=== PATIENT | female | born 1960 | race American Indian/Alaskan Native ===

== ENCOUNTER 2016-08-09 02:48 | Emergency (ER) | payer MEDICAID, OTHER ==
[2016-08-09 03:01] VITALS: BP 118/60
--- NOTE | 2016-08-09 03:06 | EDM.PDOC ---
ED HPI Trauma - General Chief Complaint: Upper Extremity Injury/Pain Stated Complaint: SHOULDER IS PAINFUL, [id number] Time Seen by Provider: 08/09/16 03:06 Source: Reports: Patient History Limitations: Reports: No limitations - History of Present Illness INITIAL COMMENTS - FREE TEXT/NARRATIVE: 55 yo [place] Female c/o muscle cramp to upper back early this AM. Pt. denies trauma. Pt. does take Lisinopril Symptom Onset Date: 08/09/16 Symptom Onset Time: 01:00 Occurred When: this morning Occurred Where: home Severity: moderate Pain/Injury Location: Reports: back Consciousness: Reports: no loss of consciousness Associated Symptoms: Reports: no other symptoms Allergies/ADRs: Allergies No Known Allergies Allergy (Verified 08/09/16 02:58) Home Medications: Ambulatory Orders Aspirin [Halfprin] 81 mg PO DAILY 03/12/14 [Confirmed 08/09/16] Lisinopril 10 mg PO BID 03/12/14 [Confirmed 08/09/16] NIFEdipine [Nifedical XL] 30 mg PO DAILY 03/12/14 [Confirmed 08/09/16] Docusate Sodium/Sennosides [Senna Plus] 1 tab PO BID 08/09/16 [Confirmed ] Levothyroxine [Synthroid] 50 mcg PO ACBREAKFAST 08/09/16 [Confirmed 08/09/16] Social & Family History - Tobacco Use Smoking Status *Q: Never Smoker Years of Tobacco use: 30 Second Hand Smoke Exposure: No - Caffeine Use Caffeine Use: Reports: Coffee - Alcohol Use Days Per Week of Alcohol Use: 1 Number of Drinks Per Day: 2 Total Drinks Per Week: 2 - Recreational Drug Use Recreational Drug Use: No - Living Situation & Occupation Living situation: Reports: with family Review of Systems - Review of Systems Review Of Systems: See Below Constitutional: Reports: no symptoms Eyes: Reports: no symptoms Ears: Reports: no symptoms Nose: Reports: no symptoms Mouth/Throat: Reports: no symptoms Respiratory: Reports: No Symptoms Cardiovascular: Reports: no symptoms GI/Abdominal: Reports: No symptoms Genitourinary: Reports: no symptoms Musculoskeletal: Reports: back pain (upper back on left), muscle pain Skin: Reports: no symptoms Neurological: Reports: No Symptoms Psychiatric: Reports: no symptoms Trauma Exam - Physical Exam Exam: See Below Exam Limited By: No limitations General Appearance: Reports: alert, no apparent distress, obese Head: Reports: atraumatic Eyes: bilateral eye: EOMI Ears: Reports: normal external exam Nose: Reports: normal inspection Throat/Mouth: Reports: Normal inspection Neck: Reports: non-tender, full range of motion Respiratory Exam: Reports: no respiratory distress, lungs clear, normal breath sounds Cardiovascular: Reports: normal peripheral pulses, regular rate, rhythm GI/Abdominal: Reports: normal bowel sounds, soft Back: Reports: other (tenderness to left scapula muscle area) Extremities: Reports: no evidence of injury, normal range of motion 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, no motor/sensory deficits, alert , normal mood/affect, oriented x 3 Skin: Reports: Normal color, Warm/dry Course - Vital Signs Last Recorded V/S: Last Vital Signs Temp 35.7 C 08/09/16 02:58 Pulse 85 08/09/16 02:58 Resp 16 08/09/16 02:58 BP 118/60 08/09/16 02:58 Pulse Ox 98 08/09/16 02:58 - Orders/Labs/Meds Meds: Medications Discontinued Medications Generic Name Dose Route Start Last Admin Trade Name Yasmin PRN Reason Stop Dose Admin Gabapentin 400 mg 08/09/16 03:07 08/09/16 03:23 Neurontin PO 08/09/16 03:08 400 mg ONETIME ONE Administration Magnesium Oxide 250 mg 08/09/16 03:08 08/09/16 03:23 Magnesium Oxide PO 08/09/16 03:09 250 mg STAT ONE Administration Departure - Departure Time of Disposition: 03:41 Disposition: Home, Self-Care 01 Condition: good Clinical Impression: Muscle cramp Forms: ED Department Discharge Additional Instructions: Increase intake of WATER - [place] is to drink 1/2 your body weight in ounces , = 150 ounces/day Take Daily Multivitamin Take Daily Magnesium 250mg Take the Neurontin 300mg TID # 15 as needed F/U w/ your Doctor
[2016-08-09] MEDS ORDERED: Gabapentin 400 MG Cap PO ONE (03:07)
== END 2016-08-09 03:49 | disposition home or self-care (01) ==
LOC: DL.ED 02:48
DX: R25.2 Cramp and spasm (principal); M62.830 Muscle spasm of back; Z79.899 Other long term (current) drug therapy
CPT/HCPCS: 99283; A9270

== ENCOUNTER 2016-12-06 09:05 | Emergency (ER) | payer MEDICAID ==
[2016-12-06] MEDS ORDERED: Sodium Chloride 0.9% 10 ML Syringe FLUSH PRN (09:31)
[2016-12-06] MEDS ORDERED: methylPREDNISolone Sodium Succinate 125 MG/2 ML SDV IVPUSH ONE (09:32)
[2016-12-06] MEDS ORDERED: Albuterol/Ipratropium 3.0-0.5 MG/3 ML Neb Soln NEB ONE ×2 (09:32→10:09)
[2016-12-06] MEDS ORDERED: Codeine/Promethazine 10-6.25 MG/5 ML Syrup 5 ML UD Cup PO ONE (09:33)
[2016-12-06 10:06] LABS: CHLORIDE,CL 101 mmol/L (101-111); SODIUM,NA 140 mmol/L (135-145)
[2016-12-06] MEDS ORDERED: LORazepam 2 MG/ML Syringe IVPUSH ONE (10:09)
--- NOTE | 2016-12-06 10:38 | EDM.PDOC ---
Scribed by Coni Rizvi 12/06/16 1033 for Nicko Salvador MD ED HPI GENERAL MEDICAL PROBLEM - General Chief Complaint: Respiratory Problem Stated Complaint: [id number] SOB Time Seen by Provider: 12/06/16 09:11 Source of Information: Reports: Patient, RN, RN Notes Reviewed History Limitations: Reports: No Limitations - History of Present Illness INITIAL COMMENTS - FREE TEXT/NARRATIVE: Patient complains of several days of worsening cough. This morning patient woke with wheezing. She has a nebulizer at home but has only used it 3 times since she began coughing. Quality: Reports: Ache Severity: Severe Improves with: Reports: None Worsens with: Reports: None Associated Symptoms: Reports: No Other Symptoms - Related Data Allergies Allergy/AdvReac Type Severity Reaction Status Date / Time No Known Allergies Allergy Verified 12/06/16 09:12 Home Meds: Home Meds Aspirin [Halfprin] 81 mg PO DAILY 03/12/14 [History] Lisinopril 10 mg PO BID 03/12/14 [History] NIFEdipine [Nifedical XL] 30 mg PO DAILY 03/12/14 [History] Docusate Sodium/Sennosides [Senna Plus] 1 tab PO BID 08/09/16 [History] Levothyroxine [Synthroid] 50 mcg PO ACBREAKFAST 08/09/16 [History] Past Medical History HEENT History: Reports: None Cardiovascular History: Reports: Hypertension Respiratory History: Reports: None Gastrointestinal History: Reports: None Genitourinary History: Reports: None 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 Musculoskeletal History: Reports: Other (See Below) Other Musculoskeletal History: knee problems Neurological History: Reports: None Psychiatric History: Reports: None Endocrine/Metabolic History: Reports: None Hematologic History: Reports: None Immunologic History: Reports: None Oncologic (Cancer) History: Reports: None Dermatologic History: Reports: None Social & Family History - Tobacco Use Smoking Status *Q: Never Smoker Years of Tobacco use: 30 Second Hand Smoke Exposure: No - Caffeine Use Caffeine Use: Reports: Coffee - Alcohol Use Days Per Week of Alcohol Use: 1 Number of Drinks Per Day: 2 Total Drinks Per Week: 2 - Recreational Drug Use Recreational Drug Use: No - Living Situation & Occupation Living situation: Reports: with Family ED ROS GENERAL - Review of Systems Review Of Systems: ROS reveals no pertinent complaints other than HPI. ED EXAM, GENERAL - Physical Exam Exam: See Below Exam Limited By: No Limitations General Appearance: Alert, WD/WN, No Apparent Distress, Obese Eye Exam: Bilateral Eye: Normal Inspection Ears: Normal External Exam, Normal Canal, Hearing Grossly Normal, Normal TMs Nose: Normal Inspection, Normal Mucosa, No Blood Throat/Mouth: Normal Inspection, Normal Lips, Normal Teeth, Normal Gums, Normal Oropharynx, Normal Voice, No Airway Compromise Head: Atraumatic, Normocephalic Neck: Normal Inspection, Supple, Non-Tender, Full Range of Motion Respiratory/Chest: Other (Cough, bilateral inspiratory/expiratory wheezes. ) Cardiovascular: Normal Peripheral Pulses, Regular Rate, Rhythm, No Edema, No Gallop, No JVD, No Murmur, No Rub GI/Abdominal: Other (benign obese abdomen) (Female) Exam: Deferred Rectal (Female) Exam: Deferred Back Exam: Normal Inspection, Full Range of Motion, NT Extremities: Normal Inspection, Normal Range of Motion, Non-Tender, Normal Capillary Refill, No Pedal Edema Neurological: Alert, Oriented, CN II-XII Intact, Normal Cognition, Normal Gait, Normal Reflexes, No Motor/Sensory Deficits Psychiatric: Anxious Skin Exam: Warm, Dry, Intact, Normal Color, No Rash Lymphatic: No Adenopathy Course - Vital Signs Last Recorded V/S: Last Vital Signs Temp 36.6 C 12/06/16 09:12 Pulse 93 12/06/16 10:24 Resp 28 H 12/06/16 10:24 BP 111/78 12/06/16 10:24 Pulse Ox 100 12/06/16 10:24 - Orders/Labs/Meds Orders: Active Orders 24 hr Category Date Time Status Peripheral IV Care [RC] . DIRECTED Care 12/06/16 09:31 Active RT Aerosol Therapy [RC] ASDIRECTED Care 12/06/16 09:32 Active RT Aerosol Therapy [RC] ASDIRECTED Care 12/06/16 10:09 Active Chest 2V [CR] Stat Exams 12/06/16 09:31 Taken Sodium Chloride 0.9% [Saline Flush] Med 12/06/16 09:31 Active 10 ml FLUSH ASDIRECTED PRN Peripheral IV Insertion Adult [OM.PC] Stat Oth 12/06/16 09:31 Ordered Medication Orders Sodium Chloride (Saline Flush) 10 ml FLUSH ASDIRECTED PRN PRN Reason: Keep Vein Open Last Admin: 12/06/16 09:38 Dose: 10 ml Labs: Laboratory Tests 12/06/16 12/06/16 Range/Units 09:42 09:42 WBC 5.0 (5.0-10.0) 10^3/uL RBC 3.54 L (4.2-5.4) 10^6/uL Hgb 12.1 (12.0-16.0) g/dL Hct 36.6 L (37.0-47.0) % MCV 103.4 H (80-100) fL MCH 34.2 H (27.0-34.0) pg MCHC 33.1 (33.0-35.0) g/dL Plt Count 53 L (150-450) 10^3/uL Neut % (Auto) 70.8 (42.2-75.2) % Lymph % (Auto) 18.8 L (20.5-50.1) % [place] % (Auto) 8.0 (2-8) % Eos % (Auto) 2.2 (1.0-3.0) % Baso % (Auto) 0.2 (0.0-1.0) % Sodium 140 (135-145) mmol/L Potassium 3.6 (3.6-5.0) mmol/L Chloride 101 (101-111) mmol/L Carbon Dioxide 16.0 L (21.0-31.0) mmol/L Anion Gap 26.6 BUN 8 (7-18) mg/dL Creatinine 0.5 L (0.6-1.3) mg/dL Est Cr Clr Drug Dosing 129.75 mL/min Estimated GFR (MDRD) > 60 BUN/Creatinine Ratio 16.00 Glucose 111 H (74-105) mg/dL Calcium 8.6 (8.4-10.2) mg/dl Total Bilirubin 1.4 H (0.2-1.0) mg/dL AST 101 H (10-42) IU/L ALT 36 (10-60) IU/L Alkaline Phosphatase 146 H (42-121) IU/L Total Protein 7.3 (6.7-8.2) g/dl Albumin 3.5 (3.2-5.5) g/dl Globulin 3.8 Albumin/Globulin Ratio 0.92 Meds: Medications Generic Name Dose Route Start Last Admin Trade Name Yasmin PRN Reason Stop Dose Admin Sodium Chloride 10 ml 12/06/16 09:31 12/06/16 09:38 Saline Flush FLUSH 10 ml ASDIRECTED PRN Administration Keep Vein Open Discontinued Medications Generic Name Dose Route Start Last Admin Trade Name Yasmin PRN Reason Stop Dose Admin Albuterol/Ipratropium 3 ml 12/06/16 09:32 12/06/16 09:38 Duoneb 3.0-0.5 Mg/3 Ml NEB 12/06/16 09:33 3 ml ONETIME ONE Administration Albuterol/Ipratropium 3 ml 12/06/16 10:09 12/06/16 10:22 Duoneb 3.0-0.5 Mg/3 Ml NEB 12/06/16 10:10 3 ml ONETIME ONE Administration Lorazepam 1 mg 12/06/16 10:09 12/06/16 10:22 Ativan IVPUSH 12/06/16 10:10 1 mg ONETIME ONE Administration Methylprednisolone Sodium Succinate 125 mg 12/06/16 09:32 12/06/16 09:38 Solu-Medrol IVPUSH 12/06/16 09:33 125 mg ONETIME ONE Administration Promethazine HCl/Codeine 10 ml 12/06/16 09:33 12/06/16 09:38 Phenergan With Codeine PO 12/06/16 09:34 10 ml ONETIME ONE Administration - Radiology Interpretation Free Text/Narrative:: Chest x-ray: No acute process. See rad report. Departure - Departure Time of Disposition: 10:30 Disposition: Home, Self-Care 01 Condition: Good Clinical Impression: Acute bronchitis, Bronchospasm, RAD (reactive airway disease), Anxiety - Discharge Information Instructions: Acute Bronchitis, Ktfr-[id number], Bronchospasm, Adult, Oudq-[id number] , Panic Attacks, Khla-[id number] Forms: ED Department Discharge Additional Instructions: RX: Prednisone 20mg. RX: Albuterol nebulizer solution. RX: Tessalon Perles 200mg. RX: Ativan 1mg. Follow up in clinic in 3 to 5 days for recheck. Return to ER if worse at any time. I have read and agree with the documentation that has been completed regarding this visit. By signing this record, I attest that the documentation was completed in my physical presence and is an accurate record of the encounter.
[2016-12-06 10:47] VITALS: BP 115/58
== END 2016-12-06 10:50 | disposition home or self-care (01) ==
LOC: DL.ED 09:05
DX: J20.9 Acute bronchitis, unspecified (principal); F41.9 Anxiety disorder, unspecified; I10 Essential (primary) hypertension; Z79.82 Long term (current) use of aspirin; Z79.899 Other long term (current) drug therapy
CPT/HCPCS: 36415; 71020; 80053; 85025; 94640; 96374; 96375; 99285; A9270; J2060; J2930; J7050

== ENCOUNTER 2018-01-11 07:01 | Day surgery (SDC) | payer MEDICAID ==
[~2018-01-11 07:01] MED LIST: Midazolam 1 MG/ML 2 ML SDV ONE; fentaNYL 100 MCG/2 ML SDV ONE
[2018-01-11] MEDS ORDERED: fentaNYL 100 MCG/2 ML SDV IV ONE (07:02)
[2018-01-11] MEDS ORDERED: Midazolam 1 MG/ML 2 ML SDV IV ONE (07:02)
[2018-01-11] MEDS: Dextrose 5%-0.45% NaCl 1,000 ML IV SCH (07:42)
[2018-01-11] MEDS: fentaNYL 100 MCG/2 ML SDV IV ONE ×2 (07:52)
[2018-01-11] MEDS: Midazolam 1 MG/ML 2 ML SDV IV ONE ×6 (07:53→08:03)
[2018-01-11] MEDS: Sodium Chloride 0.9% 1,000 ML IV SCH (08:02)
--- NOTE | 2018-01-11 08:36 | OR ---
DATE: 01/11/2018 PROCEDURE: Total colonoscopy. INSTRUMENT USED: PCF-H180 AL Olympus video colonoscope. PREMEDICATIONS: Fentanyl 100 mcg intravenous, Versed 4 mg intravenous. Nasal O2 cannula. The procedure was done under pulse oximetry, BP recording, and personnel monitor. INDICATION: The patient with positive FIT. Colonoscopic examination is done for detection of any polypoid lesions and removal. Endoscopic hemostasis therapy if needed. DESCRIPTION OF PROCEDURE: Initial rectal exam was unremarkable. Rigid anoscopy was normal. The colonoscope was passed with ease up to the ileocecal area. Photographs were taken of the cecum identified by double-bulged ileocecal folds. No bleeding was noted from any of the visualized areas at the commencement of the examination. There was a large amount of liquid and some solid fecal material that had to be aspirated. No stricture. No vascular ectasia. No large isolated ulcerations seen. No evidence of diffuse inflammatory bowel disease in the form of friability, contact bleeding, or ulcerations. No polyp or tumor mass identified. Probing the proximal sides of folds and flexures, using adequate distention and clearing up the stool material, withdrawal of the scope was made. Pimui-od-mzmoga time over 6 minutes. No bleeding was noted from any of the visualized areas at the completion of examination. IMPRESSION: Normal study. The patient tolerated the procedure well. [facility] /[id number]
[2018-01-11 11:02] VITALS: BP 113/47
== END 2018-01-11 10:15 | disposition home or self-care (01) ==
LOC: DL.ENDO 07:01
PROVIDERS: ATTEND Internal Medicine Gastroenterology
DX: R19.5 Other fecal abnormalities (principal); D64.9 Anemia, unspecified; E03.9 Hypothyroidism, unspecified; D69.6 Thrombocytopenia, unspecified; K76.9 Liver disease, unspecified; E66.09 Other obesity due to excess calories; Z68.41 Body mass index [BMI] 40.0-44.9, adult
CPT/HCPCS: J2250; J3010; J7030; J7042

== ENCOUNTER 2018-01-26 03:34 | Emergency (ER) | payer MEDICAID ==
[2018-01-26 03:54] VITALS: BP 112/51
[2018-01-26] MEDS ORDERED: Sodium Chloride 0.9% 1,000 ML IV ONE (03:58)
[2018-01-26 05:19] LABS: ANION GAP 10.3
--- NOTE | 2018-01-26 06:11 | EDM.PDOC ---
ED HPI GENERAL MEDICAL PROBLEM - General Chief Complaint: General Stated Complaint: SICK [id number] Time Seen by Provider: 01/26/18 03:45 Source of Information: Reports: Patient, Family History Limitations: Reports: No Limitations - History of Present Illness INITIAL COMMENTS - FREE TEXT/NARRATIVE: ED with vague c/o of not feeling well, Does not readily identify specific symptom that brought her to ED. Relays hx of "not feeling well and subsequently had EGD, CT abdomen and colonoscopy. Is scheduled for MRI at 815 this am. Stated she did not feel she could wait that long to find out what is wrong. Stated she has had intermittent periods of abdominal discomfort and washed out feeling, dizzy when stands for long periods for approximately 10 weeks. Patient eventually able to identify that it was waking and feeling lightheaded that she came to ED tonight. Review of Chart from colonoscopy no acute findings, CT abdomen demonstrated abnormal gallbladder, diverticuli without diverticulitis. - Related Data Allergies Allergy/AdvReac Type Severity Reaction Status Date / Time No Known Allergies Allergy Verified 12/06/16 09:12 Home Meds: Home Meds Aspirin [Halfprin] 81 mg PO DAILY 03/12/14 [History] Lisinopril 10 mg PO BID 03/12/14 [History] NIFEdipine [Nifedical XL] 30 mg PO DAILY 03/12/14 [History] Levothyroxine [Synthroid] 50 mcg PO ACBREAKFAST 08/09/16 [History] Levothyroxine 12.5 mg PO DAILY 01/10/18 [History] Vit No.129/Iron/FA [ One Daily Tablet] 1 tab PO DAILY 01/10/18 [History] Omeprazole 20 mg PO DAILY 01/11/18 [History] Past Medical History HEENT History: Reports: None Cardiovascular History: Reports: Hypertension Respiratory History: Reports: None Gastrointestinal History: Reports: GERD, Other (See Below) Other Gastrointestinal History: chronic liver disease Genitourinary History: Reports: Other (See Below) Other Genitourinary History: bladder issues 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 Musculoskeletal History: Reports: Other (See Below) Other Musculoskeletal History: knee problems Neurological History: Reports: None Psychiatric History: Reports: Panic Attack Endocrine/Metabolic History: Reports: None Hematologic History: Reports: Other (See Below) Other Hematologic History: thrombocytopenia Immunologic History: Reports: None Oncologic (Cancer) History: Reports: None Dermatologic History: Reports: None - Infectious Disease History Infectious Disease History: Reports: None - Past Surgical History Head Surgeries/Procedures: Reports: None Cardiovascular Surgical History: Reports: None Respiratory Surgical History: Reports: None GI Surgical History: Reports: None Female Surgical History: Reports: Section Neurological Surgical History: Reports: None Social & Family History - Family History Family Medical History: Noncontributory - Tobacco Use Smoking Status *Q: Never Smoker - Caffeine Use Caffeine Use: Reports: None - Recreational Drug Use Recreational Drug Use: No - Living Situation & Occupation Living situation: Reports: with Family ED ROS GENERAL - Review of Systems Review Of Systems: ROS reveals no pertinent complaints other than HPI. ED EXAM, GENERAL - Physical Exam Exam: See Below Exam Limited By: No Limitations General Appearance: Alert, Anxious, Mild Distress, Obese Eye Exam: Bilateral Eye: EOMI, PERRL Ears: Normal External Exam, Normal TMs Nose: Normal Inspection Throat/Mouth: Normal Inspection Head: Atraumatic, Normocephalic Neck: Normal Inspection, Non-Tender, Full Range of Motion. No: Lymphadenopathy (L), Lymphadenopathy (R) Respiratory/Chest: No Respiratory Distress, Lungs Clear, Normal Breath Sounds Cardiovascular: Normal Peripheral Pulses, Regular Rate, Rhythm GI/Abdominal: Normal Bowel Sounds, Soft, Tender (mild RUQ) Back Exam: Normal Inspection, Full Range of Motion. No: CVA Tenderness (L), CVA Tenderness (R) Neurological: Alert, Oriented Psychiatric: Anxious Skin Exam: Warm, Dry, Intact, Normal Color Course - Vital Signs Last Recorded V/S: Last Vital Signs Temp 97.9 F 01/26/18 03:43 Pulse 103 H 01/26/18 03:43 Resp 22 H 01/26/18 03:43 BP 112/51 L 01/26/18 03:43 Pulse Ox 100 01/26/18 03:43 Orthostatic Blood Pressure [ 119/55 Standing] Orthostatic Blood Pressure [ 110/54 Sitting] Orthostatic Blood Pressure [ 105/35 Supine] - Orders/Labs/Meds Orders: Active Orders 24 hr Category Date Time Status EKG Documentation Completion [RC] URGENT Care 01/26/18 04:10 Active CULTURE BLOOD [BC] Stat Lab 01/26/18 04:10 Received Labs: Laboratory Tests 09/26/18 09/26/18 09/26/18 Range/Units 04:10 04:41 04:41 WBC 5.5 (5.0-10.0) 10^3/uL RBC 2.98 L (4.2-5.4) 10^6/uL Hgb 9.5 L D (12.0-16.0) g/dL Hct 28.5 L (37.0-47.0) % MCV 95.6 D (80-100) fL MCH 31.9 (27.0-34.0) pg MCHC 33.3 (33.0-35.0) g/dL Plt Count 81 L (150-450) 10^3/uL Neut % (Auto) 35.8 L (42.2-75.2) % Lymph % (Auto) 48.5 (20.5-50.1) % [place] % (Auto) 10.2 H (2-8) % Eos % (Auto) 5.1 H (1.0-3.0) % Baso % (Auto) 0.4 (0.0-1.0) % Sodium 140 (135-145) mmol/L Potassium 4.3 (3.6-5.0) mmol/L Chloride 111 (101-111) mmol/L Carbon Dioxide 23.0 (21.0-31.0) mmol/L Anion Gap 10.3 BUN 17 (7-18) mg/dL Creatinine 1.1 (0.6-1.3) mg/dL Est Cr Clr Drug Dosing 58.29 mL/min Estimated GFR (MDRD) 52 BUN/Creatinine Ratio 15.45 Glucose 123 H (74-105) mg/dL Lactic Acid 1.7 (0.5-2.2) mmol/L Calcium 9.2 (8.4-10.2) mg/dl Total Bilirubin 3.1 H (0.2-1.0) mg/dL AST 47 H (10-42) IU/L ALT 28 (10-60) IU/L Alkaline Phosphatase 131 H (42-121) IU/L Troponin I (0.00-0.02) ng/ml Total Protein 6.8 (6.7-8.2) g/dl Albumin 3.0 L (3.2-5.5) g/dl Globulin 3.8 Albumin/Globulin Ratio 0.79 Amylase 162 H (28-100) U/L Lipase 50 (22-51) U/L TSH, Ultra Sensitive (0.45-5.33) uIu/mL 01/26/18 01/26/18 Range/Units 04:41 04:41 WBC (5.0-10.0) 10^3/uL RBC (4.2-5.4) 10^6/uL Hgb (12.0-16.0) g/dL Hct (37.0-47.0) % MCV (80-100) fL MCH (27.0-34.0) pg MCHC (33.0-35.0) g/dL Plt Count (150-450) 10^3/uL Neut % (Auto) (42.2-75.2) % Lymph % (Auto) (20.5-50.1) % [place] % (Auto) (2-8) % Eos % (Auto) (1.0-3.0) % Baso % (Auto) (0.0-1.0) % Sodium (135-145) mmol/L Potassium (3.6-5.0) mmol/L Chloride (101-111) mmol/L Carbon Dioxide (21.0-31.0) mmol/L Anion Gap BUN (7-18) mg/dL Creatinine (0.6-1.3) mg/dL Est Cr Clr Drug Dosing mL/min Estimated GFR (MDRD) BUN/Creatinine Ratio Glucose (74-105) mg/dL Lactic Acid (0.5-2.2) mmol/L Calcium (8.4-10.2) mg/dl Total Bilirubin (0.2-1.0) mg/dL AST (10-42) IU/L ALT (10-60) IU/L Alkaline Phosphatase (42-121) IU/L Troponin I < 0.02 (0.00-0.02) ng/ml Total Protein (6.7-8.2) g/dl Albumin (3.2-5.5) g/dl Globulin Albumin/Globulin Ratio Amylase (28-100) U/L Lipase (22-51) U/L TSH, Ultra Sensitive 2.37 (0.45-5.33) uIu/mL Meds: Medications Discontinued Medications Generic Name Dose Route Start Last Admin Trade Name Freq PRN Reason Stop Dose Admin Sodium Chloride 1,000 mls @ 250 mls/hr 01/26/18 03:58 01/26/18 04:15 Normal Saline IV 01/26/18 07:57 250 mls/hr .BOLUS ONE Administration Departure - Departure Time of Disposition: 07:10 Disposition: Home, Self-Care 01 Condition: Fair Clinical Impression: Anxiety, Malaise, History of gallbladder disease Anemia Qualifiers: Anemia type: unspecified type Qualified Code(s): D64.9 - Anemia, unspecified Obesity Qualifiers: Obesity type: unspecified obesity type Obesity classification: adult class 3 ( BMI >= 40) Serious obesity comorbidity presence: unspecified whether serious comorbidity present Body mass index: BMI 40.0-44.9 Qualified Code(s): E66.01 - Morbid (severe) obesity due to excess calories; Z68.41 - Body mass index (BMI) 40.0-44.9, adult - Discharge Information *PRESCRIPTION DRUG MONITORING PROGRAM REVIEWED*: Not Applicable (gallbladder) Instructions: Gallbladder Eating Plan Forms: ED Department Discharge Additional Instructions: MRI as scheduled Follow up with - My Orders Last 24 Hours: My Active Orders 01/26/18 04:10 EKG Documentation Completion [RC] URGENT CULTURE BLOOD [BC] Stat - Assessment/Plan Last 24 Hours: My Active Orders 01/26/18 04:10 EKG Documentation Completion [RC] URGENT CULTURE BLOOD [BC] Stat
== END 2018-01-26 07:31 | disposition home or self-care (01) ==
LOC: DL.ED 03:34
DX: R53.81 Other malaise (principal); F41.9 Anxiety disorder, unspecified; D64.9 Anemia, unspecified; I10 Essential (primary) hypertension; E66.01 Morbid (severe) obesity due to excess calories; Z68.41 Body mass index [BMI] 40.0-44.9, adult; Z79.82 Long term (current) use of aspirin; Z79.899 Other long term (current) drug therapy
CPT/HCPCS: 36415; 80053; 82150; 82272; 83605; 83690; 84443; 84484; 85025; 87040; 93005; 96360; 96361; 99284; J7030

== ENCOUNTER 2018-02-02 20:45 | Emergency (ER) | payer MEDICAID ==
--- NOTE | 2018-02-02 20:47 | EDM.PDOC ---
ED HPI GENERAL MEDICAL PROBLEM - General Stated Complaint: ABDOMINAL PAIN Time Seen by Provider: 02/02/18 20:47 Source of Information: Reports: Patient, Family, RN, RN Notes Reviewed - History of Present Illness INITIAL COMMENTS - FREE TEXT/NARRATIVE: Pt to ER with c/o RUQ pain through to the back. She and her states she has had problems with ongoing RUQ pain. She has recently had an EGD and colonoscopy, CT of the abdomen/pelvis, and MRI of the abdomen/pelvis. Today she had a liver biopsy. After the liver biopsy procedure, the patient had a CT of the abdomen without contrast to assess for bleeding. This CT was negative for bleeding, and showed only diseased gallbladder with developing gallstone/ biliary concretion. Patient is crying out in pain and rates the pain a 10/10. Patient states she feels as though "something is going to explode". Her states that she has been chilling today. Onset: Today, Sudden Right Upper Abdominal Pain Score (Numeric/FACES): 10 - Related Data Allergies Allergy/AdvReac Type Severity Reaction Status Date / Time No Known Allergies Allergy Verified 12/06/16 09:12 Home Meds: Home Meds Aspirin [Halfprin] 81 mg PO DAILY 03/12/14 [History] Lisinopril 10 mg PO BID 03/12/14 [History] NIFEdipine [Nifedical XL] 30 mg PO DAILY 03/12/14 [History] Levothyroxine [Synthroid] 50 mcg PO ACBREAKFAST 08/09/16 [History] Levothyroxine 12.5 mg PO DAILY 01/10/18 [History] Omeprazole 20 mg PO DAILY 01/11/18 [History] Albuterol Sulfate [Proventil Hfa] 2 puff INH ASDIRECTED PRN 02/02/18 [History] Meloxicam 15 mg PO DAILY 02/02/18 [History] Sennosides/Docusate Sodium [Senna-S] 1 tab PO DAILY 02/02/18 [History] hydrOXYzine HCl [hydrOXYzine] 25 mg PO TID PRN 02/02/18 [History] Past Medical History HEENT History: Reports: None Cardiovascular History: Reports: Hypertension Respiratory History: Reports: None Gastrointestinal History: Reports: GERD, Other (See Below) Other Gastrointestinal History: chronic liver disease Genitourinary History: Reports: Other (See Below) Other Genitourinary History: bladder issues 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 Musculoskeletal History: Reports: Other (See Below) Other Musculoskeletal History: knee problems Neurological History: Reports: None Psychiatric History: Reports: Panic Attack Endocrine/Metabolic History: Reports: None Hematologic History: Reports: Other (See Below) Other Hematologic History: thrombocytopenia Immunologic History: Reports: None Oncologic (Cancer) History: Reports: None Dermatologic History: Reports: None - Infectious Disease History Infectious Disease History: Reports: None - Past Surgical History Head Surgeries/Procedures: Reports: None Cardiovascular Surgical History: Reports: None Respiratory Surgical History: Reports: None GI Surgical History: Reports: None Female Surgical History: Reports: Section Neurological Surgical History: Reports: None Social & Family History - Family History Family Medical History: Noncontributory - Caffeine Use Caffeine Use: Reports: None - Living Situation & Occupation Living situation: Reports: with Family ED ROS GENERAL - Review of Systems Review Of Systems: ROS reveals no pertinent complaints other than HPI. ED EXAM, GI/ABD - Physical Exam Exam: See Below Exam Limited By: Other (severe abdominal pain) General Appearance: Alert, WD/WN, Moderate Distress Eyes: Bilateral: Normal Appearance, EOMI Ears: Normal External Exam, Hearing Grossly Normal Nose: Normal Inspection Throat/Mouth: Normal Inspection, Normal Voice, No Airway Compromise Head: Atraumatic, Normocephalic Neck: Normal Inspection, Supple, Non-Tender, Full Range of Motion Respiratory/Chest: No Respiratory Distress, Lungs Clear, Normal Breath Sounds, No Accessory Muscle Use, Chest Non-Tender Cardiovascular: Normal Peripheral Pulses, Regular Rate, Rhythm, No Edema, No Gallop, No JVD, No Murmur, No Rub GI/Abdominal Exam: Normal Bowel Sounds, Soft, Tender (Patient will not let the abdomen be touched for assessment) (Female) Exam: Deferred Rectal (Female) Exam: Deferred Back Exam: Normal Inspection, Full Range of Motion Extremities: Normal Inspection, Normal Range of Motion, Non-Tender, No Pedal Edema, Normal Capillary Refill Neurological: Alert, Oriented, Normal Cognition, No Motor/Sensory Deficits Psychiatric: Anxious, Tearful, Other (Crying out) Skin Exam: Warm, Dry, Intact, Normal Color, No Rash, Wound/Incision (Clean dressing covering the incisional site of biopsy. No drainage noted) Lymphatic: No Adenopathy Course - Vital Signs Last Recorded V/S: Last Vital Signs Temp 98.5 F 02/02/18 21:56 Pulse 99 02/02/18 21:56 Resp 20 02/02/18 21:56 BP 116/78 02/02/18 21:56 Pulse Ox 99 02/02/18 21:56 - Orders/Labs/Meds Orders: Active Orders 24 hr Category Date Time Status Peripheral IV Care [RC] . DIRECTED Care 02/02/18 20:59 Active Abdomen Pelvis w Cont [CT] Urgent Exams 02/02/18 22:35 Taken DRUG SCREEN URINE BIORAD [URCHEM] Stat Lab 02/02/18 20:58 Ordered UA W/MICROSCOPIC [URIN] Stat Lab 02/02/18 20:58 Ordered Sodium Chloride 0.9% [Saline Flush] Med 02/02/18 20:58 Active 10 ml FLUSH ASDIRECTED PRN Peripheral IV Insertion Adult [OM.PC] Stat Oth 02/02/18 20:58 Ordered Medication Orders Sodium Chloride (Saline Flush) 10 ml FLUSH ASDIRECTED PRN PRN Reason: Keep Vein Open Last Admin: 02/02/18 21:14 Dose: 10 ml Labs: Laboratory Tests 02/02/18 02/02/18 02/02/18 Range/Units 20:58 20:58 20:58 WBC 9.3 (5.0-10.0) 10^3/uL RBC 2.87 L (4.2-5.4) 10^6/uL Hgb 9.1 L (12.0-16.0) g/dL Hct 27.3 L (37.0-47.0) % MCV 95.1 (80-100) fL MCH 31.7 (27.0-34.0) pg MCHC 33.3 (33.0-35.0) g/dL Plt Count 70 L (150-450) 10^3/uL Neut % (Auto) 71.2 (42.2-75.2) % Lymph % (Auto) 19.7 L (20.5-50.1) % [place] % (Auto) 7.4 (2-8) % Eos % (Auto) 1.6 (1.0-3.0) % Baso % (Auto) 0.1 (0.0-1.0) % PT 13.0 H (9.0-12.0) SEC INR 1.3 H (0.9-1.2) Sodium 139 (135-145) mmol/L Potassium 4.0 (3.6-5.0) mmol/L Chloride 108 (101-111) mmol/L Carbon Dioxide 23.0 (21.0-31.0) mmol/L Anion Gap 12.0 BUN 19 H (7-18) mg/dL Creatinine 0.8 (0.6-1.3) mg/dL Est Cr Clr Drug Dosing 80.15 mL/min Estimated GFR (MDRD) > 60 BUN/Creatinine Ratio 23.75 Glucose 112 H (74-105) mg/dL Lactic Acid (0.5-2.2) mmol/L Calcium 9.0 (8.4-10.2) mg/dl Total Bilirubin 3.5 H (0.2-1.0) mg/dL AST 65 H (10-42) IU/L ALT 33 (10-60) IU/L Alkaline Phosphatase 157 H (42-121) IU/L Total Protein 6.8 (6.7-8.2) g/dl Albumin 3.0 L (3.2-5.5) g/dl Globulin 3.8 Albumin/Globulin Ratio 0.79 Amylase 140 H (28-100) U/L Lipase 57 H (22-51) U/L Ethyl Alcohol < 5 mg/dL 02/02/18 Range/Units 20:58 WBC (5.0-10.0) 10^3/uL RBC (4.2-5.4) 10^6/uL Hgb (12.0-16.0) g/dL Hct (37.0-47.0) % MCV (80-100) fL MCH (27.0-34.0) pg MCHC (33.0-35.0) g/dL Plt Count (150-450) 10^3/uL Neut % (Auto) (42.2-75.2) % Lymph % (Auto) (20.5-50.1) % [place] % (Auto) (2-8) % Eos % (Auto) (1.0-3.0) % Baso % (Auto) (0.0-1.0) % PT (9.0-12.0) SEC INR (0.9-1.2) Sodium (135-145) mmol/L Potassium (3.6-5.0) mmol/L Chloride (101-111) mmol/L Carbon Dioxide (21.0-31.0) mmol/L Anion Gap BUN (7-18) mg/dL Creatinine (0.6-1.3) mg/dL Est Cr Clr Drug Dosing mL/min Estimated GFR (MDRD) BUN/Creatinine Ratio Glucose (74-105) mg/dL Lactic Acid 1.7 (0.5-2.2) mmol/L Calcium (8.4-10.2) mg/dl Total Bilirubin (0.2-1.0) mg/dL AST (10-42) IU/L ALT (10-60) IU/L Alkaline Phosphatase (42-121) IU/L Total Protein (6.7-8.2) g/dl Albumin (3.2-5.5) g/dl Globulin Albumin/Globulin Ratio Amylase (28-100) U/L Lipase (22-51) U/L Ethyl Alcohol mg/dL Meds: Medications Generic Name Dose Route Start Last Admin Trade Name Freq PRN Reason Stop Dose Admin Sodium Chloride 10 ml 02/02/18 20:58 02/02/18 21:14 Saline Flush FLUSH 10 ml ASDIRECTED PRN Administration Keep Vein Open Discontinued Medications Generic Name Dose Route Start Last Admin Trade Name Freq PRN Reason Stop Dose Admin Hydromorphone HCl 0.5 mg 02/02/18 21:01 02/02/18 21:12 Dilaudid IVPUSH 02/02/18 21:02 0.5 mg ONETIME ONE Administration Iopamidol 100 ml 02/02/18 22:36 Isovue-300 (61%) IVPUSH 02/02/18 22:37 ONETIME ONE - Radiology Interpretation Free Text/Narrative:: CT Abdomen/Pelvis: IMPRESSION: 1. Gallbladder distention but no definite gallstones or pericholecystic inflammation 2. No evidence for any hepatic hematoma 3. Small amount of free fluid in the pelvis. 4. Sigmoid diverticulosis but no evidence for diverticulitis Thank you for allowing us to participate in the care of your patient. Dictated and Authenticated by: Ricki Lindsey MD 02/02/2018 11:42 PM Central Time ([place] & [place]) See rad report Departure - Departure Time of Disposition: 23:50 Disposition: Home, Self-Care 01 Condition: Fair Clinical Impression: Abdominal pain Qualifiers: Abdominal location: generalized Qualified Code(s): R10.84 - Generalized abdominal pain - Discharge Information *PRESCRIPTION DRUG MONITORING PROGRAM REVIEWED*: No *COPY OF PRESCRIPTION DRUG MONITORING REPORT IN PATIENT FIDELINA: No Instructions: Abdominal Pain, Adult, [id number] Referrals: Jesse Olivares MD [Primary Care Provider] - Forms: ED Department Discharge Additional Instructions: Follow up with your primary care facility - My Orders Last 24 Hours: My Active Orders 02/02/18 20:58 DRUG SCREEN URINE BIORAD [URCHEM] Stat UA W/MICROSCOPIC [URIN] Stat Sodium Chloride 0.9% [Saline Flush] 10 ml FLUSH ASDIRECTED PRN Peripheral IV Insertion Adult [OM.PC] Stat 02/02/18 20:59 Peripheral IV Care [RC] . DIRECTED 02/02/18 22:35 Abdomen Pelvis w Cont [CT] Urgent - Assessment/Plan Last 24 Hours: My Active Orders 02/02/18 20:58 DRUG SCREEN URINE BIORAD [URCHEM] Stat UA W/MICROSCOPIC [URIN] Stat Sodium Chloride 0.9% [Saline Flush] 10 ml FLUSH ASDIRECTED PRN Peripheral IV Insertion Adult [OM.PC] Stat 02/02/18 20:59 Peripheral IV Care [RC] . DIRECTED 02/02/18 22:35 Abdomen Pelvis w Cont [CT] Urgent
[2018-02-02] MEDS: HYDROmorphone 0.5 MG/0.5 ML Syringe IVPUSH ONE (21:12)
[2018-02-02] MEDS: Sodium Chloride 0.9% 10 ML Syringe FLUSH PRN (21:14)
[2018-02-02 21:22] LABS: CHLORIDE,CL 108 mmol/L (101-111); SODIUM,NA 139 mmol/L (135-145)
[2018-02-02 21:57] VITALS: BP 116/78
[2018-02-02] MEDS: Iopamidol 612 MG/ML 100 ML Bottle IVPUSH ONE (23:51)
== END 2018-02-02 23:56 | disposition home or self-care (01) ==
LOC: DL.ED 20:45
DX: R10.84 Generalized abdominal pain (principal); R10.11 Right upper quadrant pain; I10 Essential (primary) hypertension; Z79.899 Other long term (current) drug therapy; Z79.82 Long term (current) use of aspirin
CPT/HCPCS: 36415; 74177; 80053; 82150; 83605; 83690; 85025; 85610; 96374; 99284; G0480; J1170; J7050; Q9967

== ENCOUNTER 2018-07-28 13:08 | Emergency (ER) | payer MEDICAID ==
[2018-07-28 13:50] VITALS: BP 124/58
--- NOTE | 2018-07-28 15:09 | EDM.PDOC ---
<Mayuri Brewer - Last Filed: 07/28/18 15:09> ED HPI GENERAL MEDICAL PROBLEM - General Chief Complaint: Gastrointestinal Problem Stated Complaint: PAIN ON RT SIDE, BELOW RIB CAGE Time Seen by Provider: 07/28/18 15:09 Source of Information: Reports: Patient, Family, RN, RN Notes Reviewed History Limitations: Reports: No Limitations Right Abdomen Pain Score (Numeric/FACES): 9 - Related Data Allergies Allergy/AdvReac Type Severity Reaction Status Date / Time No Known Allergies Allergy Verified 07/28/18 13:58 Home Meds: Home Meds Aspirin [Halfprin] 81 mg PO DAILY 03/12/14 [History] NIFEdipine [Procardia XL] 30 mg PO DAILY 03/12/14 [History] Levothyroxine [Synthroid] 50 mcg PO DAILY 08/09/16 [History] Levothyroxine 12.5 mcg PO DAILY 01/10/18 [History] Omeprazole 20 mg PO BID 01/11/18 [History] Cholecalciferol (Vitamin D3) [Vitamin D3] 4,000 unit PO DAILY 04/09/18 [History] Mv-Min/Iron/Folic/Calcium/Vitk [Women's Multivitamin Tablet] 1 each PO DAILY 12/18 [History] Vitamin B Complex 1 each PO DAILY 04/09/18 [History] Lactulose [Cephulac] 20 gm PO QID #100 cup 04/12/18 [Rx] Spironolactone [Aldactone] 25 mg PO BID 07/28/18 [History] Past Medical History HEENT History: Reports: None Cardiovascular History: Reports: Hypertension Respiratory History: Reports: None Gastrointestinal History: Reports: Cirrhosis, GERD, Other (See Below) Other Gastrointestinal History: chronic liver disease Genitourinary History: Reports: Other (See Below) Other Genitourinary History: bladder issues 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 Musculoskeletal History: Reports: Other (See Below) Other Musculoskeletal History: knee problems Neurological History: Reports: None Psychiatric History: Reports: Panic Attack Endocrine/Metabolic History: Reports: Obesity/BMI 30+ Hematologic History: Reports: Other (See Below) Other Hematologic History: thrombocytopenia Immunologic History: Reports: None Oncologic (Cancer) History: Reports: None Dermatologic History: Reports: None - Infectious Disease History Infectious Disease History: Reports: None - Past Surgical History Head Surgeries/Procedures: Reports: None GI Surgical History: Reports: Colonoscopy, EGD, Other (See Below) Social & Family History - Family History Family Medical History: Noncontributory - Tobacco Use Smoking Status *Q: Never Smoker Second Hand Smoke Exposure: No - Caffeine Use Caffeine Use: Reports: None - Recreational Drug Use Recreational Drug Use: No - Living Situation & Occupation Living situation: Reports: with Family Course - Vital Signs Last Recorded V/S: Last Vital Signs Temp 35.9 C 07/28/18 13:49 Pulse 75 07/28/18 13:49 Resp 16 07/28/18 13:49 BP 124/58 L 07/28/18 13:49 Pulse Ox 100 07/28/18 13:49 - Orders/Labs/Meds Orders: Active Orders 24 hr Category Date Time Status Abdomen Pelvis w Cont [CT] Urgent Exams 07/28/18 16:30 Taken HCG QUALITATIVE,URINE [URCHEM] Stat Lab 07/28/18 15:38 Ordered UA RFX MALINDA AND CULT IF INDIC [URIN] Stat Lab 07/28/18 15:38 Ordered Acetaminophen/HYDROcodone [[place] 325-10 MG] Med 07/28/18 18:21 Once 1 tab PO ONETIME ONE Medication Orders Hydrocodone Bitart/Acetaminophen ([place] 325-10 Mg) 1 tab PO ONETIME ONE Stop: 07/28/18 18:22 Labs: Laboratory Tests 07/28/18 07/28/18 Range/Units 15:46 15:46 WBC 4.7 L (5.0-10.0) 10^3/uL RBC 3.97 L (4.2-5.4) 10^6/uL Hgb 12.3 D (12.0-16.0) g/dL Hct 35.8 L (37.0-47.0) % MCV 90.2 D (80-100) fL MCH 31.0 (27.0-34.0) pg MCHC 34.4 (33.0-35.0) g/dL Plt Count 92 L (150-450) 10^3/uL Neut % (Auto) 49.3 (42.2-75.2) % Lymph % (Auto) 36.8 (20.5-50.1) % [place] % (Auto) 10.1 H (2-8) % Eos % (Auto) 3.6 H (1.0-3.0) % Baso % (Auto) 0.2 (0.0-1.0) % Sodium 136 (135-145) mmol/L Potassium 3.8 (3.6-5.0) mmol/L Chloride 105 (101-111) mmol/L Carbon Dioxide 22.0 (21.0-31.0) mmol/L Anion Gap 12.8 BUN 15 (7-18) mg/dL Creatinine 0.7 (0.6-1.3) mg/dL Est Cr Clr Drug Dosing 91.60 mL/min Estimated GFR (MDRD) > 60 BUN/Creatinine Ratio 21.42 Glucose 113 H (74-105) mg/dL Calcium 9.4 (8.4-10.2) mg/dl Total Bilirubin 3.3 H (0.2-1.0) mg/dL AST 54 H (10-42) IU/L ALT 31 (10-60) IU/L Alkaline Phosphatase 132 H (42-121) IU/L Total Protein 7.5 (6.7-8.2) g/dl Albumin 3.2 (3.2-5.5) g/dl Globulin 4.3 Albumin/Globulin Ratio 0.74 Amylase 160 H (28-100) U/L Lipase 60 H (22-51) U/L Meds: Medications Generic Name Dose Route Start Last Admin Trade Name Freq PRN Reason Stop Dose Admin Hydrocodone Bitart/Acetaminophen 1 tab 07/28/18 18:21 [place] 325-10 Mg PO 07/28/18 18:22 ONETIME ONE Discontinued Medications Generic Name Dose Route Start Last Admin Trade Name Freq PRN Reason Stop Dose Admin Iopamidol 100 ml 07/28/18 16:30 07/28/18 16:34 Isovue-300 (61%) IVPUSH 07/28/18 16:31 100 ml ONETIME ONE Administration Departure - Departure Disposition: Home, Self-Care 01 Clinical Impression: Esophageal 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 Abdominal pain Qualifiers: Abdominal location: epigastric Qualified Code(s): R10.13 - Epigastric pain Pancreatitis Qualifiers: Chronicity: acute Pancreatitis type: biliary Acute pancreatitis complication: unspecified Qualified Code(s): K85.10 - Biliary acute pancreatitis without necrosis or infection - Discharge Information Instructions: Acute Pancreatitis, [id number] Forms: ED Department Discharge Additional Instructions: 1) no solid foods next 48 hours 2) have jello, broth, juice 3) follow up at clinic 4) recheck if there is any change or concern rx given; vicodin 5/325mg tid prn x 12 - My Orders Last 24 Hours: My Active Orders 07/28/18 15:38 HCG QUALITATIVE,URINE [URCHEM] Stat UA RFX MALINDA AND CULT IF INDIC [URIN] Stat 07/28/18 16:30 Abdomen Pelvis w Cont [CT] Urgent 07/28/18 18:21 Acetaminophen/HYDROcodone [[place] 325-10 MG] 1 tab PO ONETIME ONE - Assessment/Plan Last 24 Hours: My Active Orders 07/28/18 15:38 HCG QUALITATIVE,URINE [URCHEM] Stat UA RFX MALINDA AND CULT IF INDIC [URIN] Stat 07/28/18 16:30 Abdomen Pelvis w Cont [CT] Urgent 07/28/18 18:21 Acetaminophen/HYDROcodone [[place] 325-10 MG] 1 tab PO ONETIME ONE <Orestes Kiser - Last Filed: 07/28/18 18:24> ED HPI GENERAL MEDICAL PROBLEM - General Source of Information: Reports: Patient - History of Present Illness INITIAL COMMENTS - FREE TEXT/NARRATIVE: onset Sx last night and all day today. only had an apple today, pain on-off, denies N/V/D, had this before and had negative scope by Dr Isaac MENDEZ GENERAL - Review of Systems Review Of Systems: ROS reveals no pertinent complaints other than HPI. ED EXAM, GI/ABD - Physical Exam Exam: See Below Exam Limited By: No Limitations General Appearance: Alert, WD/WN, Mild Distress, Other (disocmfort) Ears: Hearing Grossly Normal Throat/Mouth: Normal Voice, No Airway Compromise Head: Atraumatic Neck: Non-Tender, Full Range of Motion Respiratory/Chest: No Respiratory Distress Cardiovascular: Regular Rate, Rhythm GI/Abdominal Exam: Soft, Tender, Other (RUQ region). No: Distended, Guarding, Rigid, Rebound Neurological: Alert, Oriented, Normal Cognition, Normal Gait, No Motor/Sensory Deficits Psychiatric: Flat Affect Skin Exam: Warm, Dry, Normal Color Lymphatic: No Adenopathy Course - Orders/Labs/Meds Labs: Laboratory Tests 07/28/18 07/28/18 Range/Units 15:46 15:46 WBC 4.7 L (5.0-10.0) 10^3/uL RBC 3.97 L (4.2-5.4) 10^6/uL Hgb 12.3 D (12.0-16.0) g/dL Hct 35.8 L (37.0-47.0) % MCV 90.2 D (80-100) fL MCH 31.0 (27.0-34.0) pg MCHC 34.4 (33.0-35.0) g/dL Plt Count 92 L (150-450) 10^3/uL Neut % (Auto) 49.3 (42.2-75.2) % Lymph % (Auto) 36.8 (20.5-50.1) % [place] % (Auto) 10.1 H (2-8) % Eos % (Auto) 3.6 H (1.0-3.0) % Baso % (Auto) 0.2 (0.0-1.0) % Sodium 136 (135-145) mmol/L Potassium 3.8 (3.6-5.0) mmol/L Chloride 105 (101-111) mmol/L Carbon Dioxide 22.0 (21.0-31.0) mmol/L Anion Gap 12.8 BUN 15 (7-18) mg/dL Creatinine 0.7 (0.6-1.3) mg/dL Est Cr Clr Drug Dosing 91.60 mL/min Estimated GFR (MDRD) > 60 BUN/Creatinine Ratio 21.42 Glucose 113 H (74-105) mg/dL Calcium 9.4 (8.4-10.2) mg/dl Total Bilirubin 3.3 H (0.2-1.0) mg/dL AST 54 H (10-42) IU/L ALT 31 (10-60) IU/L Alkaline Phosphatase 132 H (42-121) IU/L Total Protein 7.5 (6.7-8.2) g/dl Albumin 3.2 (3.2-5.5) g/dl Globulin 4.3 Albumin/Globulin Ratio 0.74 Amylase 160 H (28-100) U/L Lipase 60 H (22-51) U/L Meds: Medications Generic Name Dose Route Start Last Admin Trade Name Freq PRN Reason Stop Dose Admin Hydrocodone Bitart/Acetaminophen 1 tab 07/28/18 18:21 [place] 325-10 Mg PO 07/28/18 18:22 ONETIME ONE Discontinued Medications Generic Name Dose Route Start Last Admin Trade Name Yasmin PRN Reason Stop Dose Admin Iopamidol 100 ml 07/28/18 16:30 07/28/18 16:34 Isovue-300 (61%) IVPUSH 07/28/18 16:31 100 ml ONETIME ONE Administration - Re-Assessments/Exams Free Text/Narrative Re-Assessment/Exam: 07/28/18 18:21 results discussed with pt who is feeling somewhat better now, states no longer drink. Departure - Departure Time of Disposition: 18:22 Condition: Fair
[2018-07-28 16:18] LABS: ANION GAP 12.8; CHLORIDE,CL 105 mmol/L (101-111); SODIUM,NA 136 mmol/L (135-145)
[2018-07-28] MEDS ORDERED: Iopamidol 612 MG/ML 100 ML Bottle IVPUSH ONE (16:30)
[2018-07-28] MEDS ORDERED: Acetaminophen/HYDROcodone 325-10 MG Tab PO ONE (18:21)
== END 2018-07-28 18:38 | disposition home or self-care (01) ==
LOC: DL.ED 13:08
DX: K74.60 Unspecified cirrhosis of liver (principal); I85.10 Secondary esophageal varices without bleeding; K85.10 Biliary acute pancreatitis without necrosis or infection; I10 Essential (primary) hypertension; K21.9 Gastro-esophageal reflux disease without esophagitis; Z79.82 Long term (current) use of aspirin; Z79.899 Other long term (current) drug therapy
CPT/HCPCS: 36415; 74177; 80053; 81001; 81025; 82150; 83690; 85025; 99284; A9270; Q9967

== ENCOUNTER 2018-12-29 00:39 | Emergency (ER) | payer MEDICAID ==
[2018-12-29] MEDS ORDERED: Amoxicillin 500 MG Cap PO ONE (00:40)
[2018-12-29] MEDS ORDERED: Ibuprofen 600 MG Tab PO ONE (00:40)
[2018-12-29 01:08] VITALS: BP 119/73
--- NOTE | 2018-12-29 01:22 | EDM.PDOC ---
ED HPI GENERAL MEDICAL PROBLEM - General Chief Complaint: ENT Problem Stated Complaint: LEFT EAR, EAR ACHE AND INFECTED Time Seen by Provider: 12/29/18 01:10 Source of Information: Reports: Patient History Limitations: Reports: No Limitations - History of Present Illness INITIAL COMMENTS - FREE TEXT/NARRATIVE: Ambulatory to ED c/o left ear pain since yesterday, no fever. No nausea or vomiting. Advil one time at 11am. 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 Left Ear Pain Score (Numeric/FACES): 8 - Related Data Allergies Allergy/AdvReac Type Severity Reaction Status Date / Time No Known Allergies Allergy Verified 12/29/18 01:08 Home Meds: Home Meds Aspirin [Halfprin] 81 mg PO DAILY 03/12/14 [History] NIFEdipine [Procardia XL] 30 mg PO DAILY 03/12/14 [History] Levothyroxine [Synthroid] 50 mcg PO DAILY 08/09/16 [History] Levothyroxine 12.5 mcg PO DAILY 01/10/18 [History] Omeprazole 20 mg PO BID 01/11/18 [History] Cholecalciferol (Vitamin D3) [Vitamin D3] 4,000 unit PO DAILY 04/09/18 [History] Mv-Min/Iron/Folic/Calcium/Vitk [Women's Multivitamin Tablet] 1 each PO DAILY 12/18 [History] Vitamin B Complex 1 each PO DAILY 04/09/18 [History] Spironolactone [Aldactone] 25 mg PO BID 07/28/18 [History] Lactulose [Cephulac] 30 gm PO QID #100 cup 11/08/18 [Rx] Sennosides [Senna] 1 tab PO BEDTIME #30 tab 11/08/18 [Rx] Past Medical History HEENT History: Reports: None Cardiovascular History: Reports: Heart Murmur, Hypertension Respiratory History: Reports: None Gastrointestinal History: Reports: Cirrhosis, GERD, Hepatitis, Other (See Below) Other Gastrointestinal History: chronic liver disease Genitourinary History: Reports: Other (See Below) Other Genitourinary History: bladder issues 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 Musculoskeletal History: Reports: Other (See Below) Other Musculoskeletal History: knee problems Neurological History: Reports: None Psychiatric History: Reports: Panic Attack Endocrine/Metabolic History: Reports: Obesity/BMI 30+ Hematologic History: Reports: Other (See Below) Other Hematologic History: thrombocytopenia Immunologic History: Reports: None Oncologic (Cancer) History: Reports: None Dermatologic History: Reports: None - Infectious Disease History Infectious Disease History: Reports: None - Past Surgical History Head Surgeries/Procedures: Reports: None HEENT Surgical History: Reports: None Cardiovascular Surgical History: Reports: None Respiratory Surgical History: Reports: None GI Surgical History: Reports: Colonoscopy, EGD, Other (See Below) Social & Family History - Family History Family Medical History: Noncontributory - Tobacco Use Smoking Status *Q: Never Smoker Second Hand Smoke Exposure: No - Caffeine Use Caffeine Use: Reports: Coffee, Soda - Recreational Drug Use Recreational Drug Use: No - Living Situation & Occupation Living situation: Reports: with Family ED ROS ENT - Review of Systems Review Of Systems: ROS reveals no pertinent complaints other than HPI. ED EXAM, ENT - Physical Exam Exam: See Below Exam Limited By: No Limitations General Appearance: Alert, Anxious, Mild Distress Eye Exam: Bilateral Eye: EOMI Ears: Normal External Exam, Normal Canal, Hearing Grossly Normal, TM Erythema ( left), Other (mild effusion Left) Nose: Normal Inspection, Normal Mucousa Mouth/Throat: Normal Inspection, Normal Oropharynx Neck: Normal Inspection Respiratory/Chest: No Respiratory Distress, Lungs Clear, Normal Breath Sounds Cardiovascular: Normal Peripheral Pulses, Regular Rate, Rhythm Course - Vital Signs Last Recorded V/S: Last Vital Signs Temp 97.2 F 12/29/18 00:45 Pulse 80 12/29/18 00:45 Resp 7 L 12/29/18 00:45 BP 119/73 12/29/18 00:45 Pulse Ox 99 12/29/18 00:45 Departure - Departure Time of Disposition: 01:23 Disposition: Home, Self-Care 01 Condition: Good Clinical Impression: Otitis media Qualifiers: Otitis media type: suppurative Chronicity: acute Laterality: left Recurrence: non-recurrent Spontaneous tympanic membrane rupture: without spontaneous rupture Qualified Code(s): H66.002 - Acute suppurative otitis media without spontaneous rupture of ear drum, left ear - Discharge Information *PRESCRIPTION DRUG MONITORING PROGRAM REVIEWED*: No *COPY OF PRESCRIPTION DRUG MONITORING REPORT IN PATIENT FIDELINA: No Instructions: Otitis Media, Adult, [id number] Forms: ED Department Discharge Additional Instructions: Amoxicill 500mg one three times daily for 10 days alternate tylenol and ibuprofen every 4 hours as needed for discomfort Follow up in clinic Wednesday if symptoms worsen activity and diet as tolerated
[2018-12-29] MEDS ORDERED: Ibuprofen 600 MG Tab ONE (01:43)
[2018-12-29] MEDS ORDERED: Amoxicillin 500 MG Cap ONE (01:43)
== END 2018-12-29 01:53 | disposition home or self-care (01) ==
LOC: DL.ED 00:39
DX: H66.002 Acute suppurative otitis media without spontaneous rupture of ear drum, left ear (principal); K21.9 Gastro-esophageal reflux disease without esophagitis; I10 Essential (primary) hypertension; E66.9 Obesity, unspecified; Z79.82 Long term (current) use of aspirin; Z79.899 Other long term (current) drug therapy; Z68.30 Body mass index [BMI] 30.0-30.9, adult
CPT/HCPCS: 99282; A9270

== ENCOUNTER 2019-01-31 05:30 | Day surgery (SDC) | payer MEDICAID ==
[~2019-01-31 05:30] MED LIST changes: +Dextrose 5%-0.45% NaCl 1,000 ML IV ONE; -Midazolam 1 MG/ML 2 ML SDV ONE; -fentaNYL 100 MCG/2 ML SDV ONE
[2019-01-31] MEDS ORDERED: Midazolam 1 MG/ML 2 ML SDV IV ONE ×3 (05:31→06:28)
[2019-01-31] MEDS ORDERED: fentaNYL 100 MCG/2 ML SDV IV ONE ×3 (05:31→06:27)
[2019-01-31] MEDS ORDERED: fentaNYL 100 MCG/2 ML SDV ONE (06:21)
[2019-01-31] MEDS ORDERED: Midazolam 1 MG/ML 2 ML SDV ONE (06:21)
[2019-01-31 08:46] VITALS: BP 116/52; PULSE 71
--- NOTE | 2019-01-31 12:47 | OR ---
DATE: 01/31/2019 PROCEDURE PERFORMED: Esophagogastroduodenoscopy, NBI, and multiple pinch biopsies. INSTRUMENT USED: GIF-HQ190 Olympus video panendoscope. PREMEDICATIONS: No oral or topical anesthesia used. Fentanyl 100 mcg intravenous, Versed 2 mg intravenous. Nasal O2 cannula. The procedure was done under pulse oximetry, BP recording, and monitoring specialist. INDICATION: The patient with chronic liver disease and previous gastric antral erosions, on PPI, with persistent abdominal pain, unexplained. The esophagogastroduodenoscopy is performed for detection of any varices, any evidence of erosive lesions, endoscopic hemostasis therapy if needed. DESCRIPTION OF PROCEDURE: The scope was passed with ease. Adequate visualization of the esophagus was made from proximal to distal areas. No upper esophageal lesions identified. No distal esophageal stricture. No uphill or downhill esophageal varices. No Nissa-Matos tear. No evidence of erosive esophagitis by Schneider criteria. No esophageal polyp or tumor mass identified. Z-line was seen at around 39 cm distal to the oral verge, configuration consistent with grade 1 by ZAP classification. No proximal gastric varices noted. Gastric fundus examination by retroflexion showed no polypoid lesions. No gastric ulcer, malignant mass, or vascular ectasia identified. Multiple benign-appearing gastric antral polyps were noted. NBI views were obtained of the largest 1 cm sized polyp. Photographs were taken. Multiple pinch biopsies were obtained and sent to histopathology. Duodenal bulb showed no ulcer. Visualized second part of the duodenum was unremarkable. No bleeding was noted from any of the visualized areas at the completion of the examination. Photographs were taken of the duodenal bulb, gastric antrum, fundus, and distal esophagus. IMPRESSION: Gastric antral polyps. The patient tolerated the procedure well. [facility] /[id number]
--- NOTE | 2019-01-31 13:34 | LETTER ---
01/31/2019 Kacey Wasserman MD Hepatology Services [address] [address] RE: EMILIO HERRERA : [address] Wasserman: Ms. Emilio Herrera had esophagogastroduodenoscopy done this morning and she tolerated the procedure well. I herewith send a copy of the endoscopy note and photographs for your review. Thank you. Sincerely, [facility] /[id number]
== END 2019-01-31 08:38 | disposition home or self-care (01) ==
LOC: DL.ENDO 05:30
PROVIDERS: ATTEND Internal Medicine Gastroenterology
DX: K31.7 Polyp of stomach and duodenum (principal); K25.9 Gastric ulcer, unspecified as acute or chronic, without hemorrhage or perforation; K75.81 Nonalcoholic steatohepatitis (NASH); K74.60 Unspecified cirrhosis of liver; K76.9 Liver disease, unspecified; D64.89 Other specified anemias; D69.6 Thrombocytopenia, unspecified; E03.9 Hypothyroidism, unspecified; F79 Unspecified intellectual disabilities; E66.09 Other obesity due to excess calories; Z79.899 Other long term (current) drug therapy; Z68.36 Body mass index [BMI] 36.0-36.9, adult
CPT/HCPCS: 43239; J2250; J3010; J7042

== ENCOUNTER 2019-04-21 06:26 | Day surgery (SDC) | payer MEDICAID ==
[~2019-04-21 06:26] MED LIST changes: -Dextrose 5%-0.45% NaCl 1,000 ML IV ONE; +Dextrose 5%-0.45% NaCl 1,000 ML IV SCH; +Midazolam 1 MG/ML 2 ML SDV ONE; +Sodium Chloride 0.9% 10 ML Syringe FLUSH PRN; +fentaNYL 100 MCG/2 ML SDV ONE
[2019-04-21] MEDS ORDERED: fentaNYL 100 MCG/2 ML SDV IV ONE ×3 (06:27→08:13)
[2019-04-21] MEDS ORDERED: Midazolam 1 MG/ML 2 ML SDV IV ONE ×7 (06:27→08:23)
--- NOTE | 2019-04-21 09:11 | OR ---
DATE: 04/21/2019 PROCEDURE: Total colonoscopy. INSTRUMENT USED: PCF-H190DL Olympus video colonoscope. PREMEDICATIONS: Fentanyl 100 mcg intravenous, Versed 4 mg intravenous, nasal O2 cannula. The procedure was done under pulse oximetry, BP recording, and monitoring analyst. INDICATION: The patient with iron deficiency anemia. Colonoscopic examination is done for detection of any polypoid lesions and removal, endoscopic hemostasis therapy if needed. DESCRIPTION OF PROCEDURE: Initial rectal exam was unremarkable. Rigid anoscopy was normal. The colonoscope was passed with ease. Few scattered diverticula were noted in the distal left colon. The scope was passed up to the ileocecal area. Photographs were taken of the cecum, identified by double-bulged ileocecal folds. No bleeding was noted from any of the visualized areas at the commencement of the examination. The colon was found to be tortuous and redundant, exam a bit prolonged. The bowel preparation was found to be adequate, [place] scale 2 in all the regions. No stricture. No vascular ectasia. No large isolated ulcerations seen. No evidence of diffuse inflammatory bowel disease in the form of friability, contact bleeding, or ulcerations. No polyp or tumor mass identified. Probing the proximal sides of folds and flexures using adequate distention and clearing up the stool material, withdrawal of the scope was made, cecum to rectum time over 6 minutes. No bleeding was noted from any of the visualized areas at the completion of examination. IMPRESSION: Diverticulosis. The patient tolerated the procedure well. [facility] /[id number]
[2019-04-21 11:06] VITALS: BP 144/68; PULSE 60
== END 2019-04-21 10:38 | disposition home or self-care (01) ==
LOC: DL.ENDO 06:26
PROVIDERS: ATTEND Internal Medicine Gastroenterology
DX: D50.9 Iron deficiency anemia, unspecified (principal); K57.30 Diverticulosis of large intestine without perforation or abscess without bleeding; Q43.8 Other specified congenital malformations of intestine; E66.09 Other obesity due to excess calories; D69.6 Thrombocytopenia, unspecified; K74.60 Unspecified cirrhosis of liver; K75.81 Nonalcoholic steatohepatitis (NASH); F79 Unspecified intellectual disabilities; Z68.36 Body mass index [BMI] 36.0-36.9, adult
CPT/HCPCS: G0121; J2250; J3010; J7042

== ENCOUNTER 2019-05-11 06:59 | Day surgery (SDC) | payer MEDICAID ==
[~2019-05-11 06:59] MED LIST changes: -Dextrose 5%-0.45% NaCl 1,000 ML IV SCH; -Midazolam 1 MG/ML 2 ML SDV ONE; +ceFAZolin 2 GM in Premix Bag 1 BAG IV ONE; -fentaNYL 100 MCG/2 ML SDV ONE
[2019-05-11] MEDS ORDERED: Metoclopramide 10 MG/2 ML SDV IV ONE (07:00)
[2019-05-11] MEDS ORDERED: Midazolam 1 MG/ML 2 ML SDV IV ONE (07:00)
[2019-05-11] MEDS ORDERED: Succinylcholine 200 MG/10 ML MDV IV ONE (07:00)
[2019-05-11] MEDS ORDERED: Famotidine 20 MG/2 ML SDV IV ONE (07:00)
[2019-05-11] MEDS ORDERED: Propofol 200 MG/20 ML SDV IV ONE (07:00)
[2019-05-11] MEDS ORDERED: Ondansetron 4 MG/2 ML SDV IV ONE (07:00)
[2019-05-11] MEDS ORDERED: Lidocaine 1% 30 ML SDV ONE ×2 (07:00→07:52)
[2019-05-11] MEDS ORDERED: Lidocaine 2% 20 ML MDV ONE (07:00)
[2019-05-11] MEDS ORDERED: Bupivacaine 0.5% 30 ML SDV INJECT ONE ×3 (07:00→09:58)
[2019-05-11] MEDS ORDERED: Glycopyrrolate 0.2 MG/ML 2 ML SDV ONE (07:00)
[2019-05-11] MEDS ORDERED: Ketorolac 30 MG/ML SDV IVPUSH ONE (07:00)
[2019-05-11] MEDS ORDERED: fentaNYL 250 MCG/5 ML SDV IV ONE (07:00)
[2019-05-11] MEDS ORDERED: Neostigmine Methylsulfate 10 MG/10 ML MDV IV ONE (07:00)
[2019-05-11] MEDS ORDERED: Dexamethasone 4 MG/ML SDV IV ONE (07:00)
[2019-05-11] MEDS: Lactated Ringers 1,000 ML IV SCH ×2 (07:39→10:50)
[2019-05-11] MEDS ORDERED: Bupivacaine 0.5% 30 ML SDV ONE (07:52)
[2019-05-11] MEDS ORDERED: Lidocaine 1% 30 ML SDV INJECT ONE ×2 (08:39→09:58)
[2019-05-11] MEDS ORDERED: Acetaminophen/oxyCODONE 325-5 MG Tab PO PRN (10:13)
--- NOTE | 2019-05-11 10:16 | PCM.OPNOTE ---
- General Post-Op/Procedure Note Date of Surgery/Procedure: 05/11/19 Operative Procedure(s): right foot retrocalcaneal exostectomy with partial detachment and reattachment of achilles tendon Pre Op Diagnosis: right foot painful achilles insertional calcific tendonitis Post-Op Diagnosis: karina Anesthesia Technique: General LMA Primary Surgeon: Sade Lopes Anesthesia Provider: Bruce Hood EBL in mLs: 5 Complications: none Condition: Good Free Text/Narrative:: Pt tolerated procedure well and was transported to recovery with vascular status intact to right foot. Styker 5.5 PEEK zip anchors applied to calcaneus. Well padded L&U splint applied with foot in slight plantarflexion
[2019-05-11 13:41] VITALS: BP 133/58; PULSE 59
--- NOTE | 2019-05-12 17:16 | OR ---
DATE: 05/11/2019 PREOPERATIVE DIAGNOSIS: Right foot retrocalcaneal exostosis with insertional Achilles tendinitis. POSTOPERATIVE DIAGNOSIS: Right foot retrocalcaneal exostosis with insertional Achilles tendinitis. PROCEDURE PERFORMED: Right foot retrocalcaneal exostectomy with detachment and reattachment of Achilles tendon. ANESTHESIA: General with preoperative block of 10 mL of 1:1 mixture of 1% lidocaine plain and 0.5% Marcaine plain. TOURNIQUET TIME: 73 minutes pneumatic thigh tourniquet. ESTIMATED BLOOD LOSS: Minimal. SPECIMEN: None. COMPLICATIONS: None. INDICATIONS: Emilio is a 58-year-old female who presents with bilateral heel pain. The pain is localized to the backs of her heels, where she does feel a bump present. The pain is really located to this bump at the back of the heel and is tender whenever she is standing or walking, to the point where sometimes she cannot even walk on her feet. We have tried heel lifts, stretching, and physical therapy with no relief. The patient voiced good understanding of proposed procedure and possible complications, elects to have surgery at this time. On x-ray, she does noted to have spurring at the posterior calcaneus. PROCEDURE IN DETAIL: The patient was taken to the operating room lying in supine position. After adequate anesthesia induction as described above, the foot was prepped and draped in usual sterile fashion. Pneumatic thigh tourniquet was then infiltrated to 250 mmHg. Attention was then directed to the posterior aspect of the heel where a linear incision was made just medial to the Achilles tendon. Sharp and blunt dissection were performed down to the level of the Achilles tendon being careful to retract all neurovascular structures. The Achilles tendon was incised in the midportion longitudinally from proximal to distal and reflected to expose the enthesophyte at the posterior calcaneus. A sagittal saw was then used to resect the enthesophyte at the posterior calcaneus. A bone rasp was used to smooth all rough edges. There was noted to be a small calcification within the Achilles tendon, which was debrided. The remainder of the Achilles tendon appeared healthy in appearance. Fluoroscopy was used to ensure all bone spurring was removed. Two [place] PEEK Zip Anchors were then inserted to the posterior calcaneus, 1 medial and 1 lateral, approximately 1 cm proximal to the Achilles tendon insertion and the Achilles tendon was then secured down back to the calcaneus. Approximately, 60% of the Achilles tendon was detached from the calcaneus and the remainder of the Achilles tendon was left intact. The suture from the suture anchor was used to secure down the tendon and the foot was noted to have good range of motion without any equinus. Vicryl was then used to repair the Achilles tendon. The Achilles tendon was noted to have a firm attachment to the calcaneus at this time with range of motion of the ankle. The area was then irrigated with copious amounts of sterile saline. Deep closure was completed with 3-0 Vicryl and skin closure was completed with 4 nylon. The area was then dressed with Xeroform to the incision site, fluffs, Webril, and a well-padded L and U splint with the foot in slight plantar flexion. The patient tolerated procedure and anesthesia well and left the operating room for recovery with vital signs stable and vascular status intact to the right foot as noted by immediate hyperemia upon deflation of the thigh tourniquet. The patient was then discharged home when she met hospital discharge requirements. [facility] /[id number]
== END 2019-05-11 13:20 | disposition home or self-care (01) ==
LOC: DL.SDS 06:59
PROVIDERS: ATTEND Podiatrist
DX: M77.31 Calcaneal spur, right foot (principal); M76.61 Achilles tendinitis, right leg; J45.909 Unspecified asthma, uncomplicated; E03.9 Hypothyroidism, unspecified; K74.69 Other cirrhosis of liver; D75.89 Other specified diseases of blood and blood-forming organs; N28.9 Disorder of kidney and ureter, unspecified; H60.92 Unspecified otitis externa, left ear; E66.01 Morbid (severe) obesity due to excess calories; Z68.36 Body mass index [BMI] 36.0-36.9, adult; Z87.891 Personal history of nicotine dependence
CPT/HCPCS: A9270-GY; C1713; J0330; J0690; J1100; J1885; J2001; J2250; J2405; J2704; J2710; J2765; J3010; J3490; J7120

== ENCOUNTER 2019-09-04 03:20 | Emergency (ER) | payer MEDICAID ==
[2019-09-04] MEDS ORDERED: Sodium Chloride 0.9% 10 ML Syringe FLUSH PRN (03:27)
[2019-09-04 03:31] VITALS: BP 137/61; PULSE 85
--- NOTE | 2019-09-04 03:42 | EDM.PDOC ---
ED HPI GENERAL MEDICAL PROBLEM - General Chief Complaint: Chest Pain Stated Complaint: CHEST PAIN Time Seen by Provider: 09/04/19 03:42 Source of Information: Reports: Patient, RN, RN Notes Reviewed History Limitations: Reports: No Limitations - History of Present Illness INITIAL COMMENTS - FREE TEXT/NARRATIVE: Patient presents to ER per POV with complaint of midsternal/epigastric chest pain. Patient states the pain began around 10 or 10:30 PM last night. Patient states she was able to lay down and sleep some during the night, but did get up to go to the bathroom and had the pressure/pain to the chest. Patient states the pain did not radiate to the jaw or arms/shoulders. Patient admits to eating some jalapenos yesterday, as well as horseradish. Patient states she ate a late supper, and did lay down shortly after eating supper. Patient denies having any acid indigestion problems in the past. Patient does admit to having history of anxiety. Onset: Today, Sudden - Related Data Allergies Allergy/AdvReac Type Severity Reaction Status Date / Time No Known Allergies Allergy Verified 09/04/19 03:30 Home Meds: Home Meds Aspirin [Halfprin] 81 mg PO DAILY 03/12/14 [History] NIFEdipine [Procardia XL] 30 mg PO DAILY 03/12/14 [History] Levothyroxine [Synthroid] 50 mcg PO DAILY 08/09/16 [History] Levothyroxine 12.5 mcg PO DAILY 01/10/18 [History] Cholecalciferol (Vitamin D3) [Vitamin D3] 4,000 unit PO DAILY 04/09/18 [History] Vitamin B Complex 1 each PO DAILY 04/09/18 [History] Spironolactone [Aldactone] 25 mg PO BID 07/28/18 [History] Albuterol/Ipratropium [DuoNeb 3.0-0.5 MG/3 ML] 1 vial INH ASDIRECTED PRN [History] Lactulose [Constulose] 20 gm PO QID 01/27/19 [History] Past Medical History HEENT History: Reports: None, Other (See Below) Other HEENT History: UPPER DENTURE PLATE AND LOWER PARTIAL Cardiovascular History: Reports: Heart Murmur, Hypertension Respiratory History: Reports: None Gastrointestinal History: Reports: Cirrhosis, GERD, Hepatitis, Other (See Below) Other Gastrointestinal History: chronic liver disease Genitourinary History: Reports: Other (See Below) Other Genitourinary History: bladder issues [employer] History: Reports: None Musculoskeletal History: Reports: Other (See Below) Other Musculoskeletal History: knee problems Neurological History: Reports: None Psychiatric History: Reports: Learning Disability, Panic Attack Endocrine/Metabolic History: Reports: Hypothyroidism, Obesity/BMI 30+ Hematologic History: Reports: Anemia, Other (See Below) Other Hematologic History: thrombocytopenia Immunologic History: Reports: None Oncologic (Cancer) History: Reports: None Dermatologic History: Reports: None - Infectious Disease History Infectious Disease History: Reports: None - Past Surgical History Head Surgeries/Procedures: Reports: None HEENT Surgical History: Reports: None Other HEENT Surgeries/Procedures: ear surgery as a child Cardiovascular Surgical History: Reports: None Respiratory Surgical History: Reports: None GI Surgical History: Reports: Colonoscopy, EGD, Other (See Below) Other GI Surgeries/Procedures: liver biopsy Female Surgical History: Reports: Section Endocrine Surgical History: Reports: None Neurological Surgical History: Reports: None Oncologic Surgical History: Reports: None Dermatological Surgical History: Reports: None Social & Family History - Family History Family Medical History: Noncontributory - Tobacco Use Smoking Status *Q: Never Smoker Second Hand Smoke Exposure: No - Caffeine Use Caffeine Use: Reports: Coffee, Soda Caffeine Use Comment: rare coffee - Recreational Drug Use Recreational Drug Use: No - Living Situation & Occupation Living situation: Reports: with Family ED ROS GENERAL - Review of Systems Review Of Systems: Comprehensive ROS is negative, except as noted in HPI. ED EXAM, GENERAL - Physical Exam Exam: See Below Exam Limited By: No Limitations General Appearance: Alert, WD/WN, Anxious, Mild Distress Eye Exam: Bilateral Eye: EOMI, Normal Inspection Ears: Normal External Exam, Hearing Grossly Normal Nose: Normal Inspection Throat/Mouth: Normal Inspection, Normal Voice, No Airway Compromise Head: Atraumatic, Normocephalic Neck: Normal Inspection, Supple, Non-Tender, Full Range of Motion Respiratory/Chest: No Respiratory Distress, Lungs Clear, Normal Breath Sounds, No Accessory Muscle Use, Chest Non-Tender Cardiovascular: Normal Peripheral Pulses, Regular Rate, Rhythm, No Edema, No Gallop, No JVD, No Murmur, No Rub Peripheral Pulses: 2+: Radial (L), Radial (R) GI/Abdominal: Normal Bowel Sounds, Soft, Tender (epigastric) (Female) Exam: Deferred Rectal (Female) Exam: Deferred Back Exam: Normal Inspection, Full Range of Motion, NT Extremities: Normal Inspection, Normal Range of Motion, Non-Tender, Normal Capillary Refill, No Pedal Edema Neurological: Alert, Oriented, CN II-XII Intact, Normal Cognition, Normal Gait, Normal Reflexes, No Motor/Sensory Deficits Psychiatric: Anxious, Tearful Skin Exam: Warm, Dry, Intact, Normal Color, No Rash Lymphatic: No Adenopathy Course - Vital Signs Last Recorded V/S: Last Vital Signs Temp 98 F 09/04/19 03:23 Pulse 85 09/04/19 03:23 Resp 18 09/04/19 03:23 BP 137/61 09/04/19 03:23 Pulse Ox 98 09/04/19 03:23 - Orders/Labs/Meds Orders: Active Orders 24 hr Category Date Time Status EKG Documentation Completion [RC] STAT Care 09/04/19 03:28 Active Peripheral IV Care [RC] . DIRECTED Care 09/04/19 03:28 Active Sodium Chloride 0.9% [Saline Flush] Med 09/04/19 03:27 Active 10 ml FLUSH ASDIRECTED PRN Peripheral IV Insertion Adult [OM.PC] Stat Oth 09/04/19 03:27 Ordered Medication Orders Sodium Chloride (Saline Flush) 10 ml FLUSH ASDIRECTED PRN PRN Reason: Keep Vein Open Last Admin: 09/04/19 03:45 Dose: 10 ml Labs: Laboratory Tests 09/04/19 09/04/19 Range/Units 03:35 03:35 WBC 4.5 L (5.0-10.0) 10^3/uL RBC 3.66 L (4.2-5.4) 10^6/uL Hgb 11.8 L D (12.0-16.0) g/dL Hct 34.2 L (37.0-47.0) % MCV 93.4 (80-100) fL MCH 32.2 (27.0-34.0) pg MCHC 34.5 (33.0-35.0) g/dL Plt Count 90 L (150-450) 10^3/uL Neut % (Auto) 47.4 (42.2-75.2) % Lymph % (Auto) 37.5 (20.5-50.1) % Chase % (Auto) 9.8 H (2-8) % Eos % (Auto) 4.9 H (1.0-3.0) % Baso % (Auto) 0.4 (0.0-1.0) % Sodium 138 (136-145) mmol/L Potassium 3.4 L (3.5-5.1) mmol/L Chloride 104 (98-107) mmol/L Carbon Dioxide 22 (21-32) mmol/L Anion Gap 15.4 H (7-13) mEq/L BUN 14 (7-18) mg/dL Creatinine 0.91 (0.55-1.02) mg/dL Est Cr Clr Drug Dosing 69.63 mL/min Estimated GFR (MDRD) > 60 BUN/Creatinine Ratio 15.4 (No establ ref range) Glucose 121 H (74-99) mg/dL Calcium 8.4 L (8.5-10.1) mg/dL Total Bilirubin 1.9 H (0.2-1.0) mg/dL AST 39 H (15-37) U/L ALT 33 (14-59) U/L Alkaline Phosphatase 191 H (46-116) U/L Troponin I < 0.017 (0.000-0.056) ng/mL Total Protein 7.1 (6.4-8.2) g/dL Albumin 3.3 L (3.4-5.0) g/dL Globulin 3.8 Albumin/Globulin Ratio 0.87 Meds: Medications Generic Name Dose Route Start Last Admin Trade Name Freq PRN Reason Stop Dose Admin Sodium Chloride 10 ml 09/04/19 03:27 09/04/19 03:45 Saline Flush FLUSH 10 ml ASDIRECTED PRN Administration Keep Vein Open Discontinued Medications Generic Name Dose Route Start Last Admin Trade Name Freq PRN Reason Stop Dose Admin Al Hydroxide/Mg Hydroxide 30 ml 09/04/19 04:42 09/04/19 04:48 Gi Cocktail PO 09/04/19 04:43 30 ml ONETIME ONE Administration Lorazepam 0.5 mg 09/04/19 04:42 09/04/19 04:49 Ativan IVPUSH 09/04/19 04:43 0.5 mg ONETIME ONE Administration - Re-Assessments/Exams Free Text/Narrative Re-Assessment/Exam: 09/04/19 05:11 Patient states some pain relief with GI cocktail, and feeling better after the lorazepam as well. Departure - Departure Time of Disposition: 05:11 Disposition: Home, Self-Care 01 Reason for Transfer *Q: Other Condition: Good Clinical Impression: Anxiety, Acid indigestion Instructions: Indigestion, [id number], Food Choices for Gastroesophageal Reflux Disease, Adult, [id number], Heartburn, [id number], Nonspecific Chest Pain, Adult, [id number], Gastroesophageal Reflux Disease, Adult, [id number] Forms: ED Department Discharge Additional Instructions: Sit up for at least 30 minutes after eating a meal Drink plenty of water Follow guidelines for food choices for acid indigestion Follow up with your primary care facility Sepsis Event Note - Evaluation Sepsis Screening Result: No Definite Risk - Focused Exam Vital Signs: Vital Signs Temp Pulse Resp BP Pulse Ox 09/04/19 03:23 98 F 85 18 137/61 98 Date Exam was Performed: 09/04/19 Time Exam was Performed: 05:11 - My Orders Last 24 Hours: My Active Orders 09/04/19 03:27 Sodium Chloride 0.9% [Saline Flush] 10 ml FLUSH ASDIRECTED PRN Peripheral IV Insertion Adult [OM.PC] Stat 09/04/19 03:28 EKG Documentation Completion [RC] STAT Peripheral IV Care [RC] . DIRECTED - Assessment/Plan Last 24 Hours: My Active Orders 09/04/19 03:27 Sodium Chloride 0.9% [Saline Flush] 10 ml FLUSH ASDIRECTED PRN Peripheral IV Insertion Adult [OM.PC] Stat 09/04/19 03:28 EKG Documentation Completion [RC] STAT Peripheral IV Care [RC] . DIRECTED
[2019-09-04 04:08] LABS: ANION GAP 15.4 mEq/L (7-13); CHLORIDE,CL 104 mmol/L (98-107); SODIUM,NA 138 mmol/L (136-145)
[2019-09-04] MEDS ORDERED: LORazepam 2 MG/ML SDV IVPUSH ONE (04:42)
[2019-09-04] MEDS ORDERED: GI Cocktail Oral Solution 30 ML PO ONE (04:42)
== END 2019-09-04 05:20 | disposition home or self-care (01) ==
LOC: DL.ED 03:20
DX: K30 Functional dyspepsia (principal); F41.9 Anxiety disorder, unspecified; I10 Essential (primary) hypertension; E03.9 Hypothyroidism, unspecified; E66.9 Obesity, unspecified; Z68.34 Body mass index [BMI] 34.0-34.9, adult; D64.9 Anemia, unspecified; Z79.82 Long term (current) use of aspirin; Z79.899 Other long term (current) drug therapy
CPT/HCPCS: 36415; 80053; 84484; 85025; 93005; 96374; 99285; A9270; J2060

== ENCOUNTER 2020-04-27 22:24 | Observation (INO) | payer MEDICAID ==
[2020-04-27 23:08] LABS: ANION GAP 12.2 mEq/L (7-13); CHLORIDE,CL 107 mmol/L (98-107); SODIUM,NA 141 mmol/L (136-145)
--- NOTE | 2020-04-27 23:53 | CR ---
PROCEDURE INFORMATION: Exam: XR Chest, 1 View Exam date and time: 04/27/2020 11:42 PM Age: 59 years old Clinical indication: Other: Chest pain; Additional info: Pain h/o chf TECHNIQUE: Imaging protocol: XR of the chest Views: 1 view. COMPARISON: CR Chest 1V Frontal 11/06/2018 7:35 AM FINDINGS: Lungs: Unremarkable. No consolidation. Pleural space: Unremarkable. No pleural effusion. No pneumothorax. Heart/Mediastinum: Unremarkable. No cardiomegaly. Bones/joints: Unremarkable. IMPRESSION: No acute findings. Stable appearance of the chest compared with 11/06/2018.
--- NOTE | 2020-04-28 01:02 | EDM.PDOC ---
ED HPI GENERAL MEDICAL PROBLEM - General Chief Complaint: Chest Pain Stated Complaint: SEVERE CHEST PAIN Time Seen by Provider: 04/28/20 00:56 Source of Information: Reports: Patient, Family History Limitations: Reports: No Limitations - History of Present Illness INITIAL COMMENTS - FREE TEXT/NARRATIVE: spouse states pt been c/o 1 week h/o chest pain and also not been acting her usual self and last time this happen was last summer from high ammonia level. states she take her lactulose but sometimes it goes up. spouse thought it was due to her being busy with family over holidays but got concerned tonight. denies known head injury. Left Anterior Chest Pain Score (Numeric/FACES): 6 - Related Data Allergies Allergy/AdvReac Type Severity Reaction Status Date / Time No Known Allergies Allergy Verified 04/27/20 22:43 Home Meds: Home Meds Aspirin [Halfprin] 81 mg PO DAILY 03/12/14 [History] NIFEdipine [Procardia XL] 30 mg PO DAILY 03/12/14 [History] Levothyroxine [Synthroid] 50 mcg PO DAILY 08/09/16 [History] Levothyroxine 12.5 mcg PO DAILY 01/10/18 [History] Cholecalciferol (Vitamin D3) [Vitamin D3] 4,000 unit PO DAILY 04/09/18 [History] Vitamin B Complex 1 each PO DAILY 04/09/18 [History] Spironolactone [Aldactone] 25 mg PO BID 07/28/18 [History] Albuterol/Ipratropium [DuoNeb 3.0-0.5 MG/3 ML] 1 vial INH ASDIRECTED PRN 01/27/19 [History] Lactulose [Constulose] 20 gm PO QID 01/27/19 [History] Furosemide [Lasix] 20 mg PO DAILY 04/28/20 [History] Past Medical History HEENT History: Reports: None, Other (See Below) Other HEENT History: UPPER DENTURE PLATE AND LOWER PARTIAL Cardiovascular History: Reports: Heart Murmur, Hypertension Respiratory History: Reports: None Gastrointestinal History: Reports: Cirrhosis, GERD, Hepatitis, Other (See Below) Other Gastrointestinal History: chronic liver disease Genitourinary History: Reports: Other (See Below) Other Genitourinary History: bladder issues 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 Musculoskeletal History: Reports: Other (See Below) Other Musculoskeletal History: knee problems Neurological History: Reports: None Psychiatric History: Reports: Learning Disability, Panic Attack Endocrine/Metabolic History: Reports: Hypothyroidism, Obesity/BMI 30+ Hematologic History: Reports: Anemia, Other (See Below) Other Hematologic History: thrombocytopenia Immunologic History: Reports: None Oncologic (Cancer) History: Reports: None Dermatologic History: Reports: None - Infectious Disease History Infectious Disease History: Reports: None - Past Surgical History Head Surgeries/Procedures: Reports: None HEENT Surgical History: Reports: None Other HEENT Surgeries/Procedures: ear surgery as a child Cardiovascular Surgical History: Reports: None Respiratory Surgical History: Reports: None GI Surgical History: Reports: Colonoscopy, EGD, Other (See Below) Other GI Surgeries/Procedures: liver biopsy Female Surgical History: Reports: Section Endocrine Surgical History: Reports: None Neurological Surgical History: Reports: None Musculoskeletal Surgical History: Reports: None Oncologic Surgical History: Reports: None Dermatological Surgical History: Reports: None Social & Family History - Family History Family Medical History: No Pertinent Family History - Tobacco Use Tobacco Use Status *Q: Current Status Unknown Second Hand Smoke Exposure: No - Caffeine Use Caffeine Use: Reports: None Caffeine Use Comment: rare coffee - Recreational Drug Use Recreational Drug Use: No - Living Situation & Occupation Living situation: Reports: with Family ED ROS GENERAL - Review of Systems Review Of Systems: Comprehensive ROS is negative, except as noted in HPI. ED EXAM, GENERAL - Physical Exam Exam: See Below Exam Limited By: No Limitations General Appearance: Other (somnolent arousable answers appropriately) Eye Exam: Bilateral Eye: PERRL (pupils ER @ 4mm) Ears: Hearing Grossly Normal Throat/Mouth: Normal Voice, No Airway Compromise Head: Atraumatic Neck: Non-Tender, Full Range of Motion Respiratory/Chest: No Respiratory Distress Cardiovascular: Regular Rate, Rhythm GI/Abdominal: Soft, Non-Tender (Female) Exam: Deferred Rectal (Female) Exam: Deferred Neurological: Slow to Respond Psychiatric: Flat Affect Skin Exam: Warm, Dry, Normal Color Lymphatic: No Adenopathy Course - Vital Signs Last Recorded V/S: Last Vital Signs Temp 36.6 C 04/28/20 01:27 Pulse 91 04/28/20 01:27 Resp 20 04/28/20 01:27 BP 139/62 04/28/20 01:27 Pulse Ox 98 04/28/20 01:27 - Orders/Labs/Meds Orders: Active Orders 24 hr Category Date Time Status EKG 12 Lead [EKG Documentation Completion] [RC] URGENT Care 04/27/20 22:32 Active Labs: Laboratory Tests 04/27/20 04/27/20 04/27/20 Range/Units 22:40 22:40 22:40 WBC 5.1 (5.0-10.0) 10^3/uL RBC 3.34 L (4.2-5.4) 10^6/uL Hgb 10.4 L (12.0-16.0) g/dL Hct 30.5 L (37.0-47.0) % MCV 91.3 (80-100) fL MCH 31.1 (27.0-34.0) pg MCHC 34.1 (33.0-35.0) g/dL Plt Count 132 L (150-450) 10^3/uL Neut % (Auto) 52.7 (42.2-75.2) % Lymph % (Auto) 31.3 (20.5-50.1) % Swisher % (Auto) 10.7 H (2-8) % Eos % (Auto) 4.7 H (1.0-3.0) % Baso % (Auto) 0.6 (0.0-1.0) % PT 11.2 (9.0-12.0) SEC INR 1.2 (0.9-1.2) Sodium 141 (136-145) mmol/L Potassium 4.2 (3.5-5.1) mmol/L Chloride 107 (98-107) mmol/L Carbon Dioxide 26 (21-32) mmol/L Anion Gap 12.2 (7-13) mEq/L BUN 30 H (7-18) mg/dL Creatinine 1.50 H (0.55-1.02) mg/dL Est Cr Clr Drug Dosing TNP Estimated GFR (MDRD) 36 BUN/Creatinine Ratio 20.0 (No establ ref range) Glucose 127 H (74-99) mg/dL Lactic Acid (0.4-2.0) mmol/L Calcium 9.0 (8.5-10.1) mg/dL Total Bilirubin 1.6 H (0.2-1.0) mg/dL AST 38 H (15-37) U/L ALT 38 (14-59) U/L Alkaline Phosphatase 233 H (46-116) U/L Ammonia (11-32) umol/L Troponin I < 0.017 (0.000-0.056) ng/mL B-Natriuretic Peptide 33 (0-100) pg/ml Total Protein 6.5 (6.4-8.2) g/dL Albumin 3.0 L (3.4-5.0) g/dL Globulin 3.5 Albumin/Globulin Ratio 0.86 SARS-CoV-2 RNA (EMELINA) (NEGATIVE) 04/27/20 04/27/20 04/28/20 Range/Units 22:40 22:45 00:05 WBC (5.0-10.0) 10^3/uL RBC (4.2-5.4) 10^6/uL Hgb (12.0-16.0) g/dL Hct (37.0-47.0) % MCV (80-100) fL MCH (27.0-34.0) pg MCHC (33.0-35.0) g/dL Plt Count (150-450) 10^3/uL Neut % (Auto) (42.2-75.2) % Lymph % (Auto) (20.5-50.1) % Swisher % (Auto) (2-8) % Eos % (Auto) (1.0-3.0) % Baso % (Auto) (0.0-1.0) % PT (9.0-12.0) SEC INR (0.9-1.2) Sodium (136-145) mmol/L Potassium (3.5-5.1) mmol/L Chloride (98-107) mmol/L Carbon Dioxide (21-32) mmol/L Anion Gap (7-13) mEq/L BUN (7-18) mg/dL Creatinine (0.55-1.02) mg/dL Est Cr Clr Drug Dosing Estimated GFR (MDRD) BUN/Creatinine Ratio (No establ ref range) Glucose (74-99) mg/dL Lactic Acid 1.0 (0.4-2.0) mmol/L Calcium (8.5-10.1) mg/dL Total Bilirubin (0.2-1.0) mg/dL AST (15-37) U/L ALT (14-59) U/L Alkaline Phosphatase (46-116) U/L Ammonia 58 H (11-32) umol/L Troponin I (0.000-0.056) ng/mL B-Natriuretic Peptide (0-100) pg/ml Total Protein (6.4-8.2) g/dL Albumin (3.4-5.0) g/dL Globulin Albumin/Globulin Ratio SARS-CoV-2 RNA (EMELINA) Negative (NEGATIVE) Meds: Medications Discontinued Medications Generic Name Dose Route Start Last Admin Trade Name Freq PRN Reason Stop Dose Admin Lorazepam 1 mg 04/28/20 01:54 04/28/20 01:59 Ativan IVPUSH 04/28/20 01:55 1 mg ONETIME ONE Administration - Re-Assessments/Exams Free Text/Narrative Re-Assessment/Exam: 04/28/20 01:[address] Dolan who kindly admitted pt to observation if CAT head is negative. Departure - Departure Time of Disposition: 02:06 Disposition: Refer to Observation Condition: Fair Clinical Impression: Hepatic encephalopathy Forms: ED Department Discharge Sepsis Event Note (ED) - Evaluation Sepsis Screening Result: No Definite Risk - Focused Exam Vital Signs: Vital Signs Temp Pulse Resp BP Pulse Ox 04/28/20 01:27 36.6 C 91 20 139/62 98 04/27/20 22:31 36.5 C 89 19 131/68 100 - My Orders Last 24 Hours: My Active Orders 04/27/20 22:32 EKG 12 Lead [EKG Documentation Completion] [RC] URGENT - Assessment/Plan Last 24 Hours: My Active Orders 04/27/20 22:32 EKG 12 Lead [EKG Documentation Completion] [RC] URGENT
[2020-04-28] MEDS ORDERED: LORazepam 2 MG/ML SDV IVPUSH ONE (01:54)
--- NOTE | 2020-04-28 02:03 | CT ---
PROCEDURE INFORMATION: Exam: CT Head Without Contrast Exam date and time: 04/28/2020 1:36 AM Age: 59 years old Clinical indication: Other: Unable to hold still; Additional info: Altered mental states TECHNIQUE: Imaging protocol: Computed tomography of the head without contrast. Radiation optimization: All CT scans at this facility use at least one of these dose optimization techniques: automated exposure control; mA and/or kV adjustment per patient size (includes targeted exams where dose is matched to clinical indication); or iterative reconstruction. COMPARISON: No relevant prior studies available. FINDINGS: Brain: There are patchy areas of hypoattenuation seen in the deep white matter of the cerebral hemispheres bilaterally compatible with deep white matter microvascular disease. Hypoattenuation seen within the occipital lobes bilaterally and within the left posterior parietal lobe inferiorly, findings that could represent subacute or acute infarction. There are no imaging studies available for comparison and as moderate motion artifact. Further evaluation with MRI including diffusion-weighted imaging is suggested. Cerebral ventricles: No ventriculomegaly. Bones/joints: Unremarkable. No acute fracture. Paranasal sinuses: Visualized sinuses are unremarkable. No fluid levels. Mastoid air cells: There is partial opacification of the left mastoid sinuses. Soft tissues: Unremarkable. IMPRESSION: 1. There is moderate motion artifact. 2. Hypoattenuation present within the occipital lobes bilaterally and within the left posterior parietal lobe, findings that may represent subacute or acute infarction. There are no prior imaging studies available. As such, follow-up evaluation with MRI including diffusion-weighted imaging is suggested. 3. [place] Stroke Program Early CT Score (ASPECTS) = 9
--- NOTE | 2020-04-28 03:21 | PCM.HP ---
H&P History of Present Illness - General Date of Service: 04/28/20 Admit Problem/Dx: Admission Diagnosis/Problem Admission Diagnosis/Problem Hepatic encephalopathy Source of Information: Family, Old Records History Limitations: Reports: No Limitations - History of Present Illness Initial Comments - Free Text/Narative: This is a 59 Y/O F with history of Alcoholic liver cirrhosis, Chronic Liver disease secondary to alcohol. Hypertension, GERD who was brought to ED and history is obtained from , spouse states pt been c/o 1 week h/o chest pain and also not been acting her usual self and last time this happen was last summer and at that time she had high ammonia level. states she take her lactulose regularly Spouse thought it was due to her being busy with family over holidays but got concerned tonight and brought her to ER . denies known head injury. Pt had CT of Head in ER and it showed : 1. There is moderate motion artifact, 2. Hypoattenuation present within the occipital lobes bilaterally and within the left posterior parietal lobe, findings that may represent subacute or acute infraction, follow up evaluation with MRI including diffusio-weighted imaging is suggested. In ER her Ammonia was 58 and Rapid COVID-19 was negative. She was admitted for Hepatic encephalopathy Onset of Symptoms: Reports: Gradual Duration of Symptoms: Reports: Day(s): Location: Reports: Chest Associated Symptoms: Reports: Chest Pain Left Anterior Chest Pain Score (Numeric/FACES): 6 - Related Data Allergies/Adverse Reactions: Allergies Allergy/AdvReac Type Severity Reaction Status Date / Time No Known Allergies Allergy Verified 04/27/20 22:43 Home Medications: Home Meds Aspirin [Halfprin] 81 mg PO DAILY 03/12/14 [History] NIFEdipine [Procardia XL] 30 mg PO DAILY 03/12/14 [History] Levothyroxine [Synthroid] 50 mcg PO DAILY 08/09/16 [History] Levothyroxine 12.5 mcg PO DAILY 01/10/18 [History] Cholecalciferol (Vitamin D3) [Vitamin D3] 4,000 unit PO DAILY 04/09/18 [History] Vitamin B Complex 1 each PO DAILY 04/09/18 [History] Spironolactone [Aldactone] 25 mg PO BID 07/28/18 [History] Albuterol/Ipratropium [DuoNeb 3.0-0.5 MG/3 ML] 1 vial INH ASDIRECTED PRN 01/27/19 [History] Lactulose [Constulose] 20 gm PO QID 01/27/19 [History] Furosemide [Lasix] 20 mg PO DAILY 04/28/20 [History] Past Medical History HEENT History: Reports: None, Other (See Below) Other HEENT History: UPPER DENTURE PLATE AND LOWER PARTIAL Cardiovascular History: Reports: Heart Murmur, Hypertension Respiratory History: Reports: None Gastrointestinal History: Reports: Cirrhosis, GERD, Hepatitis, Other (See Below) Other Gastrointestinal History: chronic liver disease Genitourinary History: Reports: Other (See Below) Other Genitourinary History: bladder issues 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 Musculoskeletal History: Reports: Other (See Below) Other Musculoskeletal History: knee problems Neurological History: Reports: None Psychiatric History: Reports: Learning Disability, Panic Attack Endocrine/Metabolic History: Reports: Hypothyroidism, Obesity/BMI 30+ Hematologic History: Reports: Anemia, Other (See Below) Other Hematologic History: thrombocytopenia Immunologic History: Reports: None Oncologic (Cancer) History: Reports: None Dermatologic History: Reports: None - Infectious Disease History Infectious Disease History: Reports: None - Past Surgical History Head Surgeries/Procedures: Reports: None HEENT Surgical History: Reports: None Other HEENT Surgeries/Procedures: ear surgery as a child Cardiovascular Surgical History: Reports: None Respiratory Surgical History: Reports: None GI Surgical History: Reports: Colonoscopy, EGD, Other (See Below) Other GI Surgeries/Procedures: liver biopsy Female Surgical History: Reports: Section Endocrine Surgical History: Reports: None Neurological Surgical History: Reports: None Musculoskeletal Surgical History: Reports: None Oncologic Surgical History: Reports: None Dermatological Surgical History: Reports: None Social & Family History - Family History Family Medical History: No Pertinent Family History - Tobacco Use Tobacco Use Status *Q: Current Status Unknown Second Hand Smoke Exposure: No - Caffeine Use Caffeine Use: Reports: None Caffeine Use Comment: rare coffee - Recreational Drug Use Recreational Drug Use: No - Living Situation & Occupation Living situation: Reports: with Family H&P Review of Systems - Review of Systems: Review Of Systems: See Below General: Reports: Weakness. Denies: Fever, Chills HEENT: Denies: Dysphasia, Ear Pain, Headaches, Sinus Congestion, Vertigo, Visual Changes Pulmonary: Denies: Shortness of Breath, Wheezing, Cough, Sputum, Hemoptysis Cardiovascular: Reports: Chest Pain. Denies: Dyspnea on Exertion, Lightheadedness, Blood Pressure Problem Gastrointestinal: Denies: Abdominal Pain, Diarrhea, Nausea, Vomiting Genitourinary: Denies: Dysuria, Burning, Flank Pain Musculoskeletal: Denies: Neck Pain, Arm Pain, Leg Pain, Muscle Stiffness Skin: Denies: Cyanosis, Bruising, Pruritis, Rash, Erythema Neurological: Reports: Confusion. Denies: Headache, Numbness, Tremors Hematologic/Lymphatic: Reports: No Symptoms Immunologic: Reports: No Symptoms Exam - Exam Exam: See Below - Vital Signs Vital Signs: Last Vital Signs Temp 36.6 C 04/28/20 01: Pulse 91 04/28/20 01: Resp 20 04/28/20 01: BP 139/62 04/28/20 01: Pulse Ox 98 04/28/20 01:27 Weight: 102.058 kg - Exam Quality Assessment: DVT Prophylaxis. No: Supplemental Oxygen, Urinary Catheter General: Lethargic, Other (very sleepy after Ativan given in ER prior to CT of h ead) HEENT: Mucosa Moist & [place], Pupils Equal. No: EOMI Neck: Supple. No: JVD, Thyromegaly Lungs: Clear to Auscultation, Normal Respiratory Effort Cardiovascular: Regular Rate, Regular Rhythm, Systolic Murmur GI/Abdominal Exam: Normal Bowel Sounds, Soft, Non-Tender. No: Guarding, Rigid (Female) Exam: Deferred Rectal (Female) Exam: Deferred Extremities: Normal Inspection, No Pedal Edema Skin: Warm, Dry, Intact Neurological: Other (could not evaluate pt is sleepy after the ativan dose she has received for CT head) Neuro Extensive - Mental Status: Other (Could not evaluate pt is sleepy after the ativan dose she has received for CT head) Neuro Extensive - Motor, Sensory, Reflexes: Other (Could not evaluate pt is sleepy after the ativan dose she has received for CT head). No: Facial Palsy (R) Psychiatric: Other (could not wake her up even with sternal rub, she has received Ativan in ER prior to head CT) - Patient Data Lab Results Last 24 hrs: Laboratory Results - last 24 hr 04/27/20 04/27/20 04/27/20 Range/Units 22:40 22:40 22:40 WBC 5.1 (5.0-10.0) 10^3/uL RBC 3.34 L (4.2-5.4) 10^6/uL Hgb 10.4 L (12.0-16.0) g/dL Hct 30.5 L (37.0-47.0) % MCV 91.3 (80-100) fL MCH 31.1 (27.0-34.0) pg MCHC 34.1 (33.0-35.0) g/dL Plt Count 132 L (150-450) 10^3/uL Neut % (Auto) 52.7 (42.2-75.2) % Lymph % (Auto) 31.3 (20.5-50.1) % [place]racken % (Auto) 10.7 H (2-8) % Eos % (Auto) 4.7 H (1.0-3.0) % Baso % (Auto) 0.6 (0.0-1.0) % PT 11.2 (9.0-12.0) SEC INR 1.2 (0.9-1.2) Sodium 141 (136-145) mmol/L Potassium 4.2 (3.5-5.1) mmol/L Chloride 107 (98-107) mmol/L Carbon Dioxide 26 (21-32) mmol/L Anion Gap 12.2 (7-13) mEq/L BUN 30 H (7-18) mg/dL Creatinine 1.50 H (0.55-1.02) mg/dL Est Cr Clr Drug Dosing TNP Estimated GFR (MDRD) 36 BUN/Creatinine Ratio 20.0 (No establ ref range) Glucose 127 H (74-99) mg/dL Lactic Acid (0.4-2.0) mmol/L Calcium 9.0 (8.5-10.1) mg/dL Total Bilirubin 1.6 H (0.2-1.0) mg/dL AST 38 H (15-37) U/L ALT 38 (14-59) U/L Alkaline Phosphatase 233 H (46-116) U/L Ammonia (11-32) umol/L Troponin I < 0.017 (0.000-0.056) ng/mL B-Natriuretic Peptide 33 (0-100) pg/ml Total Protein 6.5 (6.4-8.2) g/dL Albumin 3.0 L (3.4-5.0) g/dL Globulin 3.5 Albumin/Globulin Ratio 0.86 SARS-CoV-2 RNA (EMELINA) (NEGATIVE) 04/27/20 04/27/20 04/28/20 Range/Units 22:40 22:45 00:05 WBC (5.0-10.0) 10^3/uL RBC (4.2-5.4) 10^6/uL Hgb (12.0-16.0) g/dL Hct (37.0-47.0) % MCV (80-100) fL MCH (27.0-34.0) pg MCHC (33.0-35.0) g/dL Plt Count (150-450) 10^3/uL Neut % (Auto) (42.2-75.2) % Lymph % (Auto) (20.5-50.1) % [place] % (Auto) (2-8) % Eos % (Auto) (1.0-3.0) % Baso % (Auto) (0.0-1.0) % PT (9.0-12.0) SEC INR (0.9-1.2) Sodium (136-145) mmol/L Potassium (3.5-5.1) mmol/L Chloride (98-107) mmol/L Carbon Dioxide (21-32) mmol/L Anion Gap (7-13) mEq/L BUN (7-18) mg/dL Creatinine (0.55-1.02) mg/dL Est Cr Clr Drug Dosing Estimated GFR (MDRD) BUN/Creatinine Ratio (No establ ref range) Glucose (74-99) mg/dL Lactic Acid 1.0 (0.4-2.0) mmol/L Calcium (8.5-10.1) mg/dL Total Bilirubin (0.2-1.0) mg/dL AST (15-37) U/L ALT (14-59) U/L Alkaline Phosphatase (46-116) U/L Ammonia 58 H (11-32) umol/L Troponin I (0.000-0.056) ng/mL B-Natriuretic Peptide (0-100) pg/ml Total Protein (6.4-8.2) g/dL Albumin (3.4-5.0) g/dL Globulin Albumin/Globulin Ratio SARS-CoV-2 RNA (EMELINA) Negative (NEGATIVE) Result Diagrams: 04/27/20 22:40 04/27/20 22:40 - Problem List (1) Hepatic encephalopathy SNOMED Code(s): 45934151 ICD Code: K72.90 - HEPATIC FAILURE, UNSPECIFIED WITHOUT COMA Status: Acute Current Visit: No (2) Cirrhosis SNOMED Code(s): 77268939 ICD Code: K74.60 - UNSPECIFIED CIRRHOSIS OF LIVER Status: Chronic Current Visit: No Qualifiers: Hepatic cirrhosis type: alcoholic cirrhosis Ascites presence: without ascites Qualified Code(s): K70.30 - Alcoholic cirrhosis of liver without ascites (3) HTN, Essential hypertension SNOMED Code(s): 60194573 ICD Code: I10 - ESSENTIAL (PRIMARY) HYPERTENSION Status: Chronic Current Visit: No Problem List Initiated/Reviewed/Updated: Yes Orders Last 24hrs: Active Orders 24 hr Category Date Time Status Admission Diagnosis [ADT] Stat ADT 04/28/20 02:06 Ordered Admission Status [Patient Status] [ADT] Routine ADT 04/28/20 02:06 Active Assessment/Plan Comment:: This is a 59 Y/O F with history of Alcoholic liver cirrhosis, Chronic Liver disease secondary to alcohol. Hypertension, GERD who was brought to ED and history is obtained from , spouse states pt been c/o 1 week h/o chest pain and also not been acting her usual self and last time this happen was last summer and at that time she had high ammonia level. states she take her lactulose regularly Spouse thought it was due to her being busy with family over holidays but got concerned tonight and brought her to ER . denies known head injury. Pt had CT of Head in ER and it showed : 1. There is moderate motion artifact, 2. Hypoattenuation present within the occipital lobes bilaterally and within the left posterior parietal lobe, findings that may represent subacute or acute infraction, follow up evaluation with MRI including diffusio-weighted imaging is suggested. In ER her Ammonia was 58 and Rapid COVID-19 was negative. She was admitted for Hepatic encephalopathy Impression and plan: 1. Acute somnolence: This is like from Hepatic encephalopathy/possible acute or sub-acute Infraction -Will continue lactulose at 20 g 4 times a day -Will place NG for giving medication -check Ammonia again later in the day 2. possible acute or sub-acute Infraction: Recommended MRI of the brain but not available until Wednesday -Will need Neurologist evaluation, if status does not improve then will tranfer to [facility] -Will start Aspirin 325 mg daily and lipitor at 20 mg daily 3. Liver Cirrhosis: This is secondary to alcohol use but she is not doing now -She gets followed by GI -Continue current treatment with Lactulose and add Rifaximine 4. Hypertension: BP acceptable and will continue Aldactone 5. GERD: continue Protonix DVT prophylaxis: start Heparin 5000 units TID Code Status: Discussed with : Full Code
[2020-04-28] MEDS ORDERED: Docusate Sodium 100 MG Cap PO PRN (03:52)
[2020-04-28] MEDS ORDERED: Acetaminophen 325 MG Tab PO PRN (03:52)
[2020-04-28] MEDS ORDERED: Albuterol/Ipratropium 3.0-0.5 MG/3 ML Neb Soln INH PRN (03:56)
[2020-04-28] MEDS ORDERED: Heparin Sodium 5,000 Units/ML Vial SUBCUT SCH (04:00)
[2020-04-28] MEDS ORDERED: atorvaSTATin 20 MG Tab PO SCH (04:13)
[2020-04-28] MEDS: Lactulose Soln 10 GM/15 ML 30 ML UD Cup PO SCH ×2 (04:48→09:02)
[2020-04-28] MEDS: Levothyroxine 125 MCG Tab PO SCH ×2 (04:48→06:03)
[2020-04-28] MEDS: Aspirin 325 MG Tab PO SCH ×2 (04:48→09:01)
[2020-04-28] MEDS: Heparin Sodium 5,000 Units/ML Vial SUBCUT SCH ×2 (04:49→06:03)
[2020-04-28 05:03] VITALS: PULSE 90
--- NOTE | 2020-04-28 05:21 | CR ---
PROCEDURE INFORMATION: Exam: XR Chest, 1 View Exam date and time: 04/28/2020 5:12 AM Age: 59 years old Clinical indication: Other: Ng placement; Additional info: Id if the tube is coiled TECHNIQUE: Imaging protocol: XR of the chest Views: 1 view. COMPARISON: CR Chest 1V Frontal 04/27/2020 11:42 PM FINDINGS: Tubes, catheters and devices: A nasogastric tube is placed with its non coiled tip in the proximal stomach. Lungs: Unremarkable. No consolidation. Pleural space: Unremarkable. No pleural effusion. No pneumothorax. Heart/Mediastinum: Unremarkable. No cardiomegaly. Bones/joints: Unremarkable. IMPRESSION: Nasogastric tube placed with non coiled tip in the proximal stomach.
[2020-04-28] MEDS ORDERED: Aspirin 325 MG Tab PO SCH (08:00)
[2020-04-28] MEDS ORDERED: Spironolactone 25 MG Tab PO SCH (08:00)
[2020-04-28] MEDS ORDERED: NIFEdipine 30 MG Tab.ER PO SCH (09:00)
[2020-04-28] MEDS ORDERED: Lactulose Soln 10 GM/15 ML 30 ML UD Cup PO SCH (09:00)
[2020-04-28] MEDS ORDERED: Levothyroxine 25 MCG Tab PO SCH (09:00)
[2020-04-28] MEDS ORDERED: Levothyroxine 50 MCG Tab PO SCH (09:00)
[2020-04-28] MEDS: Vitamin B Complex Cap PO SCH ×2 (09:01→09:04)
--- NOTE | 2020-04-28 11:42 | PCM.DCSUM1 ---
Discharge Summary - Hospital Course Free Text/Narrative:: This is a 59 Y/O F with history of Alcoholic liver cirrhosis, Chronic Liver disease secondary to alcohol. Hypertension, GERD who was brought to ED and history is obtained from , spouse states pt been c/o 1 week h/o chest pain and also not been acting her usual self and last time this happen was last summer and at that time she had high ammonia level. states she take her lactulose regularly Spouse thought it was due to her being busy with family over holidays but got concerned tonight and brought her to ER . denies known head injury. Pt had CT of Head in ER and it showed : 1. There is moderate motion artifact, 2. Hypoattenuation present within the occipital lobes bilaterally and within the left posterior parietal lobe, findings that may represent subacute or acute infraction, follow up evaluation with MRI including diffusio-weighted imaging is suggested. In ER her Ammonia was 58 and Rapid COVID-19 was negative. She was admitted for Hepatic encephalopathy After admission she was given lactulose Via NG tube and had BM, she is also started on Aspirin 325 mg daily and Lipitor at 20 mg daily and has received the dose after admission but her status progressively deteriorating, there is possible component of Acute/Subacute Infraction and needs MRI but we can not get MRI here today, I have called [facility] for further evaluation of this pt by Neurology and also need urgent MRI. - Discharge Data Discharge Date: 04/28/20 Discharge Disposition: DC/Tfer to Acute Hospital 02 Condition: Fair - Referral to Home Health Primary Care Physician: PCP None - Discharge Diagnosis/Problem(s) (1) Hepatic encephalopathy SNOMED Code(s): 12741063 ICD Code: K72.90 - HEPATIC FAILURE, UNSPECIFIED WITHOUT COMA Status: Acute Current Visit: No (2) Cirrhosis SNOMED Code(s): 02616899 ICD Code: K74.60 - UNSPECIFIED CIRRHOSIS OF LIVER Status: Chronic Current Visit: No Qualifiers: Hepatic cirrhosis type: alcoholic cirrhosis Ascites presence: without ascites Qualified Code(s): K70.30 - Alcoholic cirrhosis of liver without ascites (3) HTN, Essential hypertension SNOMED Code(s): 54185024 ICD Code: I10 - ESSENTIAL (PRIMARY) HYPERTENSION Status: Chronic Current Visit: No - Patient Instructions Diet: Regular Diet as Tolerated Activity: As Tolerated Showering/Bathing: May Shower Notify Provider of: Fever, Nausea and/or Vomiting Other/Special Instructions: Pt will be transferred to [facility] for further evaluation Neurology and will also need MRI for acute/sub-acute Infract - Discharge Plan Home Medications: Home Meds Aspirin [Halfprin] 81 mg PO DAILY 03/12/14 [History] Levothyroxine [Synthroid] 50 mcg PO DAILY 08/09/16 [History] Levothyroxine 12.5 mcg PO DAILY 01/10/18 [History] Cholecalciferol (Vitamin D3) [Vitamin D3] 4,000 unit PO DAILY 04/09/18 [History] Vitamin B Complex 1 each PO DAILY 04/09/18 [History] Spironolactone [Aldactone] 25 mg PO BID 07/28/18 [History] Lactulose [Constulose] 20 gm PO QID 01/27/19 [History] Furosemide [Lasix] 20 mg PO DAILY 04/28/20 [History] Levothyroxine 62.5 mcg PO ACBREAKFAST tablet 04/28/20 [Rx] Oxygen Therapy Mode: Room Air Forms: ED Department Discharge - Discharge Summary/Plan Comment DC Time >30 min.: Yes Discharge Summary/Plan Comment: This is a 59 Y/O F with history of Alcoholic liver cirrhosis, Chronic Liver disease secondary to alcohol. Hypertension, GERD who was brought to ED and history is obtained from , spouse states pt been c/o 1 week h/o chest pain and also not been acting her usual self and last time this happen was last summer and at that time she had high ammonia level. states she take her lactulose regularly Spouse thought it was due to her being busy with family over holidays but got concerned tonight and brought her to ER . denies known head injury. Pt had CT of Head in ER and it showed : 1. There is moderate motion artifact, 2. Hypoattenuation present within the occipital lobes bilaterally and within the left posterior parietal lobe, findings that may represent subacute or acute infraction, follow up evaluation with MRI including diffusio-weighted imaging is suggested. In ER her Ammonia was 58 and Rapid COVID-19 was negative. She was admitted for Hepatic encephalopathy. after admission NG tube was placed and given lactulose and also Aspirin and Lipitor ( all Via NG tube). Her status is deteriorating she is non-arousable and will be transferred to [facility] for further evaluation by Neurology and she will also need MRI for further evaluation of the acute/sub- acute Infract Impression and plan: 1. Acute somnolence: This is like from Hepatic encephalopathy/possible acute or sub-acute Infraction -Will continue lactulose at 20 g 4 times a day -Will keep NG for giving medication -re-check Ammonia has gone up and will need to add rifaximin 2. Possible acute or sub-acute Infraction: Recommended MRI of the brain but not available until Wednesday -Will need Neurologist evaluation, and status not improving and will tranfer to [facility] for MRI and further evaluation by Neurology -Will continue Aspirin 325 mg daily and lipitor at 20 mg daily 3. Liver Cirrhosis: This is secondary to alcohol use but she is not doing now -She gets followed by GI -Continue current treatment with Lactulose and add Rifaximine 4. Hypertension: BP acceptable and will continue Aldactone 5. GERD: continue Protonix DVT prophylaxis: start Heparin 5000 units TID Code status: Full Code - General Info Date of Service: 04/28/20 Admission Dx/Problem (Free Text: Admission Diagnosis/Problem Admission Diagnosis/Problem Hepatic encephalopathy/Acute-sub acute Infraction Subjective Update: Pt is non- arousable, only occasionally opens eyes with sternal rub, getting lactulose through NG tube - Review of Systems General: Reports: Other HEENT: Reports: Other Gastrointestinal: Reports: Other Skin: Reports: Other Neurological: Reports: Other (fot all Other response: can not evaluated and get any response from pt as she is non- arousable, very minimal response with sternal rub) Psychiatric: Reports: Other - Patient Data Vitals - Most Recent: Last Vital Signs Temp 37.2 C 04/28/20 08:00 Pulse 90 04/28/20 08:00 Resp 20 04/28/20 08:00 BP 133/58 L 04/28/20 09:01 Pulse Ox 97 04/28/20 03:02 Weight - Most Recent: 99.836 kg Lab Results - Last 24 hrs: Laboratory Results - last 24 hr 04/27/20 04/27/20 04/27/20 Range/Units 22:40 22:40 22:40 WBC 5.1 (5.0-10.0) 10^3/uL RBC 3.34 L (4.2-5.4) 10^6/uL Hgb 10.4 L (12.0-16.0) g/dL Hct 30.5 L (37.0-47.0) % MCV 91.3 (80-100) fL MCH 31.1 (27.0-34.0) pg MCHC 34.1 (33.0-35.0) g/dL Plt Count 132 L (150-450) 10^3/uL Neut % (Auto) 52.7 (42.2-75.2) % Lymph % (Auto) 31.3 (20.5-50.1) % Amador % (Auto) 10.7 H (2-8) % Eos % (Auto) 4.7 H (1.0-3.0) % Baso % (Auto) 0.6 (0.0-1.0) % PT 11.2 (9.0-12.0) SEC INR 1.2 (0.9-1.2) Sodium 141 (136-145) mmol/L Potassium 4.2 (3.5-5.1) mmol/L Chloride 107 (98-107) mmol/L Carbon Dioxide 26 (21-32) mmol/L Anion Gap 12.2 (7-13) mEq/L BUN 30 H (7-18) mg/dL Creatinine 1.50 H (0.55-1.02) mg/dL Est Cr Clr Drug Dosing TNP Estimated GFR (MDRD) 36 BUN/Creatinine Ratio 20.0 (No establ ref range) Glucose 127 H (74-99) mg/dL Lactic Acid (0.4-2.0) mmol/L Calcium 9.0 (8.5-10.1) mg/dL Total Bilirubin 1.6 H (0.2-1.0) mg/dL AST 38 H (15-37) U/L ALT 38 (14-59) U/L Alkaline Phosphatase 233 H (46-116) U/L Ammonia (11-32) umol/L Troponin I < 0.017 (0.000-0.056) ng/mL B-Natriuretic Peptide 33 (0-100) pg/ml Total Protein 6.5 (6.4-8.2) g/dL Albumin 3.0 L (3.4-5.0) g/dL Globulin 3.5 Albumin/Globulin Ratio 0.86 SARS-CoV-2 RNA (EMELINA) (NEGATIVE) 04/27/20 04/27/20 04/28/20 Range/Units 22:40 22:45 00:05 WBC (5.0-10.0) 10^3/uL RBC (4.2-5.4) 10^6/uL Hgb (12.0-16.0) g/dL Hct (37.0-47.0) % MCV (80-100) fL MCH (27.0-34.0) pg MCHC (33.0-35.0) g/dL Plt Count (150-450) 10^3/uL Neut % (Auto) (42.2-75.2) % Lymph % (Auto) (20.5-50.1) % Amador % (Auto) (2-8) % Eos % (Auto) (1.0-3.0) % Baso % (Auto) (0.0-1.0) % PT (9.0-12.0) SEC INR (0.9-1.2) Sodium (136-145) mmol/L Potassium (3.5-5.1) mmol/L Chloride (98-107) mmol/L Carbon Dioxide (21-32) mmol/L Anion Gap (7-13) mEq/L BUN (7-18) mg/dL Creatinine (0.55-1.02) mg/dL Est Cr Clr Drug Dosing Estimated GFR (MDRD) BUN/Creatinine Ratio (No establ ref range) Glucose (74-99) mg/dL Lactic Acid 1.0 (0.4-2.0) mmol/L Calcium (8.5-10.1) mg/dL Total Bilirubin (0.2-1.0) mg/dL AST (15-37) U/L ALT (14-59) U/L Alkaline Phosphatase (46-116) U/L Ammonia 58 H (11-32) umol/L Troponin I (0.000-0.056) ng/mL B-Natriuretic Peptide (0-100) pg/ml Total Protein (6.4-8.2) g/dL Albumin (3.4-5.0) g/dL Globulin Albumin/Globulin Ratio SARS-CoV-2 RNA (EMELINA) Negative (NEGATIVE) 04/28/20 Range/Units 10:46 WBC (5.0-10.0) 10^3/uL RBC (4.2-5.4) 10^6/uL Hgb (12.0-16.0) g/dL Hct (37.0-47.0) % MCV (80-100) fL MCH (27.0-34.0) pg MCHC (33.0-35.0) g/dL Plt Count (150-450) 10^3/uL Neut % (Auto) (42.2-75.2) % Lymph % (Auto) (20.5-50.1) % Amador % (Auto) (2-8) % Eos % (Auto) (1.0-3.0) % Baso % (Auto) (0.0-1.0) % PT (9.0-12.0) SEC INR (0.9-1.2) Sodium (136-145) mmol/L Potassium (3.5-5.1) mmol/L Chloride (98-107) mmol/L Carbon Dioxide (21-32) mmol/L Anion Gap (7-13) mEq/L BUN (7-18) mg/dL Creatinine (0.55-1.02) mg/dL Est Cr Clr Drug Dosing Estimated GFR (MDRD) BUN/Creatinine Ratio (No establ ref range) Glucose (74-99) mg/dL Lactic Acid (0.4-2.0) mmol/L Calcium (8.5-10.1) mg/dL Total Bilirubin (0.2-1.0) mg/dL AST (15-37) U/L ALT (14-59) U/L Alkaline Phosphatase (46-116) U/L Ammonia 135 H (11-32) umol/L Troponin I (0.000-0.056) ng/mL B-Natriuretic Peptide (0-100) pg/ml Total Protein (6.4-8.2) g/dL Albumin (3.4-5.0) g/dL Globulin Albumin/Globulin Ratio SARS-CoV-2 RNA (EMELINA) (NEGATIVE) Med Orders - Current: Current Medications Acetaminophen (Tylenol) 650 mg PO Q4H PRN PRN Reason: Pain (mild 1-3 )/fever Aspirin (Aspirin) 325 mg PO WITHBREAKFAST CELESTE Last Admin: 04/28/20 09:01 Dose: 325 mg Documented by: Atorvastatin Calcium (Lipitor) 20 mg PO BEDTIME [facility] Last Admin: 04/28/20 04:48 Dose: 20 mg Documented by: Docusate Sodium (Colace) 100 mg PO DAILY PRN PRN Reason: Constipation Heparin Sodium (Porcine) (Heparin Sodium) 5,000 units SUBCUT Q8H [facility] Last Admin: 04/28/20 06:03 Dose: Not Given Documented by: Lactulose (Cephulac) 20 gm PO QID [facility] Last Admin: 04/28/20 09:02 Dose: 20 gm Documented by: Levothyroxine Sodium (Levothyroxine) 62.5 mcg PO ACBREAKFAST [facility] Last Admin: 04/28/20 06:03 Dose: Not Given Documented by: Spironolactone (Aldactone) 25 mg PO BIDDIURETIC [facility] Last Admin: 04/28/20 09:01 Dose: 25 mg Documented by: Vitamin B Complex (Vitamin B Complex) 1 each PO DAILY [facility] Last Admin: 04/28/20 09:04 Dose: Not Given Documented by: Discontinued Medications Albuterol/Ipratropium (Duoneb 3.0-0.5 Mg/3 Ml) ml INH ASDIRECTED PRN PRN Reason: Shortness of Breath Aspirin (Aspirin) 325 mg PO WITHBREAKFAST [facility] Heparin Sodium (Porcine) (Heparin Sodium) 5,000 units SUBCUT Q8H [facility] Last Admin: 04/28/20 04:28 Dose: Not Given Documented by: Lactulose (Cephulac) 20 gm PO QID [facility] Levothyroxine Sodium (Levothyroxine) 12.5 mcg PO DAILY [facility] Levothyroxine Sodium (Synthroid) 50 mcg PO DAILY [facility] Lorazepam (Ativan) 1 mg IVPUSH ONETIME ONE Stop: 04/28/20 01:55 Last Admin: 04/28/20 01:59 Dose: 1 mg Documented by: Nifedipine (Procardia Xl) 30 mg PO DAILY [facility] Last Admin: 04/28/20 09:01 Dose: 30 mg Documented by: - Exam Quality Assessment: Reports: DVT Prophylaxis. Denies: Supplemental Oxygen, Urine Catheter General: Reports: Other HEENT: Reports: Pupils Equal Neck: Reports: No JVD, No Thyromegaly Lungs: Reports: Clear to Auscultation, Normal Respiratory Effort Cardiovascular: Reports: Regular Rate, Regular Rhythm, No Murmurs GI/Abdominal Exam: Normal Bowel Sounds, No Distention (Female) Exam: Deferred Rectal (Female) Exam: Deferred Back Exam: Reports: Normal Inspection Extremities: Normal Inspection, No Pedal Edema Skin: Reports: Warm, Dry, Intact Neurological: Reports: Other (could not evaluate pt is non-arousable) Psy/Mental Status: Reports: Other (non-arousable)
[2020-04-28 12:31] VITALS: BP 122/56
== END 2020-04-28 12:25 ==
LOC: DL.ED 04-28 02:11 → DL.MS 04-28 02:15
PROVIDERS: ADMIT Internal Medicine Nephrology; ATTEND Internal Medicine Nephrology
DX: K72.90 Hepatic failure, unspecified without coma (principal); K70.30 Alcoholic cirrhosis of liver without ascites; I10 Essential (primary) hypertension; K21.9 Gastro-esophageal reflux disease without esophagitis; E66.9 Obesity, unspecified; E03.9 Hypothyroidism, unspecified; Z20.828 Contact with and (suspected) exposure to other viral communicable diseases; Z79.899 Other long term (current) drug therapy; Z79.82 Long term (current) use of aspirin; Z68.33 Body mass index [BMI] 33.0-33.9, adult
CPT/HCPCS: 36415; 70450; 71045; 80053; 82140; 83605; 83880; 84484; 85025; 85610; 87635; 93005; A9270; J1644; J2060; 96372; 96374; 99284; 99285-25; G0378; U0002

== ENCOUNTER 2020-05-17 10:17 | Inpatient (IN) | payer MEDICAID ==
[2020-05-17 11:24] LABS: ANION GAP 13.3 mEq/L (7-13); CHLORIDE,CL 109 mmol/L (98-107); SODIUM,NA 142 mmol/L (136-145)
--- NOTE | 2020-05-17 11:25 | EDM.PDOC ---
ED HPI GENERAL MEDICAL PROBLEM - General Stated Complaint: AMMONIA HIGH BROUGHT BY [facility] Time Seen by Provider: 05/17/20 11:19 Source of Information: Reports: Patient, Family (, George), RN, RN Notes Reviewed History Limitations: Reports: Altered Mental Status - History of Present Illness INITIAL COMMENTS - FREE TEXT/NARRATIVE: Patient presents to the ED via personal vehicle, with George present, for complaints of altered mental status. The patient is alert and oriented to _ and is a poor historian for the HPI. The patient's notes she has been increasingly confused over the last few days. He spoke with her PCP today who suggested the patient present to the ED for further evaluation as, "...her ammonia may be high." The patient has a history of cirrhosis with esophageal varices and hepatic encephalopathy for which she takes Lactulose 4x/day and Rifaximin. Her notes she normally has several bowel movements throughout the day, but has only had two bowel movements in the past 48 hours. The denies recent illness, fever, vomiting, or diarrhea. The patient denies shaking chills, palpitations, and shortness of breath. She does attest to transient chest pressure and nausea. The patient denies tobacco, alcohol, or recreational drug use. - Related Data Allergies Allergy/AdvReac Type Severity Reaction Status Date / Time No Known Allergies Allergy Verified 05/17/20 13:12 Home Meds: Home Meds Vitamin B Complex 1 each PO DAILY 04/09/18 [History] Spironolactone [Aldactone] 25 mg PO QID 07/28/18 [History] Lactulose [Constulose] 30 ml PO QID 01/27/19 [History] Furosemide [Lasix] 40 mg PO DAILY 04/28/20 [History] Cholecalciferol (Vitamin D3) [Vitamin D3] 125 mcg PO DAILY 05/17/20 [History] Levothyroxine 75 mcg PO DAILY 05/17/20 [History] NIFEdipine [Nifedipine ER] 30 mg PO DAILY 05/17/20 [History] Pantoprazole Sodium [Protonix] 40 mg PO DAILY 05/17/20 [History] Rifaximin [Xifaxan] 550 mg PO BID 05/17/20 [History] Past Medical History HEENT History: Reports: None, Other (See Below) Other HEENT History: UPPER DENTURE PLATE AND LOWER PARTIAL Cardiovascular History: Reports: Heart Murmur, Hypertension Respiratory History: Reports: None Gastrointestinal History: Reports: Cirrhosis, GERD, Hepatitis, Other (See Below) Other Gastrointestinal History: chronic liver disease Genitourinary History: Reports: Other (See Below) Other Genitourinary History: bladder issues NUCLEAR LICENSING ENGINEER History: Reports: None Musculoskeletal History: Reports: Other (See Below) Other Musculoskeletal History: knee problems Neurological History: Reports: None Psychiatric History: Reports: Learning Disability, Panic Attack Endocrine/Metabolic History: Reports: Hypothyroidism, Obesity/BMI 30+ Hematologic History: Reports: Anemia, Other (See Below) Other Hematologic History: thrombocytopenia Immunologic History: Reports: None Oncologic (Cancer) History: Reports: None Dermatologic History: Reports: None - Infectious Disease History Infectious Disease History: Reports: None - Past Surgical History Head Surgeries/Procedures: Reports: None HEENT Surgical History: Reports: None Other HEENT Surgeries/Procedures: ear surgery as a child Cardiovascular Surgical History: Reports: None Respiratory Surgical History: Reports: None GI Surgical History: Reports: Colonoscopy, EGD, Other (See Below) Other GI Surgeries/Procedures: liver biopsy Female Surgical History: Reports: Section Endocrine Surgical History: Reports: None Neurological Surgical History: Reports: None Musculoskeletal Surgical History: Reports: None Oncologic Surgical History: Reports: None Dermatological Surgical History: Reports: None Social & Family History - Family History Family Medical History: No Pertinent Family History - Caffeine Use Caffeine Use: Reports: None Caffeine Use Comment: rare coffee - Living Situation & Occupation Living situation: Reports: with Family ED ROS GENERAL - Review of Systems Review Of Systems: Comprehensive ROS is negative, except as noted in HPI. - Physical Exam Exam: See Below Exam Limited By: Altered Mental Status General Appearance: Alert, Obese Eye Exam: Bilateral Eye: EOMI, Normal Inspection, PERRL (3mm), Other (Scleral jaundice) Throat/Mouth: Normal Inspection, Normal Voice, No Airway Compromise Head Exam: Atraumatic, Normocephalic Respiratory/Chest: No Respiratory Distress, Normal Breath Sounds, No Accessory Muscle Use, Chest Non-Tender, Wheezing (Expiratory to left upper lobe) Cardiovascular: Normal Peripheral Pulses, Regular Rate, Rhythm, No Gallop, No JVD, No Murmur, No Rub GI/Abdominal: Normal Bowel Sounds, Soft, Non-Tender, No Distention, No Mass, Pelvis Stable (Female) Exam: Deferred Rectal (Female) Exam: Deferred Neuro Exam (Abbreviated): Alert, No Motor/Sensory Deficits, Inattentive, Confused, Slow to Respond Back Exam: Normal Inspection, Full Range of Motion. No: CVA Tenderness (L), CVA Tenderness (R) Extremities: Normal Range of Motion, Non-Tender, Normal Capillary Refill, Pedal Edema (+2 non-pitting bilaterally) Psychiatric: Normal Mood, Flat Affect Skin Exam: Dry, Intact, Jaundice. No: Ecchymosis, Erythema, Mottled, Pallor, Petechiae Course - Vital Signs Last Recorded V/S: Last Vital Signs Temp 97.3 F 05/17/20 13:11 Pulse 80 05/17/20 13:11 Resp 20 05/17/20 13:11 BP 128/65 05/17/20 13:11 Pulse Ox 99 05/17/20 13:53 - Orders/Labs/Meds Orders: Medication Orders Furosemide (Lasix) 20 mg PO BID [facility] Heparin Sodium (Porcine) (Heparin Sodium) 5,000 units SUBCUT Q8HR [facility] Lactulose (Cephulac) 30 gm PO QID [facility] Stop: 05/18/20 09:01 Levothyroxine Sodium (Synthroid) 50 mcg PO DAILY [facility] Non-Formulary Medication (Cholecalciferol (Vitamin D3) [Vitamin D3]) 4,000 unit PO DAILY [facility] Ondansetron HCl (Zofran Odt) 4 mg PO Q6H PRN PRN Reason: nausea, able to take PO Propranolol HCl (Inderal La) 60 mg PO DAILY [facility] Rifaximin (Xifaxan) 550 mg PO BID [facility] Sodium Chloride (Saline Flush) 10 ml FLUSH ASDIRECTED PRN PRN Reason: Keep Vein Open Spironolactone (Aldactone) 25 mg PO QID [facility] Vitamin B Complex (Vitamin B Complex) 1 each PO DAILY [facility] Labs: Laboratory Tests 05/17/20 05/17/20 05/17/20 Range/Units 10:40 10:52 10:52 WBC 4.4 L (5.0-10.0) 10^3/uL RBC 3.28 L (4.2-5.4) 10^6/uL Hgb 9.9 L (12.0-16.0) g/dL Hct 30.3 L (37.0-47.0) % MCV 92.4 (80-100) fL MCH 30.2 (27.0-34.0) pg MCHC 32.7 L (33.0-35.0) g/dL Plt Count 143 L (150-450) 10^3/uL Neut % (Auto) 52.8 (42.2-75.2) % Lymph % (Auto) 29.3 (20.5-50.1) % Keith % (Auto) 10.4 H (2-8) % Eos % (Auto) 7.0 H (1.0-3.0) % Baso % (Auto) 0.5 (0.0-1.0) % PT 12.2 H (9.0-12.0) SEC INR 1.3 H (0.9-1.2) APTT 29.9 (22.0-34.0) SEC D-Dimer, Quantitative 926 H (0-400) ng/mL Sodium (136-145) mmol/L Potassium (3.5-5.1) mmol/L Chloride (98-107) mmol/L Carbon Dioxide (21-32) mmol/L Anion Gap (7-13) mEq/L BUN (7-18) mg/dL Creatinine (0.55-1.02) mg/dL Est Cr Clr Drug Dosing Estimated GFR (MDRD) BUN/Creatinine Ratio (No establ ref range) Glucose (74-99) mg/dL Lactic Acid (0.4-2.0) mmol/L Calcium (8.5-10.1) mg/dL Magnesium (1.8-2.4) mg/dL Total Bilirubin (0.2-1.0) mg/dL AST (15-37) U/L ALT (14-59) U/L Alkaline Phosphatase (46-116) U/L Ammonia (11-32) umol/L Troponin I (0.000-0.056) ng/mL C-Reactive Protein (0.0-0.9) mg/dL B-Natriuretic Peptide (0-100) pg/ml Total Protein (6.4-8.2) g/dL Albumin (3.4-5.0) g/dL Globulin Albumin/Globulin Ratio Amylase (25-115) U/L Lipase (73-393) U/L Urine Color (YELLOW) Urine Appearance (CLEAR) Urine pH (5.0-9.0) Ur Specific [place] (1.005-1.030) Urine Protein (NEGATIVE) Urine Glucose (UA) (NEGATIVE) Urine Ketones (NEGATIVE) Urine Occult Blood (NEGATIVE) Urine Nitrite (NEGATIVE) Urine Bilirubin (NEGATIVE) Urine Urobilinogen (0.2-1.0) mg/dL Ur Leukocyte Esterase (NEGATIVE) Urine Opiates Screen (NEGATIVE) Ur Oxycodone Screen (NEGATIVE) Urine Methadone Screen (NEGATIVE) Ur Barbiturates Screen (NEGATIVE) U Tricyclic Antidepress (NEGATIVE) Ur Phencyclidine Scrn (NEGATIVE) Ur Amphetamine Screen (NEGATIVE) U Methamphetamines Scrn (NEGATIVE) Urine MDMA Screen (NEGATIVE) U Benzodiazepines Scrn (NEGATIVE) Urine Cocaine Screen (NEGATIVE) U Marijuana (THC) Screen (NEGATIVE) Ethyl Alcohol (0) mg/dL SARS CoV-2 RNA Rapid EMELINA Negative (NEGATIVE) 05/17/20 05/17/20 05/17/20 Range/Units 10:52 10:52 10:52 WBC (5.0-10.0) 10^3/uL RBC (4.2-5.4) 10^6/uL Hgb (12.0-16.0) g/dL Hct (37.0-47.0) % MCV (80-100) fL MCH (27.0-34.0) pg MCHC (33.0-35.0) g/dL Plt Count (150-450) 10^3/uL Neut % (Auto) (42.2-75.2) % Lymph % (Auto) (20.5-50.1) % Keith % (Auto) (2-8) % Eos % (Auto) (1.0-3.0) % Baso % (Auto) (0.0-1.0) % PT (9.0-12.0) SEC INR (0.9-1.2) APTT (22.0-34.0) SEC D-Dimer, Quantitative (0-400) ng/mL Sodium 142 (136-145) mmol/L Potassium 4.3 (3.5-5.1) mmol/L Chloride 109 H (98-107) mmol/L Carbon Dioxide 24 (21-32) mmol/L Anion Gap 13.3 H (7-13) mEq/L BUN 23 H (7-18) mg/dL Creatinine 1.33 H (0.55-1.02) mg/dL Est Cr Clr Drug Dosing TNP Estimated GFR (MDRD) 41 BUN/Creatinine Ratio 17.3 (No establ ref range) Glucose 132 H (74-99) mg/dL Lactic Acid 1.3 (0.4-2.0) mmol/L Calcium 8.9 (8.5-10.1) mg/dL Magnesium 2.0 (1.8-2.4) mg/dL Total Bilirubin 1.5 H (0.2-1.0) mg/dL AST 57 H (15-37) U/L ALT 44 (14-59) U/L Alkaline Phosphatase 160 H (46-116) U/L Ammonia 142 H (11-32) umol/L Troponin I < 0.017 (0.000-0.056) ng/mL C-Reactive Protein 0.3 (0.0-0.9) mg/dL B-Natriuretic Peptide 71 (0-100) pg/ml Total Protein 6.4 (6.4-8.2) g/dL Albumin 2.8 L (3.4-5.0) g/dL Globulin 3.6 Albumin/Globulin Ratio 0.78 Amylase (25-115) U/L Lipase (73-393) U/L Urine Color (YELLOW) Urine Appearance (CLEAR) Urine pH (5.0-9.0) Ur Specific [place] (1.005-1.030) Urine Protein (NEGATIVE) Urine Glucose (UA) (NEGATIVE) Urine Ketones (NEGATIVE) Urine Occult Blood (NEGATIVE) Urine Nitrite (NEGATIVE) Urine Bilirubin (NEGATIVE) Urine Urobilinogen (0.2-1.0) mg/dL Ur Leukocyte Esterase (NEGATIVE) Urine Opiates Screen (NEGATIVE) Ur Oxycodone Screen (NEGATIVE) Urine Methadone Screen (NEGATIVE) Ur Barbiturates Screen (NEGATIVE) U Tricyclic Antidepress (NEGATIVE) Ur Phencyclidine Scrn (NEGATIVE) Ur Amphetamine Screen (NEGATIVE) U Methamphetamines Scrn (NEGATIVE) Urine MDMA Screen (NEGATIVE) U Benzodiazepines Scrn (NEGATIVE) Urine Cocaine Screen (NEGATIVE) U Marijuana (THC) Screen (NEGATIVE) Ethyl Alcohol < 3 (0) mg/dL SARS CoV-2 RNA Rapid EMELINA (NEGATIVE) 05/17/20 05/17/20 05/17/20 Range/Units 10:52 10:52 12:35 WBC (5.0-10.0) 10^3/uL RBC (4.2-5.4) 10^6/uL Hgb (12.0-16.0) g/dL Hct (37.0-47.0) % MCV (80-100) fL MCH (27.0-34.0) pg MCHC (33.0-35.0) g/dL Plt Count (150-450) 10^3/uL Neut % (Auto) (42.2-75.2) % Lymph % (Auto) (20.5-50.1) % Keith % (Auto) (2-8) % Eos % (Auto) (1.0-3.0) % Baso % (Auto) (0.0-1.0) % PT (9.0-12.0) SEC INR (0.9-1.2) APTT (22.0-34.0) SEC D-Dimer, Quantitative (0-400) ng/mL Sodium (136-145) mmol/L Potassium (3.5-5.1) mmol/L Chloride (98-107) mmol/L Carbon Dioxide (21-32) mmol/L Anion Gap (7-13) mEq/L BUN (7-18) mg/dL Creatinine (0.55-1.02) mg/dL Est Cr Clr Drug Dosing Estimated GFR (MDRD) BUN/Creatinine Ratio (No establ ref range) Glucose (74-99) mg/dL Lactic Acid (0.4-2.0) mmol/L Calcium (8.5-10.1) mg/dL Magnesium (1.8-2.4) mg/dL Total Bilirubin (0.2-1.0) mg/dL AST (15-37) U/L ALT (14-59) U/L Alkaline Phosphatase (46-116) U/L Ammonia (11-32) umol/L Troponin I (0.000-0.056) ng/mL C-Reactive Protein (0.0-0.9) mg/dL B-Natriuretic Peptide (0-100) pg/ml Total Protein (6.4-8.2) g/dL Albumin (3.4-5.0) g/dL Globulin Albumin/Globulin Ratio Amylase 142 H (25-115) U/L Lipase 308 (73-393) U/L Urine Color Yellow (YELLOW) Urine Appearance Clear (CLEAR) Urine pH 6.5 (5.0-9.0) Ur Specific [place] 1.020 (1.005-1.030) Urine Protein Negative (NEGATIVE) Urine Glucose (UA) Negative (NEGATIVE) Urine Ketones Negative (NEGATIVE) Urine Occult Blood Negative (NEGATIVE) Urine Nitrite Negative (NEGATIVE) Urine Bilirubin Negative (NEGATIVE) Urine Urobilinogen 0.2 (0.2-1.0) mg/dL Ur Leukocyte Esterase Negative (NEGATIVE) Urine Opiates Screen (NEGATIVE) Ur Oxycodone Screen (NEGATIVE) Urine Methadone Screen (NEGATIVE) Ur Barbiturates Screen (NEGATIVE) U Tricyclic Antidepress (NEGATIVE) Ur Phencyclidine Scrn (NEGATIVE) Ur Amphetamine Screen (NEGATIVE) U Methamphetamines Scrn (NEGATIVE) Urine MDMA Screen (NEGATIVE) U Benzodiazepines Scrn (NEGATIVE) Urine Cocaine Screen (NEGATIVE) U Marijuana (THC) Screen (NEGATIVE) Ethyl Alcohol (0) mg/dL SARS CoV-2 RNA Rapid EMELINA (NEGATIVE) 05/17/20 Range/Units 12:35 WBC (5.0-10.0) 10^3/uL RBC (4.2-5.4) 10^6/uL Hgb (12.0-16.0) g/dL Hct (37.0-47.0) % MCV (80-100) fL MCH (27.0-34.0) pg MCHC (33.0-35.0) g/dL Plt Count (150-450) 10^3/uL Neut % (Auto) (42.2-75.2) % Lymph % (Auto) (20.5-50.1) % Keith % (Auto) (2-8) % Eos % (Auto) (1.0-3.0) % Baso % (Auto) (0.0-1.0) % PT (9.0-12.0) SEC INR (0.9-1.2) APTT (22.0-34.0) SEC D-Dimer, Quantitative (0-400) ng/mL Sodium (136-145) mmol/L Potassium (3.5-5.1) mmol/L Chloride (98-107) mmol/L Carbon Dioxide (21-32) mmol/L Anion Gap (7-13) mEq/L BUN (7-18) mg/dL Creatinine (0.55-1.02) mg/dL Est Cr Clr Drug Dosing Estimated GFR (MDRD) BUN/Creatinine Ratio (No establ ref range) Glucose (74-99) mg/dL Lactic Acid (0.4-2.0) mmol/L Calcium (8.5-10.1) mg/dL Magnesium (1.8-2.4) mg/dL Total Bilirubin (0.2-1.0) mg/dL AST (15-37) U/L ALT (14-59) U/L Alkaline Phosphatase (46-116) U/L Ammonia (11-32) umol/L Troponin I (0.000-0.056) ng/mL C-Reactive Protein (0.0-0.9) mg/dL B-Natriuretic Peptide (0-100) pg/ml Total Protein (6.4-8.2) g/dL Albumin (3.4-5.0) g/dL Globulin Albumin/Globulin Ratio Amylase (25-115) U/L Lipase (73-393) U/L Urine Color (YELLOW) Urine Appearance (CLEAR) Urine pH (5.0-9.0) Ur Specific [place] (1.005-1.030) Urine Protein (NEGATIVE) Urine Glucose (UA) (NEGATIVE) Urine Ketones (NEGATIVE) Urine Occult Blood (NEGATIVE) Urine Nitrite (NEGATIVE) Urine Bilirubin (NEGATIVE) Urine Urobilinogen (0.2-1.0) mg/dL Ur Leukocyte Esterase (NEGATIVE) Urine Opiates Screen Negative (NEGATIVE) Ur Oxycodone Screen Negative (NEGATIVE) Urine Methadone Screen Negative (NEGATIVE) Ur Barbiturates Screen Negative (NEGATIVE) U Tricyclic Antidepress Negative (NEGATIVE) Ur Phencyclidine Scrn Negative (NEGATIVE) Ur Amphetamine Screen Negative (NEGATIVE) U Methamphetamines Scrn Negative (NEGATIVE) Urine MDMA Screen Negative (NEGATIVE) U Benzodiazepines Scrn Negative (NEGATIVE) Urine Cocaine Screen Negative (NEGATIVE) U Marijuana (THC) Screen Negative (NEGATIVE) Ethyl Alcohol (0) mg/dL SARS CoV-2 RNA Rapid EMELINA (NEGATIVE) Meds: Medications Generic Name Dose Route Start Last Admin Trade Name Freq PRN Reason Stop Dose Admin Furosemide 20 mg 05/17/20 21:00 Lasix PO BID [facility] Heparin Sodium (Porcine) 5,000 units 05/17/20 14:00 Heparin Sodium SUBCUT Q8HR [facility] Lactulose 30 gm 05/17/20 15:00 Cephulac PO 05/18/20 09:01 QID [facility] Levothyroxine Sodium 50 mcg 05/18/20 09:00 Synthroid PO DAILY [facility] Non-Formulary Medication 4,000 unit 05/18/20 09:00 Cholecalciferol (Vitamin D3) [Vitamin D3] PO DAILY [facility] Ondansetron HCl 4 mg 05/17/20 13:53 Zofran Odt PO Q6H PRN nausea, able to take PO Propranolol HCl 60 mg 05/18/20 09:00 Inderal La PO DAILY [facility] Rifaximin 550 mg 05/17/20 14:00 Xifaxan PO BID [facility] Sodium Chloride 10 ml 05/17/20 13:53 Saline Flush FLUSH ASDIRECTED PRN Keep Vein Open Spironolactone 25 mg 05/17/20 17:00 Aldactone PO QID [facility] Vitamin B Complex 1 each 05/18/20 09:00 Vitamin B Complex PO DAILY [facility] Discontinued Medications Generic Name Dose Route Start Last Admin Trade Name Freq PRN Reason Stop Dose Admin Nifedipine 30 mg 05/18/20 09:00 Procardia Xl PO DAILY [facility] Non-Formulary Medication 20 gm 05/17/20 17:00 Lactulose PO QID [facility] - Re-Assessments/Exams Free Text/Narrative Re-Assessment/Exam: 05/17/20 Ammonia 142, Total Bili 1.5, Creatinine 1.3, AST 57, ALT 44, Alk Phos 142, Amylase 142, Lipase 308. Reviewed records and noted Head CT on 04/28/2020 which could not rule out areas of hypoattenuation present due to moderate motion artifact. Patient was subsequently transferred to [facility] in [place] and repeat scans were performed. Television Repairman spoke with Lindy at [facility] who stated a repeat Head CT performed on 04/29/20 did not have these areas present and acute processes were ruled out. Discussed these findings of the case with Dr. Dobbs who stated repeat CT would not be warranted at this time given patient's ammonia and presentation. Dr. Dobbs kindly agreed to accept patient for admission to this facility for hepatic encephalopathy. Plan of care discussed with patient and her who both verbalized understanding and agreement. Departure - Departure Time of Disposition: 12:57 Disposition: Admitted As Inpatient 68 Condition: Good Clinical Impression: Hepatic encephalopathy, Serum total bilirubin elevated - Discharge Information Sepsis Event Note (ED) - Evaluation Sepsis Screening Result: No Definite Risk - Focused Exam Vital Signs: Vital Signs Temp Pulse Resp BP Pulse Ox 05/17/20 11:14 97 F 90 16 133/75 100
[2020-05-17 11:31] LABS: PTT,PARTIAL THROMBOPLSTIN TIME 29.9 SEC (22.0-34.0)
[2020-05-17 12:42] LABS: AMPHETAMINES,URINE NEGATIVE (NEGATIVE); BARBITURATES,URINE NEGATIVE (NEGATIVE); BENZODIAZEPINE,URINE NEGATIVE (NEGATIVE); MDMA (ECSTASY), URINE NEGATIVE (NEGATIVE); METHADONE,URINE NEGATIVE (NEGATIVE); METHAMPHETAMINES,URINE NEGATIVE (NEGATIVE); OPIATES,URINE NEGATIVE (NEGATIVE); OXYCODONE,URINE NEGATIVE (NEGATIVE); PHENCYCLIDINE,URINE NEGATIVE (NEGATIVE); TCA,URINE NEGATIVE (NEGATIVE)
[2020-05-17] MEDS ORDERED: Sodium Chloride 0.9% 10 ML Syringe FLUSH PRN (13:53)
[2020-05-17] MEDS ORDERED: Ondansetron 4 MG Tab.DIS PO PRN (13:53)
--- NOTE | 2020-05-17 14:03 | PCM.HP ---
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 in the past 2 days prior to admission the patient had only 1 bowel movement a day despite taking the usual amount of lactulose and rifaximin Also lower extremity present during the day The patient feels abdominal bloating but no significant pain, the abdomen is not distended. No nausea or vomiting. No fever or chills. - Related Data Allergies/Adverse Reactions: Allergies Allergy/AdvReac Type Severity Reaction Status Date / Time No Known Allergies Allergy Verified 05/17/20 13:12 Home Medications: Home Meds Vitamin B Complex 1 each PO DAILY 04/09/18 [History] Spironolactone [Aldactone] 25 mg PO QID 07/28/18 [History] Lactulose [Constulose] 30 ml PO QID 01/27/19 [History] Furosemide [Lasix] 40 mg PO DAILY 04/28/20 [History] Cholecalciferol (Vitamin D3) [Vitamin D3] 125 mcg PO DAILY 05/17/20 [History] Levothyroxine 75 mcg PO DAILY 05/17/20 [History] NIFEdipine [Nifedipine ER] 30 mg PO DAILY 05/17/20 [History] Pantoprazole Sodium [Protonix] 40 mg PO DAILY 05/17/20 [History] Rifaximin [Xifaxan] 550 mg PO BID 05/17/20 [History] Past Medical History HEENT History: Reports: None, Other (See Below) Other HEENT History: UPPER DENTURE PLATE AND LOWER PARTIAL Cardiovascular History: Reports: Heart Murmur, Hypertension Respiratory History: Reports: None Gastrointestinal History: Reports: Cirrhosis, GERD, Hepatitis, Other (See Below) Other Gastrointestinal History: chronic liver disease Genitourinary History: Reports: Other (See Below) Other Genitourinary History: bladder issues GRAPHIC TECHNICIAN History: Reports: None Musculoskeletal History: Reports: Other (See Below) Other Musculoskeletal History: knee problems Neurological History: Reports: None Psychiatric History: Reports: Learning Disability, Panic Attack Endocrine/Metabolic History: Reports: Hypothyroidism, Obesity/BMI 30+ Hematologic History: Reports: Anemia, Other (See Below) Other Hematologic History: thrombocytopenia Immunologic History: Reports: None Oncologic (Cancer) History: Reports: None Dermatologic History: Reports: None - Infectious Disease History Infectious Disease History: Reports: None - Past Surgical History Head Surgeries/Procedures: Reports: None HEENT Surgical History: Reports: None Other HEENT Surgeries/Procedures: ear surgery as a child Cardiovascular Surgical History: Reports: None Respiratory Surgical History: Reports: None GI Surgical History: Reports: Colonoscopy, EGD, Other (See Below) Other GI Surgeries/Procedures: liver biopsy Female Surgical History: Reports: Section Endocrine Surgical History: Reports: None Neurological Surgical History: Reports: None Musculoskeletal Surgical History: Reports: None Oncologic Surgical History: Reports: None Dermatological Surgical History: Reports: None Social & Family History - Family History Family Medical History: No Pertinent Family History - Tobacco Use Tobacco Use Status *Q: Never Tobacco User - Caffeine Use Caffeine Use: Reports: None Caffeine Use Comment: rare coffee - Recreational Drug Use Recreational Drug Use: No - Living Situation & Occupation Living situation: Reports: with Family H&P Review of Systems - Review of Systems: Review Of Systems: See Below General: Reports: Malaise, Weakness. Denies: Fever, Chills Pulmonary: Denies: Shortness of Breath, Wheezing Cardiovascular: Reports: Edema. Denies: Chest Pain Gastrointestinal: Reports: Other (abdominal distention). Denies: Abdominal Pain, Diarrhea, Vomiting Psychiatric: Reports: Confusion Neurological: Reports: Confusion, Tremors Exam - Exam Exam: See Below - Vital Signs Vital Signs: Last Vital Signs Temp 97.3 F 05/17/20 13:11 Pulse 80 05/17/20 13:11 Resp 20 05/17/20 13:11 BP 128/65 05/17/20 13:11 Pulse Ox 100 05/17/20 13:11 Weight: 239 lb 9.6 oz - Exam General: Alert, Oriented, Obtunded (mildly) Neck: Supple Lungs: Clear to Auscultation, Normal Respiratory Effort Cardiovascular: Regular Rate, Regular Rhythm (but slow to answer) GI/Abdominal Exam: Normal Bowel Sounds, Soft, Non-Tender Extremities: Pedal Edema - Patient Data Lab Results Last 24 hrs: Laboratory Results - last 24 hr 05/17/20 05/17/20 05/17/20 Range/Units 10:40 10:52 10:52 WBC 4.4 L (5.0-10.0) 10^3/uL RBC 3.28 L (4.2-5.4) 10^6/uL Hgb 9.9 L (12.0-16.0) g/dL Hct 30.3 L (37.0-47.0) % MCV 92.4 (80-100) fL MCH 30.2 (27.0-34.0) pg MCHC 32.7 L (33.0-35.0) g/dL Plt Count 143 L (150-450) 10^3/uL Neut % (Auto) 52.8 (42.2-75.2) % Lymph % (Auto) 29.3 (20.5-50.1) % [place] % (Auto) 10.4 H (2-8) % Eos % (Auto) 7.0 H (1.0-3.0) % Baso % (Auto) 0.5 (0.0-1.0) % PT 12.2 H (9.0-12.0) SEC INR 1.3 H (0.9-1.2) APTT 29.9 (22.0-34.0) SEC D-Dimer, Quantitative 926 H (0-400) ng/mL Sodium (136-145) mmol/L Potassium (3.5-5.1) mmol/L Chloride (98-107) mmol/L Carbon Dioxide (21-32) mmol/L Anion Gap (7-13) mEq/L BUN (7-18) mg/dL Creatinine (0.55-1.02) mg/dL Est Cr Clr Drug Dosing Estimated GFR (MDRD) BUN/Creatinine Ratio (No establ ref range) Glucose (74-99) mg/dL Lactic Acid (0.4-2.0) mmol/L Calcium (8.5-10.1) mg/dL Magnesium (1.8-2.4) mg/dL Total Bilirubin (0.2-1.0) mg/dL AST (15-37) U/L ALT (14-59) U/L Alkaline Phosphatase (46-116) U/L Ammonia (11-32) umol/L Troponin I (0.000-0.056) ng/mL C-Reactive Protein (0.0-0.9) mg/dL B-Natriuretic Peptide (0-100) pg/ml Total Protein (6.4-8.2) g/dL Albumin (3.4-5.0) g/dL Globulin Albumin/Globulin Ratio Amylase (25-115) U/L Lipase (73-393) U/L Urine Color (YELLOW) Urine Appearance (CLEAR) Urine pH (5.0-9.0) Ur Specific Philip (1.005-1.030) Urine Protein (NEGATIVE) Urine Glucose (UA) (NEGATIVE) Urine Ketones (NEGATIVE) Urine Occult Blood (NEGATIVE) Urine Nitrite (NEGATIVE) Urine Bilirubin (NEGATIVE) Urine Urobilinogen (0.2-1.0) mg/dL Ur Leukocyte Esterase (NEGATIVE) Urine Opiates Screen (NEGATIVE) Ur Oxycodone Screen (NEGATIVE) Urine Methadone Screen (NEGATIVE) Ur Barbiturates Screen (NEGATIVE) U Tricyclic Antidepress (NEGATIVE) Ur Phencyclidine Scrn (NEGATIVE) Ur Amphetamine Screen (NEGATIVE) U Methamphetamines Scrn (NEGATIVE) Urine MDMA Screen (NEGATIVE) U Benzodiazepines Scrn (NEGATIVE) Urine Cocaine Screen (NEGATIVE) U Marijuana (THC) Screen (NEGATIVE) Ethyl Alcohol (0) mg/dL SARS CoV-2 RNA Rapid EMELINA Negative (NEGATIVE) 05/17/20 05/17/20 05/17/20 Range/Units 10:52 10:52 10:52 WBC (5.0-10.0) 10^3/uL RBC (4.2-5.4) 10^6/uL Hgb (12.0-16.0) g/dL Hct (37.0-47.0) % MCV (80-100) fL MCH (27.0-34.0) pg MCHC (33.0-35.0) g/dL Plt Count (150-450) 10^3/uL Neut % (Auto) (42.2-75.2) % Lymph % (Auto) (20.5-50.1) % [place] % (Auto) (2-8) % Eos % (Auto) (1.0-3.0) % Baso % (Auto) (0.0-1.0) % PT (9.0-12.0) SEC INR (0.9-1.2) APTT (22.0-34.0) SEC D-Dimer, Quantitative (0-400) ng/mL Sodium 142 (136-145) mmol/L Potassium 4.3 (3.5-5.1) mmol/L Chloride 109 H (98-107) mmol/L Carbon Dioxide 24 (21-32) mmol/L Anion Gap 13.3 H (7-13) mEq/L BUN 23 H (7-18) mg/dL Creatinine 1.33 H (0.55-1.02) mg/dL Est Cr Clr Drug Dosing TNP Estimated GFR (MDRD) 41 BUN/Creatinine Ratio 17.3 (No establ ref range) Glucose 132 H (74-99) mg/dL Lactic Acid 1.3 (0.4-2.0) mmol/L Calcium 8.9 (8.5-10.1) mg/dL Magnesium 2.0 (1.8-2.4) mg/dL Total Bilirubin 1.5 H (0.2-1.0) mg/dL AST 57 H (15-37) U/L ALT 44 (14-59) U/L Alkaline Phosphatase 160 H (46-116) U/L Ammonia 142 H (11-32) umol/L Troponin I < 0.017 (0.000-0.056) ng/mL C-Reactive Protein 0.3 (0.0-0.9) mg/dL B-Natriuretic Peptide 71 (0-100) pg/ml Total Protein 6.4 (6.4-8.2) g/dL Albumin 2.8 L (3.4-5.0) g/dL Globulin 3.6 Albumin/Globulin Ratio 0.78 Amylase (25-115) U/L Lipase (73-393) U/L Urine Color (YELLOW) Urine Appearance (CLEAR) Urine pH (5.0-9.0) Ur Specific Philip (1.005-1.030) Urine Protein (NEGATIVE) Urine Glucose (UA) (NEGATIVE) Urine Ketones (NEGATIVE) Urine Occult Blood (NEGATIVE) Urine Nitrite (NEGATIVE) Urine Bilirubin (NEGATIVE) Urine Urobilinogen (0.2-1.0) mg/dL Ur Leukocyte Esterase (NEGATIVE) Urine Opiates Screen (NEGATIVE) Ur Oxycodone Screen (NEGATIVE) Urine Methadone Screen (NEGATIVE) Ur Barbiturates Screen (NEGATIVE) U Tricyclic Antidepress (NEGATIVE) Ur Phencyclidine Scrn (NEGATIVE) Ur Amphetamine Screen (NEGATIVE) U Methamphetamines Scrn (NEGATIVE) Urine MDMA Screen (NEGATIVE) U Benzodiazepines Scrn (NEGATIVE) Urine Cocaine Screen (NEGATIVE) U Marijuana (THC) Screen (NEGATIVE) Ethyl Alcohol < 3 (0) mg/dL SARS CoV-2 RNA Rapid EMELINA (NEGATIVE) 05/17/20 05/17/20 05/17/20 Range/Units 10:52 10:52 12:35 WBC (5.0-10.0) 10^3/uL RBC (4.2-5.4) 10^6/uL Hgb (12.0-16.0) g/dL Hct (37.0-47.0) % MCV (80-100) fL MCH (27.0-34.0) pg MCHC (33.0-35.0) g/dL Plt Count (150-450) 10^3/uL Neut % (Auto) (42.2-75.2) % Lymph % (Auto) (20.5-50.1) % [place] % (Auto) (2-8) % Eos % (Auto) (1.0-3.0) % Baso % (Auto) (0.0-1.0) % PT (9.0-12.0) SEC INR (0.9-1.2) APTT (22.0-34.0) SEC D-Dimer, Quantitative (0-400) ng/mL Sodium (136-145) mmol/L Potassium (3.5-5.1) mmol/L Chloride (98-107) mmol/L Carbon Dioxide (21-32) mmol/L Anion Gap (7-13) mEq/L BUN (7-18) mg/dL Creatinine (0.55-1.02) mg/dL Est Cr Clr Drug Dosing Estimated GFR (MDRD) BUN/Creatinine Ratio (No establ ref range) Glucose (74-99) mg/dL Lactic Acid (0.4-2.0) mmol/L Calcium (8.5-10.1) mg/dL Magnesium (1.8-2.4) mg/dL Total Bilirubin (0.2-1.0) mg/dL AST (15-37) U/L ALT (14-59) U/L Alkaline Phosphatase (46-116) U/L Ammonia (11-32) umol/L Troponin I (0.000-0.056) ng/mL C-Reactive Protein (0.0-0.9) mg/dL B-Natriuretic Peptide (0-100) pg/ml Total Protein (6.4-8.2) g/dL Albumin (3.4-5.0) g/dL Globulin Albumin/Globulin Ratio Amylase 142 H (25-115) U/L Lipase 308 (73-393) U/L Urine Color Yellow (YELLOW) Urine Appearance Clear (CLEAR) Urine pH 6.5 (5.0-9.0) Ur Specific Philip 1.020 (1.005-1.030) Urine Protein Negative (NEGATIVE) Urine Glucose (UA) Negative (NEGATIVE) Urine Ketones Negative (NEGATIVE) Urine Occult Blood Negative (NEGATIVE) Urine Nitrite Negative (NEGATIVE) Urine Bilirubin Negative (NEGATIVE) Urine Urobilinogen 0.2 (0.2-1.0) mg/dL Ur Leukocyte Esterase Negative (NEGATIVE) Urine Opiates Screen (NEGATIVE) Ur Oxycodone Screen (NEGATIVE) Urine Methadone Screen (NEGATIVE) Ur Barbiturates Screen (NEGATIVE) U Tricyclic Antidepress (NEGATIVE) Ur Phencyclidine Scrn (NEGATIVE) Ur Amphetamine Screen (NEGATIVE) U Methamphetamines Scrn (NEGATIVE) Urine MDMA Screen (NEGATIVE) U Benzodiazepines Scrn (NEGATIVE) Urine Cocaine Screen (NEGATIVE) U Marijuana (THC) Screen (NEGATIVE) Ethyl Alcohol (0) mg/dL SARS CoV-2 RNA Rapid EMELINA (NEGATIVE) 05/17/20 Range/Units 12:35 WBC (5.0-10.0) 10^3/uL RBC (4.2-5.4) 10^6/uL Hgb (12.0-16.0) g/dL Hct (37.0-47.0) % MCV (80-100) fL MCH (27.0-34.0) pg MCHC (33.0-35.0) g/dL Plt Count (150-450) 10^3/uL Neut % (Auto) (42.2-75.2) % Lymph % (Auto) (20.5-50.1) % [place] % (Auto) (2-8) % Eos % (Auto) (1.0-3.0) % Baso % (Auto) (0.0-1.0) % PT (9.0-12.0) SEC INR (0.9-1.2) APTT (22.0-34.0) SEC D-Dimer, Quantitative (0-400) ng/mL Sodium (136-145) mmol/L Potassium (3.5-5.1) mmol/L Chloride (98-107) mmol/L Carbon Dioxide (21-32) mmol/L Anion Gap (7-13) mEq/L BUN (7-18) mg/dL Creatinine (0.55-1.02) mg/dL Est Cr Clr Drug Dosing Estimated GFR (MDRD) BUN/Creatinine Ratio (No establ ref range) Glucose (74-99) mg/dL Lactic Acid (0.4-2.0) mmol/L Calcium (8.5-10.1) mg/dL Magnesium (1.8-2.4) mg/dL Total Bilirubin (0.2-1.0) mg/dL AST (15-37) U/L ALT (14-59) U/L Alkaline Phosphatase (46-116) U/L Ammonia (11-32) umol/L Troponin I (0.000-0.056) ng/mL C-Reactive Protein (0.0-0.9) mg/dL B-Natriuretic Peptide (0-100) pg/ml Total Protein (6.4-8.2) g/dL Albumin (3.4-5.0) g/dL Globulin Albumin/Globulin Ratio Amylase (25-115) U/L Lipase (73-393) U/L Urine Color (YELLOW) Urine Appearance (CLEAR) Urine pH (5.0-9.0) Ur Specific Philip (1.005-1.030) Urine Protein (NEGATIVE) Urine Glucose (UA) (NEGATIVE) Urine Ketones (NEGATIVE) Urine Occult Blood (NEGATIVE) Urine Nitrite (NEGATIVE) Urine Bilirubin (NEGATIVE) Urine Urobilinogen (0.2-1.0) mg/dL Ur Leukocyte Esterase (NEGATIVE) Urine Opiates Screen Negative (NEGATIVE) Ur Oxycodone Screen Negative (NEGATIVE) Urine Methadone Screen Negative (NEGATIVE) Ur Barbiturates Screen Negative (NEGATIVE) U Tricyclic Antidepress Negative (NEGATIVE) Ur Phencyclidine Scrn Negative (NEGATIVE) Ur Amphetamine Screen Negative (NEGATIVE) U Methamphetamines Scrn Negative (NEGATIVE) Urine MDMA Screen Negative (NEGATIVE) U Benzodiazepines Scrn Negative (NEGATIVE) Urine Cocaine Screen Negative (NEGATIVE) U Marijuana (THC) Screen Negative (NEGATIVE) Ethyl Alcohol (0) mg/dL SARS CoV-2 RNA Rapid EMELINA (NEGATIVE) Result Diagrams: 05/17/20 10:52 05/17/20 10:52 - Problem List (1) Pancytopenia SNOMED Code(s): 051841381 ICD Code: D61.818 - OTHER PANCYTOPENIA Status: Acute Current Visit: Yes (2) Hepatic encephalopathy SNOMED Code(s): 80847096 ICD Code: K72.90 - HEPATIC FAILURE, UNSPECIFIED WITHOUT COMA Status: Acute Current Visit: No (3) Hypothyroidism SNOMED Code(s): 55709411 ICD Code: E03.9 - HYPOTHYROIDISM, UNSPECIFIED Status: Acute Current Visit: No (4) HTN, Essential hypertension SNOMED Code(s): 17812109 ICD Code: I10 - ESSENTIAL (PRIMARY) HYPERTENSION Status: Chronic Current Visit: No (5) Hepatic encephalopathy SNOMED Code(s): 93107174 ICD Code: K72.90 - HEPATIC FAILURE, UNSPECIFIED WITHOUT COMA Status: Resolved Priority: High Current Visit: No Problem List Initiated/Reviewed/Updated: Yes Orders Last 24hrs: Active Orders 24 hr Category Date Time Status Admission Diagnosis [ADT] Stat ADT 05/17/20 12:53 Ordered Admission Status [Patient Status] [ADT] Routine ADT 05/17/20 12:53 Active Antiembolic Devices [RC] PER UNIT ROUTINE Care 05/17/20 13:54 Active EKG Documentation Completion [RC] STAT Care 05/17/20 10:29 Active Oxygen Therapy [RC] PRN Care 05/17/20 13:53 Active Peripheral IV Care [RC] . DIRECTED Care 05/17/20 13:54 Active Up With Assistance [RC] ASDIRECTED Care 05/17/20 13:53 Active VTE/DVT Education [RC] PER UNIT ROUTINE Care 05/17/20 13:53 Active Vital Signs [RC] Q4H Care 05/17/20 13:53 Active Regular Diet [DIET] Diet 05/17/20 Dinner Active AMMONIA VENOUS [CHEM] AM Lab 05/18/20 05:11 Ordered AMMONIA VENOUS [CHEM] AM Lab 05/19/20 05:11 Ordered AMMONIA VENOUS [CHEM] AM Lab 05/20/20 05:11 Ordered AMMONIA VENOUS [CHEM] AM Lab 05/21/20 05:11 Ordered AMMONIA VENOUS [CHEM] AM Lab 05/22/20 05:11 Ordered BASIC METABOLIC PANEL,BMP [CHEM] AM Lab 05/18/20 05:15 Ordered CBC WITH AUTO DIFF [HEME] AM Lab 05/18/20 05:15 Ordered Cholecalciferol (Vitamin D3) [Vitamin D3] Med 05/18/20 09:00 Ordered 4,000 unit PO DAILY Furosemide [Lasix] Med 05/17/20 21:00 Pending 20 mg PO BID Heparin Sodium Med 05/17/20 14:00 Ordered 5,000 units SUBCUT Q8HR Lactulose Med 05/17/20 14:00 Ordered 30 gm PO QID Levothyroxine [Synthroid] Med 05/18/20 09:00 Ordered 50 mcg PO DAILY NIFEdipine [Procardia XL] Med 05/18/20 09:00 Ordered 30 mg PO DAILY Ondansetron [Zofran ODT] Med 05/17/20 13:53 Ordered 4 mg PO Q6H PRN Rifaximin [Xifaxan] Med 05/17/20 13:30 Ordered 550 mg PO BID Sodium Chloride 0.9% [Saline Flush] Med 05/17/20 13:53 Ordered 10 ml FLUSH ASDIRECTED PRN Spironolactone [Aldactone] Med 05/17/20 17:00 Ordered 25 mg PO QID Vitamin B Complex Med 05/18/20 09:00 Ordered 1 each PO DAILY Antiembolic Hose [OM.PC] Per Unit Routine Oth 05/17/20 13:53 Ordered Peripheral IV Insertion Adult [OM.PC] Routine Oth 05/17/20 13:53 Ordered Saline Lock Insert [OM.PC] Routine Oth 05/17/20 13:53 Ordered Resuscitation Status Routine Resus Stat 05/17/20 13:53 Ordered Medication Orders Furosemide (Lasix) 20 mg PO BID [facility] Heparin Sodium (Porcine) (Heparin Sodium) 5,000 units SUBCUT Q8HR [facility] Levothyroxine Sodium (Synthroid) 50 mcg PO DAILY [facility] Nifedipine (Procardia Xl) 30 mg PO DAILY [facility] Non-Formulary Medication (Cholecalciferol (Vitamin D3) [Vitamin D3]) 4,000 unit PO DAILY [facility] Non-Formulary Medication (Lactulose) 30 gm PO QID [facility] Ondansetron HCl (Zofran Odt) 4 mg PO Q6H PRN PRN Reason: nausea, able to take PO Rifaximin (Xifaxan) 550 mg PO BID [facility] Sodium Chloride (Saline Flush) 10 ml FLUSH ASDIRECTED PRN PRN Reason: Keep Vein Open Spironolactone (Aldactone) 25 mg PO QID [facility] Vitamin B Complex (Vitamin B Complex) 1 each PO DAILY [facility] Assessment/Plan Comment:: 59-year-old with advanced liver cirrhosis presented with increasing lethargy, confusion Acute metabolic encephalopathy Likely secondary to hepatic encephalopathy with high ammonia of 142 on admission The patient has had decreased bowel movements lately Will treat aggressively with lactulose Give rifaximin Liver cirrhosis History of varices and ascites Does not have significant amount of ascites currently Continue Lasix and spironolactone lower extremity edema Continue Lasix Use [place] stocking Pancytopenia Likely secondary to liver cirrhosis Well monitor blood counts Hypertension we will stop nifedipine given the lower extremity edema and cirrhosis She probably benefit more from propranolol Hypothyroidism Treat with levothyroxine DVT prophylaxis with subcutaneous heparin
[2020-05-17] MEDS: Lactulose Soln 10 GM/15 ML 30 ML UD Cup PO SCH ×2 (15:36→21:44)
[2020-05-17] MEDS: Heparin Sodium 5,000 Units/ML Vial SUBCUT SCH ×2 (15:36→21:45)
[2020-05-17] MEDS: Rifaximin 550 MG Tab PO SCH ×2 (15:36→21:42)
[2020-05-17] MEDS ORDERED: LACTULOSE 20 GM PO SCH (17:00)
[2020-05-17] MEDS: Spironolactone 25 MG Tab PO SCH ×2 (17:17→21:42)
[2020-05-17] MEDS ORDERED: Furosemide 20 MG Tab PO SCH (21:00)
[2020-05-18] MEDS: Heparin Sodium 5,000 Units/ML Vial SUBCUT SCH ×3 (05:40→21:12)
[2020-05-18 07:30] LABS: ANION GAP 12.1 mEq/L (7-13)
[2020-05-18] MEDS: Levothyroxine 75 MCG Tab PO SCH (08:56)
[2020-05-18] MEDS: Lactulose Soln 10 GM/15 ML 30 ML UD Cup PO SCH ×3 (08:56→18:01)
[2020-05-18] MEDS: Furosemide 20 MG Tab PO SCH (08:56)
[2020-05-18] MEDS: Spironolactone 25 MG Tab PO SCH ×4 (08:56→21:12)
[2020-05-18] MEDS: Vitamin B Complex Cap PO SCH (08:56)
[2020-05-18] MEDS: Propranolol 60 MG Cap.ER PO SCH (08:56)
[2020-05-18] MEDS: Cholecalciferol (Vitamin D3) 25 MCG Tab PO SCH (08:56)
[2020-05-18] MEDS: Rifaximin 550 MG Tab PO SCH ×2 (08:56→21:11)
[2020-05-18] MEDS ORDERED: Levothyroxine 50 MCG Tab PO SCH (09:00)
[2020-05-18] MEDS ORDERED: NIFEdipine 30 MG Tab.ER PO SCH (09:00)
[2020-05-18] MEDS ORDERED: CHOLECALCIFEROL 4000 UNIT PO SCH (09:00)
[2020-05-18] MEDS ORDERED: Lactulose Soln 10 GM/15 ML 946 ML Bottle RECTAL ONE (12:04)
--- NOTE | 2020-05-18 12:24 | PCM.PN ---
- General Info Date of Service: 05/18/20 Admission Dx/Problem (Free Text): Admission Diagnosis/Problem Admission Diagnosis/Problem Hepatic encephalopathy Subjective Update: admitted with confusion secondary to hepatitic encephalopathy Yesterday had 1 bowel movement in the morning and then started to have more, had 2 bowel movements in the evening Had no bowel movement yet today until known Alert but somewhat lethargic appearing No significant twitching or tremors associated with this No fever or chills No abdominal pain Continue to have lower extremity edema Functional Status: Reports: Pain Controlled, Tolerating Diet - Review of Systems General: Reports: Weakness. Denies: Fever Pulmonary: Denies: Shortness of Breath Cardiovascular: Denies: Chest Pain Gastrointestinal: Denies: Abdominal Pain Genitourinary: Denies: Dysuria - Patient Data Vitals - Most Recent: Last Vital Signs Temp 99.0 F 05/18/20 11:30 Pulse 75 05/18/20 11:30 Resp 18 05/18/20 11:30 BP 117/58 L 05/18/20 11:30 Pulse Ox 95 05/18/20 11:30 Weight - Most Recent: 232 lb I&O - Last 24 Hours: Intake & Output 05/17/20 05/18/20 05/18/20 22:59 06:59 14:59 Intake Total 500 440 Balance 500 440 Lab Results Last 24 Hours: Laboratory Results - last 24 hr 05/17/20 05/17/20 05/18/20 Range/Units 12:35 12:35 06:35 WBC 3.5 L (5.0-10.0) 10^3/uL RBC 2.91 L (4.2-5.4) 10^6/uL Hgb 8.9 L (12.0-16.0) g/dL Hct 27.0 L (37.0-47.0) % MCV 92.8 (80-100) fL MCH 30.6 (27.0-34.0) pg MCHC 33.0 (33.0-35.0) g/dL Plt Count 102 L (150-450) 10^3/uL Neut % (Auto) 46.9 (42.2-75.2) % Lymph % (Auto) 32.8 (20.5-50.1) % [place] % (Auto) 11.6 H (2-8) % Eos % (Auto) 8.4 H (1.0-3.0) % Baso % (Auto) 0.3 (0.0-1.0) % Sodium (136-145) mmol/L Potassium (3.5-5.1) mmol/L Chloride (98-107) mmol/L Carbon Dioxide (21-32) mmol/L Anion Gap (7-13) mEq/L BUN (7-18) mg/dL Creatinine (0.55-1.02) mg/dL Est Cr Clr Drug Dosing mL/min Estimated GFR (MDRD) Glucose (74-99) mg/dL Calcium (8.5-10.1) mg/dL Ammonia (11-32) umol/L Urine Color Yellow (YELLOW) Urine Appearance Clear (CLEAR) Urine pH 6.5 (5.0-9.0) Ur Specific [place] 1.020 (1.005-1.030) Urine Protein Negative (NEGATIVE) Urine Glucose (UA) Negative (NEGATIVE) Urine Ketones Negative (NEGATIVE) Urine Occult Blood Negative (NEGATIVE) Urine Nitrite Negative (NEGATIVE) Urine Bilirubin Negative (NEGATIVE) Urine Urobilinogen 0.2 (0.2-1.0) mg/dL Ur Leukocyte Esterase Negative (NEGATIVE) Urine Opiates Screen Negative (NEGATIVE) Ur Oxycodone Screen Negative (NEGATIVE) Urine Methadone Screen Negative (NEGATIVE) Ur Barbiturates Screen Negative (NEGATIVE) U Tricyclic Antidepress Negative (NEGATIVE) Ur Phencyclidine Scrn Negative (NEGATIVE) Ur Amphetamine Screen Negative (NEGATIVE) U Methamphetamines Scrn Negative (NEGATIVE) Urine MDMA Screen Negative (NEGATIVE) U Benzodiazepines Scrn Negative (NEGATIVE) Urine Cocaine Screen Negative (NEGATIVE) U Marijuana (THC) Screen Negative (NEGATIVE) 05/18/20 05/18/20 Range/Units 06:35 06:35 WBC (5.0-10.0) 10^3/uL RBC (4.2-5.4) 10^6/uL Hgb (12.0-16.0) g/dL Hct (37.0-47.0) % MCV (80-100) fL MCH (27.0-34.0) pg MCHC (33.0-35.0) g/dL Plt Count (150-450) 10^3/uL Neut % (Auto) (42.2-75.2) % Lymph % (Auto) (20.5-50.1) % [place] % (Auto) (2-8) % Eos % (Auto) (1.0-3.0) % Baso % (Auto) (0.0-1.0) % Sodium 142 (136-145) mmol/L Potassium 4.1 (3.5-5.1) mmol/L Chloride 109 H (98-107) mmol/L Carbon Dioxide 25 (21-32) mmol/L Anion Gap 12.1 (7-13) mEq/L BUN 21 H (7-18) mg/dL Creatinine 1.22 H (0.55-1.02) mg/dL Est Cr Clr Drug Dosing 51.32 mL/min Estimated GFR (MDRD) 45 Glucose 88 (74-99) mg/dL Calcium 8.4 L (8.5-10.1) mg/dL Ammonia 139 H (11-32) umol/L Urine Color (YELLOW) Urine Appearance (CLEAR) Urine pH (5.0-9.0) Ur Specific [place] (1.005-1.030) Urine Protein (NEGATIVE) Urine Glucose (UA) (NEGATIVE) Urine Ketones (NEGATIVE) Urine Occult Blood (NEGATIVE) Urine Nitrite (NEGATIVE) Urine Bilirubin (NEGATIVE) Urine Urobilinogen (0.2-1.0) mg/dL Ur Leukocyte Esterase (NEGATIVE) Urine Opiates Screen (NEGATIVE) Ur Oxycodone Screen (NEGATIVE) Urine Methadone Screen (NEGATIVE) Ur Barbiturates Screen (NEGATIVE) U Tricyclic Antidepress (NEGATIVE) Ur Phencyclidine Scrn (NEGATIVE) Ur Amphetamine Screen (NEGATIVE) U Methamphetamines Scrn (NEGATIVE) Urine MDMA Screen (NEGATIVE) U Benzodiazepines Scrn (NEGATIVE) Urine Cocaine Screen (NEGATIVE) U Marijuana (THC) Screen (NEGATIVE) Med Orders - Current: Current Medications Cholecalciferol (Vitamin D3) 125 mcg PO DAILY [facility] Last Admin: 05/18/20 08:56 Dose: 125 mcg Documented by: Furosemide (Lasix) 40 mg PO DAILY [facility] Last Admin: 05/18/20 08:56 Dose: 40 mg Documented by: Heparin Sodium (Porcine) (Heparin Sodium) 5,000 units SUBCUT Q8HR [facility] Last Admin: 05/18/20 05:40 Dose: 5,000 units Documented by: Lactulose (Cephulac) 30 gm PO Q6H [facility] Levothyroxine Sodium (Levothyroxine) 75 mcg PO DAILY [facility] Last Admin: 05/18/20 08:56 Dose: 75 mcg Documented by: Ondansetron HCl (Zofran Odt) 4 mg PO Q6H PRN PRN Reason: nausea, able to take PO Propranolol HCl (Inderal La) 60 mg PO DAILY [facility] Last Admin: 05/18/20 08:56 Dose: 60 mg Documented by: Rifaximin (Xifaxan) 550 mg PO BID [facility] Last Admin: 05/18/20 08:56 Dose: 550 mg Documented by: Sodium Chloride (Saline Flush) 10 ml FLUSH ASDIRECTED PRN PRN Reason: Keep Vein Open Spironolactone (Aldactone) 25 mg PO QID [facility] Last Admin: 05/18/20 08:56 Dose: 25 mg Documented by: Vitamin B Complex (Vitamin B Complex) 1 each PO DAILY [facility] Last Admin: 05/18/20 08:56 Dose: 1 each Documented by: Discontinued Medications Furosemide (Lasix) 20 mg PO BID [facility] Lactulose (Cephulac) 30 gm PO QID [facility] Stop: 05/18/20 09:01 Last Admin: 05/18/20 08:56 Dose: 30 gm Documented by: Lactulose (Chronulac) 200 gm RECTAL ONETIME ONE Stop: 05/18/20 12:05 Levothyroxine Sodium (Synthroid) 50 mcg PO DAILY [facility] Nifedipine (Procardia Xl) 30 mg PO DAILY [facility] Non-Formulary Medication (Cholecalciferol (Vitamin D3) [Vitamin D3]) 4,000 unit PO DAILY [facility] Non-Formulary Medication (Lactulose) 20 gm PO QID [facility] - Exam General: Alert, Oriented, Lethargic (mildly) Neck: Supple Lungs: Clear to Auscultation, Normal Respiratory Effort Cardiovascular: Regular Rate, Regular Rhythm GI/Abdominal Exam: Normal Bowel Sounds, Soft, Non-Tender Extremities: Pedal Edema (1+) Sepsis Event Note - Evaluation Sepsis Screening Result: No Definite Risk - Focused Exam Vital Signs: Vital Signs Temp Pulse Resp BP Pulse Ox 05/18/20 11:30 99.0 F 75 18 117/58 L 95 05/18/20 08:00 99.2 F 83 20 110/51 L 96 - Problem List & Annotations (1) Pancytopenia SNOMED Code(s): 376210307 Code(s): D61.818 - OTHER PANCYTOPENIA Status: Acute Current Visit: Yes (2) Hepatic encephalopathy SNOMED Code(s): 01944507 Code(s): K72.90 - HEPATIC FAILURE, UNSPECIFIED WITHOUT COMA Status: Acute Current Visit: Yes (3) Hypothyroidism SNOMED Code(s): 31178920 Code(s): E03.9 - HYPOTHYROIDISM, UNSPECIFIED Status: Acute Current Visit: No (4) HTN, Essential hypertension SNOMED Code(s): 32953963 Code(s): I10 - ESSENTIAL (PRIMARY) HYPERTENSION Status: Chronic Current Visit: No (5) Hepatic encephalopathy SNOMED Code(s): 45071442 Code(s): K72.90 - HEPATIC FAILURE, UNSPECIFIED WITHOUT COMA Status: Resolved Priority: High Current Visit: No - Problem List Review Problem List Initiated/Reviewed/Updated: Yes - My Orders Last 24 Hours: My Active Orders 05/17/20 13:53 Oxygen Therapy [RC] PRN Up With Assistance [RC] ASDIRECTED VTE/DVT Education [RC] PER UNIT ROUTINE Vital Signs [RC] 00,04,08,12,16,20 Ondansetron [Zofran ODT] 4 mg PO Q6H PRN Sodium Chloride 0.9% [Saline Flush] 10 ml FLUSH ASDIRECTED PRN Antiembolic Hose [OM.PC] Per Unit Routine Peripheral IV Insertion Adult [OM.PC] Routine Saline Lock Insert [OM.PC] Routine Resuscitation Status Routine 05/17/20 13:54 Antiembolic Devices [RC] PER UNIT ROUTINE Peripheral IV Care [RC] 05/17/20 14:00 Heparin Sodium 5,000 units SUBCUT Q8HR Rifaximin [Xifaxan] 550 mg PO BID 05/17/20 17:00 Spironolactone [Aldactone] 25 mg PO QID 05/17/20 Dinner Regular Diet [DIET] 05/18/20 09:00 Cholecalciferol (Vitamin D3) [Vitamin D3] 125 mcg PO DAILY Furosemide [Lasix] 40 mg PO DAILY Levothyroxine 75 mcg PO DAILY Propranolol [Inderal LA] 60 mg PO DAILY Vitamin B Complex 1 each PO DAILY 05/18/20 12:30 Lactulose [Cephulac] 30 gm PO Q6H 05/19/20 05:11 AMMONIA VENOUS [CHEM] AM 05/20/20 05:11 AMMONIA VENOUS [CHEM] AM 05/21/20 05:11 AMMONIA VENOUS [CHEM] AM 05/22/20 05:11 AMMONIA VENOUS [CHEM] AM - Plan Plan:: 59-year-old with advanced liver cirrhosis presented with increasing lethargy, confusion Acute metabolic encephalopathy Likely secondary to hepatic encephalopathy with high ammonia of 142 on admission ammonia level is still elevated Will treat aggressively with lactulose add lactulose enema Give rifaximin Liver cirrhosis History of varices and ascites Does not have significant amount of ascites currently Continue Lasix and spironolactone lower extremity edema Continue Lasix Use [place] stocking Pancytopenia Likely secondary to liver cirrhosis Well monitor blood counts Hypertension we will stop nifedipine given the lower extremity edema and cirrhosis She probably benefit more from propranolol Hypothyroidism Treat with levothyroxine DVT prophylaxis with subcutaneous heparin discussed with patient and at bedside
[2020-05-19] MEDS: Lactulose Soln 10 GM/15 ML 30 ML UD Cup PO SCH ×4 (00:23→18:02)
[2020-05-19] MEDS: Heparin Sodium 5,000 Units/ML Vial SUBCUT SCH ×4 (05:52→23:05)
[2020-05-19 07:28] LABS: ANION GAP 10.2 mEq/L (7-13)
[2020-05-19] MEDS: Propranolol 60 MG Cap.ER PO SCH (08:43)
[2020-05-19] MEDS: Spironolactone 25 MG Tab PO SCH ×4 (08:44→20:20)
[2020-05-19] MEDS: Furosemide 20 MG Tab PO SCH (08:44)
[2020-05-19] MEDS: Rifaximin 550 MG Tab PO SCH ×2 (08:44→20:20)
[2020-05-19] MEDS: Levothyroxine 75 MCG Tab PO SCH (08:44)
[2020-05-19] MEDS: Vitamin B Complex Cap PO SCH (08:44)
[2020-05-19] MEDS: Cholecalciferol (Vitamin D3) 25 MCG Tab PO SCH (08:45)
[2020-05-19] MEDS ORDERED: Lactulose Soln 10 GM/15 ML 946 ML Bottle RECTAL ONE (11:52)
--- NOTE | 2020-05-19 11:59 | PCM.PN ---
- General Info Date of Service: 05/19/20 Admission Dx/Problem (Free Text): Admission Diagnosis/Problem Admission Diagnosis/Problem Hepatic encephalopathy Subjective Update: admitted with confusion secondary to hepatitic encephalopathy yesterday received lactulose orally and rectally Had about 6 bowel movements. more alert today, more active and ambulating better No significant twitching or tremors associated with this No fever or chills No abdominal pain Continue to have lower extremity edema Functional Status: Reports: Tolerating Diet, Ambulating - Review of Systems General: Reports: Weakness Pulmonary: Denies: Shortness of Breath Cardiovascular: Reports: Edema. Denies: Chest Pain Neurological: Reports: Confusion (mild) - Patient Data Vitals - Most Recent: Last Vital Signs Temp 98.7 F 05/19/20 08:00 Pulse 64 05/19/20 08:00 Resp 18 05/19/20 08:00 BP 132/55 L 05/19/20 08:00 Pulse Ox 98 05/19/20 08:00 Weight - Most Recent: 232 lb I&O - Last 24 Hours: Intake & Output 05/18/20 05/19/20 05/19/20 22:59 06:59 14:59 Intake Total 1560 300 Balance 1560 300 Lab Results Last 24 Hours: Laboratory Results - last 24 hr 05/19/20 05/19/20 05/19/20 Range/Units 06:15 06:15 06:15 WBC 4.2 L (5.0-10.0) 10^3/uL RBC 2.93 L (4.2-5.4) 10^6/uL Hgb 9.0 L (12.0-16.0) g/dL Hct 27.7 L (37.0-47.0) % MCV 94.5 (80-100) fL MCH 30.7 (27.0-34.0) pg MCHC 32.5 L (33.0-35.0) g/dL Plt Count 113 L (150-450) 10^3/uL Neut % (Auto) 37.1 L (42.2-75.2) % Lymph % (Auto) 38.8 (20.5-50.1) % [place] % (Auto) 12.5 H (2-8) % Eos % (Auto) 11.1 H (1.0-3.0) % Baso % (Auto) 0.5 (0.0-1.0) % Sodium 144 (136-145) mmol/L Potassium 4.2 (3.5-5.1) mmol/L Chloride 110 H (98-107) mmol/L Carbon Dioxide 28 (21-32) mmol/L Anion Gap 10.2 (7-13) mEq/L BUN 21 H (7-18) mg/dL Creatinine 1.16 H (0.55-1.02) mg/dL Est Cr Clr Drug Dosing 53.98 mL/min Estimated GFR (MDRD) 48 Glucose 89 (74-99) mg/dL Calcium 8.3 L (8.5-10.1) mg/dL Ammonia 108 H (11-32) umol/L Med Orders - Current: Current Medications Cholecalciferol (Vitamin D3) 125 mcg PO DAILY [facility] Last Admin: 05/19/20 08:45 Dose: 125 mcg Documented by: Furosemide (Lasix) 40 mg PO BID [facility] Heparin Sodium (Porcine) (Heparin Sodium) 5,000 units SUBCUT Q8HR [facility] Last Admin: 05/19/20 05:52 Dose: 5,000 units Documented by: Lactulose (Cephulac) 30 gm PO Q6H [facility] Last Admin: 05/19/20 05:51 Dose: 30 gm Documented by: Lactulose (Chronulac) 200 gm RECTAL ONETIME ONE Stop: 05/19/20 11:53 Levothyroxine Sodium (Levothyroxine) 75 mcg PO DAILY [facility] Last Admin: 05/19/20 08:44 Dose: 75 mcg Documented by: Ondansetron HCl (Zofran Odt) 4 mg PO Q6H PRN PRN Reason: nausea, able to take PO Propranolol HCl (Inderal La) 60 mg PO DAILY [facility] Last Admin: 05/19/20 08:43 Dose: 60 mg Documented by: Rifaximin (Xifaxan) 550 mg PO BID [facility] Last Admin: 05/19/20 08:44 Dose: 550 mg Documented by: Sodium Chloride (Saline Flush) 10 ml FLUSH ASDIRECTED PRN PRN Reason: Keep Vein Open Spironolactone (Aldactone) 25 mg PO QID [facility] Last Admin: 05/19/20 08:44 Dose: 25 mg Documented by: Vitamin B Complex (Vitamin B Complex) 1 each PO DAILY [facility] Last Admin: 05/19/20 08:44 Dose: 1 each Documented by: Discontinued Medications Furosemide (Lasix) 20 mg PO BID [facility] Furosemide (Lasix) 40 mg PO DAILY [facility] Last Admin: 05/19/20 08:44 Dose: 40 mg Documented by: Lactulose (Cephulac) 30 gm PO QID [facility] Stop: 05/18/20 09:01 Last Admin: 05/18/20 08:56 Dose: 30 gm Documented by: Lactulose (Chronulac) 200 gm RECTAL ONETIME ONE Stop: 05/18/20 12:05 Last Admin: 05/18/20 13:05 Dose: 200 gram Documented by: Levothyroxine Sodium (Synthroid) 50 mcg PO DAILY [facility] Nifedipine (Procardia Xl) 30 mg PO DAILY [facility] Non-Formulary Medication (Cholecalciferol (Vitamin D3) [Vitamin D3]) 4,000 unit PO DAILY [facility] Non-Formulary Medication (Lactulose) 20 gm PO QID [facility] - Exam Quality Assessment: No: Supplemental Oxygen General: Alert, Oriented Neck: Supple Lungs: Clear to Auscultation, Normal Respiratory Effort GI/Abdominal Exam: Normal Bowel Sounds, Soft, Non-Tender Extremities: Pedal Edema Sepsis Event Note - Evaluation Sepsis Screening Result: No Definite Risk - Focused Exam Vital Signs: Vital Signs Temp Pulse Resp BP Pulse Ox 05/19/20 08:00 98.7 F 64 18 132/55 L 98 05/19/20 00:00 99.3 F 62 16 107/47 L 99 - Problem List & Annotations (1) Pancytopenia SNOMED Code(s): 435454301 Code(s): D61.818 - OTHER PANCYTOPENIA Status: Acute Current Visit: Yes (2) Hepatic encephalopathy SNOMED Code(s): 09542611 Code(s): K72.90 - HEPATIC FAILURE, UNSPECIFIED WITHOUT COMA Status: Acute Current Visit: Yes (3) Hypothyroidism SNOMED Code(s): 07258980 Code(s): E03.9 - HYPOTHYROIDISM, UNSPECIFIED Status: Acute Current Visit: No (4) HTN, Essential hypertension SNOMED Code(s): 75992356 Code(s): I10 - ESSENTIAL (PRIMARY) HYPERTENSION Status: Chronic Current Visit: No (5) Hepatic encephalopathy SNOMED Code(s): 80239256 Code(s): K72.90 - HEPATIC FAILURE, UNSPECIFIED WITHOUT COMA Status: Resolved Priority: High Current Visit: No - Problem List Review Problem List Initiated/Reviewed/Updated: Yes - My Orders Last 24 Hours: My Active Orders 05/18/20 12:30 Lactulose [Cephulac] 30 gm PO Q6H 05/19/20 11:52 Lactulose [Chronulac] 200 gm RECTAL ONETIME ONE 05/19/20 11:54 Antiembolic Devices [RC] PER UNIT ROUTINE [facility] Hose [Antiembolic Hose] [OM.PC] Routine 05/19/20 21:00 Furosemide [Lasix] 40 mg PO BID 05/20/20 05:11 AMMONIA VENOUS [CHEM] AM 05/20/20 05:15 BASIC METABOLIC PANEL,BMP [CHEM] AM CBC WITH AUTO DIFF [HEME] AM 05/21/20 05:11 AMMONIA VENOUS [CHEM] AM 05/22/20 05:11 AMMONIA VENOUS [CHEM] AM - Plan Plan:: 59-year-old with advanced liver cirrhosis presented with increasing lethargy, confusion Acute metabolic encephalopathy Likely secondary to hepatic encephalopathy with high ammonia of 142 on admission ammonia level is still elevatedbut improving Will treat aggressively with lactulose give another lactulose enema Give rifaximin Liver cirrhosis History of varices and ascites Does not have significant amount of ascites currently Continue Lasix and spironolactone lower extremity edema Continue Lasix, increase dose to twice a day add compression stocking Pancytopenia Likely secondary to liver cirrhosis Well monitor blood counts Hypertension stopped nifedipine given the lower extremity edema and cirrhosis She probably benefit more from propranolol Hypothyroidism Treat with levothyroxine DVT prophylaxis with subcutaneous heparin
[2020-05-19] MEDS: Furosemide 40 MG Tab PO SCH (20:20)
[2020-05-20] MEDS: Lactulose Soln 10 GM/15 ML 30 ML UD Cup PO SCH ×2 (00:12→06:01)
[2020-05-20] MEDS: Heparin Sodium 5,000 Units/ML Vial SUBCUT SCH (06:01)
[2020-05-20 07:15] LABS: ANION GAP 10.8 mEq/L (7-13)
--- NOTE | 2020-05-20 09:25 | PCM.DCSUM1 ---
Discharge Summary - Hospital Course Free Text/Narrative:: presented with twitching and increased lethargy Acute metabolic encephalopathy Likely secondary to hepatic encephalopathy with high ammonia of 142 on admission ammonia level is still elevated but improving - down to 70s on discharge mental status much improved treat aggressively with lactulose cont rifaximin Liver cirrhosis History of varices and ascites Does not have significant amount of ascites currently Continue Lasix and spironolactone lower extremity edema Continue Lasix, increase dose to twice a day add compression stocking Pancytopenia Likely secondary to liver cirrhosis monitor blood counts periodically Hypertension stopped nifedipine given the lower extremity edema and cirrhosis She probably benefit more from propranolol Hypothyroidism Treat with levothyroxine Diagnosis: Stroke: No - Discharge Data Discharge Date: 05/20/20 Discharge Disposition: Home, Self-Care 01 Condition: Good - Referral to Home Health Primary Care Physician: Jesse Olivares MD - Discharge Diagnosis/Problem(s) (1) Pancytopenia SNOMED Code(s): 808647244 ICD Code: D61.818 - OTHER PANCYTOPENIA Status: Acute Current Visit: Yes (2) Hepatic encephalopathy SNOMED Code(s): 53969755 ICD Code: K72.90 - HEPATIC FAILURE, UNSPECIFIED WITHOUT COMA Status: Acute Current Visit: Yes (3) Hypothyroidism SNOMED Code(s): 16840538 ICD Code: E03.9 - HYPOTHYROIDISM, UNSPECIFIED Status: Acute Current Visit: No (4) HTN, Essential hypertension SNOMED Code(s): 15956014 ICD Code: I10 - ESSENTIAL (PRIMARY) HYPERTENSION Status: Chronic Current Visit: No (5) Hepatic encephalopathy SNOMED Code(s): 10060426 ICD Code: K72.90 - HEPATIC FAILURE, UNSPECIFIED WITHOUT COMA Status: R esolved Priority: High Current Visit: No - Patient Instructions Diet: Heart Healthy Diet - Discharge Plan *PRESCRIPTION DRUG MONITORING PROGRAM REVIEWED*: Not Applicable *COPY OF PRESCRIPTION DRUG MONITORING REPORT IN PATIENT FIDELINA: Not Applicable Prescriptions/Med Rec: Propranolol [Inderal LA] 60 mg PO DAILY #30 cap.er Home Medications: Home Meds Vitamin B Complex 1 each PO DAILY 04/09/18 [History] Spironolactone [Aldactone] 25 mg PO QID 07/28/18 [History] Furosemide [Lasix] 40 mg PO DAILY 04/28/20 [History] Cholecalciferol (Vitamin D3) [Vitamin D3] 125 mcg PO DAILY 05/17/20 [History] Levothyroxine 75 mcg PO DAILY 05/17/20 [History] Pantoprazole Sodium [Protonix] 40 mg PO DAILY 05/17/20 [History] Rifaximin [Xifaxan] 550 mg PO BID 05/17/20 [History] Lactulose [Cephulac] 30 gm PO Q6H cup 05/20/20 [Rx] Propranolol [Inderal LA] 60 mg PO DAILY #30 cap.er 05/20/20 [Rx] Oxygen Therapy Mode: Room Air Referrals: Jesse Olivares MD [Primary Care Provider] - - Discharge Summary/Plan Comment DC Time >30 min.: No - General Info Date of Service: 05/20/20 Functional Status: Reports: Pain Controlled, Tolerating Diet, Ambulating - Review of Systems General: Reports: Weakness (improved). Denies: Fever Pulmonary: Denies: Shortness of Breath Cardiovascular: Reports: Edema. Denies: Chest Pain Genitourinary: Denies: Dysuria - Patient Data Vitals - Most Recent: Last Vital Signs Temp 98.5 F 05/19/20 20:00 Pulse 61 05/19/20 20:00 Resp 16 05/19/20 20:00 BP 126/58 L 05/19/20 20:00 Pulse Ox 99 05/19/20 20:00 Weight - Most Recent: 232 lb I&O - Last 24 hours: Intake & Output 05/19/20 05/20/20 05/20/20 22:59 06:59 14:59 Intake Total 500 Balance 500 Lab Results - Last 24 hrs: Laboratory Results - last 24 hr 05/20/20 05/20/20 05/20/20 Range/Units 06:16 06:16 06:16 WBC 4.5 L (5.0-10.0) 10^3/uL RBC 3.01 L (4.2-5.4) 10^6/uL Hgb 9.2 L (12.0-16.0) g/dL Hct 28.4 L (37.0-47.0) % MCV 94.4 (80-100) fL MCH 30.6 (27.0-34.0) pg MCHC 32.4 L (33.0-35.0) g/dL Plt Count 114 L (150-450) 10^3/uL Neut % (Auto) 36.4 L (42.2-75.2) % Lymph % (Auto) 41.3 (20.5-50.1) % [place] % (Auto) 12.1 H (2-8) % Eos % (Auto) 9.8 H (1.0-3.0) % Baso % (Auto) 0.4 (0.0-1.0) % Sodium 142 (136-145) mmol/L Potassium 3.8 (3.5-5.1) mmol/L Chloride 107 (98-107) mmol/L Carbon Dioxide 28 (21-32) mmol/L Anion Gap 10.8 (7-13) mEq/L BUN 20 H (7-18) mg/dL Creatinine 1.12 H (0.55-1.02) mg/dL Est Cr Clr Drug Dosing 55.90 mL/min Estimated GFR (MDRD) 50 Glucose 92 (74-99) mg/dL Calcium 8.1 L (8.5-10.1) mg/dL Ammonia 78 H (11-32) umol/L Med Orders - Current: Current Medications Cholecalciferol (Vitamin D3) 125 mcg PO DAILY [facility] Last Admin: 05/19/20 08:45 Dose: 125 mcg Documented by: Furosemide (Lasix) 40 mg PO BID [facility] Last Admin: 05/19/20 20:20 Dose: 40 mg Documented by: Heparin Sodium (Porcine) (Heparin Sodium) 5,000 units SUBCUT Q8HR [facility] Last Admin: 05/20/20 06:01 Dose: 5,000 units Documented by: Lactulose (Cephulac) 30 gm PO Q6H [facility] Last Admin: 05/20/20 06:01 Dose: 30 gm Documented by: Levothyroxine Sodium (Levothyroxine) 75 mcg PO DAILY [facility] Last Admin: 05/19/20 08:44 Dose: 75 mcg Documented by: Ondansetron HCl (Zofran Odt) 4 mg PO Q6H PRN PRN Reason: nausea, able to take PO Propranolol HCl (Inderal La) 60 mg PO DAILY [facility] Last Admin: 05/19/20 08:43 Dose: 60 mg Documented by: Rifaximin (Xifaxan) 550 mg PO BID [facility] Last Admin: 05/19/20 20:20 Dose: 550 mg Documented by: Sodium Chloride (Saline Flush) 10 ml FLUSH ASDIRECTED PRN PRN Reason: Keep Vein Open Spironolactone (Aldactone) 25 mg PO QID [facility] Last Admin: 05/19/20 20:20 Dose: 25 mg Documented by: Vitamin B Complex (Vitamin B Complex) 1 each PO DAILY [facility] Last Admin: 05/19/20 08:44 Dose: 1 each Documented by: Discontinued Medications Furosemide (Lasix) 20 mg PO BID [facility] Furosemide (Lasix) 40 mg PO DAILY [facility] Last Admin: 05/19/20 08:44 Dose: 40 mg Documented by: Lactulose (Cephulac) 30 gm PO QID [facility] Stop: 05/18/20 09:01 Last Admin: 05/18/20 08:56 Dose: 30 gm Documented by: Lactulose (Chronulac) 200 gm RECTAL ONETIME ONE Stop: 05/18/20 12:05 Last Admin: 05/18/20 13:05 Dose: 200 gram Documented by: Lactulose (Chronulac) 200 gm RECTAL ONETIME ONE Stop: 05/19/20 11:53 Last Admin: 05/19/20 15:05 Dose: 200 gm Documented by: Levothyroxine Sodium (Synthroid) 50 mcg PO DAILY [facility] Nifedipine (Procardia Xl) 30 mg PO DAILY [facility] Non-Formulary Medication (Cholecalciferol (Vitamin D3) [Vitamin D3]) 4,000 unit PO DAILY [facility] Non-Formulary Medication (Lactulose) 20 gm PO QID [facility] - Exam Quality Assessment: Denies: Supplemental Oxygen General: Reports: Alert, Oriented Neck: Reports: Supple Lungs: Reports: Clear to Auscultation, Normal Respiratory Effort Cardiovascular: Reports: Regular Rate, Regular Rhythm GI/Abdominal Exam: Normal Bowel Sounds, Soft, Non-Tender Extremities: Pedal Edema (1+ b/l) Skin: Reports: Warm, Dry Neurological: Reports: No New Focal Deficit Psy/Mental Status: Reports: Alert, Normal Affect, Normal Mood
[2020-05-20] MEDS: Spironolactone 25 MG Tab PO SCH (10:01)
[2020-05-20] MEDS: Furosemide 40 MG Tab PO SCH (10:01)
[2020-05-20] MEDS: Cholecalciferol (Vitamin D3) 25 MCG Tab PO SCH (10:01)
[2020-05-20] MEDS: Propranolol 60 MG Cap.ER PO SCH (10:02)
[2020-05-20] MEDS: Levothyroxine 75 MCG Tab PO SCH (10:02)
[2020-05-20] MEDS: Vitamin B Complex Cap PO SCH (10:02)
[2020-05-20] MEDS: Rifaximin 550 MG Tab PO SCH (10:02)
[2020-05-20 10:04] VITALS: BP 108/57; PULSE 62
== END 2020-05-20 10:50 | disposition home or self-care (01) | DRG 441 ==
LOC: DL.ED 10:17 → DL.MS 12:53
PROVIDERS: ADMIT Internal Medicine; ATTEND Internal Medicine
DX: K72.90 Hepatic failure, unspecified without coma (principal); E80.7 Disorder of bilirubin metabolism, unspecified; B19.9 Unspecified viral hepatitis without hepatic coma; G93.41 Metabolic encephalopathy; D61.818 Other pancytopenia; K74.60 Unspecified cirrhosis of liver; I10 Essential (primary) hypertension; E03.9 Hypothyroidism, unspecified; K21.9 Gastro-esophageal reflux disease without esophagitis; I85.00 Esophageal varices without bleeding; E66.9 Obesity, unspecified; D64.9 Anemia, unspecified; D69.6 Thrombocytopenia, unspecified; F81.9 Developmental disorder of scholastic skills, unspecified; R60.0 Localized edema; Z79.899 Other long term (current) drug therapy; Z79.890 Hormone replacement therapy; Z98.890 Other specified postprocedural states; I83.90 Asymptomatic varicose veins of unspecified lower extremity; Z20.822 Contact with and (suspected) exposure to COVID-19; Z68.35 Body mass index [BMI] 35.0-35.9, adult
CPT/HCPCS: 36415; 80048; 80053; 80305-QW; 80307; 81003; 82140; 82150; 83605; 83690; 83735; 83880; 84484; 85025; 85379; 85610; 85730; 86140; 93005; 99221; 99232; 99238; 99284; 99285-25; A9270-GY; J1644; U0002

== ENCOUNTER 2020-07-09 06:30 | Emergency (ER) | payer MEDICAID ==
[2020-07-09] MEDS ORDERED: Lactulose Soln 10 GM/15 ML 30 ML UD Cup PO ONE (06:31)
[2020-07-09 09:56] LABS: ANION GAP 14.7 mEq/L (7-13); CHLORIDE,CL 107 mmol/L (98-107); SODIUM,NA 142 mmol/L (136-145)
== END 2020-07-09 09:25 ==
LOC: DL.ED 06:30
DX: K74.60 Unspecified cirrhosis of liver (principal); E72.20 Disorder of urea cycle metabolism, unspecified
CPT/HCPCS: 36415; 80053; 80307; 81001; 82140; 82150; 83605; 83690; 83735; 83880; 85025; 85610; 99282; 99283; A9270-GY

== ENCOUNTER 2020-10-20 00:29 | Emergency (ER) | payer MEDICAID ==
[2020-10-20 00:51] VITALS: BP 129/66; PULSE 96
[2020-10-20] MEDS ORDERED: Morphine 2 MG/ML SYRINGE IVPUSH ONE (01:22)
[2020-10-20 01:55] LABS: ANION GAP 18.8 mEq/L (7-13); CHLORIDE,CL 105 mmol/L (98-107); SODIUM,NA 144 mmol/L (136-145)
[2020-10-20] MEDS ORDERED: MVI, Adult with Vitamin K 10 ML, Folic Acid 1 MG, Thiamine 100 MG in Lactated Ringers 1... IV ONE ×4 (03:34)
--- NOTE | 2020-10-20 03:42 | CT ---
PROCEDURE INFORMATION: Exam: CT Pelvis Without Contrast; Skeletal Exam date and time: 10/20/2020 1:58 AM Age: 60 years old Clinical indication: Other: Pain bilaterally; Additional info: Severe pain to the upper legs bilaterally TECHNIQUE: Imaging protocol: Computed tomography images of the pelvis without contrast. Exam focused on the skeletal structures. Radiation optimization: All CT scans at this facility use at least one of these dose optimization techniques: automated exposure control; mA and/or kV adjustment per patient size (includes targeted exams where dose is matched to clinical indication); or iterative reconstruction. COMPARISON: No relevant prior studies available. FINDINGS: Bones/joints: Unremarkable. No acute fracture. No dislocation. Soft tissues: Unremarkable. 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 IMPRESSION: 1. 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 2. No cause for acute pain is identified.
--- NOTE | 2020-10-20 03:53 | EDM.PDOC ---
<Yusef Santoyo - Last Filed: 10/20/20 08:09> ED HPI GENERAL MEDICAL PROBLEM - General Chief Complaint: Lower Extremity Injury/Pain Stated Complaint: SEVERE PAIN IN BOTH LEGS Time Seen by Provider: 10/20/20 01:00 - Related Data Allergies Allergy/AdvReac Type Severity Reaction Status Date / Time No Known Allergies Allergy Verified 10/20/20 00:54 Home Meds: Home Meds Vitamin B Complex 1 each PO DAILY 04/09/18 [History] Spironolactone [Aldactone] 25 mg PO QID 07/28/18 [History] Furosemide [Lasix] 40 mg PO DAILY 04/28/20 [History] Cholecalciferol (Vitamin D3) [Vitamin D3] 125 mcg PO DAILY 05/17/20 [History] Levothyroxine 75 mcg PO DAILY 05/17/20 [History] Pantoprazole Sodium [Protonix] 40 mg PO DAILY 05/17/20 [History] Rifaximin [Xifaxan] 550 mg PO BID 05/17/20 [History] Lactulose [Cephulac] 30 gm PO Q6H cup 05/20/20 [Rx] Propranolol [Inderal LA] 60 mg PO DAILY #30 cap.er 05/20/20 [Rx] cilostazoL [Cilostazol] 100 mg PO BID 14 Days #28 tablet 10/20/20 [Rx] Course - Re-Assessments/Exams Free Text/Narrative Re-Assessment/Exam: Assumed care of Emilio at shift change, she is still complaining of pain in both legs. Lab work reviewed, no concerns 10/20/20 08:13 Departure - Departure Time of Disposition: 08:10 Disposition: Home, Self-Care 01 Clinical Impression: Claudication of both lower extremities - Discharge Information *PRESCRIPTION DRUG MONITORING PROGRAM REVIEWED*: Not Applicable *COPY OF PRESCRIPTION DRUG MONITORING REPORT IN PATIENT FIDELINA: Not Applicable Prescriptions: cilostazoL [Cilostazol] 100 mg PO BID 14 Days #28 tablet Instructions: Intermittent Claudication Forms: ED Department Discharge - Problem List & Annotations (1) Claudication of both lower extremities SNOMED Code(s): 38385549, 585957128 Code(s): I73.9 - PERIPHERAL VASCULAR DISEASE, UNSPECIFIED Status: Acute - Assessment/Plan Assessment:: 1. 60-year-old woman with acute on chronic alcohol abuse 2. History of known chronic liver failure 3. New onset claudication in both lower extremities Plan: 1. I will start her on cilostazol to see if that helps with her symptoms. I encouraged her to follow-up with her primary care physician sometime in the next week for further evaluation and work-up on this if she is still having the symptoms. <Mayuri Brewer - Last Filed: 10/20/20 19:04> ED HPI GENERAL MEDICAL PROBLEM - General Source of Information: Reports: Patient, Family, RN, RN Notes Reviewed History Limitations: Reports: Intoxication - History of Present Illness INITIAL COMMENTS - FREE TEXT/NARRATIVE: Patient is a 60-year-old female who presents to ER with complaint of severe leg pain bilaterally. Patient states the pain began 2 days ago. She states today it is gotten much worse. Rates pain 10/10 and is sharp patient states she feels the pain is in her bones. Denies any falls or injury. States she has been able to bear weight on the feet and the legs. States pain woke her from sleep. 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: Musculoskeletal History: Reports: Other (See Below) Other Musculoskeletal History: knee problems Neurological History: Reports: None Psychiatric History: Reports: Learning Disability, Panic Attack Endocrine/Metabolic History: Reports: Hypothyroidism, Obesity/BMI 30+ Hematologic History: Reports: Anemia, Other (See Below) Other Hematologic History: thrombocytopenia Immunologic History: Reports: None Oncologic (Cancer) History: Reports: None Dermatologic History: Reports: None - Infectious Disease History Infectious Disease History: Reports: None - Past Surgical History Head Surgeries/Procedures: Reports: None HEENT Surgical History: Reports: None Other HEENT Surgeries/Procedures: ear surgery as a child Cardiovascular Surgical History: Reports: None Respiratory Surgical History: Reports: None GI Surgical History: Reports: Colonoscopy, EGD, Other (See Below) Other GI Surgeries/Procedures: liver biopsy Female Surgical History: Reports: Section Endocrine Surgical History: Reports: None Neurological Surgical History: Reports: None Musculoskeletal Surgical History: Reports: None Oncologic Surgical History: Reports: None Dermatological Surgical History: Reports: None Social & Family History - Family History Family Medical History: No Pertinent Family History - Caffeine Use Caffeine Use: Reports: Coffee, Soda Caffeine Use Comment: rare coffee - Living Situation & Occupation Living situation: Reports: with Family Review of Systems - Review of Systems Review Of Systems: Comprehensive ROS is negative, except as noted in HPI. ED EXAM, GENERAL - Physical Exam Exam: See Below Exam Limited By: Intoxication General Appearance: Alert, WD/WN, Moderate Distress Eye Exam: Bilateral Eye: EOMI, Normal Inspection Ears: Normal External Exam, Hearing Grossly Normal Nose: Normal Inspection Throat/Mouth: Normal Inspection, Normal Voice, No Airway Compromise Head: Atraumatic, Normocephalic Neck: Normal Inspection, Supple, Non-Tender, Full Range of Motion Respiratory/Chest: No Respiratory Distress, Lungs Clear, Normal Breath Sounds, No Accessory Muscle Use, Chest Non-Tender, Decreased Breath Sounds Cardiovascular: Normal Peripheral Pulses, Regular Rate, Rhythm, No Edema, No Gallop, No JVD, No Murmur, No Rub Peripheral Pulses: 2+: Radial (L), Radial (R), Femoral (L), Femoral (R) GI/Abdominal: Normal Bowel Sounds, Soft, Non-Tender (Female) Exam: Deferred Rectal (Female) Exam: Deferred Back Exam: Normal Inspection, Decreased Range of Motion Extremities: Normal Inspection, Normal Capillary Refill, Leg Pain (bilateral), Limited Range of Motion (legs bilaterally). No: Increased Warmth, Redness Neurological: Alert, Oriented Psychiatric: Anxious, Tearful Skin Exam: Warm, Dry, Intact, Normal Color, No Rash Lymphatic: No Adenopathy Course - Vital Signs Last Recorded V/S: Last Vital Signs Temp 98.0 F 10/20/20 00:48 Pulse 96 10/20/20 00:48 Resp 20 10/20/20 00:48 BP 129/66 10/20/20 00:48 Pulse Ox 93 L 10/20/20 00:48 - Orders/Labs/Meds Labs: Laboratory Tests 06/20/21 06/20/21 06/20/21 Range/Units 01:27 01:27 01:27 WBC 4.1 L (5.0-10.0) 10^3/uL RBC 3.73 L (4.2-5.4) 10^6/uL Hgb 12.2 (12.0-16.0) g/dL Hct 36.0 L (37.0-47.0) % MCV 96.5 D (80-100) fL MCH 32.7 (27.0-34.0) pg MCHC 33.9 (33.0-35.0) g/dL Plt Count 63 L (150-450) 10^3/uL Neut % (Auto) 38.2 L (42.2-75.2) % Lymph % (Auto) 47.4 (20.5-50.1) % [place] % (Auto) 10.0 H (2-8) % Eos % (Auto) 3.9 H (1.0-3.0) % Baso % (Auto) 0.5 (0.0-1.0) % D-Dimer, Quantitative (0-400) ng/mL Sodium 144 (136-145) mmol/L Potassium 3.8 (3.5-5.1) mmol/L Chloride 105 (98-107) mmol/L Carbon Dioxide 24 (21-32) mmol/L Anion Gap 18.8 H (7-13) mEq/L BUN 21 H (7-18) mg/dL Creatinine 0.95 (0.55-1.02) mg/dL Est Cr Clr Drug Dosing TNP Estimated GFR (MDRD) > 60 BUN/Creatinine Ratio 22.1 (No establ ref range) Glucose 99 (70-99) mg/dL Lactic Acid (0.4-2.0) mmol/L Calcium 8.2 L (8.5-10.1) mg/dL Magnesium 1.8 (1.8-2.4) mg/dL Total Bilirubin 1.9 H (0.2-1.0) mg/dL AST 126 H (15-37) U/L ALT 61 H (14-59) U/L Alkaline Phosphatase 184 H (46-116) U/L Ammonia 23 (11-32) umol/L C-Reactive Protein < 0.2 (0.0-0.9) mg/dL Total Protein 7.0 (6.4-8.2) g/dL Albumin 3.2 L (3.4-5.0) g/dL Globulin 3.8 Albumin/Globulin Ratio 0.84 Urine Color (YELLOW) Urine Appearance (CLEAR) Urine pH (5.0-9.0) Ur Specific [place] (1.005-1.030) Urine Protein (NEGATIVE) Urine Glucose (UA) (NEGATIVE) Urine Ketones (NEGATIVE) Urine Occult Blood (NEGATIVE) Urine Nitrite (NEGATIVE) Urine Bilirubin (NEGATIVE) Urine Urobilinogen (0.2-1.0) mg/dL Ur Leukocyte Esterase (NEGATIVE) Urine RBC /HPF Urine WBC (0-5/HPF) /HPF Ur Epithelial Cells (NOT SEEN) /HPF Amorphous Sediment (NOT SEEN) /HPF Urine Bacteria (0-FEW/HPF) /HPF Urine Mucus (NOT SEEN) /LPF Urine Opiates Screen (NEGATIVE) Ur Oxycodone Screen (NEGATIVE) Urine Methadone Screen (NEGATIVE) Ur Barbiturates Screen (NEGATIVE) U Tricyclic Antidepress (NEGATIVE) Ur Phencyclidine Scrn (NEGATIVE) Ur Amphetamine Screen (NEGATIVE) U Methamphetamines Scrn (NEGATIVE) Urine MDMA Screen (NEGATIVE) U Benzodiazepines Scrn (NEGATIVE) Urine Cocaine Screen (NEGATIVE) U Marijuana (THC) Screen (NEGATIVE) Ethyl Alcohol 404 (0) mg/dL 10/20/20 10/20/20 10/20/20 Range/Units 01:27 02:25 02:25 WBC (5.0-10.0) 10^3/uL RBC (4.2-5.4) 10^6/uL Hgb (12.0-16.0) g/dL Hct (37.0-47.0) % MCV (80-100) fL MCH (27.0-34.0) pg MCHC (33.0-35.0) g/dL Plt Count (150-450) 10^3/uL Neut % (Auto) (42.2-75.2) % Lymph % (Auto) (20.5-50.1) % [place] % (Auto) (2-8) % Eos % (Auto) (1.0-3.0) % Baso % (Auto) (0.0-1.0) % D-Dimer, Quantitative 640 H (0-400) ng/mL Sodium (136-145) mmol/L Potassium (3.5-5.1) mmol/L Chloride (98-107) mmol/L Carbon Dioxide (21-32) mmol/L Anion Gap (7-13) mEq/L BUN (7-18) mg/dL Creatinine (0.55-1.02) mg/dL Est Cr Clr Drug Dosing Estimated GFR (MDRD) BUN/Creatinine Ratio (No establ ref range) Glucose (70-99) mg/dL Lactic Acid (0.4-2.0) mmol/L Calcium (8.5-10.1) mg/dL Magnesium (1.8-2.4) mg/dL Total Bilirubin (0.2-1.0) mg/dL AST (15-37) U/L ALT (14-59) U/L Alkaline Phosphatase (46-116) U/L Ammonia (11-32) umol/L C-Reactive Protein (0.0-0.9) mg/dL Total Protein (6.4-8.2) g/dL Albumin (3.4-5.0) g/dL Globulin Albumin/Globulin Ratio Urine Color Yellow (YELLOW) Urine Appearance Cloudy (CLEAR) Urine pH 5.5 (5.0-9.0) Ur Specific [place] 1.025 (1.005-1.030) Urine Protein >=300 H (NEGATIVE) Urine Glucose (UA) Negative (NEGATIVE) Urine Ketones Negative (NEGATIVE) Urine Occult Blood Moderate H (NEGATIVE) Urine Nitrite Negative (NEGATIVE) Urine Bilirubin Negative (NEGATIVE) Urine Urobilinogen 1.0 (0.2-1.0) mg/dL Ur Leukocyte Esterase Negative (NEGATIVE) Urine RBC 10-20 H /HPF Urine WBC 0-5 (0-5/HPF) /HPF Ur Epithelial Cells Few (NOT SEEN) /HPF Amorphous Sediment Moderate H (NOT SEEN) /HPF Urine Bacteria Few (0-FEW/HPF) /HPF Urine Mucus Moderate H (NOT SEEN) /LPF Urine Opiates Screen Positive H (NEGATIVE) Ur Oxycodone Screen Negative (NEGATIVE) Urine Methadone Screen Negative (NEGATIVE) Ur Barbiturates Screen Negative (NEGATIVE) U Tricyclic Antidepress Negative (NEGATIVE) Ur Phencyclidine Scrn Negative (NEGATIVE) Ur Amphetamine Screen Negative (NEGATIVE) U Methamphetamines Scrn Negative (NEGATIVE) Urine MDMA Screen Negative (NEGATIVE) U Benzodiazepines Scrn Negative (NEGATIVE) Urine Cocaine Screen Negative (NEGATIVE) U Marijuana (THC) Screen Negative (NEGATIVE) Ethyl Alcohol (0) mg/dL 10/20/20 Range/Units 02:37 WBC (5.0-10.0) 10^3/uL RBC (4.2-5.4) 10^6/uL Hgb (12.0-16.0) g/dL Hct (37.0-47.0) % MCV (80-100) fL MCH (27.0-34.0) pg MCHC (33.0-35.0) g/dL Plt Count (150-450) 10^3/uL Neut % (Auto) (42.2-75.2) % Lymph % (Auto) (20.5-50.1) % [place] % (Auto) (2-8) % Eos % (Auto) (1.0-3.0) % Baso % (Auto) (0.0-1.0) % D-Dimer, Quantitative (0-400) ng/mL Sodium (136-145) mmol/L Potassium (3.5-5.1) mmol/L Chloride (98-107) mmol/L Carbon Dioxide (21-32) mmol/L Anion Gap (7-13) mEq/L BUN (7-18) mg/dL Creatinine (0.55-1.02) mg/dL Est Cr Clr Drug Dosing Estimated GFR (MDRD) BUN/Creatinine Ratio (No establ ref range) Glucose (70-99) mg/dL Lactic Acid 4.6 H* (0.4-2.0) mmol/L Calcium (8.5-10.1) mg/dL Magnesium (1.8-2.4) mg/dL Total Bilirubin (0.2-1.0) mg/dL AST (15-37) U/L ALT (14-59) U/L Alkaline Phosphatase (46-116) U/L Ammonia (11-32) umol/L C-Reactive Protein (0.0-0.9) mg/dL Total Protein (6.4-8.2) g/dL Albumin (3.4-5.0) g/dL Globulin Albumin/Globulin Ratio Urine Color (YELLOW) Urine Appearance (CLEAR) Urine pH (5.0-9.0) Ur Specific [place] (1.005-1.030) Urine Protein (NEGATIVE) Urine Glucose (UA) (NEGATIVE) Urine Ketones (NEGATIVE) Urine Occult Blood (NEGATIVE) Urine Nitrite (NEGATIVE) Urine Bilirubin (NEGATIVE) Urine Urobilinogen (0.2-1.0) mg/dL Ur Leukocyte Esterase (NEGATIVE) Urine RBC /HPF Urine WBC (0-5/HPF) /HPF Ur Epithelial Cells (NOT SEEN) /HPF Amorphous Sediment (NOT SEEN) /HPF Urine Bacteria (0-FEW/HPF) /HPF Urine Mucus (NOT SEEN) /LPF Urine Opiates Screen (NEGATIVE) Ur Oxycodone Screen (NEGATIVE) Urine Methadone Screen (NEGATIVE) Ur Barbiturates Screen (NEGATIVE) U Tricyclic Antidepress (NEGATIVE) Ur Phencyclidine Scrn (NEGATIVE) Ur Amphetamine Screen (NEGATIVE) U Methamphetamines Scrn (NEGATIVE) Urine MDMA Screen (NEGATIVE) U Benzodiazepines Scrn (NEGATIVE) Urine Cocaine Screen (NEGATIVE) U Marijuana (THC) Screen (NEGATIVE) Ethyl Alcohol (0) mg/dL Meds: Medications Discontinued Medications Generic Name Dose Route Start Last Admin Trade Name Yasmin PRN Reason Stop Dose Admin Dexamethasone 10 mg 10/20/20 07:36 10/20/20 08:06 Dexamethasone 4 Mg/Ml Sdv IVPUSH 10/20/20 07:37 10 mg ONETIME ONE Administration Hydromorphone HCl 1 mg 10/20/20 04:21 10/20/20 04:48 Hydromorphone 1 Mg/Ml Syringe IVPUSH 10/20/20 04:22 1 mg ONETIME ONE Administration Hydromorphone HCl 0.5 mg 10/20/20 07:36 10/20/20 08:07 Hydromorphone 0.5 Mg/0.5 Ml Syringe IVPUSH 10/20/20 07:37 0.5 mg ONETIME ONE Administration Multivitamins/Minerals 10 ml/ 1,011.2 mls @ 999 mls/hr 10/20/20 03:34 10/20/20 05:31 Folic Acid 1 mg/ Thiamine HCl IV 10/20/20 04:34 Infused 100 mg/ Lactated Ringer's ONETIME ONE Infusion Ketorolac Tromethamine 30 mg 10/20/20 07:35 10/20/20 08:06 Ketorolac 30 Mg/Ml Sdv IVPUSH 10/20/20 07:36 30 mg ONETIME ONE Administration Morphine Sulfate 4 mg 10/20/20 01:22 10/20/20 01:32 Morphine 2 Mg/Ml Syringe IVPUSH 10/20/20 01:23 4 mg ONETIME ONE Administration - Radiology Interpretation Free Text/Narrative:: CT of pelvis wo contrast: Contrast Amount: Contrast Method: CONFIDENTIALITY STATEMENT This report is intended only for use by the referring physician, and only in accordance with law. If you received this in error, call [phone]. Page 1 of 1 PROCEDURE INFORMATION: Exam: CT Pelvis Without Contrast; Skeletal Exam date and time: 10/20/2020 1:58 AM Age: 60 years old Clinical indication: Other: Pain bilaterally; Additional info: Severe pain to the upper legs bilaterally TECHNIQUE: Imaging protocol: Computed tomography images of the pelvis without contrast. Exam focused on the skeletal structures. Radiation optimization: All CT scans at this facility use at least one of these dose optimization techniques: automated exposure control; mA and/or kV adjustment per patient size (includes targeted exams where dose is matched to clinical indication); or iterative reconstruction. COMPARISON: No relevant prior studies available. FINDINGS: Bones/joints: Unremarkable. No acute fracture. No dislocation. Soft tissues: Unremarkable. 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 IMPRESSION: 1. 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 2. No cause for acute pain is identified. Thank you for allowing us to participate in the care of your patient. Dictated and Authenticated by: Nilesh Sullivan DO 10/20/2020 3:42 AM Central Time ([place] & [place]) See rad report - Re-Assessments/Exams Free Text/Narrative Re-Assessment/Exam: 10/20/20 06:45 Patient care turned over to Dr. Santoyo at change of shift. Sepsis Event Note (ED) - Evaluation Sepsis Screening Result: No Definite Risk
[2020-10-20] MEDS ORDERED: HYDROmorphone 1 MG/ML Syringe IVPUSH ONE (04:21)
[2020-10-20] MEDS ORDERED: Ketorolac 30 MG/ML SDV IVPUSH ONE (07:35)
[2020-10-20] MEDS ORDERED: HYDROmorphone 0.5 MG/0.5 ML Syringe IVPUSH ONE (07:36)
[2020-10-20] MEDS ORDERED: Dexamethasone 4 MG/ML SDV IVPUSH ONE (07:36)
== END 2020-10-20 08:32 | disposition home or self-care (01) ==
LOC: DL.ED 00:29
DX: I73.9 Peripheral vascular disease, unspecified (principal); I10 Essential (primary) hypertension; K21.9 Gastro-esophageal reflux disease without esophagitis; E03.9 Hypothyroidism, unspecified; E66.9 Obesity, unspecified; Z68.30 Body mass index [BMI] 30.0-30.9, adult; Z79.899 Other long term (current) drug therapy
CPT/HCPCS: 36415; 72192; 80053; 80305-QW; 80307; 81001; 82140; 83605; 83735; 85025; 85379; 86140; 96365; 96366; 96375; 96376; 99283; 99284-25; J1100; J1170; J1885; J2270; J3411; J3490; J7120

== ENCOUNTER 2020-10-23 14:06 | Emergency (ER) | payer MEDICAID ==
[2020-10-23 15:14] VITALS: PULSE 114
[2020-10-23 15:38] VITALS: BP 164/69
[2020-10-23] MEDS ORDERED: Orphenadrine 60 MG/2 ML Inj IM ONE (16:18)
[2020-10-23] MEDS ORDERED: Ketorolac 30 MG/ML SDV IM ONE (16:18)
--- NOTE | 2020-10-23 16:18 | EDM.PDOC ---
ED HPI GENERAL MEDICAL PROBLEM - General Chief Complaint: Lower Extremity Injury/Pain Stated Complaint: PAIN IN BOTH LEGS Time Seen by Provider: 10/23/20 16:18 Source of Information: Reports: Patient History Limitations: Reports: No Limitations - History of Present Illness INITIAL COMMENTS - FREE TEXT/NARRATIVE: Patient comes emergency department today from home with concerns of continued bilateral leg pain. This patient has had bilateral pain that she relates down both legs right next to the bones on the anterior aspect of her thighs all the way down her legs. She has had no recent falls or trauma. She has had no loss of bowel or bladder. She has no pain in her back. She has been seen in the emergency department and was told that it was something to do with the veins in her legs and she was placed on a medication to help with flow in her lower extremities. She was seen in the primary care setting and she was discontinued on this medication. She was given hydroxyzine as well as celecoxib without any improvement of the pain. She continues to be quite uncomfortable. She has no fever no chills. No chest pain no shortness of breath or difficulty breathing. No cough or congestion. No abdominal pain no flank pain. She has bilateral constant pain in her lower extremities. She denies any pain in her back until today which started on the right side. No hematuria dysuria or urinary frequency. No black or tarry stools. She is able to ambulate but it is quite uncomfortable. No history of DVT or PE. No recent surgery or long sitting positions. Bilateral Lower Leg Pain Score (Numeric/FACES): 8 - Related Data Allergies Allergy/AdvReac Type Severity Reaction Status Date / Time No Known Allergies Allergy Verified 10/20/20 00:54 Home Meds: Home Meds Vitamin B Complex 1 each PO DAILY 04/09/18 [History] Spironolactone [Aldactone] 25 mg PO QID 07/28/18 [History] Furosemide [Lasix] 40 mg PO DAILY 04/28/20 [History] Cholecalciferol (Vitamin D3) [Vitamin D3] 125 mcg PO DAILY 05/17/20 [History] Levothyroxine 75 mcg PO DAILY 05/17/20 [History] Pantoprazole Sodium [Protonix] 40 mg PO DAILY 05/17/20 [History] Rifaximin [Xifaxan] 550 mg PO BID 05/17/20 [History] Lactulose [Cephulac] 30 gm PO Q6H cup 05/20/20 [Rx] Propranolol [Inderal LA] 60 mg PO DAILY #30 cap.er 05/20/20 [Rx] cilostazoL [Cilostazol] 100 mg PO BID 14 Days #28 tablet 10/20/20 [Rx] Celecoxib 100 mg PO Q12HR 10/23/20 [History] hydrOXYzine HCL [Hydroxyzine HCl] 10 mg PO Q8H 10/23/20 [History] Past Medical History HEENT History: Reports: None, Other (See Below) Other HEENT History: UPPER DENTURE PLATE AND LOWER PARTIAL Cardiovascular History: Reports: Heart Murmur, Hypertension Respiratory History: Reports: None Gastrointestinal History: Reports: Cirrhosis, GERD, Hepatitis, Other (See Below) Other Gastrointestinal History: chronic liver disease Genitourinary History: Reports: Other (See Below) Other Genitourinary History: bladder issues 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: Musculoskeletal History: Reports: Other (See Below) Other Musculoskeletal History: knee problems Neurological History: Reports: None Psychiatric History: Reports: Learning Disability, Panic Attack Endocrine/Metabolic History: Reports: Hypothyroidism, Obesity/BMI 30+ Hematologic History: Reports: Anemia, Other (See Below) Other Hematologic History: thrombocytopenia Immunologic History: Reports: None Oncologic (Cancer) History: Reports: None Dermatologic History: Reports: None - Infectious Disease History Infectious Disease History: Reports: None - Past Surgical History Head Surgeries/Procedures: Reports: None HEENT Surgical History: Reports: None Other HEENT Surgeries/Procedures: ear surgery as a child Cardiovascular Surgical History: Reports: None Respiratory Surgical History: Reports: None GI Surgical History: Reports: Colonoscopy, EGD, Other (See Below) Other GI Surgeries/Procedures: liver biopsy Female Surgical History: Reports: Section Endocrine Surgical History: Reports: None Neurological Surgical History: Reports: None Musculoskeletal Surgical History: Reports: None Oncologic Surgical History: Reports: None Dermatological Surgical History: Reports: None Social & Family History - Family History Family Medical History: No Pertinent Family History - Tobacco Use Tobacco Use Status *Q: Never Tobacco User - Caffeine Use Caffeine Use: Reports: Soda Caffeine Use Comment: rare coffee - Recreational Drug Use Recreational Drug Use: No - Living Situation & Occupation Living situation: Reports: with Family Review of Systems - Review of Systems Review Of Systems: Comprehensive ROS is negative, except as noted in HPI. ED EXAM, GENERAL - Physical Exam Exam: See Below Exam Limited By: No Limitations General Appearance: Alert, WD/WN, Anxious, Mild Distress (She does appear uncomfortable constantly moving in the bed and can't find a position of comfort. ) Nose: Normal Inspection, Nasal Flaring Head: Atraumatic, Normocephalic Neck: Normal Inspection, Supple, Non-Tender Respiratory/Chest: No Respiratory Distress, Lungs Clear, No Accessory Muscle Use, Chest Non-Tender Cardiovascular: Normal Peripheral Pulses, Regular Rate, Rhythm, Tachycardia GI/Abdominal: Normal Bowel Sounds, Soft, Tender (In the epigastric region. ). No: Guarding, Rigid, Rebound (Female) Exam: Deferred Rectal (Female) Exam: Deferred Back Exam: Normal Inspection, Full Range of Motion. No: CVA Tenderness (L), CVA Tenderness (R), Paraspinal Tenderness, Vertebral Tenderness Extremities: Pedal Edema (1+ bilaterally. ), Leg Pain (Tenderness to bilateral anterior thighs. ), Other (Patella and achilles DTRs 2+ equal bilat). No: Rsoe's Sign, Increased Warmth, Mottled, Pallor Neurological: Alert, Oriented, Normal Cognition, No Motor/Sensory Deficits Psychiatric: Anxious Skin Exam: Warm, Dry, Intact, Normal Color Course - Vital Signs Last Recorded V/S: Last Vital Signs Temp 97.3 F 10/23/20 15:38 Pulse 114 H 10/23/20 15:13 Resp 20 10/23/20 15:38 BP 164/69 H 10/23/20 15:38 Pulse Ox 100 10/23/20 15:13 - Orders/Labs/Meds Orders: Active Orders 24 hr Category Date Time Status Peripheral IV Care [RC] . DIRECTED Care 10/23/20 16:25 Active UA W/MICROSCOPIC [URIN] Stat Lab 10/23/20 18:00 Results Sodium Chloride 0.9% [Saline Flush] Med 10/23/20 16:25 Active 10 ml FLUSH ASDIRECTED PRN Peripheral IV Insertion Adult [OM.PC] Stat Oth 10/23/20 16:25 Ordered Medication Orders Sodium Chloride (Sodium Chloride 0.9% 10 Ml Syringe) 10 ml FLUSH ASDIRECTED PRN PRN Reason: Keep Vein Open Labs: Laboratory Tests 10/23/20 10/23/20 10/23/20 Range/Units 16:38 16:38 16:38 WBC 3.6 L (5.0-10.0) 10^3/uL RBC 3.25 L (4.2-5.4) 10^6/uL Hgb 10.8 L (12.0-16.0) g/dL Hct 31.6 L (37.0-47.0) % MCV 97.2 (80-100) fL MCH 33.2 (27.0-34.0) pg MCHC 34.2 (33.0-35.0) g/dL Plt Count 48 L* (150-450) 10^3/uL Neut % (Auto) 70.6 (42.2-75.2) % Lymph % (Auto) 16.9 L (20.5-50.1) % [place] % (Auto) 11.7 H (2-8) % Eos % (Auto) 0.8 L (1.0-3.0) % Baso % (Auto) 0.0 (0.0-1.0) % D-Dimer, Quantitative 643 H (0-400) ng/mL Sodium 136 (136-145) mmol/L Potassium 3.5 (3.5-5.1) mmol/L Chloride 100 (98-107) mmol/L Carbon Dioxide 27 (21-32) mmol/L Anion Gap 12.5 (7-13) mEq/L BUN 28 H (7-18) mg/dL Creatinine 1.16 H (0.55-1.02) mg/dL Est Cr Clr Drug Dosing 45.65 mL/min Estimated GFR (MDRD) 48 BUN/Creatinine Ratio 24.1 (No establ ref range) Glucose 121 H (70-99) mg/dL Lactic Acid (0.4-2.0) mmol/L Calcium 7.6 L (8.5-10.1) mg/dL Magnesium 1.6 L (1.8-2.4) mg/dL Total Bilirubin 3.4 H (0.2-1.0) mg/dL AST 264 H (15-37) U/L ALT 109 H (14-59) U/L Alkaline Phosphatase 217 H (46-116) U/L C-Reactive Protein < 0.2 (0.0-0.9) mg/dL Total Protein 6.1 L (6.4-8.2) g/dL Albumin 2.9 L (3.4-5.0) g/dL Globulin 3.2 Albumin/Globulin Ratio 0.91 Lipase (73-393) U/L Urine Color (YELLOW) Urine Appearance (CLEAR) Urine pH (5.0-9.0) Ur Specific [place] (1.005-1.030) Urine Protein (NEGATIVE) Urine Glucose (UA) (NEGATIVE) Urine Ketones (NEGATIVE) Urine Occult Blood (NEGATIVE) Urine Nitrite (NEGATIVE) Urine Bilirubin (NEGATIVE) Urine Urobilinogen (0.2-1.0) mg/dL Ur Leukocyte Esterase (NEGATIVE) Ethyl Alcohol (0) mg/dL 10/23/20 10/23/20 10/23/20 Range/Units 16:38 16:38 16:38 WBC (5.0-10.0) 10^3/uL RBC (4.2-5.4) 10^6/uL Hgb (12.0-16.0) g/dL Hct (37.0-47.0) % MCV (80-100) fL MCH (27.0-34.0) pg MCHC (33.0-35.0) g/dL Plt Count (150-450) 10^3/uL Neut % (Auto) (42.2-75.2) % Lymph % (Auto) (20.5-50.1) % [place] % (Auto) (2-8) % Eos % (Auto) (1.0-3.0) % Baso % (Auto) (0.0-1.0) % D-Dimer, Quantitative (0-400) ng/mL Sodium (136-145) mmol/L Potassium (3.5-5.1) mmol/L Chloride (98-107) mmol/L Carbon Dioxide (21-32) mmol/L Anion Gap (7-13) mEq/L BUN (7-18) mg/dL Creatinine (0.55-1.02) mg/dL Est Cr Clr Drug Dosing mL/min Estimated GFR (MDRD) BUN/Creatinine Ratio (No establ ref range) Glucose (70-99) mg/dL Lactic Acid 1.5 (0.4-2.0) mmol/L Calcium (8.5-10.1) mg/dL Magnesium (1.8-2.4) mg/dL Total Bilirubin (0.2-1.0) mg/dL AST (15-37) U/L ALT (14-59) U/L Alkaline Phosphatase (46-116) U/L C-Reactive Protein (0.0-0.9) mg/dL Total Protein (6.4-8.2) g/dL Albumin (3.4-5.0) g/dL Globulin Albumin/Globulin Ratio Lipase 285 (73-393) U/L Urine Color (YELLOW) Urine Appearance (CLEAR) Urine pH (5.0-9.0) Ur Specific [place] (1.005-1.030) Urine Protein (NEGATIVE) Urine Glucose (UA) (NEGATIVE) Urine Ketones (NEGATIVE) Urine Occult Blood (NEGATIVE) Urine Nitrite (NEGATIVE) Urine Bilirubin (NEGATIVE) Urine Urobilinogen (0.2-1.0) mg/dL Ur Leukocyte Esterase (NEGATIVE) Ethyl Alcohol < 3 (0) mg/dL 10/23/20 Range/Units 18:00 WBC (5.0-10.0) 10^3/uL RBC (4.2-5.4) 10^6/uL Hgb (12.0-16.0) g/dL Hct (37.0-47.0) % MCV (80-100) fL MCH (27.0-34.0) pg MCHC (33.0-35.0) g/dL Plt Count (150-450) 10^3/uL Neut % (Auto) (42.2-75.2) % Lymph % (Auto) (20.5-50.1) % [place] % (Auto) (2-8) % Eos % (Auto) (1.0-3.0) % Baso % (Auto) (0.0-1.0) % D-Dimer, Quantitative (0-400) ng/mL Sodium (136-145) mmol/L Potassium (3.5-5.1) mmol/L Chloride (98-107) mmol/L Carbon Dioxide (21-32) mmol/L Anion Gap (7-13) mEq/L BUN (7-18) mg/dL Creatinine (0.55-1.02) mg/dL Est Cr Clr Drug Dosing mL/min Estimated GFR (MDRD) BUN/Creatinine Ratio (No establ ref range) Glucose (70-99) mg/dL Lactic Acid (0.4-2.0) mmol/L Calcium (8.5-10.1) mg/dL Magnesium (1.8-2.4) mg/dL Total Bilirubin (0.2-1.0) mg/dL AST (15-37) U/L ALT (14-59) U/L Alkaline Phosphatase (46-116) U/L C-Reactive Protein (0.0-0.9) mg/dL Total Protein (6.4-8.2) g/dL Albumin (3.4-5.0) g/dL Globulin Albumin/Globulin Ratio Lipase (73-393) U/L Urine Color [place] (YELLOW) Urine Appearance Slightly cloudy (CLEAR) Urine pH 7.0 (5.0-9.0) Ur Specific [place] 1.020 (1.005-1.030) Urine Protein 100 H (NEGATIVE) Urine Glucose (UA) 100 H (NEGATIVE) Urine Ketones Trace H (NEGATIVE) Urine Occult Blood Negative (NEGATIVE) Urine Nitrite Negative (NEGATIVE) Urine Bilirubin Moderate H (NEGATIVE) Urine Urobilinogen >=8.0 H (0.2-1.0) mg/dL Ur Leukocyte Esterase Negative (NEGATIVE) Ethyl Alcohol (0) mg/dL Meds: Medications Generic Name Dose Route Start Last Admin Trade Name Yasmin PRN Reason Stop Dose Admin Sodium Chloride 10 ml 10/23/20 16:25 Sodium Chloride 0.9% 10 Ml Syringe FLUSH ASDIRECTED PRN Keep Vein Open Discontinued Medications Generic Name Dose Route Start Last Admin Trade Name Yasmin PRN Reason Stop Dose Admin Al Hydroxide/Mg Hydroxide 30 ml 10/23/20 18:04 Gi Cocktail Oral Solution 30 Ml PO 10/23/20 18:05 ONETIME ONE Ketorolac Tromethamine 30 mg 10/23/20 16:18 Ketorolac 30 Mg/Ml Sdv IM 10/23/20 16:19 ONETIME ONE Morphine Sulfate 4 mg 10/23/20 16:26 10/23/20 17:01 Morphine 4 Mg/Ml Syringe IVPUSH 10/23/20 16:27 4 mg ONETIME ONE Administration Orphenadrine Citrate 60 mg 10/23/20 16:18 Orphenadrine 60 Mg/2 Ml Inj IM 10/23/20 16:19 ONETIME ONE Orphenadrine Citrate 60 mg 10/23/20 16:26 10/23/20 17:01 Orphenadrine 60 Mg/2 Ml Inj IV 10/23/20 16:27 60 mg ONETIME ONE Administration - Re-Assessments/Exams Free Text/Narrative Re-Assessment/Exam: 10/23/20 16:43 I did review her laboratory evaluation from 10-20-20. She does have some elevation of her T bili at 1.9 AST ALT alkaline phosphatase which appears to be chronic for her. She does have a history of cirrhosis. Her ammonia was normal. Her lactic acid was 4.6. Her D-dimer was 640 She did have quite bit of protein in her urine moderate amount of blood U RBCs 1020. Urine drug screen was positive for opiates. Her alcohol was 404. 10/23/20 16:44 She also had a CT scan of just the pelvis without contrast. 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 No cause of acute pain is identified 10/23/20 16:47 Patient was seen in the primary care clinic today by Dr. Gray she was started on niacin 100 mg p.o. daily, Celebrex 100 mg p.o. every 12 hours for 3 days. She also had a lower extremity venous ultrasound that was completed and per epic report bilateral lower extremity venous ultrasound negative. Harris's cyst left popliteal fossa. 10/23/20 16:48 IV established labs were drawn. Norflex 60mg IV Morphine 4mg IVP Departure - Departure Time of Disposition: 18:32 Disposition: Home, Self-Care 01 Clinical Impression: Bilateral leg pain - Discharge Information Instructions: Pain Medicine Instructions, [id number] Forms: ED Department Discharge Additional Instructions: Tylenol as needed for pain. Continue with the meds that you received from Dr. Gray today in the clinic. Flexeril, 1 tablet three times a day as needed for pain. Caution sedation. Rx given to the patient #[id number]. See physical therapy at [facility]. Return to the ED if new or worsening symptoms. Follow up with primary care in the next three days. If not improving consider an MRI of your lower back. Sepsis Event Note (ED) - Evaluation Sepsis Screening Result: No Definite Risk - Focused Exam Vital Signs: Vital Signs Temp Pulse Resp BP Pulse Ox 10/23/20 15:38 97.3 F 20 164/69 H 10/23/20 15:13 97.3 F 114 H 18 117/59 L 100 - My Orders Last 24 Hours: My Active Orders 10/23/20 16:25 Peripheral IV Care [RC] . DIRECTED Sodium Chloride 0.9% [Saline Flush] 10 ml FLUSH ASDIRECTED PRN Peripheral IV Insertion Adult [OM.PC] Stat 10/23/20 18:00 UA W/MICROSCOPIC [URIN] Stat - Assessment/Plan Last 24 Hours: My Active Orders 10/23/20 16:25 Peripheral IV Care [RC] . DIRECTED Sodium Chloride 0.9% [Saline Flush] 10 ml FLUSH ASDIRECTED PRN Peripheral IV Insertion Adult [OM.PC] Stat 10/23/20 18:00 UA W/MICROSCOPIC [URIN] Stat
[2020-10-23] MEDS ORDERED: Sodium Chloride 0.9% 10 ML Syringe FLUSH PRN (16:25)
[2020-10-23] MEDS ORDERED: Morphine 4 MG/ML Syringe IVPUSH ONE (16:26)
[2020-10-23] MEDS ORDERED: Orphenadrine 60 MG/2 ML Inj IV ONE (16:26)
[2020-10-23 17:24] LABS: CHLORIDE,CL 100 mmol/L (98-107); SODIUM,NA 136 mmol/L (136-145)
[2020-10-23 17:25] LABS: ANION GAP 12.5 mEq/L (7-13)
[2020-10-23] MEDS ORDERED: GI Cocktail Oral Solution 30 ML PO ONE (18:04)
[2020-10-23] MEDS ORDERED: predniSONE 20 MG Tab PO ONE (18:33)
== END 2020-10-23 18:40 | disposition home or self-care (01) ==
LOC: DL.ED 14:06
DX: M79.604 Pain in right leg (principal); M79.605 Pain in left leg; I10 Essential (primary) hypertension; E03.9 Hypothyroidism, unspecified; E66.9 Obesity, unspecified; Z68.30 Body mass index [BMI] 30.0-30.9, adult; Z79.899 Other long term (current) drug therapy
CPT/HCPCS: 36415; 80053; 80307; 81001; 83605; 83690; 83735; 85025; 85379; 86140; 96374; 96375; 99283; A9270; J2270; J2360

== ENCOUNTER 2021-04-05 18:00 | Emergency (ER) | payer SELFPAY ==
[2021-04-05] MEDS ORDERED: Sodium Chloride 0.9% 10 ML Syringe FLUSH PRN (18:05)
[2021-04-05 18:24] VITALS: BP 113/66; PULSE 70
--- NOTE | 2021-04-05 18:27 | CT ---
PROCEDURE INFORMATION: Exam: CT Head Without Contrast Exam date and time: 04/05/2021 6:13 PM Age: 60 years old Clinical indication: Other: Altered mental status after fall; Additional info: AMS after fall TECHNIQUE: Imaging protocol: Computed tomography of the head without contrast. Radiation optimization: All CT scans at this facility use at least one of these dose optimization techniques: automated exposure control; mA and/or kV adjustment per patient size (includes targeted exams where dose is matched to clinical indication); or iterative reconstruction. COMPARISON: CT Head wo Cont 04/28/2020 1:36 AM FINDINGS: Brain: A mild amount of decreased attenuation is present within the periventricular white matter. Finding is nonspecific but most often seen in chronic small-vessel ischemic change. No acute hemorrhage or infarct identified. There is no intracranial mass, mass effect, midline shift or edema. There are no abnormal extra-axial fluid collections. Cerebral ventricles: The ventricles and sulci are mildly prominent consistent with global volume loss/atrophy. Paranasal sinuses: Chronic mucosal changes are present within the maxillary sinuses.. No fluid levels. Mastoid air cells: Visualized mastoid air cells are well aerated. Bones/joints: Unremarkable. No acute fracture. Soft tissues: Unremarkable. IMPRESSION: 1. Atrophy and nonspecific chronic white matter change. No acute intracranial abnormality present.
--- NOTE | 2021-04-05 18:30 | CT ---
PROCEDURE INFORMATION: Exam: CT Cervical Spine Without Contrast Exam date and time: 04/05/2021 6:13 PM Age: 60 years old Clinical indication: Other: Altered mental status after fall; Additional info: AMS after fall TECHNIQUE: Imaging protocol: Computed tomography images of the cervical spine without contrast. Radiation optimization: All CT scans at this facility use at least one of these dose optimization techniques: automated exposure control; mA and/or kV adjustment per patient size (includes targeted exams where dose is matched to clinical indication); or iterative reconstruction. COMPARISON: CT Head wo Cont 04/28/2020 1:36 AM FINDINGS: Vertebrae: There is [id number] grade disc space narrowing within the cervical spine. Endplate sclerosis and endplate osteophyte formation are present. Vertebral body height and alignment are well maintained. No fractures are identified. Mild to moderate grade degenerative changes are noted within the facet joints. The facet joints remain in anatomic alignment. Other bones/joints: There is appears to be a nonunited right mid clavicle fracture and multiple old right upper rib fractures. Soft tissues: Unremarkable. Prevertebral Space: There is no prevertebral soft tissue swelling. Lungs: Lung apices are normal. IMPRESSION: 1. No acute fracture of the cervical spine. 2. Probable old fractures of the right clavicle and right upper ribs.
[2021-04-05 18:44] LABS: ANION GAP 10.1 mEq/L (7-13); CHLORIDE,CL 107 mmol/L (98-107); SODIUM,NA 141 mmol/L (136-145)
--- NOTE | 2021-04-05 18:56 | EDM.PDOC ---
ED HPI GENERAL MEDICAL PROBLEM - General Source of Information: Reports: Patient, EMS History Limitations: Reports: No Limitations <Alfredo Lambert - Last Filed: 04/05/21 19:27> <RosamariaLeia avalos - Last Filed: 04/05/21 21:39> - General Chief Complaint: Neurological Problem Stated Complaint: AMBULANCE Time Seen by Provider: 04/05/21 18:00 - History of Present Illness INITIAL COMMENTS - FREE TEXT/NARRATIVE: 60 y/o F pt brought to ED via [facility] for altered mental status after falling and hitting head this morning at 0900. Pt states she has bee blacking out and was on the toilet this morning and passed out and fell and hit her face on the floor. She has no other complaints. Denies mendoza, vision prob, diff swallowing, weakness, fatigue, cp, db, abd pn, pelvic pn, ext pain, fever, cough, chills, drugs, etoh. Pt is able to aswer questions but is confused to the date, place and specific events around today. (Alfredo Lambert) - Related Data Allergies Allergy/AdvReac Type Severity Reaction Status Date / Time No Known Allergies Allergy Verified 04/05/21 18:20 Home Meds: Home Meds Vitamin B Complex 1 each PO DAILY 04/09/18 [History] Spironolactone [Aldactone] 25 mg PO QID 07/28/18 [History] Furosemide [Lasix] 40 mg PO DAILY 04/28/20 [History] Cholecalciferol (Vitamin D3) [Vitamin D3] 125 mcg PO DAILY 05/17/20 [History] Levothyroxine 75 mcg PO DAILY 05/17/20 [History] Pantoprazole Sodium [Protonix] 40 mg PO DAILY 05/17/20 [History] Rifaximin [Xifaxan] 550 mg PO BID 05/17/20 [History] Lactulose [Cephulac] 30 gm PO Q6H cup 05/20/20 [Rx] Propranolol [Inderal LA] 60 mg PO DAILY #30 cap.er 05/20/20 [Rx] cilostazoL [Cilostazol] 100 mg PO BID 14 Days #28 tablet 10/20/20 [Rx] Celecoxib 100 mg PO Q12HR 10/23/20 [History] hydrOXYzine HCL [Hydroxyzine HCl] 10 mg PO Q8H 10/23/20 [History] Past Medical History HEENT History: Reports: Other (See Below) Other HEENT History: UPPER DENTURE PLATE AND LOWER PARTIAL Cardiovascular History: Reports: Heart Murmur, Hypertension Respiratory History: Reports: None Gastrointestinal History: Reports: Cirrhosis, GERD, Hepatitis, Other (See Below) Other Gastrointestinal History: chronic liver disease Genitourinary History: Reports: Other (See Below) Other Genitourinary History: bladder issues [employer]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: Musculoskeletal History: Reports: Other (See Below) Other Musculoskeletal History: knee problems Neurological History: Reports: None Psychiatric History: Reports: Learning Disability, Panic Attack Endocrine/Metabolic History: Reports: Hypothyroidism, Obesity/BMI 30+ Hematologic History: Reports: Anemia, Other (See Below) Other Hematologic History: thrombocytopenia Immunologic History: Reports: None Oncologic (Cancer) History: Reports: None Dermatologic History: Reports: None - Infectious Disease History Infectious Disease History: Reports: None - Past Surgical History Head Surgeries/Procedures: Reports: None HEENT Surgical History: Reports: None Other HEENT Surgeries/Procedures: ear surgery as a child Cardiovascular Surgical History: Reports: None Respiratory Surgical History: Reports: None GI Surgical History: Reports: Colonoscopy, EGD, Other (See Below) Other GI Surgeries/Procedures: liver biopsy Female Surgical History: Reports: Section Endocrine Surgical History: Reports: None Neurological Surgical History: Reports: None Musculoskeletal Surgical History: Reports: None Oncologic Surgical History: Reports: None Dermatological Surgical History: Reports: None <Alfredo Lambert C - Last Filed: 04/05/21 19:27> Social & Family History - Family History Family Medical History: No Pertinent Family History - Tobacco Use Tobacco Use Status *Q: Unknown Ever Used Tobacco - Caffeine Use Caffeine Use: Reports: Soda Caffeine Use Comment: rare coffee - Recreational Drug Use Recreational Drug Use Frequency: Patient Refuses To Answer - Living Situation & Occupation Living situation: Reports: with Family <Alfredo Lambert - Last Filed: 04/05/21 19:27> ED ROS GENERAL - Review of Systems Review Of Systems: Unable To Obtain Reason Not Obtained: ams <Alferdo Lambert Last Filed: 04/05/21 19:27> - Physical Exam Exam: See Below Exam Limited By: No Limitations General Appearance: Alert (confused), No Apparent Distress Ears: Normal External Exam, Normal Canal, Hearing Grossly Normal, Normal TMs Nose: Nasal Swelling Throat/Mouth: Other (facial swelling with brusing to lips and around nose. No oral trauma. ) Head Exam: Atraumatic, Normocephalic Neck: Supple, Non-Tender Respiratory/Chest: No Respiratory Distress, Lungs Clear, Normal Breath Sounds Cardiovascular: Normal Peripheral Pulses, Regular Rate, Rhythm GI/Abdominal: Soft, Non-Tender (Female) Exam: Deferred Rectal (Female) Exam: Deferred Neuro Exam (Abbreviated): Alert Back Exam: Normal Inspection, Full Range of Motion Extremities: Normal Inspection, Normal Range of Motion, Non-Tender, No Pedal Edema, Normal Capillary Refill Skin Exam: Warm, Dry, Intact <Alfredo Lambert - Last Filed: 04/05/21 19:27> #1 Interpretation EKG Date: 04/05/21 Time: 18:19 Rhythm: NSR Letts: Normal P-Wave: Present QRS: Normal ST-T: Other (t wave inersions in V1-v3) QT: Prolonged <Alferdo Lambert - Last Filed: 04/05/21 19:27> Course <Leia Serna - Last Filed: 04/05/21 21:39> - Vital Signs Last Recorded V/S: Last Vital Signs Temp 97.0 F 04/05/21 18:00 Pulse 70 04/05/21 18:00 Resp 20 04/05/21 18:00 BP 113/66 04/05/21 18:00 Pulse Ox 98 04/05/21 18:00 - Orders/Labs/Meds Orders: Active Orders 24 hr Category Date Time Status Peripheral IV Care [RC] . DIRECTED Care 04/05/21 18:07 Active CULTURE BLOOD [BC] Stat Lab 04/05/21 18:05 Received CULTURE BLOOD [BC] Stat Lab 04/05/21 18:45 Results Sodium Chloride 0.9% [Saline Flush] Med 04/05/21 18:05 Active 10 ml FLUSH ASDIRECTED PRN Blood Culture x2 Reflex Set [OM.PC] Stat Oth 04/05/21 18:06 Ordered Peripheral IV Insertion Adult [OM.PC] Routine Oth 04/05/21 18:05 Ordered Medication Orders Sodium Chloride (Sodium Chloride 0.9% 10 Ml Syringe) 10 ml FLUSH ASDIRECTED PRN PRN Reason: Keep Vein Open Last Admin: 04/05/21 18:43 Dose: 10 ml Documented by: CHUY Labs: Laboratory Tests 04/05/21 04/05/21 04/05/21 Range/Units 18:05 18:05 18:05 WBC 5.2 (5.0-10.0) 10^3/uL RBC 3.45 L (4.2-5.4) 10^6/uL Hgb 10.0 L (12.0-16.0) g/dL Hct 31.8 L (37.0-47.0) % MCV 92.2 D (80-100) fL MCH 29.0 (27.0-34.0) pg MCHC 31.4 L (33.0-35.0) g/dL Plt Count 62 L (150-450) 10^3/uL Neut % (Auto) 61.5 (42.2-75.2) % Lymph % (Auto) 19.0 L (20.5-50.1) % [place] % (Auto) 7.4 (2-8) % Eos % (Auto) 10.9 H (1.0-3.0) % Baso % (Auto) 1.2 H (0.0-1.0) % Sodium 141 (136-145) mmol/L Potassium 4.1 (3.5-5.1) mmol/L Chloride 107 (98-107) mmol/L Carbon Dioxide 28 (21-32) mmol/L Anion Gap 10.1 (7-13) mEq/L BUN 22 H (7-18) mg/dL Creatinine 0.95 (0.55-1.02) mg/dL Est Cr Clr Drug Dosing 65.11 mL/min Estimated GFR (MDRD) > 60 BUN/Creatinine Ratio 23.2 (No establ ref range) Glucose 131 H (70-99) mg/dL Lactic Acid 1.4 (0.4-2.0) mmol/L Calcium 7.1 L (8.5-10.1) mg/dL Phosphorus 3.3 (2.6-4.7) mg/dL Magnesium 1.8 (1.8-2.4) mg/dL Total Bilirubin 1.3 H (0.2-1.0) mg/dL AST 350 H (15-37) U/L ALT 78 H (14-59) U/L Alkaline Phosphatase 394 H (46-116) U/L Ammonia (11-32) umol/L C-Reactive Protein 0.7 (0.0-0.9) mg/dL Total Protein 6.0 L (6.4-8.2) g/dL Albumin 1.3 L (3.4-5.0) g/dL Globulin 4.7 Albumin/Globulin Ratio 0.28 TSH, Ultra Sensitive 33.69 H (0.36-3.74) uIU/mL Urine Color (YELLOW) Urine Appearance (CLEAR) Urine pH (5.0-9.0) Ur Specific [place] (1.005-1.030) Urine Protein (NEGATIVE) Urine Glucose (UA) (NEGATIVE) Urine Ketones (NEGATIVE) Urine Occult Blood (NEGATIVE) Urine Nitrite (NEGATIVE) Urine Bilirubin (NEGATIVE) Urine Urobilinogen (0.2-1.0) mg/dL Ur Leukocyte Esterase (NEGATIVE) Urine RBC (0-5) /HPF Urine WBC (0-5/HPF) /HPF Ur Epithelial Cells (NOT SEEN) /HPF Amorphous Sediment (NOT SEEN) /HPF Urine Bacteria (0-FEW/HPF) /HPF Urine Opiates Screen (NEGATIVE) Ur Oxycodone Screen (NEGATIVE) Urine Methadone Screen (NEGATIVE) Ur Barbiturates Screen (NEGATIVE) U Tricyclic Antidepress (NEGATIVE) Ur Phencyclidine Scrn (NEGATIVE) Ur Amphetamine Screen (NEGATIVE) U Methamphetamines Scrn (NEGATIVE) Urine MDMA Screen (NEGATIVE) U Benzodiazepines Scrn (NEGATIVE) Urine Cocaine Screen (NEGATIVE) U Marijuana (THC) Screen (NEGATIVE) Ethyl Alcohol 378 (0) mg/dL Influenza Type A RNA (NEGATIVE) Influenza Type B RNA (NEGATIVE) SARS-CoV-2 RNA (EMELINA) (NEGATIVE) 04/05/21 04/05/21 04/05/21 Range/Units 18:30 18:41 18:41 WBC (5.0-10.0) 10^3/uL RBC (4.2-5.4) 10^6/uL Hgb (12.0-16.0) g/dL Hct (37.0-47.0) % MCV (80-100) fL MCH (27.0-34.0) pg MCHC (33.0-35.0) g/dL Plt Count (150-450) 10^3/uL Neut % (Auto) (42.2-75.2) % Lymph % (Auto) (20.5-50.1) % [place] % (Auto) (2-8) % Eos % (Auto) (1.0-3.0) % Baso % (Auto) (0.0-1.0) % Sodium (136-145) mmol/L Potassium (3.5-5.1) mmol/L Chloride (98-107) mmol/L Carbon Dioxide (21-32) mmol/L Anion Gap (7-13) mEq/L BUN (7-18) mg/dL Creatinine (0.55-1.02) mg/dL Est Cr Clr Drug Dosing mL/min Estimated GFR (MDRD) BUN/Creatinine Ratio (No establ ref range) Glucose (70-99) mg/dL Lactic Acid (0.4-2.0) mmol/L Calcium (8.5-10.1) mg/dL Phosphorus (2.6-4.7) mg/dL Magnesium (1.8-2.4) mg/dL Total Bilirubin (0.2-1.0) mg/dL AST (15-37) U/L ALT (14-59) U/L Alkaline Phosphatase (46-116) U/L Ammonia (11-32) umol/L C-Reactive Protein (0.0-0.9) mg/dL Total Protein (6.4-8.2) g/dL Albumin (3.4-5.0) g/dL Globulin Albumin/Globulin Ratio TSH, Ultra Sensitive (0.36-3.74) uIU/mL Urine Color [place] (YELLOW) Urine Appearance Slightly cloudy (CLEAR) Urine pH 6.5 (5.0-9.0) Ur Specific [place] 1.020 (1.005-1.030) Urine Protein >=300 H (NEGATIVE) Urine Glucose (UA) Negative (NEGATIVE) Urine Ketones Negative (NEGATIVE) Urine Occult Blood Large H (NEGATIVE) Urine Nitrite Negative (NEGATIVE) Urine Bilirubin Small H (NEGATIVE) Urine Urobilinogen 4.0 H (0.2-1.0) mg/dL Ur Leukocyte Esterase Negative (NEGATIVE) Urine RBC Semi-packed H (0-5) /HPF Urine WBC 5-10 H (0-5/HPF) /HPF Ur Epithelial Cells Moderate H (NOT SEEN) /HPF Amorphous Sediment Moderate H (NOT SEEN) /HPF Urine Bacteria Many H (0-FEW/HPF) /HPF Urine Opiates Screen Negative (NEGATIVE) Ur Oxycodone Screen Positive H (NEGATIVE) Urine Methadone Screen Negative (NEGATIVE) Ur Barbiturates Screen Negative (NEGATIVE) U Tricyclic Antidepress Negative (NEGATIVE) Ur Phencyclidine Scrn Negative (NEGATIVE) Ur Amphetamine Screen Negative (NEGATIVE) U Methamphetamines Scrn Negative (NEGATIVE) Urine MDMA Screen Negative (NEGATIVE) U Benzodiazepines Scrn Negative (NEGATIVE) Urine Cocaine Screen Negative (NEGATIVE) U Marijuana (THC) Screen Negative (NEGATIVE) Ethyl Alcohol (0) mg/dL Influenza Type A RNA Negative (NEGATIVE) Influenza Type B RNA Negative (NEGATIVE) SARS-CoV-2 RNA (EMELINA) Negative (NEGATIVE) 04/05/21 Range/Units 18:45 WBC (5.0-10.0) 10^3/uL RBC (4.2-5.4) 10^6/uL Hgb (12.0-16.0) g/dL Hct (37.0-47.0) % MCV (80-100) fL MCH (27.0-34.0) pg MCHC (33.0-35.0) g/dL Plt Count (150-450) 10^3/uL Neut % (Auto) (42.2-75.2) % Lymph % (Auto) (20.5-50.1) % [place] % (Auto) (2-8) % Eos % (Auto) (1.0-3.0) % Baso % (Auto) (0.0-1.0) % Sodium (136-145) mmol/L Potassium (3.5-5.1) mmol/L Chloride (98-107) mmol/L Carbon Dioxide (21-32) mmol/L Anion Gap (7-13) mEq/L BUN (7-18) mg/dL Creatinine (0.55-1.02) mg/dL Est Cr Clr Drug Dosing mL/min Estimated GFR (MDRD) BUN/Creatinine Ratio (No establ ref range) Glucose (70-99) mg/dL Lactic Acid (0.4-2.0) mmol/L Calcium (8.5-10.1) mg/dL Phosphorus (2.6-4.7) mg/dL Magnesium (1.8-2.4) mg/dL Total Bilirubin (0.2-1.0) mg/dL AST (15-37) U/L ALT (14-59) U/L Alkaline Phosphatase (46-116) U/L Ammonia < 10 L (11-32) umol/L C-Reactive Protein (0.0-0.9) mg/dL Total Protein (6.4-8.2) g/dL Albumin (3.4-5.0) g/dL Globulin Albumin/Globulin Ratio TSH, Ultra Sensitive (0.36-3.74) uIU/mL Urine Color (YELLOW) Urine Appearance (CLEAR) Urine pH (5.0-9.0) Ur Specific [place] (1.005-1.030) Urine Protein (NEGATIVE) Urine Glucose (UA) (NEGATIVE) Urine Ketones (NEGATIVE) Urine Occult Blood (NEGATIVE) Urine Nitrite (NEGATIVE) Urine Bilirubin (NEGATIVE) Urine Urobilinogen (0.2-1.0) mg/dL Ur Leukocyte Esterase (NEGATIVE) Urine RBC (0-5) /HPF Urine WBC (0-5/HPF) /HPF Ur Epithelial Cells (NOT SEEN) /HPF Amorphous Sediment (NOT SEEN) /HPF Urine Bacteria (0-FEW/HPF) /HPF Urine Opiates Screen (NEGATIVE) Ur Oxycodone Screen (NEGATIVE) Urine Methadone Screen (NEGATIVE) Ur Barbiturates Screen (NEGATIVE) U Tricyclic Antidepress (NEGATIVE) Ur Phencyclidine Scrn (NEGATIVE) Ur Amphetamine Screen (NEGATIVE) U Methamphetamines Scrn (NEGATIVE) Urine MDMA Screen (NEGATIVE) U Benzodiazepines Scrn (NEGATIVE) Urine Cocaine Screen (NEGATIVE) U Marijuana (THC) Screen (NEGATIVE) Ethyl Alcohol (0) mg/dL Influenza Type A RNA (NEGATIVE) Influenza Type B RNA (NEGATIVE) SARS-CoV-2 RNA (EMELINA) (NEGATIVE) Meds: Medications Generic Name Dose Route Start Last Admin Trade Name Freq PRN Reason Stop Dose Admin Sodium Chloride 10 ml 04/05/21 18:05 04/05/21 18:43 Sodium Chloride 0.9% 10 Ml Syringe FLUSH 10 ml ASDIRECTED PRN Administration Keep Vein Open Discontinued Medications Generic Name Dose Route Start Last Admin Trade Name Freq PRN Reason Stop Dose Admin Acetaminophen 1,000 mg 04/05/21 21:16 04/05/21 21:24 Acetaminophen 500 Mg Tab PO 04/05/21 21:17 1,000 mg ONETIME ONE Administration Sodium Chloride 1,000 mls @ 999 mls/hr 04/05/21 19:00 04/05/21 19:05 Normal Saline IV 04/05/21 20:00 999 mls/hr .BOLUS ONE Administration Multivitamins/Minerals 10 ml/ 1,011.2 mls @ 999 mls/hr 04/05/21 20:18 04/05/21 20:31 Thiamine HCl 100 mg/ Folic IV 04/05/21 21:18 999 mls/hr Acid 1 mg/ Lactated Ringer's .BOLUS ONE Administration - Re-Assessments/Exams Free Text/Narrative Re-Assessment/Exam: 04/05/21 Care of patient assumed by documentation writer from Zach Lambert at [address] initiated. Findings of examination, lab work, and imaging reviewed with patient. Supportive cares discussed. Patient instructed to follow up with primary care provider in 2-3 regarding todays visit, especially TSH levels as patient states she currently takes her levothyroxine daily. Red flag signs and symptoms which would warrant immediate reevaluation reviewed. Patient verbalized understanding and agreement with the plan of care. (Leia Serna) Departure <Alfredo Lambert - Last Filed: 04/05/21 19:27> - Departure Time of Disposition: 21:20 Condition: Fair - Discharge Information *PRESCRIPTION DRUG MONITORING PROGRAM REVIEWED*: Not Applicable *COPY OF PRESCRIPTION DRUG MONITORING REPORT IN PATIENT FDIELINA: Not Applicable <Leia Serna - Last Filed: 04/05/21 21:39> - Departure Disposition: Home, Self-Care 01 Clinical Impression: Elevated liver enzymes, Elevated TSH Acute alcohol intoxication Qualifiers: Complication of substance-induced condition: uncomplicated Qualified Code(s): F10.920 - Alcohol use, unspecified with intoxication, uncomplicated Anemia Qualifiers: Anemia type: unspecified type Qualified Code(s): D64.9 - Anemia, unspecified - Discharge Information Instructions: Alcohol Intoxication Referrals: PCP,None [Primary Care Provider] - Forms: ED Department Discharge Additional Instructions: 1.) Follow up with your primary care provider in 2-3 days regarding your significantly elevated thyroid stimulating hormone (TSH); you require medication for this level. 2.) Do not drink alcohol, do not take narcotic medication inappropriately. 3.) Drink plenty of water to stay hydrated. 4.) Eat small, snack-sized meals to avoid nausea. Avoid spicy, greasy, high-fat foods. 5.) You may apply a cold compress to areas of soreness; 20 minutes, every hour as pain persists. Sepsis Event Note (ED) - Evaluation Sepsis Screening Result: No Definite Risk <Alfredo Lambert - Last Filed: 04/05/21 19:27> - Focused Exam Vital Signs: Vital Signs Temp Pulse Resp BP Pulse Ox 04/05/21 18:00 97.0 F 70 20 113/66 98
[2021-04-05 19:00] LABS: AMPHETAMINES,URINE NEGATIVE (NEGATIVE); BARBITURATES,URINE NEGATIVE (NEGATIVE); BENZODIAZEPINE,URINE NEGATIVE (NEGATIVE); MDMA (ECSTASY), URINE NEGATIVE (NEGATIVE); METHADONE,URINE NEGATIVE (NEGATIVE); METHAMPHETAMINES,URINE NEGATIVE (NEGATIVE); OPIATES,URINE NEGATIVE (NEGATIVE); OXYCODONE,URINE POSITIVE (NEGATIVE); PHENCYCLIDINE,URINE NEGATIVE (NEGATIVE); TCA,URINE NEGATIVE (NEGATIVE)
[2021-04-05] MEDS ORDERED: Sodium Chloride 0.9% 1,000 ML IV ONE (19:00)
[2021-04-05 19:17] LABS: CORONAVIRUS COVID-19 NAA NEGATIVE (NEGATIVE)
[2021-04-05] MEDS ORDERED: MVI, Adult with Vitamin K 10 ML, Thiamine 100 MG, Folic Acid 1 MG in Lactated Ringers 1... IV ONE ×4 (20:18)
[2021-04-05] MEDS ORDERED: Acetaminophen 500 MG Tab PO ONE (21:16)
== END 2021-04-05 21:58 | disposition home or self-care (01) ==
LOC: DL.ED 18:00
DX: F10.920 Alcohol use, unspecified with intoxication, uncomplicated (principal); D64.9 Anemia, unspecified; R94.5 Abnormal results of liver function studies; R94.6 Abnormal results of thyroid function studies; I10 Essential (primary) hypertension; K21.9 Gastro-esophageal reflux disease without esophagitis; E66.9 Obesity, unspecified; Z68.31 Body mass index [BMI] 31.0-31.9, adult; Z20.822 Contact with and (suspected) exposure to COVID-19; Z79.899 Other long term (current) drug therapy
CPT/HCPCS: 0240U; 36415; 70450; 72125; 80053; 80305; 80307; 81001; 82140; 83605; 83735; 84100; 84443; 85025; 86140; 87040; 93005; 96365; 99285; A9270; J3411; J7030; J7120; J3490

== ENCOUNTER 2021-04-12 22:46 | Inpatient (IN) | payer MEDICAID ==
[2021-04-13 00:11] LABS: ANION GAP 13.5 mEq/L (7-13); CHLORIDE,CL 97 mmol/L (98-107); SODIUM,NA 131 mmol/L (136-145)
--- NOTE | 2021-04-13 00:33 | EDM.PDOC ---
ED HPI GENERAL MEDICAL PROBLEM - General Chief Complaint: Lower Extremity Injury/Pain Stated Complaint: AMBULANCE Time Seen by Provider: 04/12/21 23:10 Source of Information: Reports: Patient History Limitations: Reports: No Limitations - History of Present Illness INITIAL COMMENTS - FREE TEXT/NARRATIVE: ED via [facility] with initial c/o abdominal pain - now resolved, lower extremity swelling greater on left, anxiety. Increased urinary frequency and some burning at time with urination, feels have to go more often but goes hardly any. No nausea or vomiting. no chest apin. Feels lke, belly bigger over past 2-3 days. Leg Pain Score (Numeric/FACES): 9 - Related Data Allergies Allergy/AdvReac Type Severity Reaction Status Date / Time No Known Allergies Allergy Verified 04/12/21 23:44 Home Meds: Home Meds Vitamin B Complex 1 each PO DAILY 04/09/18 [History] Spironolactone [Aldactone] 25 mg PO QID 07/28/18 [History] Furosemide [Lasix] 40 mg PO DAILY 04/28/20 [History] Cholecalciferol (Vitamin D3) [Vitamin D3] 125 mcg PO DAILY 05/17/20 [History] Levothyroxine 75 mcg PO DAILY 05/17/20 [History] Pantoprazole Sodium [Protonix] 40 mg PO DAILY 05/17/20 [History] Rifaximin [Xifaxan] 550 mg PO BID 05/17/20 [History] Lactulose [Cephulac] 30 gm PO Q6H cup 05/20/20 [Rx] Propranolol [Inderal LA] 60 mg PO DAILY #30 cap.er 05/20/20 [Rx] cilostazoL [Cilostazol] 100 mg PO BID 14 Days #28 tablet 10/20/20 [Rx] Celecoxib 100 mg PO Q12HR 10/23/20 [History] hydrOXYzine HCL [Hydroxyzine HCl] 10 mg PO Q8H 10/23/20 [History] Past Medical History HEENT History: Reports: None, Other (See Below) Other HEENT History: UPPER DENTURE PLATE AND LOWER PARTIAL Cardiovascular History: Reports: Heart Murmur, Hypertension Respiratory History: Reports: None Gastrointestinal History: Reports: Cirrhosis, GERD, Hepatitis, Other (See Below) Other Gastrointestinal History: chronic liver disease Genitourinary History: Reports: Other (See Below) Other Genitourinary History: bladder issues [employer]PER[employer]OR History: Reports: Musculoskeletal History: Reports: Other (See Below) Other Musculoskeletal History: knee problems Neurological History: Reports: None Psychiatric History: Reports: Learning Disability, Panic Attack Endocrine/Metabolic History: Reports: Hypothyroidism, Obesity/BMI 30+ Hematologic History: Reports: Anemia, Other (See Below) Other Hematologic History: thrombocytopenia Immunologic History: Reports: None Oncologic (Cancer) History: Reports: None Dermatologic History: Reports: None - Infectious Disease History Infectious Disease History: Reports: None - Past Surgical History Head Surgeries/Procedures: Reports: None HEENT Surgical History: Reports: None Other HEENT Surgeries/Procedures: ear surgery as a child Cardiovascular Surgical History: Reports: None Respiratory Surgical History: Reports: None GI Surgical History: Reports: Colonoscopy, EGD, Other (See Below) Other GI Surgeries/Procedures: liver biopsy Female Surgical History: Reports: Section Endocrine Surgical History: Reports: None Neurological Surgical History: Reports: None Musculoskeletal Surgical History: Reports: None Oncologic Surgical History: Reports: None Dermatological Surgical History: Reports: None Social & Family History - Family History Family Medical History: No Pertinent Family History - Tobacco Use Tobacco Use Status *Q: Never Tobacco User Second Hand Smoke Exposure: No - Caffeine Use Caffeine Use: Reports: Soda Caffeine Use Comment: rare coffee - Recreational Drug Use Recreational Drug Use: No - Living Situation & Occupation Living situation: Reports: with Family Review of Systems - Review of Systems Review Of Systems: Comprehensive ROS is negative, except as noted in HPI. ED EXAM, GENERAL - Physical Exam Exam: See Below Exam Limited By: No Limitations General Appearance: Alert, No Apparent Distress Eye Exam: Bilateral Eye: EOMI, Normal Fundi, Normal Inspection, PERRL, Vision Changes Ears: Normal External Exam, Hearing Grossly Normal Nose: Normal Inspection, Normal Mucosa Throat/Mouth: Normal Inspection, Normal Lips, Normal Teeth, Normal Voice Head: Atraumatic, Normocephalic Neck: Normal Inspection, Supple, Non-Tender, Full Range of Motion, Limited Range of Motion Respiratory/Chest: No Respiratory Distress, Lungs Clear, Normal Breath Sounds Cardiovascular: Normal Peripheral Pulses, Regular Rate, Rhythm GI/Abdominal: Normal Bowel Sounds (Female) Exam: Normal External Exam Extremities: Pedal Edema (3+left), Limited Range of Motion, Other. No: No Pedal Edema Neurological: Alert, Oriented, CN II-XII Intact, Normal Cognition, Normal Gait, Normal Reflexes, No Motor/Sensory Deficits, Inattentive, Confused, Disoriented, Slow to Respond, Unresponsive, Memory Loss Remote Events, Memory Loss Recent Events Psychiatric: Anxious Skin Exam: Warm, Dry, Intact, Normal Color, No Rash Course - Vital Signs Last Recorded V/S: Last Vital Signs Temp 99.1 F 04/12/21 23:08 Pulse 75 04/12/21 23:08 Resp 18 04/12/21 23:08 BP 151/80 H 04/12/21 23:08 Pulse Ox 95 04/12/21 23:08 - Orders/Labs/Meds Orders: Active Orders 24 hr Category Date Time Status Chest 1V Frontal [CR] Urgent Exams 04/12/21 23:51 Stop Req Chest Abdomen Pelvis w Cont [CT] Urgent Exams 04/13/21 00:14 Stop Req UA RFX MALINDA AND CULT IF INDIC [URIN] Stat Lab 04/12/21 23:17 Ordered Labs: Laboratory Tests 04/12/21 04/12/21 04/12/21 Range/Units 23:35 23:35 23:35 WBC 6.3 (5.0-10.0) 10^3/uL RBC 3.08 L (4.2-5.4) 10^6/uL Hgb 9.3 L (12.0-16.0) g/dL Hct 28.5 L (37.0-47.0) % MCV 92.5 (80-100) fL MCH 30.2 (27.0-34.0) pg MCHC 32.6 L (33.0-35.0) g/dL Plt Count 104 L (150-450) 10^3/uL Neut % (Auto) 70.8 (42.2-75.2) % Lymph % (Auto) 10.5 L (20.5-50.1) % Dorado % (Auto) 14.5 H (2-8) % Eos % (Auto) 4.0 H (1.0-3.0) % Baso % (Auto) 0.2 (0.0-1.0) % Add Manual Diff Yes Neutrophils % (Manual) 58 (42-75) % Band Neutrophils % 19 % Lymphocytes % (Manual) 11 L (20-50) % Atypical Lymphs % 0 % Monocytes % (Manual) 8 (2-8) % Eosinophils % (Manual) 4 H (1-3) % Platelet Estimate Decreased Hypochromasia 1+ slight Poikilocytosis 1+ slight Anisocytosis 1+ slight PT 12.4 H (9.0-12.0) SEC INR 1.2 (0.9-1.2) D-Dimer, Quantitative 4290 H (0-400) ng/mL Sodium 131 L D (136-145) mmol/L Potassium 4.5 (3.5-5.1) mmol/L Chloride 97 L (98-107) mmol/L Carbon Dioxide 25 (21-32) mmol/L Anion Gap 13.5 H (7-13) mEq/L BUN 60 H D (7-18) mg/dL Creatinine 6.35 H* D (0.55-1.02) mg/dL Est Cr Clr Drug Dosing 9.74 mL/min Estimated GFR (MDRD) 7 BUN/Creatinine Ratio 9.4 (No establ ref range) Glucose 118 H (70-99) mg/dL Lactic Acid (0.4-2.0) mmol/L Calcium 7.6 L (8.5-10.1) mg/dL Magnesium 2.0 (1.8-2.4) mg/dL Total Bilirubin 2.6 H (0.2-1.0) mg/dL AST 118 H (15-37) U/L ALT 46 (14-59) U/L Alkaline Phosphatase 369 H (46-116) U/L Ammonia (11-32) umol/L Troponin I High Sens (<=51) pg/mL B-Natriuretic Peptide > 5000 H (0-100) pg/ml Total Protein 6.3 L (6.4-8.2) g/dL Albumin 1.4 L (3.4-5.0) g/dL Globulin 4.9 Albumin/Globulin Ratio 0.29 TSH, Ultra Sensitive (0.36-3.74) uIU/mL Ethyl Alcohol < 3 (0) mg/dL SARS-CoV-2 RNA (EMELINA) (NEGATIVE) 04/12/21 04/12/21 04/12/21 Range/Units 23:35 23:35 23:35 WBC (5.0-10.0) 10^3/uL RBC (4.2-5.4) 10^6/uL Hgb (12.0-16.0) g/dL Hct (37.0-47.0) % MCV (80-100) fL MCH (27.0-34.0) pg MCHC (33.0-35.0) g/dL Plt Count (150-450) 10^3/uL Neut % (Auto) (42.2-75.2) % Lymph % (Auto) (20.5-50.1) % Dorado % (Auto) (2-8) % Eos % (Auto) (1.0-3.0) % Baso % (Auto) (0.0-1.0) % Add Manual Diff Neutrophils % (Manual) (42-75) % Band Neutrophils % % Lymphocytes % (Manual) (20-50) % Atypical Lymphs % % Monocytes % (Manual) (2-8) % Eosinophils % (Manual) (1-3) % Platelet Estimate Hypochromasia Poikilocytosis Anisocytosis PT (9.0-12.0) SEC INR (0.9-1.2) D-Dimer, Quantitative (0-400) ng/mL Sodium (136-145) mmol/L Potassium (3.5-5.1) mmol/L Chloride (98-107) mmol/L Carbon Dioxide (21-32) mmol/L Anion Gap (7-13) mEq/L BUN (7-18) mg/dL Creatinine (0.55-1.02) mg/dL Est Cr Clr Drug Dosing mL/min Estimated GFR (MDRD) BUN/Creatinine Ratio (No establ ref range) Glucose (70-99) mg/dL Lactic Acid 0.8 (0.4-2.0) mmol/L Calcium (8.5-10.1) mg/dL Magnesium (1.8-2.4) mg/dL Total Bilirubin (0.2-1.0) mg/dL AST (15-37) U/L ALT (14-59) U/L Alkaline Phosphatase (46-116) U/L Ammonia 26 (11-32) umol/L Troponin I High Sens (<=51) pg/mL B-Natriuretic Peptide (0-100) pg/ml Total Protein (6.4-8.2) g/dL Albumin (3.4-5.0) g/dL Globulin Albumin/Globulin Ratio TSH, Ultra Sensitive 12.48 H (0.36-3.74) uIU/mL Ethyl Alcohol (0) mg/dL SARS-CoV-2 RNA (EMELINA) (NEGATIVE) 04/12/21 04/13/21 Range/Units 23:35 01:10 WBC (5.0-10.0) 10^3/uL RBC (4.2-5.4) 10^6/uL Hgb (12.0-16.0) g/dL Hct (37.0-47.0) % MCV (80-100) fL MCH (27.0-34.0) pg MCHC (33.0-35.0) g/dL Plt Count (150-450) 10^3/uL Neut % (Auto) (42.2-75.2) % Lymph % (Auto) (20.5-50.1) % Dorado % (Auto) (2-8) % Eos % (Auto) (1.0-3.0) % Baso % (Auto) (0.0-1.0) % Add Manual Diff Neutrophils % (Manual) (42-75) % Band Neutrophils % % Lymphocytes % (Manual) (20-50) % Atypical Lymphs % % Monocytes % (Manual) (2-8) % Eosinophils % (Manual) (1-3) % Platelet Estimate Hypochromasia Poikilocytosis Anisocytosis PT (9.0-12.0) SEC INR (0.9-1.2) D-Dimer, Quantitative (0-400) ng/mL Sodium (136-145) mmol/L Potassium (3.5-5.1) mmol/L Chloride (98-107) mmol/L Carbon Dioxide (21-32) mmol/L Anion Gap (7-13) mEq/L BUN (7-18) mg/dL Creatinine (0.55-1.02) mg/dL Est Cr Clr Drug Dosing mL/min Estimated GFR (MDRD) BUN/Creatinine Ratio (No establ ref range) Glucose (70-99) mg/dL Lactic Acid (0.4-2.0) mmol/L Calcium (8.5-10.1) mg/dL Magnesium (1.8-2.4) mg/dL Total Bilirubin (0.2-1.0) mg/dL AST (15-37) U/L ALT (14-59) U/L Alkaline Phosphatase (46-116) U/L Ammonia (11-32) umol/L Troponin I High Sens 15 (<=51) pg/mL B-Natriuretic Peptide (0-100) pg/ml Total Protein (6.4-8.2) g/dL Albumin (3.4-5.0) g/dL Globulin Albumin/Globulin Ratio TSH, Ultra Sensitive (0.36-3.74) uIU/mL Ethyl Alcohol (0) mg/dL SARS-CoV-2 RNA (EMELINA) Negative (NEGATIVE) Meds: Medications Discontinued Medications Generic Name Dose Route Start Last Admin Trade Name Freq PRN Reason Stop Dose Admin Furosemide 40 mg 04/13/21 01:43 04/13/21 01:50 Furosemide 40 Mg/4 Ml Vial IVPUSH 04/13/21 01:44 40 mg ONETIME ONE Administration - Re-Assessments/Exams Free Text/Narrative Re-Assessment/Exam: 04/13/21 04:04 RONNA Mcnamara, no bed available RONNA Dior, no bed available, recommend [facility], patient has seen for consideration for transplant -Dr Wasserman. [place] no bed available within whole system [facility], No bed. Will put on [facility] lit [facility]. TC Dr Hughes, accepting patient for admission. Departure - Departure Time of Disposition: 04:07 Disposition: Admitted As Inpatient 68 Condition: Poor Clinical Impression: HRF (hepatorenal failure), Edema Cirrhosis Qualifiers: Hepatic cirrhosis type: alcoholic cirrhosis Ascites presence: without ascites Qualified Code(s): K70.30 - Alcoholic cirrhosis of liver without ascites - Discharge Information Forms: ED Department Discharge Sepsis Event Note (ED) - Evaluation Sepsis Screening Result: No Definite Risk - Focused Exam Vital Signs: Vital Signs Temp Pulse Resp BP Pulse Ox 04/12/21 23:08 99.1 F 75 18 151/80 H 95 - My Orders Last 24 Hours: My Active Orders 04/12/21 23:17 UA RFX MALINDA AND CULT IF INDIC [URIN] Stat 04/12/21 23:51 Chest 1V Frontal [CR] Urgent 04/13/21 00:14 Chest Abdomen Pelvis w Cont [CT] Urgent - Assessment/Plan Last 24 Hours: My Active Orders 04/12/21 23:17 UA RFX MALINDA AND CULT IF INDIC [URIN] Stat 04/12/21 23:51 Chest 1V Frontal [CR] Urgent 04/13/21 00:14 Chest Abdomen Pelvis w Cont [CT] Urgent
--- NOTE | 2021-04-13 00:37 | CR ---
PROCEDURE INFORMATION: Exam: XR Chest Exam date and time: 04/13/2021 12:08 AM Age: 60 years old Clinical indication: Other: SOB edema TECHNIQUE: Imaging protocol: XR of the chest. Views: 1 view. COMPARISON: CT Cervical Spine wo Cont 04/05/2021 6:13 PM FINDINGS: Lungs: Clear lungs. Pleural spaces: Unremarkable. No pleural effusion. No pneumothorax. Heart/Mediastinum: Cardiomegaly. Bones/joints: Unremarkable. IMPRESSION: 1. Cardiomegaly 2. Clear lungs.
[2021-04-13] MEDS ORDERED: Furosemide 40 MG/4 ML VIAL IVPUSH ONE (01:43)
--- NOTE | 2021-04-13 02:18 | US ---
PROCEDURE INFORMATION: Exam: US Duplex Left Lower Extremity Veins, Limited Exam date and time: 04/13/2021 1:06 AM Age: 60 years old Clinical indication: Pain; Leg, lower; Left; Additional info: Edema unilateral ddimer 4200 TECHNIQUE: Imaging protocol: Real-time Duplex ultrasound of the Left Lower Extremity with 2-D lee scale, color Doppler flow and spectral waveform analysis with image documentation. Limited exam focused on the left lower extremity veins. COMPARISON: No relevant prior studies available. FINDINGS: Left deep veins: Unremarkable. The common femoral, femoral, proximal profunda femoral and popliteal veins are patent without thrombus. Normal Doppler waveforms. Normal compressibility and/or augmentation response. Left superficial veins: Unremarkable. Saphenofemoral junction is patent without thrombus. Soft tissues: Edematous soft tissue. IMPRESSION: No evidence of deep vein thrombosis.
[2021-04-13] MEDS ORDERED: Ondansetron 4 MG/2 ML SDV IVPUSH PRN (04:09)
[2021-04-13] MEDS ORDERED: Acetaminophen 325 MG Tab PO PRN (04:09)
--- NOTE | 2021-04-13 04:20 | PCM.HP ---
H&P History of Present Illness - General Date of Service: 04/13/21 Admit Problem/Dx: Acute Renal Failure Source of Information: Patient, EMS History Limitations: Reports: No Limitations - History of Present Illness Initial Comments - Free Text/Narative: Patient is a 60-year-old female with a past medical history of hemochromatosis, cirrhosis thought to be secondary to hemochromatosis and alcohol use, chronic anemia, chronic back pain who presented with vague abdominal pain and was found have acute renal failure. Patient arrived she was hemodynamically stable oxygen saturations 95% on room air. Patient was not hypotensive. Laboratory values indicate hemoglobin 9.3, WBC 6.3, platelet count 104. Sodium 131, potassium 4.5, BUN 60, creatinine 6.35. Of note patient had a recent creatinine done on 04-05-21 which showed a creatinine 0.95. Anion gap 13.5, AST 118, ALT 46. Lactic acid 0.8. BNP g reater than 5000. Chest x-ray showed clear lungs and cardiomegaly. Lower extremity ultrasounds negative for DVT. Patient was given IV 40 Lasix by the emergency room provider. Attempt was made to transfer to higher facility for nephrology consultation and admission however no beds were available so request was then made for admission here. Upon my discussion with patient she states she was in her usual state of health until the last 4 to 5 days when her noticed significant decreased urine output. Patient is mostly bedbound and uses a bedside commode. Her helps lift her into the commode has noticed that her urine has become much darker and decreased amount over the last 4 to 5 days. Patient states that she has been eating normally and denies any nausea, vomiting, diarrhea or other acute illness. Patient denies significant NSAID use. States she did take 2 Advil the day prior. Patient states that also for last 2 days she is noticed increased abdominal distention and increased lower extremity swelling left greater than right. Patient denies any known history of kidney disease. Again when I talk to her currently denies any headaches, fevers or chills, chest pains or pressures, shortness of breath, no current abdominal pain, nausea. Patient's states that he manages her lactulose and she has had significant number of bowel movements over last several days and no current concerns for herpetic encephalopathy. Patient has had prior hospitalizations for hepatic and cephalopathy. Patient is alert and orientated x3, has good understanding of her chronic medical conditions. Patient denies any history of varices, denies any history of SBP. Remainder review of systems is negative except for those listed above. Leg Pain Score (Numeric/FACES): 9 - Related Data Allergies/Adverse Reactions: Allergies Allergy/AdvReac Type Severity Reaction Status Date / Time No Known Allergies Allergy Verified 04/12/21 23:44 Home Medications: Home Meds Vitamin B Complex 1 each PO DAILY 04/09/18 [History] Spironolactone [Aldactone] 25 mg PO QID 07/28/18 [History] Furosemide [Lasix] 40 mg PO DAILY 04/28/20 [History] Cholecalciferol (Vitamin D3) [Vitamin D3] 125 mcg PO DAILY 05/17/20 [History] Levothyroxine 75 mcg PO DAILY 05/17/20 [History] Pantoprazole Sodium [Protonix] 40 mg PO DAILY 05/17/20 [History] Rifaximin [Xifaxan] 550 mg PO BID 05/17/20 [History] Lactulose [Cephulac] 30 gm PO Q6H cup 05/20/20 [Rx] Propranolol [Inderal LA] 60 mg PO DAILY #30 cap.er 05/20/20 [Rx] cilostazoL [Cilostazol] 100 mg PO BID 14 Days #28 tablet 10/20/20 [Rx] Celecoxib 100 mg PO Q12HR 10/23/20 [History] hydrOXYzine HCL [Hydroxyzine HCl] 10 mg PO Q8H 10/23/20 [History] Past Medical History HEENT History: Reports: None, Other (See Below) Other HEENT History: UPPER DENTURE PLATE AND LOWER PARTIAL Cardiovascular History: Reports: Heart Murmur, Hypertension Respiratory History: Reports: None Gastrointestinal History: Reports: Cirrhosis, GERD, Hepatitis, Other (See Below) Other Gastrointestinal History: chronic liver disease Genitourinary History: Reports: Other (See Below) Other Genitourinary History: bladder issues [employer] History: Reports: Musculoskeletal History: Reports: Other (See Below) Other Musculoskeletal History: knee problems Neurological History: Reports: None Psychiatric History: Reports: Learning Disability, Panic Attack Endocrine/Metabolic History: Reports: Hypothyroidism, Obesity/BMI 30+ Hematologic History: Reports: Anemia, Other (See Below) Other Hematologic History: thrombocytopenia Immunologic History: Reports: None Oncologic (Cancer) History: Reports: None Dermatologic History: Reports: None - Infectious Disease History Infectious Disease History: Reports: None - Past Surgical History Head Surgeries/Procedures: Reports: None HEENT Surgical History: Reports: None Other HEENT Surgeries/Procedures: ear surgery as a child Cardiovascular Surgical History: Reports: None Respiratory Surgical History: Reports: None GI Surgical History: Reports: Colonoscopy, EGD, Other (See Below) Other GI Surgeries/Procedures: liver biopsy Female Surgical History: Reports: Section Endocrine Surgical History: Reports: None Neurological Surgical History: Reports: None Musculoskeletal Surgical History: Reports: None Oncologic Surgical History: Reports: None Dermatological Surgical History: Reports: None Social & Family History - Family History Family Medical History: No Pertinent Family History - Tobacco Use Tobacco Use Status *Q: Never Tobacco User Second Hand Smoke Exposure: No - Caffeine Use Caffeine Use: Reports: Soda Caffeine Use Comment: rare coffee - Recreational Drug Use Recreational Drug Use: No - Living Situation & Occupation Living situation: Reports: with Family H&P Review of Systems - Review of Systems: Review Of Systems: Comprehensive ROS is negative, except as noted in HPI. Exam - Exam Exam: See Below - Vital Signs Vital Signs: Last Vital Signs Temp 99.1 F 04/12/21 23:08 Pulse 75 04/12/21 23:08 Resp 18 04/12/21 23:08 BP 151/80 H 04/12/21 23:08 Pulse Ox 95 04/12/21 23:08 Weight: 306 lb 1.6 oz - Exam General: Alert, Oriented, Other (obese - no asterixis) HEENT: Conjunctiva Clear Neck: Supple Lungs: Clear to Auscultation, Normal Respiratory Effort Cardiovascular: Regular Rate, Regular Rhythm GI/Abdominal Exam: Normal Bowel Sounds, Soft, Non-Tender, Distended (ascites ) Back Exam: Normal Inspection Extremities: Normal Inspection Peripheral Pulses: 2+: Radial (L), Radial (R) Skin: Warm, Dry, Intact Neurological: Cranial Nerves Intact Neuro Extensive - Mental Status: Alert, Oriented x3, Normal Mood/Affect Psychiatric: Alert - Patient Data Lab Results Last 24 hrs: Laboratory Results - last 24 hr 04/12/21 04/12/21 04/12/21 Range/Units 23:35 23:35 23:35 WBC 6.3 (5.0-10.0) 10^3/uL RBC 3.08 L (4.2-5.4) 10^6/uL Hgb 9.3 L (12.0-16.0) g/dL Hct 28.5 L (37.0-47.0) % MCV 92.5 (80-100) fL MCH 30.2 (27.0-34.0) pg MCHC 32.6 L (33.0-35.0) g/dL Plt Count 104 L (150-450) 10^3/uL Neut % (Auto) 70.8 (42.2-75.2) % Lymph % (Auto) 10.5 L (20.5-50.1) % [place] % (Auto) 14.5 H (2-8) % Eos % (Auto) 4.0 H (1.0-3.0) % Baso % (Auto) 0.2 (0.0-1.0) % Add Manual Diff Yes Neutrophils % (Manual) 58 (42-75) % Band Neutrophils % 19 % Lymphocytes % (Manual) 11 L (20-50) % Atypical Lymphs % 0 % Monocytes % (Manual) 8 (2-8) % Eosinophils % (Manual) 4 H (1-3) % Platelet Estimate Decreased Hypochromasia 1+ slight Poikilocytosis 1+ slight Anisocytosis 1+ slight PT 12.4 H (9.0-12.0) SEC INR 1.2 (0.9-1.2) D-Dimer, Quantitative 4290 H (0-400) ng/mL Sodium 131 L D (136-145) mmol/L Potassium 4.5 (3.5-5.1) mmol/L Chloride 97 L (98-107) mmol/L Carbon Dioxide 25 (21-32) mmol/L Anion Gap 13.5 H (7-13) mEq/L BUN 60 H D (7-18) mg/dL Creatinine 6.35 H* D (0.55-1.02) mg/dL Est Cr Clr Drug Dosing 9.74 mL/min Estimated GFR (MDRD) 7 BUN/Creatinine Ratio 9.4 (No establ ref range) Glucose 118 H (70-99) mg/dL Lactic Acid (0.4-2.0) mmol/L Calcium 7.6 L (8.5-10.1) mg/dL Magnesium 2.0 (1.8-2.4) mg/dL Total Bilirubin 2.6 H (0.2-1.0) mg/dL AST 118 H (15-37) U/L ALT 46 (14-59) U/L Alkaline Phosphatase 369 H (46-116) U/L Ammonia (11-32) umol/L Troponin I High Sens (<=51) pg/mL B-Natriuretic Peptide > 5000 H (0-100) pg/ml Total Protein 6.3 L (6.4-8.2) g/dL Albumin 1.4 L (3.4-5.0) g/dL Globulin 4.9 Albumin/Globulin Ratio 0.29 TSH, Ultra Sensitive (0.36-3.74) uIU/mL Ethyl Alcohol < 3 (0) mg/dL SARS-CoV-2 RNA (EMELINA) (NEGATIVE) 04/12/21 04/12/21 04/12/21 Range/Units 23:35 23:35 23:35 WBC (5.0-10.0) 10^3/uL RBC (4.2-5.4) 10^6/uL Hgb (12.0-16.0) g/dL Hct (37.0-47.0) % MCV (80-100) fL MCH (27.0-34.0) pg MCHC (33.0-35.0) g/dL Plt Count (150-450) 10^3/uL Neut % (Auto) (42.2-75.2) % Lymph % (Auto) (20.5-50.1) % [place] % (Auto) (2-8) % Eos % (Auto) (1.0-3.0) % Baso % (Auto) (0.0-1.0) % Add Manual Diff Neutrophils % (Manual) (42-75) % Band Neutrophils % % Lymphocytes % (Manual) (20-50) % Atypical Lymphs % % Monocytes % (Manual) (2-8) % Eosinophils % (Manual) (1-3) % Platelet Estimate Hypochromasia Poikilocytosis Anisocytosis PT (9.0-12.0) SEC INR (0.9-1.2) D-Dimer, Quantitative (0-400) ng/mL Sodium (136-145) mmol/L Potassium (3.5-5.1) mmol/L Chloride (98-107) mmol/L Carbon Dioxide (21-32) mmol/L Anion Gap (7-13) mEq/L BUN (7-18) mg/dL Creatinine (0.55-1.02) mg/dL Est Cr Clr Drug Dosing mL/min Estimated GFR (MDRD) BUN/Creatinine Ratio (No establ ref range) Glucose (70-99) mg/dL Lactic Acid 0.8 (0.4-2.0) mmol/L Calcium (8.5-10.1) mg/dL Magnesium (1.8-2.4) mg/dL Total Bilirubin (0.2-1.0) mg/dL AST (15-37) U/L ALT (14-59) U/L Alkaline Phosphatase (46-116) U/L Ammonia 26 (11-32) umol/L Troponin I High Sens (<=51) pg/mL B-Natriuretic Peptide (0-100) pg/ml Total Protein (6.4-8.2) g/dL Albumin (3.4-5.0) g/dL Globulin Albumin/Globulin Ratio TSH, Ultra Sensitive 12.48 H (0.36-3.74) uIU/mL Ethyl Alcohol (0) mg/dL SARS-CoV-2 RNA (EMELINA) (NEGATIVE) 04/12/21 04/13/21 Range/Units 23:35 01:10 WBC (5.0-10.0) 10^3/uL RBC (4.2-5.4) 10^6/uL Hgb (12.0-16.0) g/dL Hct (37.0-47.0) % MCV (80-100) fL MCH (27.0-34.0) pg MCHC (33.0-35.0) g/dL Plt Count (150-450) 10^3/uL Neut % (Auto) (42.2-75.2) % Lymph % (Auto) (20.5-50.1) % [place] % (Auto) (2-8) % Eos % (Auto) (1.0-3.0) % Baso % (Auto) (0.0-1.0) % Add Manual Diff Neutrophils % (Manual) (42-75) % Band Neutrophils % % Lymphocytes % (Manual) (20-50) % Atypical Lymphs % % Monocytes % (Manual) (2-8) % Eosinophils % (Manual) (1-3) % Platelet Estimate Hypochromasia Poikilocytosis Anisocytosis PT (9.0-12.0) SEC INR (0.9-1.2) D-Dimer, Quantitative (0-400) ng/mL Sodium (136-145) mmol/L Potassium (3.5-5.1) mmol/L Chloride (98-107) mmol/L Carbon Dioxide (21-32) mmol/L Anion Gap (7-13) mEq/L BUN (7-18) mg/dL Creatinine (0.55-1.02) mg/dL Est Cr Clr Drug Dosing mL/min Estimated GFR (MDRD) BUN/Creatinine Ratio (No establ ref range) Glucose (70-99) mg/dL Lactic Acid (0.4-2.0) mmol/L Calcium (8.5-10.1) mg/dL Magnesium (1.8-2.4) mg/dL Total Bilirubin (0.2-1.0) mg/dL AST (15-37) U/L ALT (14-59) U/L Alkaline Phosphatase (46-116) U/L Ammonia (11-32) umol/L Troponin I High Sens 15 (<=51) pg/mL B-Natriuretic Peptide (0-100) pg/ml Total Protein (6.4-8.2) g/dL Albumin (3.4-5.0) g/dL Globulin Albumin/Globulin Ratio TSH, Ultra Sensitive (0.36-3.74) uIU/mL Ethyl Alcohol (0) mg/dL SARS-CoV-2 RNA (EMELINA) Negative (NEGATIVE) Result Diagrams: 04/12/21 23:35 04/12/21 23:35 - Problem List (1) Acute renal failure SNOMED Code(s): 72927656 ICD Code: N17.9 - ACUTE KIDNEY FAILURE, UNSPECIFIED Status: Acute Current Visit: Yes (2) Cirrhosis SNOMED Code(s): 71221671 ICD Code: K74.60 - UNSPECIFIED CIRRHOSIS OF LIVER Status: Chronic Current Visit: Yes Qualifiers: Hepatic cirrhosis type: alcoholic cirrhosis Ascites presence: without ascites Qualified Code(s): K70.30 - Alcoholic cirrhosis of liver without ascites (3) Chronic anemia SNOMED Code(s): 653229685 ICD Code: D64.9 - ANEMIA, UNSPECIFIED Status: Chronic Current Visit: No (4) HTN, Essential hypertension SNOMED Code(s): 13751860 ICD Code: I10 - ESSENTIAL (PRIMARY) HYPERTENSION Status: Chronic Current Visit: No (5) Thrombocytopenia SNOMED Code(s): 815236311 ICD Code: D69.6 - THROMBOCYTOPENIA, UNSPECIFIED Status: Chronic Current Visit: No (6) Hepatic encephalopathy SNOMED Code(s): 45296134 ICD Code: K72.90 - HEPATIC FAILURE, UNSPECIFIED WITHOUT COMA Status: Resolved Priority: High Current Visit: No (7) Hemochromatosis SNOMED Code(s): 045901465 ICD Code: E83.119 - HEMOCHROMATOSIS, UNSPECIFIED Status: Acute Current Visit: Yes Problem List Initiated/Reviewed/Updated: Yes Orders Last 24hrs: Active Orders 24 hr Category Date Time Status Oxygen Therapy [RC] PRN Care 04/13/21 04:09 Ordered Up With Assistance [RC] ASDIRECTED Care 04/13/21 04:09 Ordered VTE/DVT Education [RC] PER UNIT ROUTINE Care 04/13/21 04:09 Ordered Vital Signs [RC] Q4H Care 04/13/21 04:09 Ordered 2 Gram Sodium Diet [DIET] Diet 04/13/21 Breakfast Ordered Chest 1V Frontal [CR] Urgent Exams 04/12/21 23:51 Stop Req Chest Abdomen Pelvis w Cont [CT] Urgent Exams 04/13/21 00:14 Stop Req UA RFX MALINDA AND CULT IF INDIC [URIN] Stat Lab 04/12/21 23:17 Ordered Acetaminophen [TylenoL] Med 04/13/21 04:09 Ordered 650 mg PO Q4H PRN Heparin Sodium Med 04/13/21 06:00 Ordered 5,000 units SUBCUT Q8HR Ondansetron [Zofran] Med 04/13/21 04:09 Ordered 4 mg IVPUSH Q6H PRN Resuscitation Status Routine Resus Stat 04/13/21 04:09 Ordered Assessment/Plan Comment:: Patient is a 60-year-old female with a past medical history of alcoholic cirrhosis who presented with abdominal pain, lower extremity pain and was found to have acute renal failure. #Acute renal failure -Creatinine on admission 6.35, most recent creatinine 0.95 on 04-05-21 -Unclear etiology -no recent medication changes, patient denies significant NSAID use, patient denies any decreased oral intake over the last several days unlikely prerenal. Patient does appear volume up on exam I have concerns for hepatorenal type I versus cardiorenal syndrome VS SBP given vague abdominal pain and cirrhosis -No acute indication for dialysis, anion gap 13.5, electrolytes are stable with potassium of 4.5, maintaining oxygen saturations on room air, BUN 60 - no changes in mental status Plan -We will see if we have ultrasound capabilities and will obtain a renal ultrasound, urine analysis - addendum unable to order renal U/S - given abdominal pain will order CT abdomen pelvis w/out contrast to look for any post renal obstruction -Patient received IV 40 Lasix in the emergency department, will repeat creatinine electrolytes and see if she has any significant change, if worsening with diuresis less likely cardiorenal more likely hepatorenal syndrome and or SBP would recommend treatment with midodrine 7.5 mg TID, octreotide 100 mcg subQ TID, albumin 1.5 g/kg max 100 on day one and 1g/kg day 3 -will cover SBP with 2 g ceftriaxone IV every 24- attempt para if U/S available -will also hold diuretics, beta blockers, spironolactone - renally dose all medications -Strict I/Os - hewitt in place #Cirrhosis -Patient some states secondary to hemochromatosis, also concern for some alcohol-related cirrhosis, patient denies any alcohol use -Continue lactulose, rifaximin -hold propanolol #Anemia -Chronic, stable on admission, no evidence of variceal bleeding -Continue to monitor #Elevated D-dimer -Likely secondary to renal failure, patient is maintaining oxygen saturations on room air and lower extremity ultrasound negative for DVT 04/13/21 -Could consider empiric anticoagulation if patient becomes hypoxic chest x-ray remains negative #Hypothyroidism -TSH 12 likely elevated in acute illness, will obtain free T4 Fluidsnone Electrolytesnormal limits Dietsodium restricted DVT prophylaxis Heparin
[2021-04-13] MEDS ORDERED: Lactulose Soln 10 GM/15 ML 30 ML UD Cup PO SCH (05:30)
[2021-04-13] MEDS ORDERED: Heparin Sodium 5,000 Units/ML Vial SUBCUT SCH (06:00)
[2021-04-13] MEDS ORDERED: Pantoprazole 40 MG Tab.CR PO SCH (06:00)
[2021-04-13] MEDS ORDERED: cefTRIAXone 2 GM in Sodium Chloride 0.9% 100 ML IV SCH (06:00)
--- NOTE | 2021-04-13 06:24 | PCM.DCSUM1 ---
Discharge Summary - Hospital Course Free Text/Narrative:: Patient is a 60-year-old female with a past medical history of hemochromatosis, cirrhosis thought to be secondary to hemochromatosis and alcohol use, chronic anemia, chronic back pain who presented with vague abdominal pain and was found have acute renal failure. Patient arrived she was hemodynamically stable oxygen saturations 95% on room air. Patient was not hypotensive. Laboratory values indicated hemoglobin 9.3, WBC 6.3, platelet count 104. Sodium 131, potassium 4.5, BUN 60, creatinine 6.35. Of note patient had a recent creatinine done on 04-05-21 which showed a creatinine 0.95. Anion gap 13.5, AST 118, ALT 46. Lactic acid 0.8. BNP greater than 5000. Chest x-ray showed clear lungs and cardiomegaly. Lower extremity ultrasounds negative for DVT. Patient was given IV 40 Lasix by the emergency room provider. Attempt was made to transfer to higher facility for nephrology consultation and admission however no beds were available so request was then made for admission here. Upon my discussion with patient she states she was in her usual state of health until the last 4 to 5 days when her noticed significant decreased urine output. Patient is mostly bedbound and uses a bedside commode. Her helps lift her into the commode has noticed that her urine has become much darker and decreased amount over the last 4 to 5 days. Patient states that she has been eating normally and denies any nausea, vomiting, diarrhea or other acute illness. Patient denies significant NSAID use. States she did take 2 Advil the day prior. Patient states that also for last 2 days she is noticed increased abdominal distention and increased lower extremity swelling left greater than right. Patient denies any known history of kidney disease. Again when I talk to her currently denies any headaches, fevers or chills, chest pains or pressures, shortness of breath, no current abdominal pain, nausea. Patient's states that he manages her lactulose and she has had significant number of bowel movements over last several days and no current concerns for herpetic encephalopathy. Patient has had prior hospitalizations for hepatic and cephalopathy. Patient is alert and orientated x3, has good understanding of her chronic medical conditions. Patient denies any history of varices, denies any history of SBP. Remainder review of systems is negative except for those listed above. Patient was admitted for further evaluation management of her acute renal failure. There is no acute indication for dialysis as her anion gap was 13.5, electrolytes were stable with a potassium of 4.5, she is maintaining oxygen saturations on room air and had no signs of uremic encephalopathy. Urinalysis was ordered and is in process. Patient was given 1 dose of ceftriaxone for SBP prophylaxis. Renal ultrasound and/or CT without contrast abdomen pelvis was scheduled but not performed to look for postrenal obstruction. See HPI for complete assessment/plan. Approximately 1 hour after patient was admitted I was informed by the emergency services provider that patient had been accepted to [facility] for further evaluation and nephrology consultation. Patient was hemodynamically stable upon transfer to outside facility for further management evaluation of her acute renal failure. - Discharge Data Discharge Date: 04/13/21 Discharge Disposition: DC/Tfer to [facility] Condition: Good - Referral to Home Health Primary Care Physician: PCP None - Discharge Diagnosis/Problem(s) (1) Acute renal failure SNOMED Code(s): 59471360 ICD Code: N17.9 - ACUTE KIDNEY FAILURE, UNSPECIFIED Status: Acute Current Visit: Yes (2) Cirrhosis SNOMED Code(s): 72539723 ICD Code: K74.60 - UNSPECIFIED CIRRHOSIS OF LIVER Status: Chronic Current Visit: Yes Qualifiers: Hepatic cirrhosis type: alcoholic cirrhosis Ascites presence: without ascites Qualified Code(s): K70.30 - Alcoholic cirrhosis of liver without ascites (3) Chronic anemia SNOMED Code(s): 827996978 ICD Code: D64.9 - ANEMIA, UNSPECIFIED Status: Chronic Current Visit: No (4) HTN, Essential hypertension SNOMED Code(s): 67323147 ICD Code: I10 - ESSENTIAL (PRIMARY) HYPERTENSION Status: Chronic Current Visit: No (5) Thrombocytopenia SNOMED Code(s): 871797733 ICD Code: D69.6 - THROMBOCYTOPENIA, UNSPECIFIED Status: Chronic Current Visit: No (6) Hepatic encephalopathy SNOMED Code(s): 08489926 ICD Code: K72.90 - HEPATIC FAILURE, UNSPECIFIED WITHOUT COMA Status: Resolved Priority: High Current Visit: No (7) Hemochromatosis SNOMED Code(s): 441908428 ICD Code: E83.119 - HEMOCHROMATOSIS, UNSPECIFIED Status: Acute Current Visit: Yes - Patient Instructions Diet: NPO - Discharge Plan *PRESCRIPTION DRUG MONITORING PROGRAM REVIEWED*: No *COPY OF PRESCRIPTION DRUG MONITORING REPORT IN PATIENT FIDELINA: No Home Medications: Home Meds Cholecalciferol (Vitamin D3) [Vitamin D3] 125 mcg PO DAILY 05/17/20 [History] Levothyroxine 75 mcg PO DAILY 05/17/20 [History] Pantoprazole Sodium [Protonix] 40 mg PO DAILY 05/17/20 [History] Rifaximin [Xifaxan] 550 mg PO BID 05/17/20 [History] Lactulose [Cephulac] 30 gm PO Q6H cup 05/20/20 [Rx] Oxygen Therapy Mode: Room Air Forms: ED Department Discharge Referrals: PCP,None [Primary Care Provider] - - Discharge Summary/Plan Comment DC Time >30 min.: Yes Total # of Minutes for Discharge Time: 30 minutes - Patient Data Vitals - Most Recent: Last Vital Signs Temp 97.9 F 04/13/21 05:00 Pulse 73 04/13/21 05:00 Resp 20 04/13/21 05:00 BP 136/76 04/13/21 05:00 Pulse Ox 100 04/13/21 05:00 Weight - Most Recent: 295 lb 14.4 oz Lab Results - Last 24 hrs: Laboratory Results - last 24 hr 04/12/21 04/12/21 04/12/21 Range/Units 23:35 23:35 23:35 WBC 6.3 (5.0-10.0) 10^3/uL RBC 3.08 L (4.2-5.4) 10^6/uL Hgb 9.3 L (12.0-16.0) g/dL Hct 28.5 L (37.0-47.0) % MCV 92.5 (80-100) fL MCH 30.2 (27.0-34.0) pg MCHC 32.6 L (33.0-35.0) g/dL Plt Count 104 L (150-450) 10^3/uL Neut % (Auto) 70.8 (42.2-75.2) % Lymph % (Auto) 10.5 L (20.5-50.1) % Pitt % (Auto) 14.5 H (2-8) % Eos % (Auto) 4.0 H (1.0-3.0) % Baso % (Auto) 0.2 (0.0-1.0) % Add Manual Diff Yes Neutrophils % (Manual) 58 (42-75) % Band Neutrophils % 19 % Lymphocytes % (Manual) 11 L (20-50) % Atypical Lymphs % 0 % Monocytes % (Manual) 8 (2-8) % Eosinophils % (Manual) 4 H (1-3) % Platelet Estimate Decreased Hypochromasia 1+ slight Poikilocytosis 1+ slight Anisocytosis 1+ slight PT 12.4 H (9.0-12.0) SEC INR 1.2 (0.9-1.2) D-Dimer, Quantitative 4290 H (0-400) ng/mL Sodium 131 L D (136-145) mmol/L Potassium 4.5 (3.5-5.1) mmol/L Chloride 97 L (98-107) mmol/L Carbon Dioxide 25 (21-32) mmol/L Anion Gap 13.5 H (7-13) mEq/L BUN 60 H D (7-18) mg/dL Creatinine 6.35 H* D (0.55-1.02) mg/dL Est Cr Clr Drug Dosing 9.74 mL/min Estimated GFR (MDRD) 7 BUN/Creatinine Ratio 9.4 (No establ ref range) Glucose 118 H (70-99) mg/dL Lactic Acid (0.4-2.0) mmol/L Calcium 7.6 L (8.5-10.1) mg/dL Magnesium 2.0 (1.8-2.4) mg/dL Total Bilirubin 2.6 H (0.2-1.0) mg/dL AST 118 H (15-37) U/L ALT 46 (14-59) U/L Alkaline Phosphatase 369 H (46-116) U/L Ammonia (11-32) umol/L Troponin I High Sens (<=51) pg/mL B-Natriuretic Peptide > 5000 H (0-100) pg/ml Total Protein 6.3 L (6.4-8.2) g/dL Albumin 1.4 L (3.4-5.0) g/dL Globulin 4.9 Albumin/Globulin Ratio 0.29 TSH, Ultra Sensitive (0.36-3.74) uIU/mL Urine Color (YELLOW) Urine Appearance (CLEAR) Urine pH (5.0-9.0) Ur Specific Ashby (1.005-1.030) Urine Protein (NEGATIVE) Urine Glucose (UA) (NEGATIVE) Urine Ketones (NEGATIVE) Urine Occult Blood (NEGATIVE) Urine Nitrite (NEGATIVE) Urine Bilirubin (NEGATIVE) Urine Urobilinogen (0.2-1.0) mg/dL Ur Leukocyte Esterase (NEGATIVE) Ethyl Alcohol < 3 (0) mg/dL SARS-CoV-2 RNA (EMELINA) (NEGATIVE) 04/12/21 04/12/21 04/12/21 Range/Units 23:35 23:35 23:35 WBC (5.0-10.0) 10^3/uL RBC (4.2-5.4) 10^6/uL Hgb (12.0-16.0) g/dL Hct (37.0-47.0) % MCV (80-100) fL MCH (27.0-34.0) pg MCHC (33.0-35.0) g/dL Plt Count (150-450) 10^3/uL Neut % (Auto) (42.2-75.2) % Lymph % (Auto) (20.5-50.1) % Pitt % (Auto) (2-8) % Eos % (Auto) (1.0-3.0) % Baso % (Auto) (0.0-1.0) % Add Manual Diff Neutrophils % (Manual) (42-75) % Band Neutrophils % % Lymphocytes % (Manual) (20-50) % Atypical Lymphs % % Monocytes % (Manual) (2-8) % Eosinophils % (Manual) (1-3) % Platelet Estimate Hypochromasia Poikilocytosis Anisocytosis PT (9.0-12.0) SEC INR (0.9-1.2) D-Dimer, Quantitative (0-400) ng/mL Sodium (136-145) mmol/L Potassium (3.5-5.1) mmol/L Chloride (98-107) mmol/L Carbon Dioxide (21-32) mmol/L Anion Gap (7-13) mEq/L BUN (7-18) mg/dL Creatinine (0.55-1.02) mg/dL Est Cr Clr Drug Dosing mL/min Estimated GFR (MDRD) BUN/Creatinine Ratio (No establ ref range) Glucose (70-99) mg/dL Lactic Acid 0.8 (0.4-2.0) mmol/L Calcium (8.5-10.1) mg/dL Magnesium (1.8-2.4) mg/dL Total Bilirubin (0.2-1.0) mg/dL AST (15-37) U/L ALT (14-59) U/L Alkaline Phosphatase (46-116) U/L Ammonia 26 (11-32) umol/L Troponin I High Sens (<=51) pg/mL B-Natriuretic Peptide (0-100) pg/ml Total Protein (6.4-8.2) g/dL Albumin (3.4-5.0) g/dL Globulin Albumin/Globulin Ratio TSH, Ultra Sensitive 12.48 H (0.36-3.74) uIU/mL Urine Color (YELLOW) Urine Appearance (CLEAR) Urine pH (5.0-9.0) Ur Specific Ashby (1.005-1.030) Urine Protein (NEGATIVE) Urine Glucose (UA) (NEGATIVE) Urine Ketones (NEGATIVE) Urine Occult Blood (NEGATIVE) Urine Nitrite (NEGATIVE) Urine Bilirubin (NEGATIVE) Urine Urobilinogen (0.2-1.0) mg/dL Ur Leukocyte Esterase (NEGATIVE) Ethyl Alcohol (0) mg/dL SARS-CoV-2 RNA (EMELINA) (NEGATIVE) 04/12/21 04/13/21 04/13/21 Range/Units 23:35 01:10 06:00 WBC (5.0-10.0) 10^3/uL RBC (4.2-5.4) 10^6/uL Hgb (12.0-16.0) g/dL Hct (37.0-47.0) % MCV (80-100) fL MCH (27.0-34.0) pg MCHC (33.0-35.0) g/dL Plt Count (150-450) 10^3/uL Neut % (Auto) (42.2-75.2) % Lymph % (Auto) (20.5-50.1) % Pitt % (Auto) (2-8) % Eos % (Auto) (1.0-3.0) % Baso % (Auto) (0.0-1.0) % Add Manual Diff Neutrophils % (Manual) (42-75) % Band Neutrophils % % Lymphocytes % (Manual) (20-50) % Atypical Lymphs % % Monocytes % (Manual) (2-8) % Eosinophils % (Manual) (1-3) % Platelet Estimate Hypochromasia Poikilocytosis Anisocytosis PT (9.0-12.0) SEC INR (0.9-1.2) D-Dimer, Quantitative (0-400) ng/mL Sodium (136-145) mmol/L Potassium (3.5-5.1) mmol/L Chloride (98-107) mmol/L Carbon Dioxide (21-32) mmol/L Anion Gap (7-13) mEq/L BUN (7-18) mg/dL Creatinine (0.55-1.02) mg/dL Est Cr Clr Drug Dosing mL/min Estimated GFR (MDRD) BUN/Creatinine Ratio (No establ ref range) Glucose (70-99) mg/dL Lactic Acid (0.4-2.0) mmol/L Calcium (8.5-10.1) mg/dL Magnesium (1.8-2.4) mg/dL Total Bilirubin (0.2-1.0) mg/dL AST (15-37) U/L ALT (14-59) U/L Alkaline Phosphatase (46-116) U/L Ammonia (11-32) umol/L Troponin I High Sens 15 (<=51) pg/mL B-Natriuretic Peptide (0-100) pg/ml Total Protein (6.4-8.2) g/dL Albumin (3.4-5.0) g/dL Globulin Albumin/Globulin Ratio TSH, Ultra Sensitive (0.36-3.74) uIU/mL Urine Color [place] (YELLOW) Urine Appearance Slightly cloudy (CLEAR) Urine pH 6.0 (5.0-9.0) Ur Specific Ashby 1.015 (1.005-1.030) Urine Protein >=300 H (NEGATIVE) Urine Glucose (UA) Negative (NEGATIVE) Urine Ketones Negative (NEGATIVE) Urine Occult Blood Large H (NEGATIVE) Urine Nitrite Negative (NEGATIVE) Urine Bilirubin Small H (NEGATIVE) Urine Urobilinogen 1.0 (0.2-1.0) mg/dL Ur Leukocyte Esterase Small H (NEGATIVE) Ethyl Alcohol (0) mg/dL SARS-CoV-2 RNA (EMELINA) Negative (NEGATIVE) Med Orders - Current: Current Medications Acetaminophen (Acetaminophen 325 Mg Tab) 650 mg PO Q4H PRN PRN Reason: Pain (Mild 1-3)/fever Heparin Sodium (Porcine) (Heparin Sodium 5,000 Units/Ml Vial) 5,000 units SUB CUT Q8HR [facility] Last Admin: 04/13/21 05:56 Dose: 5,000 units Documented by: Ceftriaxone Sodium 2 gm/ (Sodium Chloride) 100 mls @ 200 mls/hr IV Q24H [facility] Last Admin: 04/13/21 05:55 Dose: 200 mls/hr Documented by: Lactulose (Lactulose Soln 10 Gm/15 Ml 30 Ml Ud Cup) 30 gm PO Q6H [facility] Last Admin: 04/13/21 05:49 Dose: Not Given Documented by: Ondansetron HCl (Ondansetron 4 Mg/2 Ml Sdv) 4 mg IVPUSH Q6H PRN PRN Reason: Nausea/Vomiting Pantoprazole Sodium (Pantoprazole 40 Mg Tab.Cr) 40 mg PO ACBREAKFAST [facility] Last Admin: 04/13/21 05:56 Dose: 40 mg Documented by: Rifaximin (Rifaximin 550 Mg Tab) 550 mg PO BID [facility] Discontinued Medications Furosemide (Furosemide 40 Mg/4 Ml Vial) 40 mg IVPUSH ONETIME ONE Stop: 04/13/21 01:44 Last Admin: 04/13/21 01:50 Dose: 40 mg Documented by:
[2021-04-13 06:29] VITALS: BP 146/72; PULSE 74
[2021-04-13 06:59] LABS: ANION GAP 15.3 mEq/L (7-13)
[2021-04-13] MEDS ORDERED: Rifaximin 550 MG Tab PO SCH (09:00)
== END 2021-04-13 07:00 | DRG 683 ==
LOC: DL.ED 22:46 → DL.MS 04-13 04:06
PROVIDERS: ADMIT Internal Medicine; ATTEND Internal Medicine
DX: N17.9 Acute kidney failure, unspecified (principal); Z68.41 Body mass index [BMI] 40.0-44.9, adult; K70.30 Alcoholic cirrhosis of liver without ascites; D64.9 Anemia, unspecified; G89.29 Other chronic pain; M54.9 Dorsalgia, unspecified; I10 Essential (primary) hypertension; D69.6 Thrombocytopenia, unspecified; K72.90 Hepatic failure, unspecified without coma; E83.119 Hemochromatosis, unspecified; K21.9 Gastro-esophageal reflux disease without esophagitis; E03.9 Hypothyroidism, unspecified; Z20.822 Contact with and (suspected) exposure to COVID-19; E66.9 Obesity, unspecified; Z79.890 Hormone replacement therapy; Z79.01 Long term (current) use of anticoagulants; Z79.899 Other long term (current) drug therapy
CPT/HCPCS: 36415; 51702; 71045; 80053; 80307; 81001; 82140; 83605; 83735; 83880; 84439; 84443; 84484; 85025; 85379; 85610; 87086; 93971; 96374; 99285-25; A9270-GY; J0696; J1644; J1940; U0002

== ENCOUNTER 2021-09-10 07:35 | Emergency (ER) | payer MEDICAID ==
[2021-09-10 08:03] VITALS: BP 100/60; PULSE 57
[2021-09-10 08:41] LABS: PTT,PARTIAL THROMBOPLSTIN TIME 27.3 SEC (22.0-34.0)
[2021-09-10 08:43] LABS: ANION GAP 11.5 mEq/L (7-13); CHLORIDE,CL 107 mmol/L (98-107); SODIUM,NA 143 mmol/L (136-145)
[2021-09-10 09:30] LABS: BARBITURATES,URINE NEGATIVE (NEGATIVE); BENZODIAZEPINE,URINE NEGATIVE (NEGATIVE); MDMA (ECSTASY), URINE NEGATIVE (NEGATIVE); METHADONE,URINE NEGATIVE (NEGATIVE); METHAMPHETAMINES,URINE POSITIVE (NEGATIVE); OPIATES,URINE NEGATIVE (NEGATIVE); PHENCYCLIDINE,URINE NEGATIVE (NEGATIVE); TCA,URINE NEGATIVE (NEGATIVE)
[2021-09-10 09:31] LABS: AMPHETAMINES,URINE NEGATIVE (NEGATIVE); OXYCODONE,URINE POSITIVE (NEGATIVE)
== END 2021-09-10 10:10 | disposition home or self-care (01) ==
LOC: DL.ED 07:35
DX: E72.29 Other disorders of urea cycle metabolism (principal); I11.0 Hypertensive heart disease with heart failure; I50.9 Heart failure, unspecified; K21.9 Gastro-esophageal reflux disease without esophagitis; E03.9 Hypothyroidism, unspecified; E66.9 Obesity, unspecified; Z68.32 Body mass index [BMI] 32.0-32.9, adult; Z79.899 Other long term (current) drug therapy
CPT/HCPCS: 36415; 80053; 80305-QW; 80307; 81001; 82140; 82947; 83605; 83690; 83735; 83880; 84100; 84484; 85025; 85610; 85730; 93005; 93010; 99283; 99285-25

== ENCOUNTER 2022-08-02 08:43 | Emergency (ER) | payer MEDICAID ==
[2022-08-02] MEDS ORDERED: Sodium Chloride 0.9% 10 ML Syringe FLUSH PRN (08:47)
[2022-08-02] MEDS ORDERED: Ondansetron 4 MG/2 ML SDV IV ONE (08:48)
[2022-08-02] MEDS ORDERED: Pantoprazole 40 MG Vial IVPUSH ONE (08:48)
[2022-08-02] MEDS ORDERED: HYDROmorphone 1 MG/ML Syringe IVPUSH ONE ×2 (08:49→09:50)
[2022-08-02] MEDS ORDERED: Sodium Chloride 0.9% 1,000 ML IV ONE (08:49)
[2022-08-02 09:21] LABS: CHLORIDE,CL 106 mmol/L (98-107); SODIUM,NA 145 mmol/L (136-145)
[2022-08-02 09:23] LABS: ESTIMATED GFR 72 mL/min (>=60)
[2022-08-02 09:35] LABS: PTT,PARTIAL THROMBOPLSTIN TIME 30.2 SEC (22.0-34.0)
[2022-08-02 09:36] VITALS: BP 108/91; PULSE 93
[2022-08-02] MEDS ORDERED: NS with KCl 40mEq 1,000 ML IV SCH (09:45)
[2022-08-02 12:52] LABS: AMPHETAMINES,URINE NEGATIVE (NEGATIVE); BARBITURATES,URINE NEGATIVE (NEGATIVE); BENZODIAZEPINE,URINE NEGATIVE (NEGATIVE); MDMA (ECSTASY), URINE NEGATIVE (NEGATIVE); METHADONE,URINE NEGATIVE (NEGATIVE); METHAMPHETAMINES,URINE NEGATIVE (NEGATIVE); OPIATES,URINE POSITIVE (NEGATIVE); OXYCODONE,URINE NEGATIVE (NEGATIVE); PHENCYCLIDINE,URINE NEGATIVE (NEGATIVE); TCA,URINE NEGATIVE (NEGATIVE)
== END 2022-08-02 11:57 ==
LOC: DL.ED 08:43
DX: K81.0 Acute cholecystitis (principal); I13.0 Hypertensive heart and chronic kidney disease with heart failure and stage 1 through stage 4 chronic kidney disease, or unspecified chronic kidney disease; I50.9 Heart failure, unspecified; E11.22 Type 2 diabetes mellitus with diabetic chronic kidney disease; N18.9 Chronic kidney disease, unspecified; E03.9 Hypothyroidism, unspecified; E66.9 Obesity, unspecified; K21.9 Gastro-esophageal reflux disease without esophagitis; Z68.35 Body mass index [BMI] 35.0-35.9, adult; Z99.2 Dependence on renal dialysis; Z79.899 Other long term (current) drug therapy
CPT/HCPCS: 36415; 76705; 80053; 80305; 80307; 82140; 82150; 83690; 85025; 85610; 85730; 96361; 96374; 96375; 96376; 99284; 99285; C9113; J1170; J2405; J3480; J7030; J3490

== ENCOUNTER 2022-10-15 08:24 | Emergency (ER) | payer MEDICAID, OTHER ==
[2022-10-15 08:24] VITALS: BP 173/99; PULSE 127
[2022-10-15 08:24] LABS: HEMATOCRIT 33.4 % (37.0-47.0); HEMOGLOBIN 11.3 g/dL (12.0-16.0); MEAN CORPUSCULAR HEMOGLOBIN 31.8 pg (27.0-34.0); MEAN CORPUSCULAR HGB CONC 33.8 g/dL (33.0-35.0); MEAN CORPUSCULAR VOLUME 94.1 fL (80-100); PLATELET COUNT,PLT 91 10^3/uL (150-450); RED BLOOD CELL COUNT 3.55 10^6/uL (4.2-5.4); WHITE BLOOD CELL COUNT,WBC 11.3 10^3/uL (5.0-10.0)
[~2022-10-15 08:24] MED LIST changes: +Haloperidol Lactate 5 MG/ML SDV IM ONE; +Ondansetron 4 MG/2 ML SDV IVPUSH ONE; -Sodium Chloride 0.9% 10 ML Syringe FLUSH PRN; -ceFAZolin 2 GM in Premix Bag 1 BAG IV ONE
[2022-10-15 08:29] LABS: BASOPHILS PERCENT AUTO 0.2 % (0.0-1.0); LYMPHOCYTES PERCENT AUTO 5.8 % (20.5-50.1); MONOCYTES PERCENT AUTO 3.2 % (2-8); NEUTROPHILS PERCENT AUTO 90.8 % (42.2-75.2)
[2022-10-15 08:34] LABS: A/G RATIO 0.66; ALANINE AMINOTRANSFERASE,ALT 33 U/L (14-59); ALBUMIN 2.3 g/dL (3.4-5.0); ALKALINE PHOSPHATASE 171 U/L (46-116); ANION GAP 27.3 mEq/L (7-13); ASPARTATE AMNIOTRANSFERASE,AST 112 U/L (15-37); BILIRUBIN TOTAL 2.4 mg/dL (0.2-1.0); BLOOD UREA NITROGEN,BUN 17 mg/dL (7-18); BUN/CREATININE RATIO 12.4 (No establ ref range); CALCIUM 7.9 mg/dL (8.5-10.1); CARBON DIOXIDE,CO2 15 mmol/L (21-32); CHLORIDE,CL 106 mmol/L (98-107); CREATININE 1.37 mg/dL (0.55-1.02); ESTIMATED GFR 44 mL/min (>=60); GLUCOSE RANDOM 69 mg/dL (70-99); POTASSIUM,K 4.3 mmol/L (3.5-5.1); PROTEIN TOTAL,TP 5.8 g/dL (6.4-8.2); SODIUM,NA 144 mmol/L (136-145)
[2022-10-15] MEDS ORDERED: Sodium Chloride 0.9% 1,000 ML IV ONE (08:42)
[2022-10-15 08:53] LABS: LYMPHOCYTES PERCENT MAN 7 % (20-50); MONOCYTES PERCENT MAN 1 % (2-8); SEG NEUTROPHILS PERCENT MAN 92 % (42-75)
[2022-10-15] MEDS ORDERED: Haloperidol Lactate 5 MG/ML SDV IM ONE (09:19)
[2022-10-15 09:21] LABS: APPEARANCE,URINE CLEAR (CLEAR); BILIRUBIN,URINE MODERATE (NEGATIVE); COLOR,URINE YELLOW (YELLOW); GLUCOSE,URINE 100 (NEGATIVE); KETONES,URINE NEGATIVE (NEGATIVE); LEUKOCYTE ESTERASE,URINE NEGATIVE (NEGATIVE); NITRITE,URINE NEGATIVE (NEGATIVE); OCCULT BLOOD,URINE LARGE (NEGATIVE); PH,URINE 5.5 (5.0-9.0); PROTEIN,URINE >=300 (NEGATIVE)
[2022-10-15 09:26] LABS: AMPHETAMINES,URINE NEGATIVE (NEGATIVE); BARBITURATES,URINE NEGATIVE (NEGATIVE); BENZODIAZEPINE,URINE NEGATIVE (NEGATIVE); MDMA (ECSTASY), URINE NEGATIVE (NEGATIVE); METHADONE,URINE NEGATIVE (NEGATIVE); METHAMPHETAMINES,URINE NEGATIVE (NEGATIVE); OPIATES,URINE NEGATIVE (NEGATIVE); OXYCODONE,URINE NEGATIVE (NEGATIVE); PHENCYCLIDINE,URINE NEGATIVE (NEGATIVE)
[2022-10-15 09:27] LABS: TCA,URINE NEGATIVE (NEGATIVE)
[2022-10-15 09:32] LABS: BACTERIA,URINE FEW /HPF (0-FEW/HPF); EPITHELIAL CELLS,URINE MODERATE /HPF (NOT SEEN); GRANULAR CASTS,URINE FEW; HYALINE CASTS,URINE MODERATE; RBC,URINE 40-50 /HPF (0-5)
[2022-10-15 09:33] LABS: MUCUS,URINE MODERATE /LPF (NOT SEEN)
== END 2022-10-15 09:41 | disposition home or self-care (01) ==
LOC: DL.ED 08:24
DX: R11.2 Nausea with vomiting, unspecified (principal); F12.90 Cannabis use, unspecified, uncomplicated; I13.2 Hypertensive heart and chronic kidney disease with heart failure and with stage 5 chronic kidney disease, or end stage renal disease; E11.22 Type 2 diabetes mellitus with diabetic chronic kidney disease; N18.6 End stage renal disease; I50.9 Heart failure, unspecified; K21.9 Gastro-esophageal reflux disease without esophagitis; E03.9 Hypothyroidism, unspecified; E66.9 Obesity, unspecified; Z99.2 Dependence on renal dialysis; Z79.899 Other long term (current) drug therapy
CPT/HCPCS: 36415; 80053; 80305-QW; 80307; 81001; 82140; 85025; 87804; 96361; 96372; 96374; 99284; 99284-25; J1630; J2405; J7030

== ENCOUNTER 2023-10-20 10:09 | Emergency (ER) | payer MEDICAID ==
[2023-10-20 10:31] LABS: HEMOGLOBIN 10.9 g/dL (12.0-16.0); RED BLOOD CELL COUNT 3.56 10^6/uL (4.2-5.4); WHITE BLOOD CELL COUNT,WBC 5.4 10^3/uL (5.0-10.0)
[2023-10-20 10:32] LABS: BASOPHILS PERCENT AUTO 0.2 % (0.0-1.0); EOSINOPHILS PERCENT AUTO 6.1 % (1.0-3.0); MEAN CORPUSCULAR HEMOGLOBIN 30.6 pg (27.0-34.0); MEAN CORPUSCULAR HGB CONC 32.1 g/dL (33.0-35.0); MEAN CORPUSCULAR VOLUME 95.5 fL (80-100); MONOCYTES PERCENT AUTO 10.9 % (2-8); NEUTROPHILS PERCENT AUTO 56.8 % (42.2-75.2); PLATELET COUNT,PLT 122 10^3/uL (150-450)
[2023-10-20] MEDS: Acetaminophen 500 MG Tab PO ONE (10:46)
[2023-10-20 11:06] LABS: ANION GAP 10.2 mEq/L (7-13); EST CRCL DRUG DOSING (CG) 55.31 mL/min; POTASSIUM,K 4.2 mmol/L (3.5-5.1)
[2023-10-20 11:07] LABS: A/G RATIO 0.34; ALBUMIN 1.4 g/dL (3.4-5.0); BILIRUBIN TOTAL 1.6 mg/dL (0.2-1.0); CALCIUM 8.7 mg/dL (8.5-10.1); PROTEIN TOTAL,TP 5.5 g/dL (6.4-8.2)
[2023-10-20] MEDS: Ketorolac 30 MG/ML SDV IM ONE (11:39)
[2023-10-20 12:20] VITALS: BP 137/70; PULSE 67
[2023-10-20] MEDS: Gabapentin 400 MG Cap PO ONE (12:20)
== END 2023-10-20 12:24 | disposition home or self-care (01) ==
LOC: DL.ED 10:09
DX: K70.30 Alcoholic cirrhosis of liver without ascites (principal); M25.562 Pain in left knee; M54.50 Low back pain, unspecified; K21.9 Gastro-esophageal reflux disease without esophagitis; I13.0 Hypertensive heart and chronic kidney disease with heart failure and stage 1 through stage 4 chronic kidney disease, or unspecified chronic kidney disease; N18.9 Chronic kidney disease, unspecified; I50.9 Heart failure, unspecified; E03.9 Hypothyroidism, unspecified; E66.9 Obesity, unspecified; Z68.43 Body mass index [BMI] 50.0-59.9, adult; Z79.899 Other long term (current) drug therapy
CPT/HCPCS: 36415; 72131; 72192; 73562; 80053; 85025; 96372; 99284; A9270; J1885

== ENCOUNTER 2023-11-11 19:47 | Inpatient (IN) | payer MEDICAID ==
[2023-11-11] MEDS ORDERED: Sodium Chloride 0.9% 10 ML Syringe FLUSH PRN (20:01)
[2023-11-11 20:15] LABS: BASOPHILS PERCENT AUTO 0.2 % (0.0-1.0); EOSINOPHILS PERCENT AUTO 8.8 % (1.0-3.0); HEMATOCRIT 33.6 % (37.0-47.0); HEMOGLOBIN 11.1 g/dL (12.0-16.0); MEAN CORPUSCULAR HEMOGLOBIN 30.7 pg (27.0-34.0); MEAN CORPUSCULAR VOLUME 93.1 fL (80-100); MONOCYTES PERCENT AUTO 9.9 % (2-8); NEUTROPHILS PERCENT AUTO 33.1 % (42.2-75.2); PLATELET COUNT,PLT 124 10^3/uL (150-450); RED BLOOD CELL COUNT 3.61 10^6/uL (4.2-5.4); WHITE BLOOD CELL COUNT,WBC 6.5 10^3/uL (5.0-10.0)
[2023-11-11 20:38] LABS: A/G RATIO 0.42; ALANINE AMINOTRANSFERASE,ALT 23 U/L (14-59); ALBUMIN 1.8 g/dL (3.4-5.0); ALKALINE PHOSPHATASE 229 U/L (46-116); ANION GAP 9.7 mEq/L (7-13); ASPARTATE AMNIOTRANSFERASE,AST 35 U/L (15-37); BILIRUBIN TOTAL 1.5 mg/dL (0.2-1.0); BLOOD UREA NITROGEN,BUN 24 mg/dL (7-18); BUN/CREATININE RATIO 17.1 (No establ ref range); CALCIUM 8.8 mg/dL (8.5-10.1); CARBON DIOXIDE,CO2 26 mmol/L (21-32); CHLORIDE,CL 109 mmol/L (98-107); ESTIMATED GFR 43 mL/min (>=60); ETHANOL BLOOD MEDICAL < 3 mg/dL (0); GLUCOSE RANDOM 122 mg/dL (70-99); POTASSIUM,K 4.7 mmol/L (3.5-5.1); PROTEIN TOTAL,TP 6.1 g/dL (6.4-8.2); SODIUM,NA 140 mmol/L (136-145)
[2023-11-11] MEDS ORDERED: Lactulose Soln 10 GM/15 ML 946 ML Bottle RECTAL PRN (21:51)
[2023-11-11] MEDS: Sodium Chloride 0.9% 1,000 ML IV SCH (22:00)
[2023-11-11] MEDS: cefTRIAXone 1 GM Vial IM SCH ×2 (22:16→22:17)
[2023-11-11] MEDS ORDERED: hydrALAZINE 20 MG/ML SDV IVPUSH PRN (22:29)
[2023-11-11] MEDS: Lactulose Soln 10 GM/15 ML 30 ML UD Cup PO SCH (22:46)
[2023-11-11] MEDS: cefTRIAXone 1 GM Vial IVPUSH SCH (22:46)
[2023-11-11 22:51] LABS: PERCENT FE SATURATION 35.4 % (20.0-50.0)
[2023-11-11 23:04] LABS: APPEARANCE,URINE SLIGHTLY CLOUDY (CLEAR); BILIRUBIN,URINE SMALL (NEGATIVE); COLOR,URINE DARK YELLOW (YELLOW); GLUCOSE,URINE NEGATIVE (NEGATIVE); KETONES,URINE NEGATIVE (NEGATIVE); LEUKOCYTE ESTERASE,URINE NEGATIVE (NEGATIVE); NITRITE,URINE NEGATIVE (NEGATIVE); OCCULT BLOOD,URINE MODERATE (NEGATIVE); PROTEIN,URINE 100 (NEGATIVE); UROBILINOGEN,URINE >=8.0 mg/dL (0.2-1.0)
[2023-11-11 23:13] LABS: AMORPHOUS SEDIMENT,URINE MODERATE /HPF (NOT SEEN); BACTERIA,URINE FEW /HPF (0-FEW/HPF); EPITHELIAL CELLS,URINE MODERATE /HPF (NOT SEEN); MUCUS,URINE MODERATE /LPF (NOT SEEN); WBC,URINE 0-5 /HPF (0-5/HPF)
[2023-11-11] MEDS: Lactulose Soln 10 GM/15 ML 30 ML UD Cup PO PRN (23:47)
[2023-11-12] MEDS: Melatonin 3 MG Tab PO PRN (00:27)
[2023-11-12] MEDS: LORazepam 0.5 MG Tab PO ONE (02:48)
[2023-11-12] MEDS: Pantoprazole 40 MG Tab.CR PO SCH (05:16)
[2023-11-12] MEDS ORDERED: Pantoprazole 40 MG Tab.CR PO SCH ×2 (06:00→09:00)
[2023-11-12 06:28] LABS: BASOPHILS PERCENT AUTO 0.4 % (0.0-1.0); EOSINOPHILS PERCENT AUTO 7.9 % (1.0-3.0); HEMATOCRIT 34.6 % (37.0-47.0); HEMOGLOBIN 11.4 g/dL (12.0-16.0); LYMPHOCYTES PERCENT AUTO 28.2 % (20.5-50.1); MEAN CORPUSCULAR HEMOGLOBIN 30.7 pg (27.0-34.0); MEAN CORPUSCULAR HGB CONC 32.9 g/dL (33.0-35.0); MEAN CORPUSCULAR VOLUME 93.3 fL (80-100); MONOCYTES PERCENT AUTO 10.4 % (2-8); NEUTROPHILS PERCENT AUTO 53.1 % (42.2-75.2); PLATELET COUNT,PLT 109 10^3/uL (150-450); RED BLOOD CELL COUNT 3.71 10^6/uL (4.2-5.4); WHITE BLOOD CELL COUNT,WBC 5.2 10^3/uL (5.0-10.0)
[2023-11-12 06:38] LABS: INR 1.1 (0.9-1.2); PROTHROMBIN TIME 11.8 SEC (9.0-12.0)
[2023-11-12 06:46] LABS: A/G RATIO 0.43; ALBUMIN 1.8 g/dL (3.4-5.0); ANION GAP 13.5 mEq/L (7-13); BILIRUBIN TOTAL 1.5 mg/dL (0.2-1.0); CALCIUM 9.1 mg/dL (8.5-10.1); CREATININE 1.47 mg/dL (0.55-1.02); EST CRCL DRUG DOSING (CG) 40.54 mL/min; POTASSIUM,K 4.5 mmol/L (3.5-5.1)
[2023-11-12] MEDS: Levothyroxine 75 MCG Tab PO SCH (08:48)
[2023-11-12] MEDS: Rifaximin 550 MG Tab PO SCH (08:51)
[2023-11-12] MEDS: Cholecalciferol (Vitamin D3) 25 MCG Tab PO SCH (08:51)
[2023-11-12] MEDS ORDERED: Enoxaparin 40 MG/0.4 ML Syringe SUBCUT SCH (09:00)
[2023-11-12] MEDS ORDERED: Furosemide 80 MG Tab PO SCH (09:00)
[2023-11-12] MEDS: Sodium Chloride 0.9% 1,000 ML IV SCH (12:32)
[2023-11-12 13:15] LABS: ANION GAP 10.2 mEq/L (7-13); CALCIUM 8.6 mg/dL (8.5-10.1); CREATININE 1.38 mg/dL (0.55-1.02); EST CRCL DRUG DOSING (CG) 43.19 mL/min; POTASSIUM,K 4.2 mmol/L (3.5-5.1)
[2023-11-12] MEDS ORDERED: hydrOXYzine HCl 25 MG Tab PO PRN (14:07)
[2023-11-12] MEDS: Dextrose 5%-0.45% NaCl 1,000 ML IV SCH (14:33)
[2023-11-12 18:27] LABS: ANION GAP 9.5 mEq/L (7-13); CALCIUM 8.5 mg/dL (8.5-10.1); CREATININE 1.35 mg/dL (0.55-1.02); EST CRCL DRUG DOSING (CG) 44.14 mL/min; POTASSIUM,K 4.5 mmol/L (3.5-5.1)
[2023-11-12] MEDS ORDERED: Dextrose 5%-0.45% NaCl 1,000 ML IV SCH (19:00)
[2023-11-12] MEDS: Gabapentin 300 MG Cap PO SCH (20:55)
[2023-11-12] MEDS: Mycophenolate Mofetil 250 MG Cap PO SCH (20:55)
[2023-11-12] MEDS: cefTRIAXone 1 GM Vial IVPUSH SCH (20:55)
[2023-11-13 07:49] LABS: ANION GAP 9.7 mEq/L (7-13); CALCIUM 8.1 mg/dL (8.5-10.1); CREATININE 1.11 mg/dL (0.55-1.02); EST CRCL DRUG DOSING (CG) 53.69 mL/min; POTASSIUM,K 4.7 mmol/L (3.5-5.1)
[2023-11-13] MEDS: Spironolactone 25 MG Tab PO SCH (09:24)
[2023-11-13] MEDS: Furosemide 40 MG Tab PO SCH (12:11)
[2023-11-14] MEDS ORDERED: traMADol 50 MG Tab PO PRN (08:41)
[2023-11-14] MEDS: Spironolactone 25 MG Tab PO SCH (08:43)
[2023-11-14] MEDS: Enoxaparin 40 MG/0.4 ML Syringe SUBCUT SCH (08:44)
[2023-11-14] MEDS: Lidocaine 5% 700 MG Patch TOP SCH (09:46)
[2023-11-14 17:41] LABS: INTACT PTH 43 pg/mL (15-65)
[2023-11-14] MEDS: Lidocaine 5% Oint 35.44 GM Tube TOP SCH (18:18)
[2023-11-15 06:47] LABS: HEMOGLOBIN 8.1 g/dL (12.0-16.0); MEAN CORPUSCULAR HEMOGLOBIN 30.7 pg (27.0-34.0); MEAN CORPUSCULAR HGB CONC 32.4 g/dL (33.0-35.0); MEAN CORPUSCULAR VOLUME 94.7 fL (80-100); PLATELET COUNT,PLT 81 10^3/uL (150-450); RED BLOOD CELL COUNT 2.64 10^6/uL (4.2-5.4); WHITE BLOOD CELL COUNT,WBC 4.6 10^3/uL (5.0-10.0)
[2023-11-15 06:48] LABS: BASOPHILS PERCENT AUTO 0.2 % (0.0-1.0); EOSINOPHILS PERCENT AUTO 15.1 % (1.0-3.0); LYMPHOCYTES PERCENT AUTO 35.2 % (20.5-50.1); MONOCYTES PERCENT AUTO 9.2 % (2-8); NEUTROPHILS PERCENT AUTO 40.3 % (42.2-75.2)
[2023-11-15 07:08] LABS: ALBUMIN 1.2 g/dL (3.4-5.0); ANION GAP 9.2 mEq/L (7-13); BILIRUBIN TOTAL 0.6 mg/dL (0.2-1.0); CALCIUM 7.9 mg/dL (8.5-10.1); EST CRCL DRUG DOSING (CG) 59.6 mL/min; MAGNESIUM 1.6 mg/dL (1.8-2.4); POTASSIUM,K 4.2 mmol/L (3.5-5.1); PROTEIN TOTAL,TP 4.3 g/dL (6.4-8.2)
[2023-11-15 07:09] LABS: A/G RATIO 0.39
[2023-11-15 07:32] LABS: BAND PERCENT MAN 1 %; EOSINOPHILS PERCENT MAN 15 % (1-3); LYMPHOCYTES PERCENT MAN 34 % (20-50); MONOCYTES PERCENT MAN 9 % (2-8); SEG NEUTROPHILS PERCENT MAN 41 % (42-75)
[2023-11-15 09:35] VITALS: BP 118/51; PULSE 77
[2023-11-15] MEDS: Magnesium Oxide 400 MG Tab PO ONE (10:58)
== END 2023-11-15 11:40 | disposition home or self-care (01) | DRG 441 ==
LOC: DL.ED 19:47 → DL.MS 21:43
PROVIDERS: ADMIT Student in an Organized Health Care Education/Training Program; ATTEND Internal Medicine
DX: K76.82 Hepatic encephalopathy (principal); G93.41 Metabolic encephalopathy; K65.2 Spontaneous bacterial peritonitis; I13.0 Hypertensive heart and chronic kidney disease with heart failure and stage 1 through stage 4 chronic kidney disease, or unspecified chronic kidney disease; N17.9 Acute kidney failure, unspecified; E72.20 Disorder of urea cycle metabolism, unspecified; R65.10 Systemic inflammatory response syndrome (SIRS) of non-infectious origin without acute organ dysfunction; K76.6 Portal hypertension; E03.9 Hypothyroidism, unspecified; K74.60 Unspecified cirrhosis of liver; E83.119 Hemochromatosis, unspecified; K21.9 Gastro-esophageal reflux disease without esophagitis; F41.0 Panic disorder [episodic paroxysmal anxiety]; E66.9 Obesity, unspecified; I50.9 Heart failure, unspecified; N18.32 Chronic kidney disease, stage 3b; D63.1 Anemia in chronic kidney disease; E83.52 Hypercalcemia; D69.6 Thrombocytopenia, unspecified; G89.29 Other chronic pain; M54.9 Dorsalgia, unspecified; M25.562 Pain in left knee; Z99.3 Dependence on wheelchair; Z79.890 Hormone replacement therapy; Z79.899 Other long term (current) drug therapy; Z68.38 Body mass index [BMI] 38.0-38.9, adult; Z98.890 Other specified postprocedural states
CPT/HCPCS: 36415; 51701; 51702; 70450; 71045; 76705; 80048; 80053; 80307; 81001; 82140; 82728; 83540; 83550; 83605; 83735; 83970; 84145; 84443; 85025; 85610; 99223; 99232; 99233; 99238; 99285; A9270-GY; J0696; J1650; J7030; J7799

== ENCOUNTER 2023-12-01 09:42 | Observation (INO) | payer MEDICAID ==
[2023-12-01] MEDS ORDERED: Sodium Chloride 0.9% 10 ML Syringe FLUSH PRN (10:02)
[2023-12-01 10:30] LABS: BASOPHILS PERCENT AUTO 0.3 % (0.0-1.0); EOSINOPHILS PERCENT AUTO 9.6 % (1.0-3.0); HEMATOCRIT 38.6 % (37.0-47.0); HEMOGLOBIN 12.2 g/dL (12.0-16.0); LYMPHOCYTES PERCENT AUTO 24.6 % (20.5-50.1); MEAN CORPUSCULAR HEMOGLOBIN 30.9 pg (27.0-34.0); MEAN CORPUSCULAR HGB CONC 31.6 g/dL (33.0-35.0); MEAN CORPUSCULAR VOLUME 97.7 fL (80-100); MONOCYTES PERCENT AUTO 8.6 % (2-8); NEUTROPHILS PERCENT AUTO 56.9 % (42.2-75.2); PLATELET COUNT,PLT 101 10^3/uL (150-450); RED BLOOD CELL COUNT 3.95 10^6/uL (4.2-5.4); WHITE BLOOD CELL COUNT,WBC 7.3 10^3/uL (5.0-10.0)
[2023-12-01 10:47] LABS: B-TYPE NATRIURETIC PEPTIDE,BNP 27 pg/ml (0-100)
[2023-12-01 10:51] LABS: ALANINE AMINOTRANSFERASE,ALT 40 U/L (14-59); ALBUMIN 2.2 g/dL (3.4-5.0); ALKALINE PHOSPHATASE 202 U/L (46-116); ASPARTATE AMNIOTRANSFERASE,AST 35 U/L (15-37); BILIRUBIN TOTAL 2.8 mg/dL (0.2-1.0); BLOOD UREA NITROGEN,BUN 44 mg/dL (7-18); BUN/CREATININE RATIO 34.6 (No establ ref range); CALCIUM 8.9 mg/dL (8.5-10.1); CARBON DIOXIDE,CO2 29 mmol/L (21-32); CHLORIDE,CL 108 mmol/L (98-107); CREATININE 1.27 mg/dL (0.55-1.02); GLUCOSE RANDOM 111 mg/dL (70-99); MAGNESIUM 1.8 mg/dL (1.8-2.4); PROTEIN TOTAL,TP 5.4 g/dL (6.4-8.2); SODIUM,NA 142 mmol/L (136-145)
[2023-12-01 10:52] LABS: A/G RATIO 0.69; ESTIMATED GFR 48 mL/min (>=60); LACTIC ACID 1.5 mmol/L (0.4-2.0)
[2023-12-01 11:00] LABS: INR 1.2 (0.9-1.2); PROTHROMBIN TIME 12.1 SEC (9.0-12.0); PTT,PARTIAL THROMBOPLSTIN TIME 24.5 SEC (22.0-34.0)
[2023-12-01] MEDS: Haloperidol Lactate 5 MG/ML SDV IVPUSH ONE (11:51)
[2023-12-01 12:01] LABS: APPEARANCE,URINE CLEAR (CLEAR); BILIRUBIN,URINE SMALL (NEGATIVE); COLOR,URINE YELLOW (YELLOW); GLUCOSE,URINE NEGATIVE (NEGATIVE); KETONES,URINE NEGATIVE (NEGATIVE); LEUKOCYTE ESTERASE,URINE NEGATIVE (NEGATIVE); NITRITE,URINE NEGATIVE (NEGATIVE); OCCULT BLOOD,URINE MODERATE (NEGATIVE); PROTEIN,URINE >=300 (NEGATIVE)
[2023-12-01 12:21] LABS: BACTERIA,URINE FEW /HPF (0-FEW/HPF); EPITHELIAL CELLS,URINE OCCASIONAL /HPF (NOT SEEN); MUCUS,URINE FEW /LPF (NOT SEEN); WBC,URINE 0-5 /HPF (0-5/HPF)
[2023-12-01] MEDS ORDERED: Flumazenil 0.1 MG/ML 5 ML MDV IVPUSH PRN (13:10)
[2023-12-01] MEDS: LORazepam 2 MG/ML SDV IVPUSH ONE (13:15)
[2023-12-01] MEDS: Ondansetron 4 MG/2 ML SDV IVPUSH ONE (13:17)
[2023-12-01] MEDS ORDERED: Acetaminophen 325 MG Tab PO PRN (14:25)
[2023-12-01] MEDS ORDERED: Albuterol/Ipratropium 3.0-0.5 MG/3 ML Neb Soln NEB PRN (14:25)
[2023-12-01] MEDS ORDERED: Ondansetron 4 MG/2 ML SDV IVPUSH PRN (14:25)
[2023-12-01] MEDS ORDERED: oxyCODONE 5 MG Tab PO PRN (14:25)
[2023-12-01] MEDS ORDERED: Naloxone 2 MG/2 ML Syringe IVPUSH PRN (14:25)
[2023-12-01] MEDS: hydrALAZINE 20 MG/ML SDV IVPUSH ONE (14:26)
[2023-12-01] MEDS: Lactulose Soln 10 GM/15 ML 946 ML Bottle RECTAL ONE (14:26)
[2023-12-01 15:07] LABS: AMPHETAMINES,URINE NEGATIVE (NEGATIVE); BARBITURATES,URINE NEGATIVE (NEGATIVE); BENZODIAZEPINE,URINE NEGATIVE (NEGATIVE); MDMA (ECSTASY), URINE NEGATIVE (NEGATIVE); METHADONE,URINE NEGATIVE (NEGATIVE); METHAMPHETAMINES,URINE NEGATIVE (NEGATIVE); OPIATES,URINE POSITIVE (NEGATIVE); OXYCODONE,URINE NEGATIVE (NEGATIVE); PHENCYCLIDINE,URINE NEGATIVE (NEGATIVE); TCA,URINE NEGATIVE (NEGATIVE)
[2023-12-01] MEDS: HYDROmorphone 0.5 MG/0.5 ML Syringe IVPUSH PRN (15:16)
[2023-12-01] MEDS: Lactulose Soln 10 GM/15 ML 30 ML UD Cup PO SCH (15:23)
[2023-12-01] MEDS: Sodium Chloride 0.9% 1,000 ML IV SCH (16:57)
[2023-12-01] MEDS ORDERED: hydrALAZINE 20 MG/ML SDV IVPUSH PRN (17:58)
[2023-12-01] MEDS ORDERED: Metoprolol Tartrate 5 MG/5 ML SDV IVPUSH PRN (17:58)
[2023-12-01] MEDS: Promethazine 25 MG/ML SDV IM PRN (19:30)
[2023-12-01] MEDS: Magnesium Oxide 400 MG Tab PO SCH (20:03)
[2023-12-01] MEDS: Mycophenolate Mofetil 250 MG Cap PO SCH (20:03)
[2023-12-01] MEDS: Rifaximin 550 MG Tab PO SCH (20:03)
[2023-12-01] MEDS: Melatonin 3 MG Tab PO PRN (20:04)
[2023-12-01] MEDS: Ziprasidone Mesylate 20 MG Vial IM PRN (20:30)
[2023-12-01] MEDS: diphenhydrAMINE 50 MG/ML SDV IVPUSH PRN (22:30)
[2023-12-02] MEDS: Levothyroxine 88 MCG Tab PO SCH (05:39)
[2023-12-02 06:53] LABS: BASOPHILS PERCENT AUTO 0.2 % (0.0-1.0); EOSINOPHILS PERCENT AUTO 9.1 % (1.0-3.0); HEMATOCRIT 34.6 % (37.0-47.0); HEMOGLOBIN 10.9 g/dL (12.0-16.0); LYMPHOCYTES PERCENT AUTO 24.3 % (20.5-50.1); MEAN CORPUSCULAR HEMOGLOBIN 31.2 pg (27.0-34.0); MEAN CORPUSCULAR HGB CONC 31.5 g/dL (33.0-35.0); MEAN CORPUSCULAR VOLUME 99.1 fL (80-100); MONOCYTES PERCENT AUTO 8.9 % (2-8); NEUTROPHILS PERCENT AUTO 57.5 % (42.2-75.2); PLATELET COUNT,PLT 70 10^3/uL (150-450); RED BLOOD CELL COUNT 3.49 10^6/uL (4.2-5.4); WHITE BLOOD CELL COUNT,WBC 5.6 10^3/uL (5.0-10.0)
[2023-12-02 07:12] LABS: ALBUMIN 1.6 g/dL (3.4-5.0); ANION GAP 11.6 mEq/L (7-13); BILIRUBIN TOTAL 2.7 mg/dL (0.2-1.0); CALCIUM 8.6 mg/dL (8.5-10.1); CREATININE 1.18 mg/dL (0.55-1.02); EST CRCL DRUG DOSING (CG) 50.5 mL/min; MAGNESIUM 1.8 mg/dL (1.8-2.4); POTASSIUM,K 4.6 mmol/L (3.5-5.1); PROTEIN TOTAL,TP 4.4 g/dL (6.4-8.2)
[2023-12-02 07:15] LABS: A/G RATIO 0.57
[2023-12-02] MEDS: Ergocalciferol (Vitamin D2) 1.25 MG Cap PO SCH (11:48)
[2023-12-02] MEDS: Cholecalciferol (Vitamin D3) 25 MCG Tab PO SCH (11:48)
[2023-12-02] MEDS: Multivitamin Tab PO SCH (11:48)
[2023-12-02] MEDS: Enoxaparin 40 MG/0.4 ML Syringe SUBCUT SCH (11:49)
[2023-12-02] MEDS: Folic Acid 1 MG Tab PO SCH (11:49)
[2023-12-02] MEDS: Spironolactone 25 MG Tab PO SCH (13:21)
[2023-12-02] MEDS: Furosemide 80 MG Tab PO SCH (13:22)
[2023-12-02] MEDS: predniSONE 10 MG Tab PO SCH (13:22)
[2023-12-03 06:57] LABS: BASOPHILS PERCENT AUTO 0.3 % (0.0-1.0); EOSINOPHILS PERCENT AUTO 10.3 % (1.0-3.0); HEMATOCRIT 34.6 % (37.0-47.0); LYMPHOCYTES PERCENT AUTO 31.2 % (20.5-50.1); MEAN CORPUSCULAR HEMOGLOBIN 31.4 pg (27.0-34.0); MEAN CORPUSCULAR HGB CONC 31.8 g/dL (33.0-35.0); MEAN CORPUSCULAR VOLUME 98.9 fL (80-100); NEUTROPHILS PERCENT AUTO 49.2 % (42.2-75.2); PLATELET COUNT,PLT 50 10^3/uL (150-450); WHITE BLOOD CELL COUNT,WBC 6.2 10^3/uL (5.0-10.0)
[2023-12-03 07:15] LABS: ALBUMIN 1.4 g/dL (3.4-5.0); BILIRUBIN TOTAL 1.9 mg/dL (0.2-1.0); BUN/CREATININE RATIO 25.4 (No establ ref range); CALCIUM 8.6 mg/dL (8.5-10.1); CREATININE 1.14 mg/dL (0.55-1.02); EST CRCL DRUG DOSING (CG) 52.28 mL/min; MAGNESIUM 1.9 mg/dL (1.8-2.4); PROTEIN TOTAL,TP 4.2 g/dL (6.4-8.2)
[2023-12-03 07:16] LABS: A/G RATIO 0.5
[2023-12-03] MEDS: Modafinil 100 MG Tab PO SCH (08:44)
[2023-12-04 06:29] LABS: BASOPHILS PERCENT AUTO 0.3 % (0.0-1.0); EOSINOPHILS PERCENT AUTO 6.9 % (1.0-3.0); HEMATOCRIT 36.7 % (37.0-47.0); HEMOGLOBIN 11.9 g/dL (12.0-16.0); LYMPHOCYTES PERCENT AUTO 38.6 % (20.5-50.1); MEAN CORPUSCULAR HEMOGLOBIN 31.2 pg (27.0-34.0); MEAN CORPUSCULAR HGB CONC 32.4 g/dL (33.0-35.0); MEAN CORPUSCULAR VOLUME 96.1 fL (80-100); MONOCYTES PERCENT AUTO 8.2 % (2-8); PLATELET COUNT,PLT 73 10^3/uL (150-450); RED BLOOD CELL COUNT 3.82 10^6/uL (4.2-5.4); WHITE BLOOD CELL COUNT,WBC 7.8 10^3/uL (5.0-10.0)
[2023-12-04 07:10] LABS: ALBUMIN 1.8 g/dL (3.4-5.0); BILIRUBIN TOTAL 2.2 mg/dL (0.2-1.0); CREATININE 1.25 mg/dL (0.55-1.02); EST CRCL DRUG DOSING (CG) 47.68 mL/min; MAGNESIUM 1.9 mg/dL (1.8-2.4); PROTEIN TOTAL,TP 4.9 g/dL (6.4-8.2)
[2023-12-04 07:11] LABS: A/G RATIO 0.58
[2023-12-04 11:32] VITALS: BP 143/69; PULSE 76
[2023-12-07] MEDS ORDERED: Ergocalciferol (Vitamin D2) 1.25 MG Cap PO SCH (09:15)
== END 2023-12-04 13:10 | disposition home or self-care (01) ==
LOC: DL.ED 09:42 → DL.MS 13:36
PROVIDERS: ADMIT Internal Medicine; ATTEND Internal Medicine
DX: R65.10 Systemic inflammatory response syndrome (SIRS) of non-infectious origin without acute organ dysfunction (principal); K76.82 Hepatic encephalopathy; G93.41 Metabolic encephalopathy; E83.52 Hypercalcemia; E72.20 Disorder of urea cycle metabolism, unspecified; I12.9 Hypertensive chronic kidney disease with stage 1 through stage 4 chronic kidney disease, or unspecified chronic kidney disease; N18.32 Chronic kidney disease, stage 3b; N17.9 Acute kidney failure, unspecified; K74.60 Unspecified cirrhosis of liver; E83.119 Hemochromatosis, unspecified; D69.6 Thrombocytopenia, unspecified; E87.8 Other disorders of electrolyte and fluid balance, not elsewhere classified; E88.09 Other disorders of plasma-protein metabolism, not elsewhere classified; G89.29 Other chronic pain; M54.9 Dorsalgia, unspecified; R53.1 Weakness; F12.929 Cannabis use, unspecified with intoxication, unspecified; E66.9 Obesity, unspecified; E03.9 Hypothyroidism, unspecified; R73.9 Hyperglycemia, unspecified; Z87.891 Personal history of nicotine dependence; Z79.890 Hormone replacement therapy; Z79.899 Other long term (current) drug therapy; Z68.30 Body mass index [BMI] 30.0-30.9, adult
CPT/HCPCS: 36415; 51702; 51798; 70450; 71045; 80053; 80305-QW; 81001; 82140; 83605; 83735; 83880; 84145; 84484; 85025; 85610; 85730; 87040; 93005; 96361; 96372; 96374; 96375; 99285; 99285-25; A9270-GY; G0378; J0360; J1170; J1200; J1630; J1650; J2060; J2405; J2550; J3486; J7030; J7512

== ENCOUNTER 2024-01-17 15:40 | Inpatient (IN) | payer MEDICAID ==
[~2024-01-17 15:40] MED LIST changes: -Haloperidol Lactate 5 MG/ML SDV IM ONE; -Ondansetron 4 MG/2 ML SDV IVPUSH ONE; +Sodium Chloride 0.9% 10 ML Syringe FLUSH PRN
[2024-01-17 15:52] LABS: BASOPHILS PERCENT AUTO 0.4 % (0.0-1.0); EOSINOPHILS PERCENT AUTO 1.6 % (1.0-3.0); HEMATOCRIT 44.5 % (37.0-47.0); LYMPHOCYTES PERCENT AUTO 10.5 % (20.5-50.1); MEAN CORPUSCULAR HEMOGLOBIN 32.9 pg (27.0-34.0); MEAN CORPUSCULAR HGB CONC 33.7 g/dL (33.0-35.0); MEAN CORPUSCULAR VOLUME 97.6 fL (80-100); MONOCYTES PERCENT AUTO 7.2 % (2-8); NEUTROPHILS PERCENT AUTO 80.3 % (42.2-75.2); PLATELET COUNT,PLT 93 10^3/uL (150-450); RED BLOOD CELL COUNT 4.56 10^6/uL (4.2-5.4); WHITE BLOOD CELL COUNT,WBC 5.5 10^3/uL (5.0-10.0)
[2024-01-17 16:12] LABS: B-TYPE NATRIURETIC PEPTIDE,BNP 59 pg/ml (0-100); INR 1.1 (0.9-1.2); PROTHROMBIN TIME 11.3 SEC (9.0-12.0); PTT,PARTIAL THROMBOPLSTIN TIME 25.4 SEC (22.0-34.0)
[2024-01-17 16:13] LABS: APPEARANCE,URINE CLEAR (CLEAR); BILIRUBIN,URINE MODERATE (NEGATIVE); COLOR,URINE AMBER (YELLOW); GLUCOSE,URINE NEGATIVE (NEGATIVE); KETONES,URINE NEGATIVE (NEGATIVE); LEUKOCYTE ESTERASE,URINE NEGATIVE (NEGATIVE); NITRITE,URINE NEGATIVE (NEGATIVE); OCCULT BLOOD,URINE MODERATE (NEGATIVE); PROTEIN,URINE >=300 (NEGATIVE)
[2024-01-17 16:14] LABS: AMPHETAMINES,URINE NEGATIVE (NEGATIVE); BARBITURATES,URINE NEGATIVE (NEGATIVE); BENZODIAZEPINE,URINE NEGATIVE (NEGATIVE); MDMA (ECSTASY), URINE NEGATIVE (NEGATIVE); METHADONE,URINE NEGATIVE (NEGATIVE); METHAMPHETAMINES,URINE NEGATIVE (NEGATIVE); OPIATES,URINE NEGATIVE (NEGATIVE); OXYCODONE,URINE NEGATIVE (NEGATIVE); PHENCYCLIDINE,URINE NEGATIVE (NEGATIVE); TCA,URINE NEGATIVE (NEGATIVE)
[2024-01-17 16:17] LABS: ALANINE AMINOTRANSFERASE,ALT 46 U/L (14-59); ALBUMIN 1.9 g/dL (3.4-5.0); ALKALINE PHOSPHATASE 230 U/L (46-116); ANION GAP 13.7 mEq/L (7-13); ASPARTATE AMNIOTRANSFERASE,AST 80 U/L (15-37); BILIRUBIN TOTAL 4.8 mg/dL (0.2-1.0); BLOOD UREA NITROGEN,BUN 40 mg/dL (7-18); BUN/CREATININE RATIO 22.2 (No establ ref range); CARBON DIOXIDE,CO2 26 mmol/L (21-32); CHLORIDE,CL 98 mmol/L (98-107); GLUCOSE RANDOM 100 mg/dL (70-99); LIPASE 93 U/L (16-77); POTASSIUM,K 4.7 mmol/L (3.5-5.1); PROTEIN TOTAL,TP 5.7 g/dL (6.4-8.2); SODIUM,NA 133 mmol/L (136-145)
[2024-01-17 16:18] LABS: ESTIMATED GFR 32 mL/min (>=60)
[2024-01-17 16:19] LABS: LACTIC ACID 3.8 mmol/L (0.4-2.0)
[2024-01-17 16:25] LABS: BACTERIA,URINE MODERATE /HPF (0-FEW/HPF); EPITHELIAL CELLS,URINE FEW /HPF (NOT SEEN); HYALINE CASTS,URINE MODERATE; MUCUS,URINE FEW /LPF (NOT SEEN); WBC,URINE 0-5 /HPF (0-5/HPF)
[2024-01-17] MEDS: Sodium Chloride 0.9% 500 ML IV ONE (16:35)
[2024-01-17] MEDS: Lactulose Soln 10 GM/15 ML 30 ML UD Cup PO ONE (17:21)
[2024-01-17 17:28] LABS: CORONAVIRUS COVID-19 NAA NEGATIVE (NEGATIVE); INFLUENZA A NAA NEGATIVE (NEGATIVE); INFLUENZA B NAA NEGATIVE (NEGATIVE); RESPIRATORY SYNCYTIAL VIR NAA NEGATIVE (NEGATIVE)
[2024-01-17] MEDS: Haloperidol Lactate 5 MG/ML SDV IVPUSH ONE (17:33)
[2024-01-17] MEDS ORDERED: Metoclopramide 10 MG/2 ML SDV IV PRN (19:16)
[2024-01-17] MEDS ORDERED: Ondansetron 4 MG/2 ML SDV IVPUSH PRN (19:16)
[2024-01-17] MEDS ORDERED: Albuterol/Ipratropium 3.0-0.5 MG/3 ML Neb Soln NEB PRN (19:16)
[2024-01-17] MEDS ORDERED: Acetaminophen 325 MG Tab PO PRN (19:16)
[2024-01-17] MEDS: Ziprasidone Mesylate 20 MG Vial IM ONE (19:33)
[2024-01-17] MEDS: MVI, Adult with Vitamin K 10 ML, Folic Acid 1 MG, Thiamine 100 MG in Lactated Ringers 1... IV ONE (20:15)
[2024-01-17] MEDS: HYDROmorphone 0.5 MG/0.5 ML Syringe IVPUSH PRN (20:25)
[2024-01-17] MEDS: Rifaximin 550 MG Tab PO SCH (21:43)
[2024-01-17] MEDS: Mycophenolate Mofetil 250 MG Cap PO SCH (21:43)
[2024-01-17] MEDS: Lactulose Soln 10 GM/15 ML 30 ML UD Cup PO SCH (21:43)
[2024-01-18] MEDS: diazePAM 5 MG/ML MDV IV ONE (00:51)
[2024-01-18] MEDS: diazePAM 5 MG/ML MDV IV PRN (03:59)
[2024-01-18 06:46] LABS: HEMATOCRIT 36.5 % (37.0-47.0); MEAN CORPUSCULAR HEMOGLOBIN 32.8 pg (27.0-34.0); MEAN CORPUSCULAR HGB CONC 32.9 g/dL (33.0-35.0); MEAN CORPUSCULAR VOLUME 99.7 fL (80-100); RED BLOOD CELL COUNT 3.66 10^6/uL (4.2-5.4); WHITE BLOOD CELL COUNT,WBC 5.9 10^3/uL (5.0-10.0)
[2024-01-18 07:57] LABS: ALANINE AMINOTRANSFERASE,ALT 37 U/L (14-59); ALBUMIN 1.5 g/dL (3.4-5.0); ALKALINE PHOSPHATASE 165 U/L (46-116); ANION GAP 9.9 mEq/L (7-13); ASPARTATE AMNIOTRANSFERASE,AST 60 U/L (15-37); BILIRUBIN TOTAL 3.6 mg/dL (0.2-1.0); BLOOD UREA NITROGEN,BUN 44 mg/dL (7-18); BUN/CREATININE RATIO 19.8 (No establ ref range); CALCIUM 8.2 mg/dL (8.5-10.1); CARBON DIOXIDE,CO2 26 mmol/L (21-32); CHLORIDE,CL 101 mmol/L (98-107); CREATININE 2.22 mg/dL (0.55-1.02); GLUCOSE RANDOM 112 mg/dL (70-99); MAGNESIUM 1.9 mg/dL (1.8-2.4); POTASSIUM,K 4.9 mmol/L (3.5-5.1); PROTEIN TOTAL,TP 4.4 g/dL (6.4-8.2); SODIUM,NA 132 mmol/L (136-145)
[2024-01-18 08:05] LABS: A/G RATIO 0.52; ESTIMATED GFR 25 mL/min (>=60)
[2024-01-18] MEDS: Naloxone 2 MG/2 ML Syringe IVPUSH PRN (08:06)
[2024-01-18] MEDS: Flumazenil 0.1 MG/ML 5 ML MDV IVPUSH ONE ×2 (08:16→14:10)
[2024-01-18] MEDS: Ampicillin/Sulbactam Na 1.5 GM in Sodium Chloride 0.9% 100 ML IV SCH (09:15)
[2024-01-18] MEDS: predniSONE 10 MG Tab PO SCH (09:38)
[2024-01-18] MEDS: Dextrose 5%-0.9% NaCl 1,000 ML IV SCH (11:50)
[2024-01-18] MEDS ORDERED: hydrALAZINE 20 MG/ML SDV IVPUSH PRN (14:24)
[2024-01-18] MEDS ORDERED: Metoprolol Tartrate 5 MG/5 ML SDV IVPUSH PRN (14:24)
[2024-01-18] MEDS ORDERED: HYDROmorphone 0.5 MG/0.5 ML Syringe IVPUSH PRN (14:27)
[2024-01-18] MEDS: hydrALAZINE 20 MG/ML SDV IVPUSH PRN (16:31)
[2024-01-18] MEDS: Lactulose Soln 10 GM/15 ML 30 ML UD Cup PO ONE (16:55)
[2024-01-18] MEDS: Modafinil 100 MG Tab PO ONE (17:54)
[2024-01-18] MEDS: Pantoprazole 40 MG Vial IVPUSH SCH (17:55)
[2024-01-18] MEDS: Modafinil 100 MG Tab PO STA (19:16)
[2024-01-18] MEDS: Sodium Chloride 0.9% 1,500 ML IV SCH (20:21)
[2024-01-18] MEDS ORDERED: Ziprasidone Mesylate 20 MG Vial IM PRN (21:00)
[2024-01-18] MEDS: Mycophenolate Mofetil 250 MG Cap PO SCH ×2 (22:10→22:49)
[2024-01-18] MEDS: Haloperidol Lactate 5 MG/ML SDV IVPUSH ONE (22:12)
[2024-01-18] MEDS: Lactulose Soln 10 GM/15 ML 30 ML UD Cup PO SCH (22:23)
[2024-01-19 06:45] LABS: HEMATOCRIT 35.9 % (37.0-47.0); HEMOGLOBIN 11.7 g/dL (12.0-16.0); MEAN CORPUSCULAR HEMOGLOBIN 32.9 pg (27.0-34.0); MEAN CORPUSCULAR HGB CONC 32.6 g/dL (33.0-35.0); MEAN CORPUSCULAR VOLUME 100.8 fL (80-100); RED BLOOD CELL COUNT 3.56 10^6/uL (4.2-5.4); WHITE BLOOD CELL COUNT,WBC 10.7 10^3/uL (5.0-10.0)
[2024-01-19 07:03] LABS: ALANINE AMINOTRANSFERASE,ALT 54 U/L (14-59); ALBUMIN 1.7 g/dL (3.4-5.0); ALKALINE PHOSPHATASE 169 U/L (46-116); ANION GAP 13.9 mEq/L (7-13); ASPARTATE AMNIOTRANSFERASE,AST 132 U/L (15-37); BLOOD UREA NITROGEN,BUN 48 mg/dL (7-18); BUN/CREATININE RATIO 16.2 (No establ ref range); CALCIUM 8.3 mg/dL (8.5-10.1); CARBON DIOXIDE,CO2 23 mmol/L (21-32); CHLORIDE,CL 100 mmol/L (98-107); CREATININE 2.96 mg/dL (0.55-1.02); GLUCOSE RANDOM 209 mg/dL (70-99); MAGNESIUM 1.9 mg/dL (1.8-2.4); POTASSIUM,K 3.9 mmol/L (3.5-5.1); PROTEIN TOTAL,TP 4.6 g/dL (6.4-8.2); SODIUM,NA 133 mmol/L (136-145)
[2024-01-19 07:05] LABS: A/G RATIO 0.59; ESTIMATED GFR 17 mL/min (>=60)
[2024-01-19] MEDS ORDERED: Sodium Chloride 0.9% 1,500 ML IV SCH (08:30)
[2024-01-19] MEDS: Modafinil 100 MG Tab PO SCH (09:32)
[2024-01-19 16:29] LABS: ANION GAP 10.9 mEq/L (7-13); BLOOD UREA NITROGEN,BUN 51 mg/dL (7-18); CALCIUM 8.2 mg/dL (8.5-10.1); CARBON DIOXIDE,CO2 24 mmol/L (21-32); CHLORIDE,CL 102 mmol/L (98-107); CREATININE 2.89 mg/dL (0.55-1.02); GLUCOSE RANDOM 165 mg/dL (70-99); POTASSIUM,K 3.9 mmol/L (3.5-5.1); SODIUM,NA 133 mmol/L (136-145)
[2024-01-19 16:38] LABS: ESTIMATED GFR 18 mL/min (>=60)
[2024-01-19 20:43] VITALS: BP 137/54; PULSE 96
== END 2024-01-19 20:45 | disposition home or self-care (01) | DRG 441 ==
LOC: DL.ED 15:40 → DL.MS 19:12
PROVIDERS: ADMIT Internal Medicine; ATTEND Internal Medicine
DX: K76.82 Hepatic encephalopathy (principal); G92.8 Other toxic encephalopathy; J96.01 Acute respiratory failure with hypoxia; I13.0 Hypertensive heart and chronic kidney disease with heart failure and stage 1 through stage 4 chronic kidney disease, or unspecified chronic kidney disease; K76.6 Portal hypertension; E72.20 Disorder of urea cycle metabolism, unspecified; E87.1 Hypo-osmolality and hyponatremia; E87.20 Acidosis, unspecified; N17.9 Acute kidney failure, unspecified; T43.595A Adverse effect of other antipsychotics and neuroleptics, initial encounter; E66.01 Morbid (severe) obesity due to excess calories; E88.09 Other disorders of plasma-protein metabolism, not elsewhere classified; D69.6 Thrombocytopenia, unspecified; K21.9 Gastro-esophageal reflux disease without esophagitis; I50.9 Heart failure, unspecified; D63.1 Anemia in chronic kidney disease; N18.32 Chronic kidney disease, stage 3b; K74.60 Unspecified cirrhosis of liver; K72.10 Chronic hepatic failure without coma; M19.90 Unspecified osteoarthritis, unspecified site; E83.52 Hypercalcemia; M25.562 Pain in left knee; G89.4 Chronic pain syndrome; E03.9 Hypothyroidism, unspecified; F41.0 Panic disorder [episodic paroxysmal anxiety]; Z79.890 Hormone replacement therapy; Z79.52 Long term (current) use of systemic steroids; Z79.899 Other long term (current) drug therapy; Z98.890 Other specified postprocedural states; Z91.148 Patient's other noncompliance with medication regimen for other reason
CPT/HCPCS: 0241U; 36415; 51702; 70450; 71045; 80048; 80053; 80305-QW; 81001; 82140; 83605; 83690; 83735; 83880; 84484; 85025; 85027; 85610; 85730; 86140; 93005; 93010; 96361; 96374; 99285; 99285-25; A9270-GY; J0295; J0360; J1170; J1630; J2310; J2470; J3360; J3411; J3486; J3490; J7030; J7040; J7042; J7120; J7512

== ENCOUNTER 2024-01-25 02:09 | Emergency (ER) | payer MEDICAID ==
[2024-01-25 01:47] LABS: HEMATOCRIT 38.5 % (37.0-47.0); HEMOGLOBIN 12.7 g/dL (12.0-16.0); MEAN CORPUSCULAR HEMOGLOBIN 33.2 pg (27.0-34.0); MEAN CORPUSCULAR VOLUME 100.8 fL (80-100); PLATELET COUNT,PLT 84 10^3/uL (150-450); RED BLOOD CELL COUNT 3.82 10^6/uL (4.2-5.4); WHITE BLOOD CELL COUNT,WBC 4.1 10^3/uL (5.0-10.0)
[2024-01-25 02:02] LABS: INR 1.2 (0.9-1.2); PTT,PARTIAL THROMBOPLSTIN TIME 25.9 SEC (22.0-34.0)
[2024-01-25 02:04] LABS: ALANINE AMINOTRANSFERASE,ALT 81 U/L (14-59); ALKALINE PHOSPHATASE 225 U/L (46-116); ANION GAP 9.4 mEq/L (7-13); ASPARTATE AMNIOTRANSFERASE,AST 78 U/L (15-37); BILIRUBIN TOTAL 2.5 mg/dL (0.2-1.0); BLOOD UREA NITROGEN,BUN 31 mg/dL (7-18); BUN/CREATININE RATIO 30.1 (No establ ref range); CALCIUM 8.6 mg/dL (8.5-10.1); CARBON DIOXIDE,CO2 31 mmol/L (21-32); CHLORIDE,CL 106 mmol/L (98-107); CREATININE 1.03 mg/dL (0.55-1.02); GLUCOSE RANDOM 113 mg/dL (70-99); LIPASE 89 U/L (16-77); MAGNESIUM 1.6 mg/dL (1.8-2.4); POTASSIUM,K 3.4 mmol/L (3.5-5.1); PROTEIN TOTAL,TP 5.3 g/dL (6.4-8.2); SODIUM,NA 143 mmol/L (136-145)
[2024-01-25 02:05] LABS: LYMPHOCYTES PERCENT AUTO 34.5 % (20.5-50.1); NEUTROPHILS PERCENT AUTO 36.8 % (42.2-75.2)
[2024-01-25 02:06] LABS: A/G RATIO 0.61; BASOPHILS PERCENT AUTO 0.2 % (0.0-1.0); EOSINOPHILS PERCENT AUTO 4.1 % (1.0-3.0); ESTIMATED GFR 62 mL/min (>=60); MONOCYTES PERCENT AUTO 24.4 % (2-8)
[2024-01-25 02:07] LABS: ETHANOL BLOOD MEDICAL < 3 mg/dL (0)
[2024-01-25 02:09] LABS: LACTIC ACID 1.3 mmol/L (0.4-2.0)
[2024-01-25 02:37] LABS: EOSINOPHILS PERCENT MAN 4 % (1-3); LYMPHOCYTES PERCENT MAN 41 % (20-50); MONOCYTES PERCENT MAN 23 % (2-8); SEG NEUTROPHILS PERCENT MAN 31 % (42-75)
[2024-01-25 02:38] LABS: BASOPHILS PERCENT MAN 1
[2024-01-25 02:39] VITALS: BP 136/91; PULSE 104
[2024-01-25] MEDS: Iopamidol 612 MG/ML 100 ML Bottle IVPUSH ONE (03:41)
[2024-01-25] MEDS: Sodium Chloride 0.9% 1,000 ML IV ONE (04:23)
[2024-01-25] MEDS: Lactulose Soln 10 GM/15 ML 30 ML UD Cup PO ONE (04:37)
[2024-01-25] MEDS: Rifaximin 550 MG Tab PO ONE ×2 (04:37→07:27)
[2024-01-25] MEDS: Lactulose Soln 10 GM/15 ML 946 ML Bottle RECTAL ONE (04:42)
[2024-01-25] MEDS: Potassium Chloride 10 MEQ in Premix Bag 1 BAG IV ONE (05:07)
[2024-01-25 09:01] LABS: APPEARANCE,URINE CLEAR (CLEAR); BILIRUBIN,URINE NEGATIVE (NEGATIVE); COLOR,URINE YELLOW (YELLOW); GLUCOSE,URINE NEGATIVE (NEGATIVE); KETONES,URINE NEGATIVE (NEGATIVE); LEUKOCYTE ESTERASE,URINE NEGATIVE (NEGATIVE); NITRITE,URINE NEGATIVE (NEGATIVE); OCCULT BLOOD,URINE SMALL (NEGATIVE); PROTEIN,URINE 100 (NEGATIVE)
[2024-01-25 09:06] LABS: AMPHETAMINES,URINE NEGATIVE (NEGATIVE); BARBITURATES,URINE NEGATIVE (NEGATIVE); BENZODIAZEPINE,URINE POSITIVE (NEGATIVE); MDMA (ECSTASY), URINE NEGATIVE (NEGATIVE); METHADONE,URINE NEGATIVE (NEGATIVE); METHAMPHETAMINES,URINE NEGATIVE (NEGATIVE); OPIATES,URINE NEGATIVE (NEGATIVE); OXYCODONE,URINE NEGATIVE (NEGATIVE); PHENCYCLIDINE,URINE NEGATIVE (NEGATIVE); TCA,URINE NEGATIVE (NEGATIVE)
[2024-01-25 09:15] LABS: AMORPHOUS SEDIMENT,URINE FEW /HPF (NOT SEEN); BACTERIA,URINE MODERATE /HPF (0-FEW/HPF); EPITHELIAL CELLS,URINE FEW /HPF (NOT SEEN); MUCUS,URINE MODERATE /LPF (NOT SEEN); WBC,URINE 0-5 /HPF (0-5/HPF)
[2024-01-25] MEDS: Magnesium Sulfate/Water Premix 2 GM in Premix Bag 1 BAG IV ONE (10:07)
[2024-01-25] MEDS: Potassium Chloride 10 MEQ Tab.ER PO ONE (10:07)
[2024-01-25] MEDS: Sodium Chloride 0.9% 10 ML Syringe FLUSH PRN (10:13)
== END 2024-01-25 13:34 ==
LOC: DL.ED 02:09
DX: K70.30 Alcoholic cirrhosis of liver without ascites (principal); M48.56XA Collapsed vertebra, not elsewhere classified, lumbar region, initial encounter for fracture; E83.119 Hemochromatosis, unspecified; K76.82 Hepatic encephalopathy; E83.42 Hypomagnesemia; E87.6 Hypokalemia; R79.89 Other specified abnormal findings of blood chemistry; I13.0 Hypertensive heart and chronic kidney disease with heart failure and stage 1 through stage 4 chronic kidney disease, or unspecified chronic kidney disease; I50.9 Heart failure, unspecified; N18.9 Chronic kidney disease, unspecified; K21.9 Gastro-esophageal reflux disease without esophagitis; E03.9 Hypothyroidism, unspecified; E66.9 Obesity, unspecified; Z79.899 Other long term (current) drug therapy
CPT/HCPCS: 36415; 70450; 71045; 72125; 74177; 80053; 80305-QW; 80307; 81001; 82140; 83605; 83690; 83735; 84145; 85025; 85610; 85730; 87040; 96361; 96365; 96366; 96367; 99285-25; A9270-GY; J3475; J3480; J3490; J7030; Q9967

== ENCOUNTER 2024-02-02 06:03 | Inpatient (IN) | payer MEDICAID ==
[2024-02-02 06:41] LABS: HEMATOCRIT 38.1 % (37.0-47.0); HEMOGLOBIN 12.1 g/dL (12.0-16.0); MEAN CORPUSCULAR HEMOGLOBIN 32.2 pg (27.0-34.0); MEAN CORPUSCULAR HGB CONC 31.8 g/dL (33.0-35.0); MEAN CORPUSCULAR VOLUME 101.3 fL (80-100); PLATELET COUNT,PLT 122 10^3/uL (150-450); RED BLOOD CELL COUNT 3.76 10^6/uL (4.2-5.4)
[2024-02-02 06:55] LABS: INR 1.2 (0.9-1.2)
[2024-02-02 07:11] LABS: B-TYPE NATRIURETIC PEPTIDE,BNP 70 pg/ml (0-100); BASOPHILS PERCENT AUTO 0.3 % (0.0-1.0); LYMPHOCYTES PERCENT AUTO 36.2 % (20.5-50.1); MONOCYTES PERCENT AUTO 8.6 % (2-8); NEUTROPHILS PERCENT AUTO 52.9 % (42.2-75.2)
[2024-02-02] MEDS: LORazepam 2 MG/ML SDV IVPUSH ONE (07:35)
[2024-02-02 07:39] LABS: EOSINOPHILS PERCENT MAN 5 % (1-3); LYMPHOCYTES PERCENT MAN 34 % (20-50); MONOCYTES PERCENT MAN 12 % (2-8); SEG NEUTROPHILS PERCENT MAN 49 % (42-75)
[2024-02-02 08:02] LABS: ALANINE AMINOTRANSFERASE,ALT 51 U/L (14-59); ALBUMIN 1.9 g/dL (3.4-5.0); ALKALINE PHOSPHATASE 197 U/L (46-116); ANION GAP 10.2 mEq/L (7-13); ASPARTATE AMNIOTRANSFERASE,AST 48 U/L (15-37); BILIRUBIN TOTAL 2.2 mg/dL (0.2-1.0); BLOOD UREA NITROGEN,BUN 24 mg/dL (7-18); CALCIUM 8.8 mg/dL (8.5-10.1); CARBON DIOXIDE,CO2 29 mmol/L (21-32); CHLORIDE,CL 109 mmol/L (98-107); GLUCOSE RANDOM 107 mg/dL (70-99); MAGNESIUM 1.9 mg/dL (1.8-2.4); POTASSIUM,K 4.2 mmol/L (3.5-5.1); PROTEIN TOTAL,TP 5.1 g/dL (6.4-8.2); SODIUM,NA 144 mmol/L (136-145)
[2024-02-02 08:03] LABS: A/G RATIO 0.59; ESTIMATED GFR 52 mL/min (>=60); ETHANOL BLOOD MEDICAL < 3 mg/dL (0)
[2024-02-02] MEDS: Lactulose Soln 10 GM/15 ML 946 ML Bottle RECTAL ONE (09:09)
[2024-02-02] MEDS ORDERED: Ondansetron 4 MG/2 ML SDV IVPUSH PRN (12:45)
[2024-02-02] MEDS: Rifaximin 550 MG Tab PO SCH (13:44)
[2024-02-02] MEDS: Mycophenolate Mofetil 250 MG Cap PO SCH (13:45)
[2024-02-02] MEDS: Lactulose Soln 10 GM/15 ML 30 ML UD Cup PO SCH (13:45)
[2024-02-02] MEDS: predniSONE 20 MG Tab PO ONE (13:45)
[2024-02-02] MEDS: Lactulose Soln 10 GM/15 ML 946 ML Bottle RECTAL SCH (14:32)
[2024-02-02] MEDS: Benzocaine 20% Topical Spray UD MUCMEM ONE (14:32)
[2024-02-02] MEDS: Pantoprazole 40 MG Vial IVPUSH SCH (20:21)
[2024-02-02] MEDS: Sodium Chloride 0.9% 10 ML Syringe FLUSH SCH (20:22)
[2024-02-03 06:06] LABS: BASOPHILS PERCENT AUTO 0.3 % (0.0-1.0); EOSINOPHILS PERCENT AUTO 1.3 % (1.0-3.0); HEMATOCRIT 36.6 % (37.0-47.0); HEMOGLOBIN 11.5 g/dL (12.0-16.0); LYMPHOCYTES PERCENT AUTO 34.1 % (20.5-50.1); MEAN CORPUSCULAR HEMOGLOBIN 32.3 pg (27.0-34.0); MEAN CORPUSCULAR HGB CONC 31.4 g/dL (33.0-35.0); MEAN CORPUSCULAR VOLUME 102.8 fL (80-100); MONOCYTES PERCENT AUTO 9.7 % (2-8); NEUTROPHILS PERCENT AUTO 54.6 % (42.2-75.2); PLATELET COUNT,PLT 112 10^3/uL (150-450); RED BLOOD CELL COUNT 3.56 10^6/uL (4.2-5.4); WHITE BLOOD CELL COUNT,WBC 6.3 10^3/uL (5.0-10.0)
[2024-02-03 08:03] LABS: A/G RATIO 0.62; ALBUMIN 1.8 g/dL (3.4-5.0); ANION GAP 11.8 mEq/L (7-13); BILIRUBIN TOTAL 2.9 mg/dL (0.2-1.0); BUN/CREATININE RATIO 19.3 (No establ ref range); CALCIUM 9.1 mg/dL (8.5-10.1); CREATININE 1.09 mg/dL (0.55-1.02); EST CRCL DRUG DOSING (CG) 52.71 mL/min; POTASSIUM,K 4.8 mmol/L (3.5-5.1); PROTEIN TOTAL,TP 4.7 g/dL (6.4-8.2)
[2024-02-03] MEDS ORDERED: Lactulose Soln 10 GM/15 ML 30 ML UD Cup PO PRN (09:35)
[2024-02-03] MEDS: Lactulose Soln 10 GM/15 ML 30 ML UD Cup PO SCH (10:05)
[2024-02-03] MEDS: Sodium Chloride 0.9% 10 ML Syringe FLUSH PRN (10:10)
[2024-02-03] MEDS: Rifaximin 550 MG Tab PO ONE (10:15)
[2024-02-03] MEDS ORDERED: predniSONE 10 MG Tab PO SCH (13:00)
[2024-02-03] MEDS: Lidocaine 5% 700 MG Patch TOP SCH (20:22)
[2024-02-03] MEDS: Rifaximin 550 MG Tab PO SCH (20:23)
[2024-02-03] MEDS: Magnesium Oxide 400 MG Tab PO SCH (20:24)
[2024-02-03] MEDS: Menthol 10%/Methyl Salicylate 15% 85 GM Tube TOP PRN (20:25)
[2024-02-03] MEDS: Acetaminophen/HYDROcodone 325-5 MG Tab PO ONE (23:58)
[2024-02-03] MEDS: Melatonin 3 MG Tab PO STA (23:58)
[2024-02-04] MEDS: Levothyroxine 88 MCG Tab PO SCH (05:01)
[2024-02-04 06:19] LABS: HEMATOCRIT 33.2 % (37.0-47.0); HEMOGLOBIN 10.3 g/dL (12.0-16.0); MEAN CORPUSCULAR HEMOGLOBIN 32.2 pg (27.0-34.0); MEAN CORPUSCULAR VOLUME 103.8 fL (80-100); PLATELET COUNT,PLT 96 10^3/uL (150-450); WHITE BLOOD CELL COUNT,WBC 5.8 10^3/uL (5.0-10.0)
[2024-02-04 06:28] LABS: EOSINOPHILS PERCENT AUTO 4.6 % (1.0-3.0); LYMPHOCYTES PERCENT AUTO 41.1 % (20.5-50.1); MONOCYTES PERCENT AUTO 13.2 % (2-8); NEUTROPHILS PERCENT AUTO 40.1 % (42.2-75.2)
[2024-02-04 06:44] LABS: ALBUMIN 1.5 g/dL (3.4-5.0); ANION GAP 7.8 mEq/L (7-13); BILIRUBIN TOTAL 1.7 mg/dL (0.2-1.0); BUN/CREATININE RATIO 16.5 (No establ ref range); CALCIUM 8.6 mg/dL (8.5-10.1); CREATININE 1.21 mg/dL (0.55-1.02); EST CRCL DRUG DOSING (CG) 47.48 mL/min; POTASSIUM,K 4.8 mmol/L (3.5-5.1); PROTEIN TOTAL,TP 4.2 g/dL (6.4-8.2)
[2024-02-04 06:48] LABS: A/G RATIO 0.56
[2024-02-04 06:49] LABS: BAND PERCENT MAN 4 %; EOSINOPHILS PERCENT MAN 7 % (1-3); LYMPHOCYTES PERCENT MAN 37 % (20-50); MONOCYTES PERCENT MAN 8 % (2-8); SEG NEUTROPHILS PERCENT MAN 44 % (42-75)
[2024-02-04 08:24] LABS: FOLIC ACID 15.9 ng/mL (8.6-58.9)
[2024-02-04] MEDS ORDERED: Ergocalciferol (Vitamin D2) 1.25 MG Cap PO SCH (09:00)
[2024-02-04] MEDS: Omeprazole 20 MG Cap.CR PO SCH (09:30)
[2024-02-04] MEDS: Lutein/Minerals/Vit A,C & E Tab PO SCH (09:30)
[2024-02-04] MEDS: Gabapentin 100 MG Cap PO SCH (09:30)
[2024-02-04] MEDS: Furosemide 80 MG Tab PO SCH (09:30)
[2024-02-04] MEDS: predniSONE 20 MG Tab PO SCH (09:31)
[2024-02-05 06:34] LABS: BASOPHILS PERCENT AUTO 0.3 % (0.0-1.0); EOSINOPHILS PERCENT AUTO 2.6 % (1.0-3.0); MEAN CORPUSCULAR HEMOGLOBIN 32.2 pg (27.0-34.0); MEAN CORPUSCULAR HGB CONC 31.3 g/dL (33.0-35.0); MEAN CORPUSCULAR VOLUME 102.9 fL (80-100); MONOCYTES PERCENT AUTO 10.1 % (2-8); PLATELET COUNT,PLT 89 10^3/uL (150-450); RED BLOOD CELL COUNT 3.11 10^6/uL (4.2-5.4); WHITE BLOOD CELL COUNT,WBC 7.2 10^3/uL (5.0-10.0)
[2024-02-05 06:50] LABS: ALBUMIN 1.4 g/dL (3.4-5.0); ANION GAP 3.6 mEq/L (7-13); BILIRUBIN TOTAL 1.3 mg/dL (0.2-1.0); CALCIUM 8.4 mg/dL (8.5-10.1); CREATININE 1.06 mg/dL (0.55-1.02); EST CRCL DRUG DOSING (CG) 54.2 mL/min; POTASSIUM,K 3.6 mmol/L (3.5-5.1)
[2024-02-05 06:52] LABS: A/G RATIO 0.54
[2024-02-05 08:21] VITALS: BP 143/72; PULSE 74
== END 2024-02-05 10:17 | disposition swing bed (61) | DRG 442 ==
LOC: DL.ED 06:03 → DL.MS 09:15 → DL.ED 09:30
PROVIDERS: ADMIT Internal Medicine; ATTEND Internal Medicine
DX: K76.82 Hepatic encephalopathy (principal); I13.0 Hypertensive heart and chronic kidney disease with heart failure and stage 1 through stage 4 chronic kidney disease, or unspecified chronic kidney disease; Z68.41 Body mass index [BMI] 40.0-44.9, adult; K76.6 Portal hypertension; E03.9 Hypothyroidism, unspecified; F41.9 Anxiety disorder, unspecified; I50.9 Heart failure, unspecified; K21.9 Gastro-esophageal reflux disease without esophagitis; E66.9 Obesity, unspecified; N18.32 Chronic kidney disease, stage 3b; M19.90 Unspecified osteoarthritis, unspecified site; M25.562 Pain in left knee; G89.29 Other chronic pain; K74.60 Unspecified cirrhosis of liver; D63.1 Anemia in chronic kidney disease; M51.16 Intervertebral disc disorders with radiculopathy, lumbar region; Z79.899 Other long term (current) drug therapy; Z98.890 Other specified postprocedural states
CPT/HCPCS: 36415; 70450; 71045; 80053; 80307; 82140; 82607; 82746; 83735; 83880; 84484; 85025; 85610; 93005; 93010; 96374; 97162-GP; 97166-GO; 97530-GO; 97530-GP; 99223; 99232; 99233; 99239; 99285; 99285-25; A9270-GY; J2060; J2470; J3490; J7512

== ENCOUNTER 2024-02-05 08:45 | Inpatient (IN) | payer MEDICAID ==
[~2024-02-05 08:45] MED LIST changes: +Menthol 10%/Methyl Salicylate 15% 85 GM Tube TOP PRN; +Ondansetron 4 MG/2 ML SDV IVPUSH PRN
[2024-02-05] MEDS: Magnesium Oxide 400 MG Tab PO SCH (11:47)
[2024-02-05] MEDS: Spironolactone 25 MG Tab PO SCH (11:48)
[2024-02-05] MEDS: Mycophenolate Mofetil 250 MG Cap PO SCH (11:48)
[2024-02-05] MEDS: predniSONE 20 MG Tab PO SCH (11:49)
[2024-02-05] MEDS: Sodium Chloride 0.9% 10 ML Syringe FLUSH SCH ×2 (11:49→11:50)
[2024-02-05] MEDS: Lutein/Minerals/Vit A,C & E Tab PO SCH (11:49)
[2024-02-05] MEDS: Furosemide 80 MG Tab PO SCH (11:49)
[2024-02-05] MEDS: Gabapentin 100 MG Cap PO SCH (11:49)
[2024-02-05] MEDS: Omeprazole 20 MG Cap.CR PO SCH (11:49)
[2024-02-05] MEDS: Remove Patch LIDODERM TRDERM SCH (11:49)
[2024-02-05] MEDS: Rifaximin 550 MG Tab PO SCH (11:50)
[2024-02-05] MEDS: Lactulose Soln 10 GM/15 ML 30 ML UD Cup PO SCH (14:17)
[2024-02-05] MEDS: Lidocaine 5% 700 MG Patch TOP SCH (21:57)
[2024-02-06] MEDS: Levothyroxine 88 MCG Tab PO SCH (04:19)
[2024-02-06] MEDS: ALPRAZolam 0.5 MG Tab PO ONE (04:19)
[2024-02-06 04:43] LABS: HEMATOCRIT 36.3 % (37.0-47.0); HEMOGLOBIN 11.2 g/dL (12.0-16.0); MEAN CORPUSCULAR HEMOGLOBIN 31.7 pg (27.0-34.0); MEAN CORPUSCULAR HGB CONC 30.9 g/dL (33.0-35.0); MEAN CORPUSCULAR VOLUME 102.8 fL (80-100); PLATELET COUNT,PLT 105 10^3/uL (150-450); RED BLOOD CELL COUNT 3.53 10^6/uL (4.2-5.4); WHITE BLOOD CELL COUNT,WBC 8.9 10^3/uL (5.0-10.0)
[2024-02-06 04:58] LABS: BASOPHILS PERCENT AUTO 0.2 % (0.0-1.0); EOSINOPHILS PERCENT AUTO 3.1 % (1.0-3.0); MONOCYTES PERCENT AUTO 8.9 % (2-8); NEUTROPHILS PERCENT AUTO 54.8 % (42.2-75.2)
[2024-02-06 05:01] LABS: ALBUMIN 1.7 g/dL (3.4-5.0); ANION GAP 7.1 mEq/L (7-13); BILIRUBIN TOTAL 1.5 mg/dL (0.2-1.0); BUN/CREATININE RATIO 18.2 (No establ ref range); CALCIUM 8.6 mg/dL (8.5-10.1); CREATININE 0.99 mg/dL (0.55-1.02); EST CRCL DRUG DOSING (CG) 58.03 mL/min; POTASSIUM,K 5.1 mmol/L (3.5-5.1); PROTEIN TOTAL,TP 4.7 g/dL (6.4-8.2)
[2024-02-06 05:02] LABS: A/G RATIO 0.57
[2024-02-06 05:34] LABS: EOSINOPHILS PERCENT MAN 2 % (1-3); LYMPHOCYTES % ATYPICAL MANUAL 2 %; LYMPHOCYTES PERCENT MAN 30 % (20-50); MONOCYTES PERCENT MAN 7 % (2-8); SEG NEUTROPHILS PERCENT MAN 59 % (42-75)
[2024-02-06] MEDS: Spironolactone 25 MG Tab PO SCH (12:02)
[2024-02-07 06:30] LABS: BASOPHILS PERCENT AUTO 0.3 % (0.0-1.0); EOSINOPHILS PERCENT AUTO 1.9 % (1.0-3.0); HEMATOCRIT 35.8 % (37.0-47.0); HEMOGLOBIN 11.7 g/dL (12.0-16.0); LYMPHOCYTES PERCENT AUTO 24.1 % (20.5-50.1); MEAN CORPUSCULAR HEMOGLOBIN 32.9 pg (27.0-34.0); MEAN CORPUSCULAR HGB CONC 32.7 g/dL (33.0-35.0); MEAN CORPUSCULAR VOLUME 100.6 fL (80-100); MONOCYTES PERCENT AUTO 8.6 % (2-8); NEUTROPHILS PERCENT AUTO 65.1 % (42.2-75.2); PLATELET COUNT,PLT 96 10^3/uL (150-450); RED BLOOD CELL COUNT 3.56 10^6/uL (4.2-5.4); WHITE BLOOD CELL COUNT,WBC 7.9 10^3/uL (5.0-10.0)
[2024-02-07 06:50] LABS: ALBUMIN 1.7 g/dL (3.4-5.0); ANION GAP 7.1 mEq/L (7-13); BILIRUBIN TOTAL 1.8 mg/dL (0.2-1.0); BUN/CREATININE RATIO 17.2 (No establ ref range); CALCIUM 8.7 mg/dL (8.5-10.1); CREATININE 0.99 mg/dL (0.55-1.02); EST CRCL DRUG DOSING (CG) 58.03 mL/min; POTASSIUM,K 5.1 mmol/L (3.5-5.1); PROTEIN TOTAL,TP 4.8 g/dL (6.4-8.2)
[2024-02-07 06:52] LABS: A/G RATIO 0.55
[2024-02-07] MEDS: Furosemide 80 MG Tab PO SCH (14:26)
[2024-02-07] MEDS: Latanoprost 0.005% Ophth Soln 2.5 ML Bottle EYELF SCH (21:22)
[2024-02-07] MEDS: Ibuprofen 400 MG Tab PO ONE (22:40)
[2024-02-07] MEDS: Acetaminophen/HYDROcodone 325-5 MG Tab PO ONE (23:41)
[2024-02-08 06:30] LABS: HEMATOCRIT 34.1 % (37.0-47.0); HEMOGLOBIN 10.6 g/dL (12.0-16.0); MEAN CORPUSCULAR HEMOGLOBIN 31.6 pg (27.0-34.0); MEAN CORPUSCULAR HGB CONC 31.1 g/dL (33.0-35.0); MEAN CORPUSCULAR VOLUME 101.8 fL (80-100); PLATELET COUNT,PLT 46 10^3/uL (150-450); RED BLOOD CELL COUNT 3.35 10^6/uL (4.2-5.4); WHITE BLOOD CELL COUNT,WBC 7.2 10^3/uL (5.0-10.0)
[2024-02-08 06:32] LABS: LYMPHOCYTES PERCENT AUTO 35.1 % (20.5-50.1); MONOCYTES PERCENT AUTO 10.1 % (2-8); NEUTROPHILS PERCENT AUTO 50.2 % (42.2-75.2)
[2024-02-08 06:33] LABS: BASOPHILS PERCENT AUTO 0.3 % (0.0-1.0); EOSINOPHILS PERCENT AUTO 4.3 % (1.0-3.0)
[2024-02-08 06:58] LABS: A/G RATIO 0.62; ALBUMIN 1.6 g/dL (3.4-5.0); ANION GAP 9.9 mEq/L (7-13); BILIRUBIN TOTAL 1.6 mg/dL (0.2-1.0); BUN/CREATININE RATIO 18.1 (No establ ref range); CALCIUM 8.6 mg/dL (8.5-10.1); CREATININE 1.16 mg/dL (0.55-1.02); EST CRCL DRUG DOSING (CG) 49.53 mL/min; POTASSIUM,K 3.9 mmol/L (3.5-5.1); PROTEIN TOTAL,TP 4.2 g/dL (6.4-8.2)
[2024-02-08 08:02] LABS: BAND PERCENT MAN 2 %; EOSINOPHILS PERCENT MAN 2 % (1-3); LYMPHOCYTES PERCENT MAN 29 % (20-50); MONOCYTES PERCENT MAN 9 % (2-8); SEG NEUTROPHILS PERCENT MAN 58 % (42-75)
[2024-02-08 08:11] VITALS: BP 149/75; PULSE 85
[2024-02-08] MEDS ORDERED: Melatonin 3 MG Tab PO PRN (09:53)
[2024-02-08] MEDS ORDERED: Ondansetron 4 MG Tab.DIS PO PRN (09:54)
[2024-02-08] MEDS ORDERED: COMBIGAN EYELF SCH (21:00)
== END 2024-02-08 17:40 | disposition other institution (70) | DRG 442 ==
LOC: DL.MS 08:45
PROVIDERS: ADMIT Internal Medicine; ATTEND Internal Medicine
DX: K76.82 Hepatic encephalopathy (principal); I13.0 Hypertensive heart and chronic kidney disease with heart failure and stage 1 through stage 4 chronic kidney disease, or unspecified chronic kidney disease; Z68.41 Body mass index [BMI] 40.0-44.9, adult; K74.60 Unspecified cirrhosis of liver; N18.32 Chronic kidney disease, stage 3b; M51.16 Intervertebral disc disorders with radiculopathy, lumbar region; M19.90 Unspecified osteoarthritis, unspecified site; R53.1 Weakness; M25.562 Pain in left knee; G89.29 Other chronic pain; E66.9 Obesity, unspecified; I50.9 Heart failure, unspecified; K21.9 Gastro-esophageal reflux disease without esophagitis; E03.9 Hypothyroidism, unspecified; H40.9 Unspecified glaucoma; Z79.899 Other long term (current) drug therapy
CPT/HCPCS: 36415; 80053; 85025; 97110-GP; 97116-GP; 97161-GP; 97165-GO; 97530-GO; 99306; 99310; 99316; A9270-GY; J3490; J7512

== ENCOUNTER 2024-02-14 02:21 | Inpatient (IN) | payer MEDICAID ==
[2024-02-18] MEDS ORDERED: Albuterol/Ipratropium 3.0-0.5 MG/3 ML Neb Soln NEB PRN (19:29)
[2024-02-18] MEDS ORDERED: Acetaminophen 325 MG Tab PO PRN (19:29)
[2024-02-18] MEDS ORDERED: Ergocalciferol (Vitamin D2) 1.25 MG Cap PO SCH (21:15)
[2024-02-18] MEDS: Lactulose Soln 10 GM/15 ML 30 ML UD Cup PO ONE (22:20)
[2024-02-18] MEDS: Rifaximin 550 MG Tab PO ONE (22:20)
[2024-02-19] MEDS ORDERED: Lactulose Soln 10 GM/15 ML 946 ML Bottle PO SCH (06:00)
[2024-02-19 07:15] LABS: ALBUMIN 1.7 g/dL (3.4-5.0); ANION GAP 7.6 mEq/L (7-13); BILIRUBIN TOTAL 1.8 mg/dL (0.2-1.0); BUN/CREATININE RATIO 22.5 (No establ ref range); CALCIUM 9.1 mg/dL (8.5-10.1); CREATININE 1.11 mg/dL (0.55-1.02); EST CRCL DRUG DOSING (CG) 53.69 mL/min; MAGNESIUM 2.1 mg/dL (1.8-2.4); POTASSIUM,K 5.6 mmol/L (3.5-5.1); PROTEIN TOTAL,TP 4.5 g/dL (6.4-8.2)
[2024-02-19 07:19] LABS: A/G RATIO 0.61
[2024-02-19] MEDS: Lactulose Soln 10 GM/15 ML 30 ML UD Cup PO SCH (08:19)
[2024-02-19] MEDS: Mycophenolate Mofetil 250 MG Cap PO SCH (08:21)
[2024-02-19] MEDS: Omeprazole 20 MG Cap.CR PO SCH (08:22)
[2024-02-19] MEDS: Magnesium Oxide 400 MG Tab PO SCH (08:23)
[2024-02-19] MEDS: Furosemide 80 MG Tab PO SCH (08:23)
[2024-02-19] MEDS: Rifaximin 550 MG Tab PO SCH (08:23)
[2024-02-19] MEDS: predniSONE 20 MG Tab PO SCH (08:24)
[2024-02-19] MEDS: Spironolactone 25 MG Tab PO SCH (08:24)
[2024-02-19] MEDS: Levothyroxine 88 MCG Tab PO SCH (08:25)
[2024-02-19] MEDS: Dorzolamide/Timolol 2%-0.5% Ophth Soln 10 ML Bottle EYELF SCH (08:31)
[2024-02-19] MEDS: Brimonidine 0.2% Ophth Soln 5 ML Bottle EYELF SCH (08:31)
[2024-02-20] MEDS: MYCOPHENOLATE 500 MG PO ONE (22:39)
[2024-02-21] MEDS: hydrOXYzine HCl 25 MG Tab PO PRN (04:21)
[2024-02-21 11:57] LABS: HEMOGLOBIN 11.1 g/dL (12.0-16.0); MEAN CORPUSCULAR HGB CONC 31.7 g/dL (33.0-35.0); MEAN CORPUSCULAR VOLUME 100.9 fL (80-100); PLATELET COUNT,PLT 85 10^3/uL (150-450); RED BLOOD CELL COUNT 3.47 10^6/uL (4.2-5.4); WHITE BLOOD CELL COUNT,WBC 9.5 10^3/uL (5.0-10.0)
[2024-02-21 11:58] LABS: BASOPHILS PERCENT AUTO 0.2 % (0.0-1.0); LYMPHOCYTES PERCENT AUTO 35.3 % (20.5-50.1); MONOCYTES PERCENT AUTO 8.2 % (2-8); NEUTROPHILS PERCENT AUTO 52.3 % (42.2-75.2)
[2024-02-21 12:12] LABS: EOSINOPHILS PERCENT MAN 3 % (1-3); LYMPHOCYTES PERCENT MAN 26 % (20-50); MONOCYTES PERCENT MAN 10 % (2-8); SEG NEUTROPHILS PERCENT MAN 61 % (42-75)
[2024-02-21 12:18] LABS: A/G RATIO 0.63; ALBUMIN 1.7 g/dL (3.4-5.0); BUN/CREATININE RATIO 18.9 (No establ ref range); CALCIUM 9.1 mg/dL (8.5-10.1); CREATININE 1.11 mg/dL (0.55-1.02); EST CRCL DRUG DOSING (CG) 53.69 mL/min; MAGNESIUM 1.5 mg/dL (1.8-2.4); PROTEIN TOTAL,TP 4.4 g/dL (6.4-8.2)
[2024-02-21] MEDS: Magnesium Sulfate/Water Premix 2 GM in Premix Bag 1 BAG IV ONE (12:43)
[2024-02-21] MEDS: Melatonin 3 MG Tab PO PRN (20:46)
[2024-02-22] MEDS: Levothyroxine 88 MCG Tab PO SCH (04:47)
[2024-02-28] MEDS: Ondansetron 4 MG Tab.DIS PO PRN (01:46)
[2024-02-28 06:16] LABS: HEMATOCRIT 31.7 % (37.0-47.0); HEMOGLOBIN 9.9 g/dL (12.0-16.0); MEAN CORPUSCULAR HEMOGLOBIN 31.8 pg (27.0-34.0); MEAN CORPUSCULAR HGB CONC 31.2 g/dL (33.0-35.0); MEAN CORPUSCULAR VOLUME 101.9 fL (80-100); PLATELET COUNT,PLT 91 10^3/uL (150-450); RED BLOOD CELL COUNT 3.11 10^6/uL (4.2-5.4); WHITE BLOOD CELL COUNT,WBC 10.7 10^3/uL (5.0-10.0)
[2024-02-28 06:20] LABS: BASOPHILS PERCENT AUTO 0.3 % (0.0-1.0); LYMPHOCYTES PERCENT AUTO 19.7 % (20.5-50.1); MONOCYTES PERCENT AUTO 10.6 % (2-8); NEUTROPHILS PERCENT AUTO 67.4 % (42.2-75.2)
[2024-02-28 06:27] LABS: BAND PERCENT MAN 1 %; EOSINOPHILS PERCENT MAN 3 % (1-3); LYMPHOCYTES PERCENT MAN 21 % (20-50); MONOCYTES PERCENT MAN 5 % (2-8); SEG NEUTROPHILS PERCENT MAN 70 % (42-75)
[2024-02-28 06:38] LABS: ALBUMIN 1.4 g/dL (3.4-5.0); ANION GAP 3.2 mEq/L (7-13); BILIRUBIN TOTAL 1.5 mg/dL (0.2-1.0); BUN/CREATININE RATIO 23.1 (No establ ref range); CREATININE 1.08 mg/dL (0.55-1.02); EST CRCL DRUG DOSING (CG) 55.18 mL/min; POTASSIUM,K 5.2 mmol/L (3.5-5.1); PROTEIN TOTAL,TP 3.8 g/dL (6.4-8.2)
[2024-02-28 06:39] LABS: A/G RATIO 0.58
[2024-02-28] MEDS: Magnesium Oxide 400 MG Tab PO SCH ×2 (08:20→17:45)
[2024-02-29] MEDS: Levothyroxine 88 MCG Tab PO SCH (05:24)
[2024-02-29] MEDS: Furosemide 80 MG Tab PO SCH (08:09)
[2024-02-29] MEDS: Spironolactone 25 MG Tab PO SCH (08:10)
[2024-03-02 14:47] LABS: HEMATOCRIT 34.5 % (37.0-47.0); HEMOGLOBIN 11.1 g/dL (12.0-16.0); MEAN CORPUSCULAR HEMOGLOBIN 32.6 pg (27.0-34.0); MEAN CORPUSCULAR HGB CONC 32.2 g/dL (33.0-35.0); MEAN CORPUSCULAR VOLUME 101.5 fL (80-100); PLATELET COUNT,PLT 116 10^3/uL (150-450); WHITE BLOOD CELL COUNT,WBC 9.6 10^3/uL (5.0-10.0)
[2024-03-02 14:53] LABS: BASOPHILS PERCENT AUTO 0.1 % (0.0-1.0); EOSINOPHILS PERCENT AUTO 1.1 % (1.0-3.0); LYMPHOCYTES PERCENT AUTO 11.2 % (20.5-50.1); MONOCYTES PERCENT AUTO 6.7 % (2-8); NEUTROPHILS PERCENT AUTO 80.9 % (42.2-75.2)
[2024-03-02 15:11] LABS: ALBUMIN 1.6 g/dL (3.4-5.0); ANION GAP 5.5 mEq/L (7-13); BUN/CREATININE RATIO 22.5 (No establ ref range); CALCIUM 9.2 mg/dL (8.5-10.1); CREATININE 1.29 mg/dL (0.55-1.02); EST CRCL DRUG DOSING (CG) 46.2 mL/min; PHOSPHORUS 3.3 mg/dL (2.6-4.7); POTASSIUM,K 5.5 mmol/L (3.5-5.1)
[2024-03-02 15:19] LABS: EOSINOPHILS PERCENT MAN 1 % (1-3); LYMPHOCYTES PERCENT MAN 12 % (20-50); MONOCYTES PERCENT MAN 5 % (2-8); SEG NEUTROPHILS PERCENT MAN 82 % (42-75)
[2024-03-02 19:12] LABS: APPEARANCE,URINE SLIGHTLY CLOUDY (CLEAR); BILIRUBIN,URINE NEGATIVE (NEGATIVE); COLOR,URINE YELLOW (YELLOW); GLUCOSE,URINE NEGATIVE (NEGATIVE); KETONES,URINE TRACE (NEGATIVE); LEUKOCYTE ESTERASE,URINE NEGATIVE (NEGATIVE); NITRITE,URINE NEGATIVE (NEGATIVE); OCCULT BLOOD,URINE MODERATE (NEGATIVE); PROTEIN,URINE >=300 (NEGATIVE); UROBILINOGEN,URINE 0.2 mg/dL (0.2-1.0)
[2024-03-02 19:28] LABS: BACTERIA,URINE MODERATE /HPF (0-FEW/HPF); CREATININE,URINE RAND 117.61 mg/dL (No establ ref range); EPITHELIAL CELLS,URINE MODERATE /HPF (NOT SEEN); FINE GRANULAR CASTS,URINE FEW /LPF (NOT SEEN); HYALINE CASTS,URINE FEW; MUCUS,URINE FEW /LPF (NOT SEEN); PROTEIN CREATININE RATIO,URINE 1419.9 mg/g (<150.0); RBC,URINE 30-40 /HPF (0-5); YEAST,URINE RARE /HPF (NOT SEEN)
[2024-03-02 19:29] LABS: GRANULAR CASTS,URINE FEW
[2024-03-03 07:26] VITALS: BP 175/76; PULSE 77
[2024-03-03] MEDS: Furosemide 20 MG Tab PO SCH (08:16)
== END 2024-03-03 09:25 | DRG 947 ==
LOC: DL.MS 02-18 19:19
PROVIDERS: ADMIT Internal Medicine; ATTEND Internal Medicine
DX: R53.1 Weakness (principal); K72.00 Acute and subacute hepatic failure without coma; I13.0 Hypertensive heart and chronic kidney disease with heart failure and stage 1 through stage 4 chronic kidney disease, or unspecified chronic kidney disease; N18.32 Chronic kidney disease, stage 3b; M25.562 Pain in left knee; E66.9 Obesity, unspecified; D63.1 Anemia in chronic kidney disease; K74.69 Other cirrhosis of liver; I50.9 Heart failure, unspecified; M19.90 Unspecified osteoarthritis, unspecified site; E03.9 Hypothyroidism, unspecified; F41.0 Panic disorder [episodic paroxysmal anxiety]; M54.9 Dorsalgia, unspecified; K21.9 Gastro-esophageal reflux disease without esophagitis; D69.6 Thrombocytopenia, unspecified; E88.09 Other disorders of plasma-protein metabolism, not elsewhere classified; K76.82 Hepatic encephalopathy; R53.81 Other malaise; M32.9 Systemic lupus erythematosus, unspecified; K72.10 Chronic hepatic failure without coma; G89.4 Chronic pain syndrome; Z79.52 Long term (current) use of systemic steroids; Z98.890 Other specified postprocedural states; Z79.899 Other long term (current) drug therapy
CPT/HCPCS: 36415; 80053; 80069; 81001; 82140; 82570; 83735; 84156; 85025; 97110-GO; 97110-GP; 97161-GP; 97165-GO; 97530-GP; 99306; 99310; 99315; A9270-GY; J7512

== ENCOUNTER 2024-03-04 12:23 | Emergency (ER) | payer MEDICAID ==
[2024-03-04 12:45] LABS: MEAN CORPUSCULAR HEMOGLOBIN 31.9 pg (27.0-34.0); MEAN CORPUSCULAR HGB CONC 31.7 g/dL (33.0-35.0); MEAN CORPUSCULAR VOLUME 100.7 fL (80-100); PLATELET COUNT,PLT 121 10^3/uL (150-450); RED BLOOD CELL COUNT 4.07 10^6/uL (4.2-5.4); WHITE BLOOD CELL COUNT,WBC 8.8 10^3/uL (5.0-10.0)
[2024-03-04 12:47] LABS: BASOPHILS PERCENT AUTO 0.2 % (0.0-1.0); EOSINOPHILS PERCENT AUTO 3.6 % (1.0-3.0); LYMPHOCYTES PERCENT AUTO 34.9 % (20.5-50.1); MONOCYTES PERCENT AUTO 10.1 % (2-8); NEUTROPHILS PERCENT AUTO 51.2 % (42.2-75.2)
[2024-03-04 13:03] LABS: PROTHROMBIN TIME 10.2 SEC (9.0-12.0); PTT,PARTIAL THROMBOPLSTIN TIME 24.3 SEC (22.0-34.0)
[2024-03-04 13:07] LABS: ALANINE AMINOTRANSFERASE,ALT 42 U/L (14-59); ALBUMIN 1.8 g/dL (3.4-5.0); ALKALINE PHOSPHATASE 219 U/L (46-116); ANION GAP 8.8 mEq/L (7-13); ASPARTATE AMNIOTRANSFERASE,AST 36 U/L (15-37); BLOOD UREA NITROGEN,BUN 31 mg/dL (7-18); CALCIUM 9.5 mg/dL (8.5-10.1); CARBON DIOXIDE,CO2 31 mmol/L (21-32); CHLORIDE,CL 106 mmol/L (98-107); CREATININE 1.29 mg/dL (0.55-1.02); GLUCOSE RANDOM 125 mg/dL (70-99); MAGNESIUM 1.9 mg/dL (1.8-2.4); POTASSIUM,K 4.8 mmol/L (3.5-5.1); PROTEIN TOTAL,TP 4.8 g/dL (6.4-8.2); SODIUM,NA 141 mmol/L (136-145)
[2024-03-04 13:08] LABS: C-REACTIVE PROTEIN < 0.50 ng/dL (<=0.50); ESTIMATED GFR 47 mL/min (>=60); LACTIC ACID 1.2 mmol/L (0.4-2.0)
[2024-03-04 13:09] LABS: EOSINOPHILS PERCENT MAN 6 % (1-3); LYMPHOCYTES PERCENT MAN 30 % (20-50); MONOCYTES PERCENT MAN 11 % (2-8); SEG NEUTROPHILS PERCENT MAN 53 % (42-75)
[2024-03-04 13:14] LABS: APPEARANCE,URINE SLIGHTLY CLOUDY (CLEAR); BILIRUBIN,URINE SMALL (NEGATIVE); COLOR,URINE DARK YELLOW (YELLOW); GLUCOSE,URINE NEGATIVE (NEGATIVE); KETONES,URINE NEGATIVE (NEGATIVE); LEUKOCYTE ESTERASE,URINE NEGATIVE (NEGATIVE); NITRITE,URINE NEGATIVE (NEGATIVE); OCCULT BLOOD,URINE MODERATE (NEGATIVE); PROTEIN,URINE >=300 (NEGATIVE)
[2024-03-04 13:17] LABS: AMPHETAMINES,URINE NEGATIVE (NEGATIVE); BARBITURATES,URINE NEGATIVE (NEGATIVE); BENZODIAZEPINE,URINE NEGATIVE (NEGATIVE); MDMA (ECSTASY), URINE NEGATIVE (NEGATIVE); METHADONE,URINE NEGATIVE (NEGATIVE); METHAMPHETAMINES,URINE NEGATIVE (NEGATIVE); OPIATES,URINE NEGATIVE (NEGATIVE); OXYCODONE,URINE NEGATIVE (NEGATIVE); PHENCYCLIDINE,URINE NEGATIVE (NEGATIVE); TCA,URINE NEGATIVE (NEGATIVE)
[2024-03-04 13:21] LABS: AMORPHOUS SEDIMENT,URINE FEW /HPF (NOT SEEN); BACTERIA,URINE FEW /HPF (0-FEW/HPF); EPITHELIAL CELLS,URINE FEW /HPF (NOT SEEN); MUCUS,URINE MODERATE /LPF (NOT SEEN); RBC,URINE 20-30 /HPF (0-5); WBC,URINE 0-5 /HPF (0-5/HPF)
[2024-03-04 14:00] VITALS: BP 180/93; PULSE 87
== END 2024-03-04 15:18 ==
LOC: DL.ED 12:23
DX: K76.82 Hepatic encephalopathy (principal); I13.0 Hypertensive heart and chronic kidney disease with heart failure and stage 1 through stage 4 chronic kidney disease, or unspecified chronic kidney disease; I50.9 Heart failure, unspecified; N18.9 Chronic kidney disease, unspecified; K21.9 Gastro-esophageal reflux disease without esophagitis; E03.9 Hypothyroidism, unspecified; E66.9 Obesity, unspecified; Z79.890 Hormone replacement therapy; Z79.52 Long term (current) use of systemic steroids; Z79.899 Other long term (current) drug therapy
CPT/HCPCS: 36415; 71045; 80053; 80305-QW; 81001; 82140; 82947; 83605; 83735; 84484; 85025; 85610; 85730; 86140; 93005; 93010; 99285

== ENCOUNTER 2024-03-05 20:13 | Emergency (ER) | payer MEDICAID ==
[2024-03-05 20:44] VITALS: PULSE 96
[2024-03-05 21:47] VITALS: BP 129/81
== END 2024-03-05 21:43 ==
LOC: DL.ED 20:13
DX: K76.82 Hepatic encephalopathy (principal); I13.0 Hypertensive heart and chronic kidney disease with heart failure and stage 1 through stage 4 chronic kidney disease, or unspecified chronic kidney disease; I50.9 Heart failure, unspecified; N18.9 Chronic kidney disease, unspecified; K21.9 Gastro-esophageal reflux disease without esophagitis; E03.9 Hypothyroidism, unspecified; E66.9 Obesity, unspecified; Z79.890 Hormone replacement therapy; Z79.52 Long term (current) use of systemic steroids; Z79.899 Other long term (current) drug therapy
CPT/HCPCS: 99285

== ENCOUNTER 2024-03-06 11:27 | Emergency (ER) | payer MEDICAID ==
[2024-03-06 12:14] LABS: BASOPHILS PERCENT AUTO 0.3 % (0.0-1.0); EOSINOPHILS PERCENT AUTO 1.7 % (1.0-3.0); HEMATOCRIT 39.1 % (37.0-47.0); HEMOGLOBIN 12.3 g/dL (12.0-16.0); LYMPHOCYTES PERCENT AUTO 24.7 % (20.5-50.1); MEAN CORPUSCULAR HEMOGLOBIN 32.2 pg (27.0-34.0); MEAN CORPUSCULAR HGB CONC 31.5 g/dL (33.0-35.0); MEAN CORPUSCULAR VOLUME 102.4 fL (80-100); MONOCYTES PERCENT AUTO 10.7 % (2-8); NEUTROPHILS PERCENT AUTO 62.6 % (42.2-75.2); PLATELET COUNT,PLT 129 10^3/uL (150-450); RED BLOOD CELL COUNT 3.82 10^6/uL (4.2-5.4)
[2024-03-06 12:28] LABS: PROTHROMBIN TIME 10.7 SEC (9.0-12.0)
[2024-03-06 12:34] LABS: ALANINE AMINOTRANSFERASE,ALT 35 U/L (14-59); ALBUMIN 1.8 g/dL (3.4-5.0); ALKALINE PHOSPHATASE 172 U/L (46-116); ANION GAP 7.1 mEq/L (7-13); ASPARTATE AMNIOTRANSFERASE,AST 33 U/L (15-37); BILIRUBIN TOTAL 2.9 mg/dL (0.2-1.0); BLOOD UREA NITROGEN,BUN 38 mg/dL (7-18); BUN/CREATININE RATIO 20.9 (No establ ref range); CALCIUM 9.4 mg/dL (8.5-10.1); CARBON DIOXIDE,CO2 32 mmol/L (21-32); CHLORIDE,CL 108 mmol/L (98-107); CREATININE 1.82 mg/dL (0.55-1.02); EST CRCL DRUG DOSING (CG) 33.92 mL/min; GLUCOSE RANDOM 133 mg/dL (70-99); MAGNESIUM 2.1 mg/dL (1.8-2.4); POTASSIUM,K 5.1 mmol/L (3.5-5.1); PROTEIN TOTAL,TP 4.5 g/dL (6.4-8.2); SODIUM,NA 142 mmol/L (136-145)
[2024-03-06 12:35] LABS: A/G RATIO 0.67; ESTIMATED GFR 31 mL/min (>=60); ETHANOL BLOOD MEDICAL < 3 mg/dL (0)
[2024-03-06] MEDS: Sodium Chloride 0.9% 1,000 ML IV ONE (13:05)
[2024-03-06 14:17] LABS: APPEARANCE,URINE CLEAR (CLEAR); BILIRUBIN,URINE NEGATIVE (NEGATIVE); COLOR,URINE YELLOW (YELLOW); GLUCOSE,URINE NEGATIVE (NEGATIVE); KETONES,URINE NEGATIVE (NEGATIVE); LEUKOCYTE ESTERASE,URINE NEGATIVE (NEGATIVE); NITRITE,URINE NEGATIVE (NEGATIVE); OCCULT BLOOD,URINE TRACE-INTACT (NEGATIVE); PH,URINE 7.5 (5.0-9.0); PROTEIN,URINE >=300 (NEGATIVE)
[2024-03-06 14:21] LABS: BENZODIAZEPINE,URINE NEGATIVE (NEGATIVE); MDMA (ECSTASY), URINE NEGATIVE (NEGATIVE); METHADONE,URINE NEGATIVE (NEGATIVE); METHAMPHETAMINES,URINE NEGATIVE (NEGATIVE); OPIATES,URINE NEGATIVE (NEGATIVE)
[2024-03-06 14:22] LABS: AMPHETAMINES,URINE NEGATIVE (NEGATIVE); BARBITURATES,URINE NEGATIVE (NEGATIVE); OXYCODONE,URINE NEGATIVE (NEGATIVE); PHENCYCLIDINE,URINE NEGATIVE (NEGATIVE); TCA,URINE NEGATIVE (NEGATIVE)
[2024-03-06 14:28] LABS: BACTERIA,URINE FEW /HPF (0-FEW/HPF); EPITHELIAL CELLS,URINE OCCASIONAL /HPF (NOT SEEN); MUCUS,URINE OCCASIONAL /LPF (NOT SEEN); RBC,URINE 0-5 /HPF (0-5); WBC,URINE 0-5 /HPF (0-5/HPF)
[2024-03-06 14:29] LABS: FINE GRANULAR CASTS,URINE RARE /LPF (NOT SEEN)
[2024-03-06] MEDS: Lactulose Soln 10 GM/15 ML 946 ML Bottle RECTAL ONE ×2 (14:41→15:19)
[2024-03-06 17:35] VITALS: BP 176/97; PULSE 90
== END 2024-03-06 17:50 ==
LOC: DL.ED 11:27
DX: K76.82 Hepatic encephalopathy (principal); N17.9 Acute kidney failure, unspecified; I13.0 Hypertensive heart and chronic kidney disease with heart failure and stage 1 through stage 4 chronic kidney disease, or unspecified chronic kidney disease; I50.9 Heart failure, unspecified; N18.9 Chronic kidney disease, unspecified; K21.9 Gastro-esophageal reflux disease without esophagitis; E03.9 Hypothyroidism, unspecified; E66.9 Obesity, unspecified; Z79.890 Hormone replacement therapy; Z79.51 Long term (current) use of inhaled steroids; Z79.899 Other long term (current) drug therapy
CPT/HCPCS: 36415; 70450; 71045; 80053; 80305-QW; 80307; 81001; 82140; 82947; 83735; 84484; 85025; 85610; 93005; 96360; 96361; 99285-25; J7030

== ENCOUNTER 2024-03-11 20:23 | Emergency (ER) | payer MEDICAID ==
[2024-03-11] MEDS ORDERED: Sodium Chloride 0.9% 10 ML Syringe FLUSH PRN (21:06)
[2024-03-11 21:19] LABS: HEMATOCRIT 31.6 % (37.0-47.0); HEMOGLOBIN 9.9 g/dL (12.0-16.0); MEAN CORPUSCULAR HEMOGLOBIN 32.2 pg (27.0-34.0); MEAN CORPUSCULAR HGB CONC 31.3 g/dL (33.0-35.0); MEAN CORPUSCULAR VOLUME 102.9 fL (80-100); PLATELET COUNT,PLT 92 10^3/uL (150-450); RED BLOOD CELL COUNT 3.07 10^6/uL (4.2-5.4)
[2024-03-11 21:22] LABS: BASOPHILS PERCENT AUTO 0.1 % (0.0-1.0); EOSINOPHILS PERCENT AUTO 0.1 % (1.0-3.0); LYMPHOCYTES PERCENT AUTO 16.1 % (20.5-50.1); NEUTROPHILS PERCENT AUTO 73.7 % (42.2-75.2)
[2024-03-11 21:29] LABS: INR 1.2 (0.9-1.2); PROTHROMBIN TIME 11.9 SEC (9.0-12.0); PTT,PARTIAL THROMBOPLSTIN TIME 24.9 SEC (22.0-34.0)
[2024-03-11 21:30] LABS: ALANINE AMINOTRANSFERASE,ALT 41 U/L (14-59); ALBUMIN 1.3 g/dL (3.4-5.0); ALKALINE PHOSPHATASE 155 U/L (46-116); ANION GAP 11.8 mEq/L (7-13); ASPARTATE AMNIOTRANSFERASE,AST 50 U/L (15-37); BILIRUBIN TOTAL 1.2 mg/dL (0.2-1.0); BLOOD UREA NITROGEN,BUN 32 mg/dL (7-18); BUN/CREATININE RATIO 18.2 (No establ ref range); CALCIUM 8.8 mg/dL (8.5-10.1); CARBON DIOXIDE,CO2 27 mmol/L (21-32); CHLORIDE,CL 107 mmol/L (98-107); CREATININE 1.76 mg/dL (0.55-1.02); GLUCOSE RANDOM 232 mg/dL (70-99); POTASSIUM,K 5.8 mmol/L (3.5-5.1); PROTEIN TOTAL,TP 3.7 g/dL (6.4-8.2); SODIUM,NA 140 mmol/L (136-145)
[2024-03-11 21:32] LABS: A/G RATIO 0.54; ESTIMATED GFR 33 mL/min (>=60)
[2024-03-11 21:34] LABS: B-TYPE NATRIURETIC PEPTIDE,BNP 21 pg/ml (0-100)
[2024-03-11 21:36] LABS: LACTIC ACID 2.5 mmol/L (0.4-2.0)
[2024-03-11 21:45] LABS: BAND PERCENT MAN 2 %; LYMPHOCYTES PERCENT MAN 18 % (20-50); MONOCYTES PERCENT MAN 8 % (2-8); SEG NEUTROPHILS PERCENT MAN 72 % (42-75)
[2024-03-11 22:10] LABS: BILIRUBIN,URINE NEGATIVE (NEGATIVE); COLOR,URINE DARK YELLOW (YELLOW); GLUCOSE,URINE NEGATIVE (NEGATIVE); KETONES,URINE 15 (NEGATIVE); LEUKOCYTE ESTERASE,URINE NEGATIVE (NEGATIVE); NITRITE,URINE NEGATIVE (NEGATIVE); OCCULT BLOOD,URINE TRACE-INTACT (NEGATIVE); PH,URINE 5.5 (5.0-9.0); PROTEIN,URINE 100 (NEGATIVE); UROBILINOGEN,URINE 0.2 mg/dL (0.2-1.0)
[2024-03-11 22:11] LABS: APPEARANCE,URINE SLIGHTLY CLOUDY (CLEAR)
[2024-03-11] MEDS: cefTRIAXone 1 GM Vial IVPUSH ONE (22:17)
[2024-03-11 22:20] LABS: WBC,URINE 0-5 /HPF (0-5/HPF)
[2024-03-11 22:21] LABS: BACTERIA,URINE FEW /HPF (0-FEW/HPF); EPITHELIAL CELLS,URINE FEW /HPF (NOT SEEN); MUCUS,URINE RARE /LPF (NOT SEEN)
[2024-03-11 22:22] LABS: CALCIUM OXALATE CRYSTALS,URINE FEW /HPF (NOT SEEN)
[2024-03-11 22:24] LABS: HYALINE CASTS,URINE MODERATE
[2024-03-11] MEDS: Lactulose Soln 10 GM/15 ML 30 ML UD Cup ONE ×2 (22:35)
[2024-03-11] MEDS: Sodium Chloride 0.9% 1,000 ML IV SCH (22:36)
[2024-03-11] MEDS: Lactulose Soln 10 GM/15 ML 946 ML Bottle RECTAL ONE (22:36)
[2024-03-12 02:00] VITALS: BP 149/57; PULSE 77
== END 2024-03-12 03:25 | disposition home or self-care (01) ==
LOC: DL.ED 20:23
DX: K76.82 Hepatic encephalopathy (principal); K74.60 Unspecified cirrhosis of liver; E83.119 Hemochromatosis, unspecified; K76.7 Hepatorenal syndrome; E87.20 Acidosis, unspecified; E86.0 Dehydration; E72.20 Disorder of urea cycle metabolism, unspecified; D64.9 Anemia, unspecified; E66.01 Morbid (severe) obesity due to excess calories; R94.5 Abnormal results of liver function studies; I13.0 Hypertensive heart and chronic kidney disease with heart failure and stage 1 through stage 4 chronic kidney disease, or unspecified chronic kidney disease; I50.9 Heart failure, unspecified; N18.32 Chronic kidney disease, stage 3b; K21.9 Gastro-esophageal reflux disease without esophagitis; E03.9 Hypothyroidism, unspecified; E66.9 Obesity, unspecified; Z68.41 Body mass index [BMI] 40.0-44.9, adult; Z79.52 Long term (current) use of systemic steroids; Z79.890 Hormone replacement therapy; Z79.899 Other long term (current) drug therapy
CPT/HCPCS: 36415; 80053; 81001; 82140; 83605; 83880; 85025; 85610; 85730; 96361; 96374; 99284; A9270; J0696; J7030; 99285

== ENCOUNTER 2024-03-12 08:25 | Emergency (ER) | payer MEDICAID ==
[2024-03-12 08:50] LABS: HEMATOCRIT 39.9 % (37.0-47.0); HEMOGLOBIN 12.7 g/dL (12.0-16.0); MEAN CORPUSCULAR HEMOGLOBIN 32.5 pg (27.0-34.0); MEAN CORPUSCULAR HGB CONC 31.8 g/dL (33.0-35.0); PLATELET COUNT,PLT 105 10^3/uL (150-450); RED BLOOD CELL COUNT 3.91 10^6/uL (4.2-5.4); WHITE BLOOD CELL COUNT,WBC 13.3 10^3/uL (5.0-10.0)
[2024-03-12 08:52] LABS: BASOPHILS PERCENT AUTO 0.2 % (0.0-1.0); EOSINOPHILS PERCENT AUTO 1.1 % (1.0-3.0); LYMPHOCYTES PERCENT AUTO 27.5 % (20.5-50.1); MONOCYTES PERCENT AUTO 8.7 % (2-8); NEUTROPHILS PERCENT AUTO 62.5 % (42.2-75.2)
[2024-03-12 09:04] LABS: PROTHROMBIN TIME 10.6 SEC (9.0-12.0)
[2024-03-12 09:14] LABS: BAND PERCENT MAN 2 %; EOSINOPHILS PERCENT MAN 2 % (1-3); LYMPHOCYTES PERCENT MAN 20 % (20-50); MONOCYTES PERCENT MAN 10 % (2-8); SEG NEUTROPHILS PERCENT MAN 67 % (42-75)
[2024-03-12 09:15] LABS: ANION GAP 11.8 mEq/L (7-13); BUN/CREATININE RATIO 19.9 (No establ ref range); CALCIUM 9.3 mg/dL (8.5-10.1); CREATININE 1.56 mg/dL (0.55-1.02); EST CRCL DRUG DOSING (CG) 35.45 mL/min; MAGNESIUM 2.2 mg/dL (1.8-2.4); POTASSIUM,K 4.8 mmol/L (3.5-5.1)
[2024-03-12 09:16] LABS: A/G RATIO 0.67
[2024-03-12] MEDS: Lactulose Soln 10 GM/15 ML 30 ML UD Cup PO ONE (09:17)
[2024-03-12] MEDS: Lactulose Soln 10 GM/15 ML 946 ML Bottle RECTAL ONE (09:18)
[2024-03-12 10:38] LABS: LACTIC ACID 1.4 mmol/L (0.4-2.0)
[2024-03-12 12:14] VITALS: BP 142/73; PULSE 70
== END 2024-03-12 12:45 ==
LOC: DL.ED 08:25
DX: K76.82 Hepatic encephalopathy (principal); I13.0 Hypertensive heart and chronic kidney disease with heart failure and stage 1 through stage 4 chronic kidney disease, or unspecified chronic kidney disease; I50.9 Heart failure, unspecified; N18.9 Chronic kidney disease, unspecified; D72.829 Elevated white blood cell count, unspecified; K21.9 Gastro-esophageal reflux disease without esophagitis; E03.9 Hypothyroidism, unspecified; E66.9 Obesity, unspecified; Z79.52 Long term (current) use of systemic steroids; Z79.890 Hormone replacement therapy; Z79.899 Other long term (current) drug therapy; Z68.42 Body mass index [BMI] 45.0-49.9, adult
CPT/HCPCS: 36415; 70450; 71045; 80053; 82140; 83605; 83690; 83735; 84484; 85025; 85610; 87040; 93005; 99285; A9270; 93010

== ENCOUNTER 2024-03-20 16:09 | Inpatient (IN) | payer MEDICAID ==
[2024-03-20] MEDS ORDERED: Sodium Chloride 0.9% 10 ML Syringe FLUSH PRN ×2 (16:19→19:48)
[2024-03-20 16:37] LABS: HEMATOCRIT 30.4 % (37.0-47.0); HEMOGLOBIN 9.7 g/dL (12.0-16.0); MEAN CORPUSCULAR HGB CONC 31.9 g/dL (33.0-35.0); MEAN CORPUSCULAR VOLUME 103.4 fL (80-100); PLATELET COUNT,PLT 99 10^3/uL (150-450); RED BLOOD CELL COUNT 2.94 10^6/uL (4.2-5.4); WHITE BLOOD CELL COUNT,WBC 7.5 10^3/uL (5.0-10.0)
[2024-03-20 16:41] LABS: EOSINOPHILS PERCENT AUTO 0.1 % (1.0-3.0); MONOCYTES PERCENT AUTO 8.3 % (2-8); NEUTROPHILS PERCENT AUTO 78.6 % (42.2-75.2)
[2024-03-20 16:59] LABS: INR 1.1 (0.9-1.2); PROTHROMBIN TIME 11.7 SEC (9.0-12.0); PTT,PARTIAL THROMBOPLSTIN TIME 24.8 SEC (22.0-34.0)
[2024-03-20 17:02] LABS: LACTIC ACID 2.2 mmol/L (0.4-2.0)
[2024-03-20 17:06] LABS: ALANINE AMINOTRANSFERASE,ALT 48 U/L (14-59); ALBUMIN 2.1 g/dL (3.4-5.0); ALKALINE PHOSPHATASE 194 U/L (46-116); ANION GAP 11.2 mEq/L (7-13); ASPARTATE AMNIOTRANSFERASE,AST 44 U/L (15-37); BLOOD UREA NITROGEN,BUN 40 mg/dL (7-18); BUN/CREATININE RATIO 25.8 (No establ ref range); CALCIUM 9.3 mg/dL (8.5-10.1); CARBON DIOXIDE,CO2 26 mmol/L (21-32); CHLORIDE,CL 107 mmol/L (98-107); CREATININE 1.55 mg/dL (0.55-1.02); GLUCOSE RANDOM 227 mg/dL (70-99); MAGNESIUM 2.1 mg/dL (1.8-2.4); POTASSIUM,K 5.2 mmol/L (3.5-5.1); PROTEIN TOTAL,TP 4.2 g/dL (6.4-8.2); SODIUM,NA 139 mmol/L (136-145); TSH ULTRASENSITIVE 0.46 uIU/mL (0.36-3.74)
[2024-03-20 17:09] LABS: C-REACTIVE PROTEIN < 0.50 ng/dL (<=0.50); ESTIMATED GFR 38 mL/min (>=60)
[2024-03-20 18:02] LABS: BAND PERCENT MAN 3 %; LYMPHOCYTES PERCENT MAN 15 % (20-50); MONOCYTES PERCENT MAN 6 % (2-8); SEG NEUTROPHILS PERCENT MAN 76 % (42-75)
[2024-03-20] MEDS: Sodium Chloride 0.9% 1,000 ML IV ONE (18:30)
[2024-03-20] MEDS ORDERED: Ondansetron 4 MG/2 ML SDV IVPUSH PRN (19:48)
[2024-03-20] MEDS ORDERED: Ibuprofen 400 MG Tab PO PRN (19:48)
[2024-03-20] MEDS: Brimonidine 0.2% Ophth Soln 5 ML Bottle EYELF SCH (23:46)
[2024-03-20] MEDS: Rifaximin 550 MG Tab PO SCH (23:46)
[2024-03-20] MEDS: Dorzolamide/Timolol 2%-0.5% Ophth Soln 10 ML Bottle EYELF SCH (23:47)
[2024-03-20] MEDS: Sodium Chloride 0.9% 10 ML Syringe FLUSH SCH (23:48)
[2024-03-21] MEDS: Lactulose Soln 10 GM/15 ML 946 ML Bottle PO SCH (02:00)
[2024-03-21 04:14] LABS: BILIRUBIN,URINE NEGATIVE (NEGATIVE); COLOR,URINE YELLOW (YELLOW); GLUCOSE,URINE NEGATIVE (NEGATIVE); KETONES,URINE TRACE (NEGATIVE); LEUKOCYTE ESTERASE,URINE NEGATIVE (NEGATIVE); NITRITE,URINE NEGATIVE (NEGATIVE); OCCULT BLOOD,URINE SMALL (NEGATIVE); PROTEIN,URINE >=300 (NEGATIVE); UROBILINOGEN,URINE 0.2 mg/dL (0.2-1.0)
[2024-03-21 04:20] LABS: AMPHETAMINES,URINE NEGATIVE (NEGATIVE); APPEARANCE,URINE SLIGHTLY CLOUDY (CLEAR); BARBITURATES,URINE NEGATIVE (NEGATIVE); BENZODIAZEPINE,URINE NEGATIVE (NEGATIVE); MDMA (ECSTASY), URINE NEGATIVE (NEGATIVE); METHADONE,URINE NEGATIVE (NEGATIVE); METHAMPHETAMINES,URINE NEGATIVE (NEGATIVE); OPIATES,URINE NEGATIVE (NEGATIVE); OXYCODONE,URINE NEGATIVE (NEGATIVE); PHENCYCLIDINE,URINE NEGATIVE (NEGATIVE); TCA,URINE NEGATIVE (NEGATIVE)
[2024-03-21 04:45] LABS: BACTERIA,URINE FEW /HPF (0-FEW/HPF); EPITHELIAL CELLS,URINE MODERATE /HPF (NOT SEEN); MUCUS,URINE FEW /LPF (NOT SEEN); WBC,URINE 0-5 /HPF (0-5/HPF)
[2024-03-21] MEDS: Levothyroxine 88 MCG Tab PO SCH (05:27)
[2024-03-21] MEDS: Omeprazole 20 MG Cap.CR PO SCH (05:27)
[2024-03-21 07:03] LABS: HEMOGLOBIN 9.8 g/dL (12.0-16.0); MEAN CORPUSCULAR HGB CONC 31.6 g/dL (33.0-35.0); MEAN CORPUSCULAR VOLUME 104.4 fL (80-100); PLATELET COUNT,PLT 86 10^3/uL (150-450); RED BLOOD CELL COUNT 2.97 10^6/uL (4.2-5.4); WHITE BLOOD CELL COUNT,WBC 9.1 10^3/uL (5.0-10.0)
[2024-03-21 07:20] LABS: EOSINOPHILS PERCENT AUTO 1.5 % (1.0-3.0); LYMPHOCYTES PERCENT AUTO 32.6 % (20.5-50.1); MONOCYTES PERCENT AUTO 10.8 % (2-8)
[2024-03-21 07:21] LABS: BASOPHILS PERCENT AUTO 0.1 % (0.0-1.0)
[2024-03-21 07:37] LABS: ANION GAP 8.7 mEq/L (7-13); BILIRUBIN TOTAL 1.6 mg/dL (0.2-1.0); BUN/CREATININE RATIO 27.5 (No establ ref range); CALCIUM 9.2 mg/dL (8.5-10.1); CREATININE 1.31 mg/dL (0.55-1.02); EST CRCL DRUG DOSING (CG) 45.49 mL/min; PHOSPHORUS 3.8 mg/dL (2.6-4.7); POTASSIUM,K 4.7 mmol/L (3.5-5.1); PROTEIN TOTAL,TP 4.2 g/dL (6.4-8.2)
[2024-03-21 07:40] LABS: A/G RATIO 0.91
[2024-03-21 07:50] LABS: EOSINOPHILS PERCENT MAN 1 % (1-3); LYMPHOCYTES PERCENT MAN 38 % (20-50); MONOCYTES PERCENT MAN 10 % (2-8); MYELOCYTE PERCENT MAN 1; SEG NEUTROPHILS PERCENT MAN 50 % (42-75)
[2024-03-21 07:51] LABS: ANISOCYTOSIS 1+ SLIGHT; ATYPICAL LYMPHOCYTES FEW
[2024-03-21 07:52] LABS: PLATELET COUNT ESTIMATE DECREASED
[2024-03-21] MEDS: Enoxaparin 40 MG/0.4 ML Syringe SUBCUT SCH (10:41)
[2024-03-21] MEDS: predniSONE 20 MG Tab PO SCH (10:41)
[2024-03-21] MEDS: Spironolactone 25 MG Tab PO SCH ×2 (10:42→20:35)
[2024-03-21] MEDS: Magnesium Oxide 400 MG Tab PO SCH (10:42)
[2024-03-21] MEDS: Losartan 25 MG Tab PO SCH (10:42)
[2024-03-21] MEDS: Furosemide 40 MG Tab PO SCH (10:43)
[2024-03-21] MEDS: Lactulose Soln 10 GM/15 ML 30 ML UD Cup PO ONE (11:12)
[2024-03-21] MEDS: Diphtheria,Pertussis(Acell),Tetanus Vaccine 0.5 ML Syringe IM ONE (11:35)
[2024-03-21] MEDS: Lactulose Soln 10 GM/15 ML 30 ML UD Cup PO SCH (13:39)
[2024-03-21] MEDS: Mupirocin Oint 22 GM Tube TOP SCH (20:34)
[2024-03-21] MEDS: Mycophenolate Mofetil 250 MG Cap PO SCH (20:34)
[2024-03-21] MEDS: Melatonin 3 MG Tab PO PRN (20:57)
[2024-03-21] MEDS ORDERED: Magnesium Oxide 400 MG Tab PO SCH (21:00)
[2024-03-22 06:59] LABS: HEMATOCRIT 27.7 % (37.0-47.0); HEMOGLOBIN 8.7 g/dL (12.0-16.0); MEAN CORPUSCULAR HEMOGLOBIN 32.7 pg (27.0-34.0); MEAN CORPUSCULAR HGB CONC 31.4 g/dL (33.0-35.0); MEAN CORPUSCULAR VOLUME 104.1 fL (80-100); PLATELET COUNT,PLT 72 10^3/uL (150-450); RED BLOOD CELL COUNT 2.66 10^6/uL (4.2-5.4); WHITE BLOOD CELL COUNT,WBC 6.2 10^3/uL (5.0-10.0)
[2024-03-22 07:05] LABS: BASOPHILS PERCENT AUTO 0.2 % (0.0-1.0); EOSINOPHILS PERCENT AUTO 0.3 % (1.0-3.0); LYMPHOCYTES PERCENT AUTO 17.2 % (20.5-50.1); MONOCYTES PERCENT AUTO 8.4 % (2-8); NEUTROPHILS PERCENT AUTO 73.9 % (42.2-75.2)
[2024-03-22 07:35] LABS: BAND PERCENT MAN 1 %; LYMPHOCYTES PERCENT MAN 18 % (20-50); MONOCYTES PERCENT MAN 6 % (2-8); SEG NEUTROPHILS PERCENT MAN 75 % (42-75)
[2024-03-22 07:39] LABS: ALBUMIN 1.8 g/dL (3.4-5.0); ANION GAP 6.9 mEq/L (7-13); BILIRUBIN TOTAL 1.3 mg/dL (0.2-1.0); BUN/CREATININE RATIO 26.4 (No establ ref range); CALCIUM 9.3 mg/dL (8.5-10.1); CREATININE 1.29 mg/dL (0.55-1.02); EST CRCL DRUG DOSING (CG) 46.2 mL/min; FOLIC ACID 18.1 ng/mL (8.6-58.9); POTASSIUM,K 5.9 mmol/L (3.5-5.1); PROTEIN TOTAL,TP 3.8 g/dL (6.4-8.2)
[2024-03-22 07:41] LABS: A/G RATIO 0.9
[2024-03-22] MEDS: Lutein/Minerals/Vit A,C & E Tab PO SCH (09:13)
[2024-03-23] MEDS: hydrOXYzine HCl 25 MG Tab PO PRN (02:49)
[2024-03-23 06:50] LABS: HEMATOCRIT 29.5 % (37.0-47.0); HEMOGLOBIN 9.3 g/dL (12.0-16.0); MEAN CORPUSCULAR HEMOGLOBIN 32.6 pg (27.0-34.0); MEAN CORPUSCULAR HGB CONC 31.5 g/dL (33.0-35.0); MEAN CORPUSCULAR VOLUME 103.5 fL (80-100); PLATELET COUNT,PLT 96 10^3/uL (150-450); RED BLOOD CELL COUNT 2.85 10^6/uL (4.2-5.4); WHITE BLOOD CELL COUNT,WBC 8.8 10^3/uL (5.0-10.0)
[2024-03-23 06:51] LABS: BASOPHILS PERCENT AUTO 0.1 % (0.0-1.0); EOSINOPHILS PERCENT AUTO 1.4 % (1.0-3.0); LYMPHOCYTES PERCENT AUTO 19.8 % (20.5-50.1); MONOCYTES PERCENT AUTO 12.6 % (2-8); NEUTROPHILS PERCENT AUTO 66.1 % (42.2-75.2)
[2024-03-23 08:16] LABS: BAND PERCENT MAN 4 %; EOSINOPHILS PERCENT MAN 1 % (1-3); MONOCYTES PERCENT MAN 7 % (2-8); SEG NEUTROPHILS PERCENT MAN 70 % (42-75)
[2024-03-23 08:17] LABS: LYMPHOCYTES PERCENT MAN 18 % (20-50)
[2024-03-23 08:37] LABS: ALBUMIN 1.9 g/dL (3.4-5.0); ANION GAP 9.9 mEq/L (7-13); BILIRUBIN TOTAL 1.3 mg/dL (0.2-1.0); BUN/CREATININE RATIO 24.2 (No establ ref range); CALCIUM 9.1 mg/dL (8.5-10.1); CREATININE 1.2 mg/dL (0.55-1.02); EST CRCL DRUG DOSING (CG) 49.66 mL/min; POTASSIUM,K 4.9 mmol/L (3.5-5.1)
[2024-03-23 08:38] LABS: A/G RATIO 0.9
[2024-03-23] MEDS: Spironolactone 25 MG Tab PO SCH (09:46)
[2024-03-24 06:28] LABS: HEMATOCRIT 28.7 % (37.0-47.0); MEAN CORPUSCULAR HEMOGLOBIN 32.8 pg (27.0-34.0); MEAN CORPUSCULAR HGB CONC 31.4 g/dL (33.0-35.0); MEAN CORPUSCULAR VOLUME 104.7 fL (80-100); PLATELET COUNT,PLT 92 10^3/uL (150-450); RED BLOOD CELL COUNT 2.74 10^6/uL (4.2-5.4); WHITE BLOOD CELL COUNT,WBC 8.5 10^3/uL (5.0-10.0)
[2024-03-24 06:37] LABS: BASOPHILS PERCENT AUTO 0.1 % (0.0-1.0); EOSINOPHILS PERCENT AUTO 1.2 % (1.0-3.0); LYMPHOCYTES PERCENT AUTO 20.8 % (20.5-50.1); MONOCYTES PERCENT AUTO 12.2 % (2-8); NEUTROPHILS PERCENT AUTO 65.7 % (42.2-75.2)
[2024-03-24 06:49] LABS: A/G RATIO 0.81; ALBUMIN 1.7 g/dL (3.4-5.0); ANION GAP 7.8 mEq/L (7-13); BILIRUBIN TOTAL 1.3 mg/dL (0.2-1.0); BUN/CREATININE RATIO 21.9 (No establ ref range); CALCIUM 9.1 mg/dL (8.5-10.1); CREATININE 1.14 mg/dL (0.55-1.02); EST CRCL DRUG DOSING (CG) 52.28 mL/min; POTASSIUM,K 4.8 mmol/L (3.5-5.1); PROTEIN TOTAL,TP 3.8 g/dL (6.4-8.2)
[2024-03-24 07:30] LABS: BAND PERCENT MAN 2 %; LYMPHOCYTES PERCENT MAN 20 % (20-50); MONOCYTES PERCENT MAN 8 % (2-8); SEG NEUTROPHILS PERCENT MAN 68 % (42-75)
[2024-03-24 07:31] LABS: EOSINOPHILS PERCENT MAN 2 % (1-3)
[2024-03-24] MEDS: Furosemide 20 MG Tab PO SCH (14:31)
[2024-03-25 06:44] LABS: HEMATOCRIT 29.8 % (37.0-47.0); HEMOGLOBIN 9.4 g/dL (12.0-16.0); MEAN CORPUSCULAR HEMOGLOBIN 32.9 pg (27.0-34.0); MEAN CORPUSCULAR HGB CONC 31.5 g/dL (33.0-35.0); MEAN CORPUSCULAR VOLUME 104.2 fL (80-100); PLATELET COUNT,PLT 85 10^3/uL (150-450); RED BLOOD CELL COUNT 2.86 10^6/uL (4.2-5.4)
[2024-03-25 06:48] LABS: LYMPHOCYTES PERCENT AUTO 20.5 % (20.5-50.1); MONOCYTES PERCENT AUTO 11.2 % (2-8); NEUTROPHILS PERCENT AUTO 66.5 % (42.2-75.2)
[2024-03-25 06:49] LABS: BASOPHILS PERCENT AUTO 0.2 % (0.0-1.0); EOSINOPHILS PERCENT AUTO 1.6 % (1.0-3.0)
[2024-03-25 06:59] LABS: A/G RATIO 0.86; ALBUMIN 1.8 g/dL (3.4-5.0); ANION GAP 9.9 mEq/L (7-13); BILIRUBIN TOTAL 1.4 mg/dL (0.2-1.0); BUN/CREATININE RATIO 24.8 (No establ ref range); CALCIUM 8.5 mg/dL (8.5-10.1); CREATININE 1.09 mg/dL (0.55-1.02); EST CRCL DRUG DOSING (CG) 54.67 mL/min; POTASSIUM,K 4.9 mmol/L (3.5-5.1); PROTEIN TOTAL,TP 3.9 g/dL (6.4-8.2)
[2024-03-25 07:32] LABS: BAND PERCENT MAN 3 %; EOSINOPHILS PERCENT MAN 1 % (1-3); LYMPHOCYTES PERCENT MAN 21 % (20-50); MONOCYTES PERCENT MAN 5 % (2-8); SEG NEUTROPHILS PERCENT MAN 70 % (42-75)
[2024-03-25] MEDS: Permethrin 59 ML Bottle TOP ONE (09:40)
[2024-03-26 06:26] LABS: EOSINOPHILS PERCENT AUTO 2.4 % (1.0-3.0); HEMATOCRIT 29.7 % (37.0-47.0); HEMOGLOBIN 9.8 g/dL (12.0-16.0); LYMPHOCYTES PERCENT AUTO 25.8 % (20.5-50.1); MEAN CORPUSCULAR HEMOGLOBIN 33.9 pg (27.0-34.0); MEAN CORPUSCULAR VOLUME 102.8 fL (80-100); MONOCYTES PERCENT AUTO 11.6 % (2-8); NEUTROPHILS PERCENT AUTO 60.1 % (42.2-75.2); PLATELET COUNT,PLT 94 10^3/uL (150-450); RED BLOOD CELL COUNT 2.89 10^6/uL (4.2-5.4); WHITE BLOOD CELL COUNT,WBC 9.6 10^3/uL (5.0-10.0)
[2024-03-26 06:30] LABS: BASOPHILS PERCENT AUTO 0.1 % (0.0-1.0)
[2024-03-26 07:05] LABS: ALBUMIN 1.7 g/dL (3.4-5.0); ANION GAP 5.6 mEq/L (7-13); BILIRUBIN TOTAL 1.6 mg/dL (0.2-1.0); BUN/CREATININE RATIO 22.6 (No establ ref range); CALCIUM 8.5 mg/dL (8.5-10.1); CREATININE 1.06 mg/dL (0.55-1.02); EST CRCL DRUG DOSING (CG) 56.22 mL/min; POTASSIUM,K 4.6 mmol/L (3.5-5.1); PROTEIN TOTAL,TP 3.9 g/dL (6.4-8.2)
[2024-03-26 07:08] LABS: A/G RATIO 0.77
[2024-03-27 06:18] LABS: HEMATOCRIT 29.5 % (37.0-47.0); HEMOGLOBIN 9.4 g/dL (12.0-16.0); MEAN CORPUSCULAR HEMOGLOBIN 32.9 pg (27.0-34.0); MEAN CORPUSCULAR HGB CONC 31.9 g/dL (33.0-35.0); MEAN CORPUSCULAR VOLUME 103.1 fL (80-100); PLATELET COUNT,PLT 92 10^3/uL (150-450); RED BLOOD CELL COUNT 2.86 10^6/uL (4.2-5.4); WHITE BLOOD CELL COUNT,WBC 8.5 10^3/uL (5.0-10.0)
[2024-03-27 06:36] LABS: ALBUMIN 1.6 g/dL (3.4-5.0); ANION GAP 6.5 mEq/L (7-13); BILIRUBIN TOTAL 1.4 mg/dL (0.2-1.0); BUN/CREATININE RATIO 22.4 (No establ ref range); CALCIUM 8.4 mg/dL (8.5-10.1); CREATININE 0.98 mg/dL (0.55-1.02); EST CRCL DRUG DOSING (CG) 60.81 mL/min; POTASSIUM,K 4.5 mmol/L (3.5-5.1); PROTEIN TOTAL,TP 3.7 g/dL (6.4-8.2)
[2024-03-27 06:37] LABS: A/G RATIO 0.76
[2024-03-27 06:41] LABS: BASOPHILS PERCENT AUTO 0.1 % (0.0-1.0); EOSINOPHILS PERCENT AUTO 2.7 % (1.0-3.0); LYMPHOCYTES PERCENT AUTO 28.5 % (20.5-50.1); MONOCYTES PERCENT AUTO 10.5 % (2-8); NEUTROPHILS PERCENT AUTO 58.2 % (42.2-75.2)
[2024-03-27 07:12] LABS: BAND PERCENT MAN 2 %; LYMPHOCYTES PERCENT MAN 23 % (20-50); SEG NEUTROPHILS PERCENT MAN 65 % (42-75)
[2024-03-27 07:13] LABS: EOSINOPHILS PERCENT MAN 3 % (1-3); MONOCYTES PERCENT MAN 7 % (2-8)
[2024-03-27 11:43] VITALS: BP 107/45; PULSE 78
== END 2024-03-27 12:20 | disposition swing bed (61) | DRG 442 ==
LOC: DL.ED 16:09 → DL.MS 18:15 → OBSVTOIN 18:15
PROVIDERS: ADMIT Internal Medicine; ATTEND Internal Medicine
DX: T14.91XA Suicide attempt, initial encounter (principal); K76.82 Hepatic encephalopathy; E72.20 Disorder of urea cycle metabolism, unspecified; I13.0 Hypertensive heart and chronic kidney disease with heart failure and stage 1 through stage 4 chronic kidney disease, or unspecified chronic kidney disease; Z68.41 Body mass index [BMI] 40.0-44.9, adult; E87.20 Acidosis, unspecified; E87.5 Hyperkalemia; I50.9 Heart failure, unspecified; K21.9 Gastro-esophageal reflux disease without esophagitis; Z79.890 Hormone replacement therapy; N18.9 Chronic kidney disease, unspecified; E03.9 Hypothyroidism, unspecified; E66.9 Obesity, unspecified; M54.9 Dorsalgia, unspecified; G89.29 Other chronic pain; D69.6 Thrombocytopenia, unspecified; R73.9 Hyperglycemia, unspecified; D64.9 Anemia, unspecified; K74.60 Unspecified cirrhosis of liver; H40.9 Unspecified glaucoma; S60.812A Abrasion of left wrist, initial encounter; B85.0 Pediculosis due to Pediculus humanus capitis; F12.90 Cannabis use, unspecified, uncomplicated; E83.52 Hypercalcemia; E80.6 Other disorders of bilirubin metabolism; E83.119 Hemochromatosis, unspecified; Z79.899 Other long term (current) drug therapy; Z86.16 Personal history of COVID-19; Z98.890 Other specified postprocedural states
CPT/HCPCS: 36415; 80053; 80305-QW; 81001; 82140; 82607; 82746; 83605; 83735; 84100; 84443; 85025; 85610; 85730; 86140; 93005; 93010; 97161-GP; 97165-GO; 97530-GP; 99223; 99232; 99238; 99285; A9270-GY; J1650; J3490; J7512

== ENCOUNTER 2024-03-27 10:50 | Inpatient (IN) | payer MEDICAID ==
[2024-03-27] MEDS: Lactulose Soln 10 GM/15 ML 30 ML UD Cup PO SCH (12:55)
[2024-03-27] MEDS: Furosemide 20 MG Tab PO SCH (13:00)
[2024-03-27] MEDS: Brimonidine 0.2% Ophth Soln 5 ML Bottle EYELF SCH (13:36)
[2024-03-27] MEDS: Magnesium Oxide 400 MG Tab PO SCH (16:45)
[2024-03-27] MEDS: Mycophenolate Mofetil 250 MG Cap PO SCH (21:19)
[2024-03-27] MEDS: Rifaximin 550 MG Tab PO SCH (21:19)
[2024-03-27] MEDS: Dorzolamide/Timolol 2%-0.5% Ophth Soln 10 ML Bottle EYELF SCH (21:20)
[2024-03-28] MEDS: Omeprazole 20 MG Cap.CR PO SCH (05:12)
[2024-03-28] MEDS: Levothyroxine 88 MCG Tab PO SCH (05:12)
[2024-03-28] MEDS: Enoxaparin 40 MG/0.4 ML Syringe SUBCUT SCH (09:07)
[2024-03-28] MEDS: predniSONE 20 MG Tab PO SCH (09:08)
[2024-03-28] MEDS: Spironolactone 25 MG Tab PO SCH (09:08)
[2024-03-28] MEDS: Losartan 25 MG Tab PO SCH (09:08)
[2024-03-28] MEDS: Furosemide 40 MG Tab PO SCH (09:08)
[2024-03-28] MEDS: Lutein/Minerals/Vit A,C & E Tab PO SCH (09:08)
[2024-03-28] MEDS: Ondansetron 4 MG Tab.DIS PO PRN (21:52)
[2024-03-29 06:42] LABS: HEMATOCRIT 31.5 % (37.0-47.0); HEMOGLOBIN 9.8 g/dL (12.0-16.0); MEAN CORPUSCULAR HEMOGLOBIN 32.6 pg (27.0-34.0); MEAN CORPUSCULAR HGB CONC 31.1 g/dL (33.0-35.0); MEAN CORPUSCULAR VOLUME 104.7 fL (80-100); PLATELET COUNT,PLT 50 10^3/uL (150-450); RED BLOOD CELL COUNT 3.01 10^6/uL (4.2-5.4); WHITE BLOOD CELL COUNT,WBC 11.7 10^3/uL (5.0-10.0)
[2024-03-29 06:56] LABS: BASOPHILS PERCENT AUTO 0.3 % (0.0-1.0); EOSINOPHILS PERCENT AUTO 1.7 % (1.0-3.0); LYMPHOCYTES PERCENT AUTO 23.6 % (20.5-50.1); MONOCYTES PERCENT AUTO 4.6 % (2-8); NEUTROPHILS PERCENT AUTO 69.8 % (42.2-75.2)
[2024-03-29 07:23] LABS: ALBUMIN 1.8 g/dL (3.4-5.0); ANION GAP 8.3 mEq/L (7-13); BILIRUBIN TOTAL 2.4 mg/dL (0.2-1.0); CALCIUM 8.5 mg/dL (8.5-10.1); CREATININE 1.05 mg/dL (0.55-1.02); EST CRCL DRUG DOSING (CG) 56.76 mL/min; MAGNESIUM 1.9 mg/dL (1.8-2.4); POTASSIUM,K 4.3 mmol/L (3.5-5.1); PROTEIN TOTAL,TP 4.1 g/dL (6.4-8.2)
[2024-03-29 07:24] LABS: A/G RATIO 0.78
[2024-03-29 07:27] LABS: PROTHROMBIN TIME 10.4 SEC (9.0-12.0); PTT,PARTIAL THROMBOPLSTIN TIME 22.7 SEC (22.0-34.0)
[2024-03-29 07:49] LABS: EOSINOPHILS PERCENT MAN 2 % (1-3); LYMPHOCYTES PERCENT MAN 25 % (20-50); MONOCYTES PERCENT MAN 5 % (2-8); SEG NEUTROPHILS PERCENT MAN 68 % (42-75)
[2024-03-29] MEDS ORDERED: Sodium Chloride 0.9% 10 ML Syringe FLUSH PRN (08:05)
[2024-03-29] MEDS: Iopamidol 612 MG/ML 100 ML Bottle IVPUSH ONE (08:57)
[2024-03-29] MEDS: Sodium Chloride 0.9% 10 ML Syringe FLUSH SCH (09:44)
[2024-03-29] MEDS: hydrOXYzine HCl 25 MG Tab PO PRN (18:20)
[2024-03-29] MEDS: Ibuprofen 400 MG Tab PO PRN (20:45)
[2024-03-29] MEDS ORDERED: Acetaminophen/oxyCODONE 325-5 MG Tab PO PRN (22:48)
[2024-03-29] MEDS: GI Cocktail Oral Solution 30 ML PO ONE (23:11)
[2024-03-30] MEDS: Furosemide 20 MG/2 ML VIAL IVPUSH ONE (02:13)
[2024-03-30] MEDS: Ziprasidone Mesylate 20 MG Vial ONE (02:13)
[2024-03-30] MEDS: Furosemide 20 MG Tab PO ONE (02:15)
[2024-03-30] MEDS: Ziprasidone Mesylate 20 MG Vial IM ONE (02:15)
[2024-03-30 06:16] LABS: BASOPHILS PERCENT AUTO 0.2 % (0.0-1.0); EOSINOPHILS PERCENT AUTO 1.5 % (1.0-3.0); HEMATOCRIT 26.7 % (37.0-47.0); HEMOGLOBIN 8.4 g/dL (12.0-16.0); LYMPHOCYTES PERCENT AUTO 22.1 % (20.5-50.1); MEAN CORPUSCULAR HEMOGLOBIN 32.6 pg (27.0-34.0); MEAN CORPUSCULAR HGB CONC 31.5 g/dL (33.0-35.0); MEAN CORPUSCULAR VOLUME 103.5 fL (80-100); NEUTROPHILS PERCENT AUTO 68.2 % (42.2-75.2); PLATELET COUNT,PLT 74 10^3/uL (150-450); RED BLOOD CELL COUNT 2.58 10^6/uL (4.2-5.4); WHITE BLOOD CELL COUNT,WBC 10.6 10^3/uL (5.0-10.0)
[2024-03-30 06:34] LABS: PROTHROMBIN TIME 10.6 SEC (9.0-12.0); PTT,PARTIAL THROMBOPLSTIN TIME 29.9 SEC (22.0-34.0)
[2024-03-30 06:41] LABS: ALBUMIN 1.5 g/dL (3.4-5.0); ANION GAP 7.5 mEq/L (7-13); BILIRUBIN TOTAL 1.6 mg/dL (0.2-1.0); BUN/CREATININE RATIO 21.6 (No establ ref range); CALCIUM 8.2 mg/dL (8.5-10.1); CREATININE 1.16 mg/dL (0.55-1.02); EST CRCL DRUG DOSING (CG) 51.37 mL/min; POTASSIUM,K 4.5 mmol/L (3.5-5.1); PROTEIN TOTAL,TP 3.6 g/dL (6.4-8.2)
[2024-03-30 06:43] LABS: A/G RATIO 0.71
[2024-03-30] MEDS: Furosemide 40 MG/4 ML VIAL IVPUSH ONE (10:55)
[2024-03-30] MEDS: Furosemide 40 MG Tab PO SCH ×2 (11:17→14:10)
[2024-03-30] MEDS: Spironolactone 25 MG Tab PO SCH (11:42)
[2024-03-30 12:40] LABS: ANION GAP 7.3 mEq/L (7-13); CALCIUM 8.7 mg/dL (8.5-10.1); CREATININE 1.31 mg/dL (0.55-1.02); EST CRCL DRUG DOSING (CG) 45.49 mL/min; POTASSIUM,K 4.3 mmol/L (3.5-5.1)
[2024-03-31 06:44] LABS: BASOPHILS PERCENT AUTO 0.1 % (0.0-1.0); EOSINOPHILS PERCENT AUTO 1.1 % (1.0-3.0); HEMOGLOBIN 8.7 g/dL (12.0-16.0); LYMPHOCYTES PERCENT AUTO 18.6 % (20.5-50.1); MEAN CORPUSCULAR HEMOGLOBIN 32.5 pg (27.0-34.0); MEAN CORPUSCULAR HGB CONC 31.1 g/dL (33.0-35.0); MEAN CORPUSCULAR VOLUME 104.5 fL (80-100); MONOCYTES PERCENT AUTO 8.8 % (2-8); NEUTROPHILS PERCENT AUTO 71.4 % (42.2-75.2); PLATELET COUNT,PLT 77 10^3/uL (150-450); RED BLOOD CELL COUNT 2.68 10^6/uL (4.2-5.4); WHITE BLOOD CELL COUNT,WBC 12.7 10^3/uL (5.0-10.0)
[2024-03-31 06:57] LABS: PROTHROMBIN TIME 10.8 SEC (9.0-12.0); PTT,PARTIAL THROMBOPLSTIN TIME 30.8 SEC (22.0-34.0)
[2024-03-31 07:05] LABS: ALBUMIN 1.4 g/dL (3.4-5.0); ANION GAP 8.7 mEq/L (7-13); BILIRUBIN TOTAL 1.5 mg/dL (0.2-1.0); BUN/CREATININE RATIO 23.4 (No establ ref range); CALCIUM 8.2 mg/dL (8.5-10.1); CREATININE 1.24 mg/dL (0.55-1.02); EST CRCL DRUG DOSING (CG) 48.06 mL/min; POTASSIUM,K 4.7 mmol/L (3.5-5.1); PROTEIN TOTAL,TP 3.6 g/dL (6.4-8.2)
[2024-03-31 07:06] LABS: A/G RATIO 0.64
[2024-03-31] MEDS: predniSONE 20 MG Tab PO SCH (09:47)
[2024-03-31] MEDS: Melatonin 3 MG Tab PO PRN (21:31)
[2024-03-31] MEDS: GI Cocktail Oral Solution 30 ML PO PRN (21:32)
[2024-03-31] MEDS: Ziprasidone Mesylate 20 MG Vial IM PRN (22:48)
[2024-04-01 06:47] LABS: BASOPHILS PERCENT AUTO 0.3 % (0.0-1.0); EOSINOPHILS PERCENT AUTO 2.9 % (1.0-3.0); HEMATOCRIT 31.2 % (37.0-47.0); HEMOGLOBIN 9.8 g/dL (12.0-16.0); LYMPHOCYTES PERCENT AUTO 22.6 % (20.5-50.1); MEAN CORPUSCULAR HEMOGLOBIN 32.7 pg (27.0-34.0); MEAN CORPUSCULAR HGB CONC 31.4 g/dL (33.0-35.0); NEUTROPHILS PERCENT AUTO 65.2 % (42.2-75.2); PLATELET COUNT,PLT 99 10^3/uL (150-450); WHITE BLOOD CELL COUNT,WBC 7.7 10^3/uL (5.0-10.0)
[2024-04-01 07:12] LABS: PROTHROMBIN TIME 10.4 SEC (9.0-12.0); PTT,PARTIAL THROMBOPLSTIN TIME 28.3 SEC (22.0-34.0)
[2024-04-01 07:24] LABS: ALBUMIN 1.5 g/dL (3.4-5.0); ANION GAP 10.7 mEq/L (7-13); BILIRUBIN TOTAL 2.2 mg/dL (0.2-1.0); CALCIUM 8.3 mg/dL (8.5-10.1); CREATININE 1.25 mg/dL (0.55-1.02); EST CRCL DRUG DOSING (CG) 47.68 mL/min; POTASSIUM,K 4.7 mmol/L (3.5-5.1); PROTEIN TOTAL,TP 4.1 g/dL (6.4-8.2)
[2024-04-01 07:30] LABS: A/G RATIO 0.58
[2024-04-01] MEDS ORDERED: Dextrose 5%-0.9% NaCl 1,000 ML IV SCH (08:00)
[2024-04-01] MEDS ORDERED: Non-Formulary Medication 1 Each (Magnesium Oxide [Magnesium Oxide] 400 MG Tablet) PO SCH (09:00)
[2024-04-01] MEDS ORDERED: Dorzolamide/Timolol 2%-0.5% Ophth Soln 10 ML Bottle EYELF SCH (09:00)
[2024-04-01] MEDS: Brimonidine 0.2% Ophth Soln 5 ML Bottle EYELF SCH (09:49)
[2024-04-01] MEDS: Albumin Human 50 GM in Premix Bag 1 BAG IV ONE (09:50)
[2024-04-01] MEDS: HYDROmorphone 0.5 MG/0.5 ML Syringe IVPUSH PRN (09:54)
[2024-04-01] MEDS: Furosemide 100 MG in Sodium Chloride 0.9% 90 ML IV SCH (10:07)
[2024-04-01] MEDS: Albumin Human 25 GM in Premix Bag 1 BAG IV SCH (17:18)
[2024-04-01] MEDS: Lidocaine 5% 700 MG Patch TOP ONE (21:18)
[2024-04-02] MEDS: Simethicone 80 MG Tab.Chew PO PRN (00:25)
[2024-04-02] MEDS: Modafinil 100 MG Tab PO SCH (09:11)
[2024-04-02] MEDS: Lidocaine 5% 700 MG Patch TOP SCH (20:56)
[2024-04-03 10:43] LABS: EOSINOPHILS PERCENT AUTO 1.2 % (1.0-3.0); HEMATOCRIT 22.6 % (37.0-47.0); MEAN CORPUSCULAR HEMOGLOBIN 32.3 pg (27.0-34.0); MEAN CORPUSCULAR VOLUME 104.1 fL (80-100); MONOCYTES PERCENT AUTO 9.9 % (2-8); NEUTROPHILS PERCENT AUTO 66.8 % (42.2-75.2); PLATELET COUNT,PLT 64 10^3/uL (150-450); RED BLOOD CELL COUNT 2.17 10^6/uL (4.2-5.4); WHITE BLOOD CELL COUNT,WBC 7.7 10^3/uL (5.0-10.0)
[2024-04-03 10:46] LABS: BASOPHILS PERCENT AUTO 0.1 % (0.0-1.0)
[2024-04-03 10:58] LABS: A/G RATIO 2.6; ALBUMIN 3.6 g/dL (3.4-5.0); ANION GAP 9.8 mEq/L (7-13); BILIRUBIN TOTAL 1.8 mg/dL (0.2-1.0); BUN/CREATININE RATIO 20.9 (No establ ref range); CALCIUM 8.9 mg/dL (8.5-10.1); CREATININE 1.15 mg/dL (0.55-1.02); EST CRCL DRUG DOSING (CG) 51.82 mL/min; POTASSIUM,K 4.8 mmol/L (3.5-5.1)
[2024-04-03] MEDS: Furosemide 100 MG in Sodium Chloride 0.9% 90 ML IV SCH (12:19)
[2024-04-04] MEDS: Spironolactone 25 MG Tab PO SCH (09:19)
[2024-04-05] MEDS: predniSONE 5 MG Tab PO SCH (10:15)
[2024-04-05] MEDS: predniSONE 20 MG Tab PO SCH (10:15)
[2024-04-06] MEDS: Modafinil 100 MG Tab PO SCH (09:00)
[2024-04-06] MEDS: Ziprasidone Mesylate 20 MG Vial IM PRN (23:31)
[2024-04-07] MEDS: Acetaminophen/HYDROcodone 325-5 MG Tab PO ONE (12:34)
[2024-04-08] MEDS: Ziprasidone Mesylate 20 MG Vial IM ONE (02:42)
[2024-04-08] MEDS: Lutein/Minerals/Vit A,C & E Tab PO SCH (09:50)
[2024-04-08] MEDS ORDERED: Menthol/Zinc Oxide Ointment 113 GM Tube TOP PRN (10:09)
[2024-04-08] MEDS: hydrALAZINE 20 MG/ML SDV IVPUSH PRN (20:13)
[2024-04-08] MEDS ORDERED: Loperamide 2 MG Cap PO PRN (23:47)
[2024-04-09 06:19] LABS: BASOPHILS PERCENT AUTO 0.1 % (0.0-1.0); EOSINOPHILS PERCENT AUTO 0.3 % (1.0-3.0); HEMATOCRIT 25.8 % (37.0-47.0); HEMOGLOBIN 7.9 g/dL (12.0-16.0); LYMPHOCYTES PERCENT AUTO 9.5 % (20.5-50.1); MEAN CORPUSCULAR HEMOGLOBIN 32.8 pg (27.0-34.0); MEAN CORPUSCULAR HGB CONC 30.6 g/dL (33.0-35.0); MEAN CORPUSCULAR VOLUME 107.1 fL (80-100); MONOCYTES PERCENT AUTO 3.8 % (2-8); NEUTROPHILS PERCENT AUTO 86.3 % (42.2-75.2); PLATELET COUNT,PLT 64 10^3/uL (150-450); RED BLOOD CELL COUNT 2.41 10^6/uL (4.2-5.4)
[2024-04-09 06:40] LABS: ALBUMIN 2.3 g/dL (3.4-5.0); ANION GAP 6.8 mEq/L (7-13); BILIRUBIN TOTAL 1.7 mg/dL (0.2-1.0); BUN/CREATININE RATIO 24.3 (No establ ref range); CALCIUM 8.7 mg/dL (8.5-10.1); CREATININE 1.11 mg/dL (0.55-1.02); EST CRCL DRUG DOSING (CG) 53.69 mL/min; POTASSIUM,K 4.8 mmol/L (3.5-5.1)
[2024-04-09 06:45] LABS: A/G RATIO 1.35
[2024-04-10 06:29] LABS: EOSINOPHILS PERCENT AUTO 0.3 % (1.0-3.0); HEMATOCRIT 26.7 % (37.0-47.0); HEMOGLOBIN 8.3 g/dL (12.0-16.0); LYMPHOCYTES PERCENT AUTO 9.7 % (20.5-50.1); MEAN CORPUSCULAR HEMOGLOBIN 32.4 pg (27.0-34.0); MEAN CORPUSCULAR HGB CONC 31.1 g/dL (33.0-35.0); MEAN CORPUSCULAR VOLUME 104.3 fL (80-100); MONOCYTES PERCENT AUTO 6.6 % (2-8); NEUTROPHILS PERCENT AUTO 83.4 % (42.2-75.2); PLATELET COUNT,PLT 89 10^3/uL (150-450); RED BLOOD CELL COUNT 2.56 10^6/uL (4.2-5.4)
[2024-04-10 06:56] LABS: ALBUMIN 2.4 g/dL (3.4-5.0); ANION GAP 13.1 mEq/L (7-13); BILIRUBIN TOTAL 2.1 mg/dL (0.2-1.0); CALCIUM 8.7 mg/dL (8.5-10.1); CREATININE 1.23 mg/dL (0.55-1.02); EST CRCL DRUG DOSING (CG) 48.45 mL/min; MAGNESIUM 2.4 mg/dL (1.8-2.4); POTASSIUM,K 5.1 mmol/L (3.5-5.1); PROTEIN TOTAL,TP 4.2 g/dL (6.4-8.2)
[2024-04-10 06:58] LABS: A/G RATIO 1.33
[2024-04-10] MEDS: Lactulose Soln 10 GM/15 ML 30 ML UD Cup PO SCH (21:52)
[2024-04-11] MEDS ORDERED: Ergocalciferol (Vitamin D2) 1.25 MG Cap PO SCH (08:00)
[2024-04-11] MEDS: Lactulose Soln 10 GM/15 ML 30 ML UD Cup PO SCH (09:24)
[2024-04-12] MEDS: predniSONE 20 MG Tab PO SCH (09:25)
[2024-04-12 09:32] LABS: ANION GAP 7.3 mEq/L (7-13); CALCIUM 8.8 mg/dL (8.5-10.1); CREATININE 1.2 mg/dL (0.55-1.02); EST CRCL DRUG DOSING (CG) 49.66 mL/min; POTASSIUM,K 5.3 mmol/L (3.5-5.1)
[2024-04-12] MEDS: Furosemide 80 MG Tab PO SCH (12:16)
[2024-04-12] MEDS: Furosemide 40 MG Tab PO ONE (17:56)
[2024-04-12] MEDS: Lactulose Soln 10 GM/15 ML 30 ML UD Cup PO SCH (21:26)
[2024-04-12] MEDS: Doxycycline Monohydrate 100 MG Cap PO SCH (21:26)
[2024-04-12] MEDS: Amoxicillin 500 MG Cap PO SCH (21:27)
[2024-04-13 06:41] LABS: BASOPHILS PERCENT AUTO 0.1 % (0.0-1.0); EOSINOPHILS PERCENT AUTO 0.9 % (1.0-3.0); HEMATOCRIT 28.4 % (37.0-47.0); HEMOGLOBIN 8.6 g/dL (12.0-16.0); LYMPHOCYTES PERCENT AUTO 15.8 % (20.5-50.1); MEAN CORPUSCULAR HEMOGLOBIN 32.1 pg (27.0-34.0); MEAN CORPUSCULAR HGB CONC 30.3 g/dL (33.0-35.0); MONOCYTES PERCENT AUTO 10.7 % (2-8); NEUTROPHILS PERCENT AUTO 72.5 % (42.2-75.2); PLATELET COUNT,PLT 105 10^3/uL (150-450); RED BLOOD CELL COUNT 2.68 10^6/uL (4.2-5.4); WHITE BLOOD CELL COUNT,WBC 6.9 10^3/uL (5.0-10.0)
[2024-04-13 07:10] LABS: ANION GAP 8.5 mEq/L (7-13); BILIRUBIN TOTAL 1.1 mg/dL (0.2-1.0); BUN/CREATININE RATIO 20.6 (No establ ref range); CALCIUM 8.7 mg/dL (8.5-10.1); CREATININE 1.26 mg/dL (0.55-1.02); EST CRCL DRUG DOSING (CG) 47.3 mL/min; MAGNESIUM 2.2 mg/dL (1.8-2.4); PHOSPHORUS 3.8 mg/dL (2.6-4.7); POTASSIUM,K 5.5 mmol/L (3.5-5.1)
[2024-04-13] MEDS: Iopamidol 755 Mg/ML 100 ML Bottle IVPUSH ONE (10:47)
[2024-04-13] MEDS: Lactulose Soln 10 GM/15 ML 30 ML UD Cup PO SCH (12:23)
[2024-04-13] MEDS ORDERED: Furosemide 40 MG Tab PO ONE (14:00)
[2024-04-13] MEDS: Magnesium Oxide 400 MG Tab PO ONE (15:00)
[2024-04-13] MEDS: Furosemide 80 MG Tab PO ONE (15:00)
[2024-04-13] MEDS ORDERED: Ziprasidone Mesylate 20 MG Vial IM PRN (16:41)
[2024-04-13 17:29] LABS: ANION GAP 5.1 mEq/L (7-13); CALCIUM 8.9 mg/dL (8.5-10.1); CREATININE 1.38 mg/dL (0.55-1.02); EST CRCL DRUG DOSING (CG) 43.19 mL/min; POTASSIUM,K 6.1 mmol/L (3.5-5.1)
[2024-04-13 18:27] LABS: O2 DELIVERY DEVICE ROOM AIR
[2024-04-13] MEDS: Furosemide 40 MG/4 ML VIAL IVPUSH ONE (18:33)
[2024-04-13 18:37] LABS: BASE EXCESS VENOUS -0.9 mmol/l ((-2)-(+3)); BICARBONATE,VENOUS 29 mmol/l (19-25); PO2 VENOUS 60 mmHg (35-42)
[2024-04-13 18:38] LABS: PH,VENOUS 7.17 (7.31-7.41)
[2024-04-13 18:39] LABS: PCO2 VENOUS 81 mmHg (41-51)
[2024-04-13 19:59] LABS: O2 DELIVERY DEVICE ROOM AIR
[2024-04-13 20:03] LABS: PH,ARTERIAL 7.16 (7.35-7.45)
[2024-04-13 20:05] LABS: BASE EXCESS ARTERIAL -1 mmol/L ((-2)-(+3)); BICARBONATE,ARTERIAL 28.9 mmol/L (22-26); O2 SATURATION ARTERIAL 96 % (95-100); PCO2 ARTERIAL 85 mmHg (35-45); PO2 ARTERIAL 102 mmHg (70-100)
[2024-04-13 20:12] LABS: ALLEN TEST PERFORMED
[2024-04-13] MEDS: Rocuronium 100 MG/10 ML MDV IVPUSH ONE (21:56)
[2024-04-13] MEDS: Etomidate 2 MG/ML 10 ML SDV IVPUSH ONE ×2 (21:56→23:27)
[2024-04-13] MEDS: Sodium Bicarbonate 8.4% 50 MEQ/50 ML Syringe IVPUSH ONE (22:07)
[2024-04-13 22:29] LABS: O2 DELIVERY DEVICE VENTILATOR
[2024-04-13] MEDS: Midazolam 50 MG in Sodium Chloride 0.9% 40 ML IV SCH (22:30)
[2024-04-13] MEDS: fentaNYL 500 MCG in Sodium Chloride 0.9% 50 ML IV SCH (22:30)
[2024-04-13 22:34] LABS: POTASSIUM,K 5.8 mmol/L (3.5-4.9)
[2024-04-13 22:35] LABS: ANION GAP 14.8 mEq/L (7-13); CREATININE 1.2 mg/dL (0.6-1.3); EST CRCL DRUG DOSING (CG) 49.66 mL/min
[2024-04-13 22:39] LABS: BICARBONATE,VENOUS 31 mmol/l (19-25); O2 SATURATION VENOUS 54.4 % (60-80); PO2 VENOUS 40 mmHg (35-42)
[2024-04-13 22:40] LABS: BASE EXCESS VENOUS 1.3 mmol/l ((-2)-(+3))
[2024-04-13 22:43] LABS: PCO2 VENOUS 87 mmHg (41-51); PH,VENOUS 7.18 (7.31-7.41)
[2024-04-13 22:57] LABS: APPEARANCE,URINE CLOUDY (CLEAR); BILIRUBIN,URINE NEGATIVE (NEGATIVE); COLOR,URINE YELLOW (YELLOW); GLUCOSE,URINE NEGATIVE (NEGATIVE); KETONES,URINE NEGATIVE (NEGATIVE); LEUKOCYTE ESTERASE,URINE TRACE (NEGATIVE); NITRITE,URINE NEGATIVE (NEGATIVE); OCCULT BLOOD,URINE MODERATE (NEGATIVE); PH,URINE 5.5 (5.0-9.0); PROTEIN,URINE >=300 (NEGATIVE); UROBILINOGEN,URINE 0.2 mg/dL (0.2-1.0)
[2024-04-13 23:00] LABS: AMPHETAMINES,URINE NEGATIVE (NEGATIVE); BARBITURATES,URINE NEGATIVE (NEGATIVE); BENZODIAZEPINE,URINE NEGATIVE (NEGATIVE); MDMA (ECSTASY), URINE NEGATIVE (NEGATIVE); METHADONE,URINE NEGATIVE (NEGATIVE); METHAMPHETAMINES,URINE NEGATIVE (NEGATIVE); OPIATES,URINE NEGATIVE (NEGATIVE); OXYCODONE,URINE NEGATIVE (NEGATIVE); PHENCYCLIDINE,URINE NEGATIVE (NEGATIVE); TCA,URINE NEGATIVE (NEGATIVE)
[2024-04-13 23:10] VITALS: BP 142/80; PULSE 98
[2024-04-13 23:12] LABS: BACTERIA,URINE MODERATE /HPF (0-FEW/HPF); EPITHELIAL CELLS,URINE FEW /HPF (NOT SEEN); MUCUS,URINE FEW /LPF (NOT SEEN); WBC,URINE PACKED /HPF (0-5/HPF)
[2024-04-13 23:13] LABS: FINE GRANULAR CASTS,URINE MODERATE /LPF (NOT SEEN); GRANULAR CASTS,URINE FEW
[2024-04-13] MEDS: Benzocaine 20% Topical Spray UD MUCMEM ONE (23:25)
[2024-04-13] MEDS: fentaNYL 250 MCG/5 ML SDV ONE (23:27)
[2024-04-19] MEDS ORDERED: predniSONE 5 MG Tab PO SCH (09:00)
[2024-04-26] MEDS ORDERED: predniSONE 10 MG Tab PO SCH (09:00)
[2024-05-03] MEDS ORDERED: predniSONE 5 MG Tab PO SCH (09:00)
== END 2024-04-13 22:50 | DRG 642 ==
LOC: DL.MS 12:20
PROVIDERS: ADMIT Student in an Organized Health Care Education/Training Program; ATTEND Internal Medicine
PROC: 0BH17EZ Insertion of Endotracheal Airway into Trachea, Via Natural or Artificial Opening (ICD-10-PCS; principal; 2024-04-13)
PROC: 4A033R1 Measurement of Arterial Saturation, Peripheral, Percutaneous Approach (ICD-10-PCS; principal; 2024-04-13)
PROC: 0DH67UZ Insertion of Feeding Device into Stomach, Via Natural or Artificial Opening (ICD-10-PCS; principal; 2024-04-13)
DX: E72.20 Disorder of urea cycle metabolism, unspecified (principal); E43 Unspecified severe protein-calorie malnutrition; I81 Portal vein thrombosis; I13.0 Hypertensive heart and chronic kidney disease with heart failure and stage 1 through stage 4 chronic kidney disease, or unspecified chronic kidney disease; E87.0 Hyperosmolality and hypernatremia; E87.20 Acidosis, unspecified; R18.8 Other ascites; Z68.41 Body mass index [BMI] 40.0-44.9, adult; H26.9 Unspecified cataract; H40.9 Unspecified glaucoma; I50.9 Heart failure, unspecified; K21.9 Gastro-esophageal reflux disease without esophagitis; G89.29 Other chronic pain; M54.9 Dorsalgia, unspecified; F41.9 Anxiety disorder, unspecified; E03.9 Hypothyroidism, unspecified; D63.1 Anemia in chronic kidney disease; K76.82 Hepatic encephalopathy; S60.812A Abrasion of left wrist, initial encounter; D69.6 Thrombocytopenia, unspecified; B85.0 Pediculosis due to Pediculus humanus capitis; E87.5 Hyperkalemia; E83.52 Hypercalcemia; N18.9 Chronic kidney disease, unspecified; E88.09 Other disorders of plasma-protein metabolism, not elsewhere classified; K74.60 Unspecified cirrhosis of liver; F12.90 Cannabis use, unspecified, uncomplicated; E87.70 Fluid overload, unspecified; D72.829 Elevated white blood cell count, unspecified; M19.90 Unspecified osteoarthritis, unspecified site; Z79.1 Long term (current) use of non-steroidal anti-inflammatories (NSAID); Z79.899 Other long term (current) drug therapy; Z98.891 History of uterine scar from previous surgery; Z98.890 Other specified postprocedural states
CPT/HCPCS: 36415; 36600; 51702; 70450; 71045; 71275; 74018; 74177; 76705; 80048; 80053; 80171; 80305-QW; 81001; 82140; 82803; 82947; 83735; 84100; 84132; 85025; 85379; 85610; 85730; 87493; 93005; 93971; 94660; A9270-GY; J0360; J1171; J1650; J1940; J2250; J3010; J3486; J3490; J7512; P9047; Q9967